=== PATIENT | male | born 1955 | race African-American/Black ===

== ENCOUNTER 2017-01-04 12:42 | Inpatient (IN) | payer OTHER ==
--- NOTE | 2017-01-04 13:50 | PDOC ---
History of Present Illness - General Chief Complaint: Chest Pain Stated Complaint: CHEST PAIN Time Seen by Provider: 01/04/17 13:28 History Source: Patient Exam Limitations: No Limitations - History of Present Illness Initial Comments: 01/04/17 13:46 CHIEF COMPLAINT: Chest pain HISTORY OF PRESENT ILLNESS: This is a 59-year-old male former smoker with a history of ESRD s/p right renal transplant ([facility]) with CKD, COPD, and biventricular CHF who presents complaining of sharp/pinching left-sided chest pain for two days. He reports working out on Wednesday, Wednesday, and Wednesday and states that he may have strained a muscle. Chest pain is worse with deep breathing and with movement and radiates to the left shoulder. It is not relieved with Tylenol and prevents him from sleeping. He denies cough, fevers/ chills, or any other symptoms. V/s on arrival are unremarkable. PCP/Event Marketing Coordinator is Dr. Castrejon Transplant surgeon is Dr. Hector Bernstein. 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 REVIEW OF SYSTEMS: GENERAL/CONSTITUTIONAL: No fever or chills. No weakness. No weight change. HEAD, EYES, EARS, NOSE AND THROAT: No change in vision. No ear pain or discharge. No sore throat. CARDIOVASCULAR: See HPI. RESPIRATORY: No cough, wheezing, or shortness of breath. GASTROINTESTINAL: No nausea, vomiting, diarrhea or constipation. GENITOURINARY: No dysuria, frequency, or change in urination. MUSCULOSKELETAL: No joint or muscle swelling or pain. No neck or back pain. SKIN: No rash or easy bruising. NEUROLOGIC: No headache, vertigo, loss of consciousness, or loss of sensation. PSYCHIATRIC: No depression or anxiety. ENDOCRINE: No increased thirst. No abnormal weight change. HEMATOLOGIC/LYMPHATIC: No anemia, easy bleeding, or history of blood clots. ALLERGIC/IMMUNOLOGIC: No hives or skin allergy. No latex allergy. PHYSICAL EXAM: GENERAL: The patient is awake, alert, and fully oriented, appears uncomfortable. HEAD: Normal with no signs of trauma. ENT: Pupils equal, round and reactive to light, extraocular movements intact, sclera anicteric, conjunctiva clear. Neck supple. LUNGS: Breath sounds diminished left base. No respiratory distress or use of accessory muscles. CV: RRR, S1/S2, soft systolic murmur. Cap refill < 2 sec. Pain reproducible with palpation of left intercostal muscles below nipple line and with twisting movements. ABDOMEN: Soft, non-distended, non-tender. EXTREMITIES: Normal range of motion, no edema. LUE AVF. NEUROLOGICAL: Normal speech, normal gait. CN II-XII grossly intact. PSYCH: Normal mood, normal affect. SKIN: Warm, dry, normal turgor, no rashes or lesions noted. Past History - Past Medical History Allergies/Adverse Reactions: Allergies Allergy/AdvReac Type Severity Reaction Status Date / Time No Known Allergies Allergy Verified 01/04/17 12:48 Home Medications: Ambulatory Orders Mycophenolate Mofetil [Cellcept] 250 mg PO DAILY 03/24/14 Tacrolimus [Prograf] 7 mg PO BID 03/24/14 Allopurinol [Zyloprim -] 100 mg PO PRN 11/18/15 Sodium Bicarbonate 1,300 mg PO BID 11/18/15 Carvedilol [Coreg -] 12.5 mg PO BID #60 tablet 11/21/15 Ergocalciferol (Vitamin D2) [Vitamin D2] 2,000 unit PO DAILY 01/04/17 Furosemide 20 mg PO BID 01/04/17 Anemia: No Asthma: No Cancer: No Cardiac Disorders: Yes CVA: No COPD: Yes CHF: Yes Dementia: No Diabetes: No Dialysis: Yes (HX FISTULA) GI Disorders: No Disorders: No HTN: Yes Hypercholesterolemia: No Liver Disease: No Seizures: No Thyroid Disease: No - Surgical History Abdominal Surgery: No Appendectomy: No Cardiac Surgery: No Cholecystectomy: No Lung Surgery: No Neurologic Surgery: No Orthopedic Surgery: No - Psycho/Social/Smoking Cessation Hx Suicidal Ideation: No Smoking History: Current every day smoker Have you smoked in the past 12 months: Yes Number of Cigarettes Smoked Daily: 10 If you are a former smoker, when did you quit?: 2.5 months ago Information on smoking cessation initiated: No 'Breaking Loose' booklet given: 11/18/15 Hx Alcohol Use: No Drug/Substance Use Hx: Yes Substance Use Type: Marijuana Hx Substance Use Treatment: No *Physical Exam - Vital Signs Last Vital Signs Temp Pulse Resp BP Pulse Ox 98.2 F 74 18 135/78 98 01/04/17 12:43 01/04/17 12:43 01/04/17 12:43 01/04/17 12:43 01/04/17 12:43 Heart Score/ECG Review - ECG Intrepretation Comment:: 01/04/17 19:09 SR at 75bpm. New TWI in lateral leads when compared to prior EKG of 11/19/15. ED Treatment Course - LABORATORY CBC & Chemistry Diagram: 01/05/17 06:05 01/05/17 06:05 - RADIOLOGY Radiology Studies Ordered: Category Date Time Status CHEST X-RAY PORTABLE* [RAD] Stat Radiology 01/04/17 13:29 Ordered Medical Decision Making - Medical Decision Making 01/04/17 15:56 A/P: 61 year old male with atypical chest pain; differential includes MS etiology, ACS, PNA, less likely PTX or PE. 1. EKG 2. Labs including CBC, comp, PT/INR, cardiac profile 3. CXR 4. Morphine 4mg IVP for pain 01/04/17 16:03 CXR: Left basilar opacity with effacement of the diaphragm and blunting of the costophrenic angle. Findings concerning for pleural effusion and compressive atelectasis. Will obtain CT to better characterize. 01/04/17 16:47 Trop elevated at 0.12. 01/04/17 17:39 CT Chest: Left basilar opacification containing air bronchograms suggestive of an infiltrate. COmpressive atelectasis. Small right lower lobe opacity suggestive of additional infiltrate. 0.8 x 0.4cm irregular opacity within the right pulmonary apex with adjacent linerar opacity probably on the basis of scarring, less likely representing pulmary nodule. 3 month followup suggested. Prominent central pulmonary vasculature suggestive of pulmonary hypertension. 3.4cm fluid structure/cyst within the partially imaged upper pole of the left kidney. 01/04/17 18:[address] Smith. Discussed with Dr. Sachin Castrejon- [facility] Hospitalist (not service). Accepted by Dr. Rollins. *DC/Admit/Observation/Transfer Diagnosis at time of Disposition: Renal transplant recipient, Multifocal pneumonia, Pleural effusion Chest pain Qualifiers: Chest pain type: other chest pain Qualified Code(s): R07.89 - Other chest pain - Discharge Dispostion Admit: Yes
[2017-01-04] MEDS ORDERED: morphine CARPU-JECT 4 MG/1 ML DISP.SYRIN IVPUSH ONE ×2 (14:00→17:45)
[2017-01-04 14:10] LABS: BASOPHIL 0.8 % (0-2.0); EOSINOPHIL 5.6 % (0-4.5); MCH 28.2 pg (25.7-33.7); MCHC 31.8 g/dl (32.0-35.9); MEAN CELL VOLUME 88.8 fl (80-96); MEAN PLT VOLUME 9.8 fl (7.5-11.1); NEUTROPHILS 75.9 % (42.8-82.8); PLATELET COUNT 179 K/MM3 (134-434); RDW 15.9 % (11.9-15.9); WHITE BLOOD COUNT 11.9 K/mm3 (4.0-10.0)
[2017-01-04] MEDS ORDERED: morphine CARPU-JECT 10 MG/1 ML DISP.SYRIN ONE ×2 (14:11→17:54)
[2017-01-04 14:23] LABS: INR 1.14 (0.82-1.09); PROTHROMBIN TIME (PATIENT) 12.6 SEC (9.98-11.88)
[2017-01-04 16:35] LABS: ALBUMIN 3.5 g/dl (3.4-5.0); ANION GAP 12 (8-16); BILIRUBIN,TOTAL 0.9 mg/dL (0.2-1.0); CO2 22 mmol/L (21-32); CREATININE 5.3 mg/dL (0.7-1.3); GLUCOSE,RANDOM 98 mg/dL (74-106); SGOT/AST 7 U/L (15-37); SGPT/ALT 20 U/L (12-78)
[2017-01-04 16:38] LABS: ALK PHOS 125 U/L (45-117); CPK 110 IU/L (39-308); TROPONIN I 0.12 ng/ml (0.00-0.05)
[2017-01-04] MEDS ORDERED: CEFTRIAXONE 1 GM in DEXTROSE 5%-WATER - 50 ML IVPB ONE (17:31)
[2017-01-04] MEDS ORDERED: AZITHROMYCIN IVPB 500 MG in DEXTROSE 5%-WATER - 250 ML IVPB ONE (17:31)
[2017-01-04] MEDS ORDERED: cefTRIAXone SODIUM 1 GM VIAL ONE (17:55)
[2017-01-04] MEDS ORDERED: AZITHROMYCIN IVPB 250 ML IVPB ONE (17:55)
--- NOTE | 2017-01-04 19:53 | PN ---
Teaching Attending Note Name of Resident: Mariela Hammer ATTENDING PHYSICIAN STATEMENT I saw and evaluated the patient. I reviewed the resident's note and discussed the case with the resident. I agree with the resident's findings and plan as documented. SUBJECTIVE: 61 M with pmhx of HTN, COPD, R. Renal Transplant, CKD V, States that he has had left pinching pain on inspiration. States he took tylenol to try and alleviate pain. Notes his pain is slightly improved. Notes chest pain only on inspiration , non-radiating and worsened with inspiration. OBJECTIVE: Physical: VS: Vital Signs Period Temp Pulse Resp BP Sys/Ly Pulse Ox Last 24 Hr 98.2 F-98.3 F 71-74 18-22 135-139/77-78 94-98 GEN: NAD, Sitting in bed, able to speak full sentences HEENT: NCAT, PERRL, Throat without erythema or exudates CARD: RRR S1, S2 RESP: Coarse breath sounds bilateral bases ABD: BSx4, NTD to palpation EXT: -C/C/E CBCD WBC 11.9 K/mm3 (4.0-10.0) H 01/04/17 14:00 RBC 4.28 M/mm3 (4.00-5.60) 01/04/17 14:00 Hgb 12.1 GM/dL (11.7-16.9) 01/04/17 14:00 Hct 38.0 % (35.4-49) 01/04/17 14:00 MCV 88.8 fl (80-96) 01/04/17 14:00 MCHC 31.8 g/dl (32.0-35.9) L 01/04/17 14:00 RDW 15.9 % (11.9-15.9) 01/04/17 14:00 Plt Count 179 K/MM3 (134-434) 01/04/17 14:00 MPV 9.8 fl (7.5-11.1) 01/04/17 14:00 CMP Sodium 140 mmol/L (136-145) 01/04/17 15:00 Potassium 4.7 mmol/L (3.5-5.1) 01/04/17 15:00 Chloride 106 mmol/L (98-107) 01/04/17 15:00 Carbon Dioxide 22 mmol/L (21-32) 01/04/17 15:00 Anion Gap 12 (8-16) 01/04/17 15:00 BUN 68 mg/dL (7-18) H D 01/04/17 15:00 Creatinine 5.3 mg/dL (0.7-1.3) H 01/04/17 15:00 Creat Clearance w eGFR 11.16 (>60) 01/04/17 15:00 Random Glucose 98 mg/dL (74-106) 01/04/17 15:00 Calcium 8.0 mg/dL (8.5-10.1) L 01/04/17 15:00 Total Bilirubin 0.9 mg/dL (0.2-1.0) 01/04/17 15:00 AST 7 U/L (15-37) L D 01/04/17 15:00 ALT 20 U/L (12-78) D 01/04/17 15:00 Alkaline Phosphatase 125 U/L (45-117) H 01/04/17 15:00 Total Protein 7.0 g/dl (6.4-8.2) 01/04/17 15:00 Albumin 3.5 g/dl (3.4-5.0) 01/04/17 15:00 CARDIAC ENZYMES Creatine Kinase 110 IU/L (39-308) 01/04/17 15:00 Troponin I 0.12 ng/ml (0.00-0.05) H D 01/04/17 15:00 CT CHEST WO CON: Small to moderate L. plueral effusion, L. infilterate, small R. Infilterate, 0.04 cm irregular opacity most likely scar less likely nodule (fu CT 3 months), 3.4 cm Cyst L. Upper pole #Echo 11/23 EF 36%, Mod-Severe MR, Mod- Severe TR,IN RVSP. Mod. Pulm HTN, Mild- Mod , Mod-Severe AR, Mod VA. Ambulatory Orders Mycophenolate Mofetil [Cellcept] 500 mg PO DAILY 03/24/14 Tacrolimus [Prograf] 7 mg PO BID 03/24/14 Allopurinol [Zyloprim -] 100 mg PO PRN 11/18/15 Sodium Bicarbonate 1,300 mg PO BID 11/18/15 Carvedilol [Coreg -] 12.5 mg PO BID #60 tablet 11/21/15 Ergocalciferol (Vitamin D2) [Vitamin D2] 2,000 unit PO DAILY 01/04/17 Furosemide 20 mg PO BID 01/04/17 ASSESSMENT AND PLAN: 61 yo M with pmhx of ESRD s/p R. Renal Transplant, COPD, CKD V, CHF who presents with chest pain and found to have bilateral pneumonia 1.) Community Aquired Pneumonia- Bilateral - C/W Ceftriaxone/Azithromycin - Close monitoring of QtC - Urine Ags - Cx, if worsening broaden coverage as pt. is on immunosuppressive transplant meds 2.) Acute Hypoxic Respiratory Failure - Most Likely due to PNA - 2LNC - IF worsening ABG 3.) R. Renal Transplant - C/W Program/Cellcept- chk. levels - Cr 5.4 base 6.0 - FU with renal re cyst on L. Kidney- consider US 4.) CKD V - Cr @ baseline - Renally dose all meds 5.) COPD - Not in exacerbation - Nebs Prn 6.) Chronic Systolic Heart Failure - Not in exacerbation - C/W BB, not on Jj/ARB due to renal fxn 7.) Chest Pain- Atypical - Increased Troponin - Most likley due to RF/Deman - Trend Trop and EKG - Monitor on Tele 8.) Dvt Ppx - Heparin [address] in Med- Tele
--- NOTE | 2017-01-04 20:20 | HP ---
CHIEF COMPLAINT: "Left sided chest pain" PCP: Dr. Castrejon HISTORY OF PRESENT ILLNESS: Patient is a 59-year-old male with significant past medical history of Hypertension, COPD, right renal transplant (14 yrs ago), ESRD not on dialysis currently, CHF presented to the ED with the chief complaint of left sided chest pain x 2days. As per the patient, it started suddenly, located on the left side around the nipple area, aggravated on movement and deep inspiration and relieved in certain positions (sitting and turning towards the right side). It was not associated with nausea and vomiting. Denies abdominal pain ER course was notable for: (1) (2) (3) Recent Travel: PAST MEDICAL HISTORY: PAST SURGICAL HISTORY: Social History: Smoking: Alcohol: Drugs: Family History: Allergies No Known Allergies Allergy (Verified 01/04/17 12:48) HOME MEDICATIONS: Home Medications Medication Instructions Recorded Mycophenolate Mofetil [Cellcept] 500 mg PO DAILY 03/24/14 Tacrolimus [Prograf] 7 mg PO BID 03/24/14 Allopurinol [Zyloprim -] 100 mg PO PRN 11/18/15 Sodium Bicarbonate 1,300 mg PO BID 11/18/15 Carvedilol [Coreg -] 12.5 mg PO BID #60 tablet 11/21/15 Ergocalciferol (Vitamin D2) 2,000 unit PO DAILY 01/04/17 [Vitamin D2] Furosemide 20 mg PO BID 01/04/17 REVIEW OF SYSTEMS CONSTITUTIONAL: Absent: fever, chills, diaphoresis, generalized weakness, malaise, loss of appetite, weight change HEENT: Absent: rhinorrhea, nasal congestion, throat pain, throat swelling, difficulty swallowing, mouth swelling, ear pain, eye pain, visual changes CARDIOVASCULAR: Absent: chest pain, syncope, palpitations, irregular heart rate, lightheadedness , peripheral edema RESPIRATORY: Absent: cough, shortness of breath, dyspnea with exertion, orthopnea, wheezing, stridor, hemoptysis GASTROINTESTINAL: Absent: abdominal pain, abdominal distension, nausea, vomiting, diarrhea, constipation, melena, hematochezia GENITOURINARY: Absent: dysuria, frequency, urgency, hesitancy, hematuria, flank pain, genital pain MUSCULOSKELETAL: Absent: myalgia, arthralgia, joint swelling, back pain, neck pain SKIN: Absent: rash, itching, pallor HEMATOLOGIC/IMMUNOLOGIC: Absent: easy bleeding, easy bruising, lymphadenopathy, frequent infections ENDOCRINE: Absent: unexplained weight gain, unexplained weight loss, heat intolerance, cold intolerance NEUROLOGIC: Absent: headache, focal weakness or paresthesias, dizziness, unsteady gait, seizure, mental status changes, bladder or bowel incontinence PSYCHIATRIC: Absent: anxiety, depression, suicidal or homicidal ideation, hallucinations. PHYSICAL EXAMINATION Vital Signs - 24 hr 01/04/17 18:51 Temperature 98.3 F Pulse Rate [ 71 Left Radial] Respiratory 22 Rate Blood Pressure 139/77 [Left Arm] O2 Sat by Pulse 94 L Oximetry (%) GENERAL: Awake, alert, and fully oriented, in no acute distress. HEAD: Normal with no signs of trauma. EYES: Pupils equal, round and reactive to light, extraocular movements intact, sclera anicteric, conjunctiva clear. No lid lag. EARS, NOSE, THROAT: Ears normal, nares patent, oropharynx clear without exudates. Moist mucous membranes. NECK: Normal range of motion, supple without lymphadenopathy, JVD, or masses. LUNGS: Breath sounds equal, clear to auscultation bilaterally. No wheezes, and no crackles. No accessory muscle use. HEART: Regular rate and rhythm, normal S1 and S2 without murmur, rub or gallop. ABDOMEN: Soft, nontender, not distended, normoactive bowel sounds, no guarding, no rebound, no masses. No hepatomegaly or splenomegaly. MUSCULOSKELETAL: Normal range of motion at all joints. No bony deformities or tenderness. No CVA tenderness. UPPER EXTREMITIES: 2+ pulses, warm, well-perfused. No cyanosis. No clubbing. No peripheral edema. LOWER EXTREMITIES: 2+ pulses, warm, well-perfused. No calf tenderness. No peripheral edema. NEUROLOGICAL: Cranial nerves II-XII intact. Normal speech. Normal gait. PSYCHIATRIC: Cooperative. Good eye contact. Appropriate mood and affect. SKIN: Warm, dry, normal turgor, no rashes or lesions noted, normal capillary refill. ASSESSMENT/PLAN:
[2017-01-04] MEDS ORDERED: ACETAMINOPHEN 325 MG TABLET (FP) PO PRN (20:48)
--- NOTE | 2017-01-04 21:12 | HP ---
CHIEF COMPLAINT: Chest Pain PCP: Dr. Castrejon Transplant Surgeon: Dr. Hector Bernstein HISTORY OF PRESENT ILLNESS: Pt is a 61yo M with hx of ESRD s/p transplant +14years ago, HTN, HLD, COPD, CHF who presented with 2 days of sharp L sided pleuritic chest pain. Pain is located underneath L nipple, radiates to L shoulder. Exacerbated with specific movements and deep breathing, worse at night. The patient does not feel pressure , no palpitations. No burning epigastric pain, no GERD, not worse with meals. Pt states he has no cough, but feels he has sputum in his chest, cannot expectorate due to pain. No fevers, no chills, no sick contacts, no recent hospitalizations. Never had CP before. Some relief with morphine given in ER. ER course was notable for: (1) EKG - LVH (unchanged), TWI in V6 and aVL, Prolonged QT (unchanged) 475ms (2) CXR, CT (3) Troponin 0.12 (4) Morphine Recent Travel: Denies PAST MEDICAL HISTORY: ESRD s/p transplant, COPD, CHF, HTN, HLD PAST SURGICAL HISTORY: Renal transplant +14years ago Social History: Smokin cigarettes a day, daily smoker Alcohol: Occasional Drugs: Marijuana Family History: No family hx of heart disease Allergies No Known Allergies Allergy (Verified 01/04/17 12:48) Home Medication List Medication Instructions Recorded Confirmed Type Mycophenolate Mofetil [Cellcept] 250 mg PO DAILY 03/24/14 01/04/17 History Tacrolimus [Prograf] 7 mg PO BID 03/24/14 01/04/17 History Allopurinol [Zyloprim -] 100 mg PO PRN 11/18/15 01/04/17 History Sodium Bicarbonate 1,300 mg PO BID 11/18/15 01/04/17 History Ergocalciferol (Vitamin D2) 2,000 unit PO DAILY 01/04/17 01/04/17 History [Vitamin D2] Furosemide 20 mg PO BID 01/04/17 01/04/17 History Carvedilol 12.5mg PO BID REVIEW OF SYSTEMS CONSTITUTIONAL: Absent: fever, chills, diaphoresis, generalized weakness, malaise, loss of appetite, weight change HEENT: Absent: rhinorrhea, nasal congestion, throat pain, throat swelling, difficulty swallowing, mouth swelling, ear pain, eye pain, visual changes CARDIOVASCULAR: Absent: syncope, palpitations, irregular heart rate, lightheadedness, peripheral edema Present: chest pain RESPIRATORY: Absent: cough, shortness of breath, dyspnea with exertion, orthopnea, wheezing, stridor, hemoptysis Present: chest pain upon inspiration and moemnt GASTROINTESTINAL: Absent: abdominal pain, abdominal distension, nausea, vomiting, diarrhea, constipation, melena, hematochezia GENITOURINARY: Absent: dysuria, frequency, urgency, hesitancy, hematuria, flank pain, genital pain MUSCULOSKELETAL: Absent: myalgia, arthralgia, joint swelling, back pain, neck pain SKIN: Absent: rash, itching, pallor HEMATOLOGIC/IMMUNOLOGIC: Absent: easy bleeding, easy bruising, lymphadenopathy, frequent infections ENDOCRINE: Absent: unexplained weight gain, unexplained weight loss, heat intolerance, cold intolerance NEUROLOGIC: Absent: headache, focal weakness or paresthesias, dizziness, unsteady gait, seizure, mental status changes, bladder or bowel incontinence PSYCHIATRIC: Absent: anxiety, depression, suicidal or homicidal ideation, hallucinations. PHYSICAL EXAMINATION Vital Signs - 24 hr 01/04/17 01/04/17 18:51 20:40 Temperature 98.3 F Pulse Rate [ 71 Left Radial] Respiratory 22 Rate Blood Pressure 139/77 [Left Arm] O2 Sat by Pulse 94 L 97 Oximetry (%) GEN: AAOx3, moderate distress with certain movements causing sharp CP HEENT: PERRLA, EOMi, No cervical LAD LUNG: Difficult to assess due to pain, bilateral crackles, good air intake HEART: S1, S2, 2/6 systolic murmur in LLSB, no TTP to chest, no rashes ABD: Soft, NT, ND, normoactive BS MSK: Normal ROM, 5/5 in all extremities, palpable thrill in L arm NEURO: CN 2-12 intact, sensation is equal and intact in all extremities and face , MSK 5/5 in all extremities, Reflexes 2+ Laboratory Last Values WBC 11.9 K/mm3 (4.0-10.0) H 01/04/17 14:00 RBC 4.28 M/mm3 (4.00-5.60) 01/04/17 14:00 Hgb 12.1 GM/dL (11.7-16.9) 01/04/17 14:00 Hct 38.0 % (35.4-49) 01/04/17 14:00 MCV 88.8 fl (80-96) 01/04/17 14:00 MCH 28.2 pg (25.7-33.7) 01/04/17 14:00 MCHC 31.8 g/dl (32.0-35.9) L 01/04/17 14:00 RDW 15.9 % (11.9-15.9) 01/04/17 14:00 Plt Count 179 K/MM3 (134-434) 01/04/17 14:00 MPV 9.8 fl (7.5-11.1) 01/04/17 14:00 Neutrophils % 75.9 % (42.8-82.8) 01/04/17 14:00 Lymphocytes % 9.6 % (8-40) 01/04/17 14:00 Monocytes % 8.1 % (3.8-10.2) 01/04/17 14:00 Eosinophils % 5.6 % (0-4.5) H 01/04/17 14:00 Basophils % 0.8 % (0-2.0) 01/04/17 14:00 INR 1.14 (0.82-1.09) 01/04/17 14:00 Sodium 140 mmol/L (136-145) 01/04/17 15:00 Potassium 4.7 mmol/L (3.5-5.1) 01/04/17 15:00 Chloride 106 mmol/L (98-107) 01/04/17 15:00 Carbon Dioxide 22 mmol/L (21-32) 01/04/17 15:00 Anion Gap 12 (8-16) 01/04/17 15:00 BUN 68 mg/dL (7-18) H D 01/04/17 15:00 Creatinine 5.3 mg/dL (0.7-1.3) H 01/04/17 15:00 Creat Clearance w eGFR 11.16 (>60) 01/04/17 15:00 Random Glucose 98 mg/dL (74-106) 01/04/17 15:00 Calcium 8.0 mg/dL (8.5-10.1) L 01/04/17 15:00 Total Bilirubin 0.9 mg/dL (0.2-1.0) 01/04/17 15:00 AST 7 U/L (15-37) L D 01/04/17 15:00 ALT 20 U/L (12-78) D 01/04/17 15:00 Alkaline Phosphatase 125 U/L (45-117) H 01/04/17 15:00 Creatine Kinase 110 IU/L (39-308) 01/04/17 15:00 Troponin I 0.12 ng/ml (0.00-0.05) H D 01/04/17 15:00 Total Protein 7.0 g/dl (6.4-8.2) 01/04/17 15:00 Albumin 3.5 g/dl (3.4-5.0) 01/04/17 15:00 Active Medications Generic Name Dose Route Start Last Admin Trade Name Freq PRN Reason Stop Dose Admin Acetaminophen 650 mg 01/04/17 20:48 Tylenol - PO Q4H PRN FEVER OR PAIN Allopurinol 100 mg 01/05/17 10:00 Zyloprim - PO DAILY [facility] Carvedilol 12.5 mg 01/04/17 22:00 Coreg - PO BID [facility] Furosemide 20 mg 01/04/17 22:00 Lasix - PO BID [facility] Ceftriaxone Sodium 50 mls @ 100 mls/hr 01/05/17 10:00 Rocephin 1gm Ivpb (Pre-Docked) IVPB DAILY [facility] Azithromycin 250 mg/ Dextrose 250 mls @ 250 mls/hr 01/05/17 10:00 IVPB DAILY [facility] Mycophenolate Mofetil 250 mg 01/05/17 10:00 Cellcept - PO DAILY [facility] Non-Formulary Medication 2,000 unit 01/05/17 10:00 Ergocalciferol (Vitamin D2) [Vitamin D2] PO DAILY [facility] Non-Formulary Medication 7 mg 01/04/17 22:00 Tacrolimus [Prograf] PO BID [facility] Sodium Bicarbonate 1,300 mg 01/04/17 22:00 Sodium Bicarbonate - PO BID [facility] Imaging: CXR: L basilar opacity, blunt L CVA CT Chest: L pleural effusion + L basilar opacification w/ air bronchogram suggestive of infiltrate w/ atelectasis. Small RLL opacity suggestive of infiltrate. R apical irregular opacity. Small bilateral apical subpleural bullae. Cardiomegaly. Prominent central pulmonary vasculature suggestive of Pulm HTN. 3.4cm fluid structure/cyst within upper pole L kidney. ASSESSMENT/PLAN: Pt is a 59yo M with ESRD s/p transplant, COPD, CHF, HTN, HLD who presented with 2 days of sharp L sided pleuritic chest pain, worse with movement. Elevated WBC on labs. Admitted for Bilateral Community Acquired PNA # Atypical CP - likely secondary to bilateral CAP, possible MSK component - Less likely cardiac - Continue IV Ceftriaxone 1g daily + IV Azithro 500mg daily - Consider broadening abx due to immunocomp state - Watch for QTc prolongation w/ Azithro - Sputum Cx - Urine Ag for Legionella - Pain control w/ Percocet Q4 PRN - Will continue immunosuppressants, defer to Renal if need to discontinue in setting of acute infection - Cardio Consult due to prior cardiac hx - CBC in AM # Elevated Troponin - likely secondary to ESRD, poor clearance - Troponin 0.12 x 2, repeat in AM # Hx of CAD - Recent stress test in 2016 showed EF 34% small anterolateral reversible defect. - Echo in 2016 shows moderate LV dilation, reduced syst EF, severe LV hypokinesis. - Pt is unsure of whether he had cardiac cath procedure. Does not recall stent placements. - Not on ASA - Cardio consult, main clerical assigner is in [facility] # Elevated ALP - No abdominal pain - Previously elevated in 2016, could be due to poor clearance # ESRD s/p Transplant - Cr is 5.3 (baseline 6.4), not on dialysis, makes urine - Renal Consult w/ Dr. Castrejon - Continue immunosuppressants Cellcept 250mg QD + Tacrolimus 7mg BID + Sodium Bicarb 1,300mg BID - Verified immunosuppressant med list with patient - BMP in AM # CHF - not in exacerbation - EF 34% - Continue Lasix 20mg QD - Not on FLYNN/ARB due to ESRD # COPD - not on meds, not in exacerbation - No home meds - Duonebs PRN - O2 2L PRN - Encouraged abstinence from smoking # L kidney structure/cyst - Monitor as outpatient # FEN - Fluids: None needed - Electrolytes: No abnormalities - Nutrition: Renal/Sodium controlled diet # Prophylaxis - DVT: Heparin SQ TID - GI: Not indicated - Deconditioning: PT ordered # Dispo - Admit to Tele - F/u Renal consult for continuation of immunosuppressants - F/u cardio consult - F/u sputum cx, consider broader abx coverage Visit type - Emergency Visit Emergency Visit: Yes ED Registration Date: 01/04/17 Care time: The patient presented to the Emergency Department on the above date and was hospitalized for further evaluation of their emergent condition. - New Patient This patient is new to me today: Yes Date on this admission: 01/05/17 - Critical Care Critical Care patient: No
[2017-01-04] MEDS ORDERED: ALLOPURINOL 100 MG TABLET (FP) PO SCH (21:45)
[2017-01-04] MEDS ORDERED: SODIUM BICARBONATE 650 MG TABLET PO SCH (22:00)
[2017-01-04] MEDS ORDERED: TACROLIMUS 7 MG PO SCH (22:00)
[2017-01-04] MEDS ORDERED: HEPARIN NA (PORCINE) 5,000 UNITS/ML 1ML VIAL SQ SCH (22:00)
[2017-01-04] MEDS ORDERED: CARVEDILOL 12.5 MG TABLET (FP) PO SCH (22:00)
[2017-01-04] MEDS ORDERED: FUROSEMIDE 20 MG TABLET (FP) PO SCH (22:00)
[2017-01-04] MEDS ORDERED: ALBUTEROL SO4 2.5/IPRATROPIUM 0.5 INH SOL 3 ML VIAL.NEB. NEB PRN ×2 (22:05→22:31)
[2017-01-04] MEDS: CARVEDILOL 12.5 MG TABLET (FP) PO SCH (22:59)
[2017-01-04] MEDS: TACROLIMUS ANHYDROUS 1 MG CAPSULE (NF) PO SCH (23:00)
[2017-01-04] MEDS: SODIUM BICARBONATE 650 MG TABLET PO SCH (23:00)
[2017-01-05] MEDS ORDERED: oxyCODONE HCL 5 MG TABLET PO ONE (01:52)
[2017-01-05 01:59] VITALS: BMI 26.1
[2017-01-05] MEDS ORDERED: FUROSEMIDE 20 MG TABLET (FP) PO SCH (06:00)
[2017-01-05] MEDS: oxyCODONE HCL 5 MG TABLET PO PRN ×4 (06:22→23:46)
[2017-01-05] MEDS ORDERED: morphine CARPU-JECT 4 MG/1 ML DISP.SYRIN IVPUSH PRN (08:09)
[2017-01-05 08:25] LABS: MCH 28.6 pg (25.7-33.7); MCHC 32.5 g/dl (32.0-35.9); MEAN CELL VOLUME 87.9 fl (80-96); MEAN PLT VOLUME 10.3 fl (7.5-11.1); PLATELET COUNT 194 K/MM3 (134-434); RDW 15.6 % (11.9-15.9); WHITE BLOOD COUNT 10.6 K/mm3 (4.0-10.0)
[2017-01-05] MEDS ORDERED: HYDROmorphone HCL CARPU-JECT 1 MG/1 ML DISP.SYRIN ONE (08:27)
[2017-01-05] MEDS ORDERED: PT OWN MED DRAWER 7, Y5N ONE ×4 (08:28→22:16)
[2017-01-05] MEDS ORDERED: HYDROmorphone HCL CARPU-JECT 1 MG/1 ML DISP.SYRIN IVPB ONE (08:30)
[2017-01-05] MEDS: SODIUM BICARBONATE 650 MG TABLET PO SCH ×3 (08:31→22:17)
[2017-01-05] MEDS: CHOLECALCIFEROL (VITAMIN D3) 1,000 UNIT TABLET (FP) PO SCH ×2 (08:31→10:06)
[2017-01-05] MEDS: ALLOPURINOL 100 MG TABLET (FP) PO SCH ×2 (08:31→10:06)
[2017-01-05] MEDS: CARVEDILOL 12.5 MG TABLET (FP) PO SCH ×3 (08:32→22:18)
[2017-01-05] MEDS: TACROLIMUS ANHYDROUS 1 MG CAPSULE (NF) PO SCH ×2 (08:33→10:06)
[2017-01-05 08:47] LABS: CALCIUM 8.1 mg/dL (8.5-10.1)
[2017-01-05 08:51] LABS: ANION GAP 11 (8-16); CO2 22 mmol/L (21-32); CREATININE 5.2 mg/dL (0.7-1.3); GLUCOSE,RANDOM 116 mg/dL (74-106)
[2017-01-05] MEDS ORDERED: cefTRIAXone SODIUM 1 GM VIAL ONE (09:32)
[2017-01-05] MEDS ORDERED: DEXTROSE 5%-WATER - 50 ML IVPB ONE ×2 (09:33→17:09)
[2017-01-05] MEDS ORDERED: AZITHROMYCIN IVPB 250 MG in DEXTROSE 5%-WATER - 250 ML IVPB SCH (10:00)
[2017-01-05] MEDS ORDERED: MYCOPHENOLATE MOFETIL 500 MG TABLET PO SCH ×3 (10:00)
[2017-01-05] MEDS ORDERED: PATIENT'S OWN MEDICATION (NON-FORMULARY) (Ergocalciferol (Vitamin D2) [Vitamin D2] 2,000 U PO SCH (10:00)
[2017-01-05] MEDS ORDERED: CEFTRIAXONE 50 ML IVPB SCH (10:00)
[2017-01-05] MEDS ORDERED: CEFTRIAXONE 1 GM in DEXTROSE 5%-WATER - 50 ML IVPB SCH (10:00)
--- NOTE | 2017-01-05 10:36 | CON.NEP ---
Consult Consult Specialty:: Nephrology Reason for Consultation:: ESRD s/p Renal Transplant with CKD - History of Present Illness Chief Complaint: Left sided chest pain and SOB History of Present Illness: This is a 61 year old Gentleman with PMhx of ESRD s/p Renal Transplant with CKD/ Chronic allograft nephropathy, Hypertension, RCC s/p Right Kidney Nephrectomy who presented with 3 day history of pleuretic chest pain and SOB and found to have a PNA. Pt denies any sick contacts. Pt is on immunosuppressive meds ( Tacrolimus and Cellcept). No Fever, chills, Abd pain, N/V/D. Able to eat a small amount. Makes a good amount of urine. - History Source History Provided By: Patient Limitations to Obtaining History: No Limitations - Past Medical History Cardio/Vascular: Yes: HTN Renal/: Yes: Renal Failure, Renal Inusuff - Past Surgical History Past Surgical History: Yes: Kidney Transplant - Alcohol/Substance Use Hx Alcohol Use: No - Smoking History Smoking history: Current every day smoker Have you smoked in the past 12 months: Yes Aproximately how many cigarettes per day: 10 If you are a former smoker, when did you quit?: 2.5 months ago Home Medications - Allergies Allergies/Adverse Reactions: Allergies Allergy/AdvReac Type Severity Reaction Status Date / Time No Known Allergies Allergy Verified 01/04/17 12:48 - Home Medications Home Medications: Ambulatory Orders Mycophenolate Mofetil [Cellcept] 250 mg PO DAILY 03/24/14 Tacrolimus [Prograf] 7 mg PO BID 03/24/14 Allopurinol [Zyloprim -] 100 mg PO PRN 11/18/15 Sodium Bicarbonate 1,300 mg PO BID 11/18/15 Carvedilol [Coreg -] 12.5 mg PO BID #60 tablet 11/21/15 Ergocalciferol (Vitamin D2) [Vitamin D2] 2,000 unit PO DAILY 01/04/17 Furosemide 20 mg PO BID 01/04/17 Family Disease History - Family Disease History Family History: Unremarkable Review of Systems - Review of Systems Constitutional: reports: Lethargy, Loss of Appetite Eyes: reports: No Symptoms HENT: reports: No Symptoms Neck: reports: No Symptoms Cardiovascular: reports: Chest Pain, Shortness of Breath Respiratory: reports: Cough, SOB Gastrointestinal: reports: No Symptoms Genitourinary: reports: No Symptoms Breasts: reports: No Symptoms Reported Musculoskeletal: reports: No Symptoms Neurological: reports: No Symptoms Endocrine: reports: No Symptoms Nephrology Consult - Height Height: 6 ft - Weight Weight: 192 lb 9.6 oz - BMI Body Mass Index (BMI): 26.1 - Lab Results CBC,BMP: CBC, BMP 01/05/17 06:05 01/05/17 06:05 Anion Gap: Anion Gap Anion Gap 11 (8-16) 01/05/17 06:05 - Imaging Chest X-ray: Image Reviewed Cat Scan: Image Reviewed - Physical Examination Vital Signs: Vital Signs Temperature 98.4 F 01/05/17 05:51 Pulse Rate 76 01/05/17 05:51 Respiratory Rate 20 01/05/17 05:51 Blood Pressure 176/94 01/05/17 05:51 O2 Sat by Pulse Oximetry (%) 94 L 01/04/17 22:00 Constitutional: Yes: Mild Distress Eyes: Yes: Conjunctiva Clear HENT: Yes: Atraumatic, Normocephalic Neck: Yes: Supple Cardiovascular: Yes: Regular Rate and Rhythm, S1, S2. No: Murmur, Rub Respiratory: Yes: Regular, Rhonchi Gastrointestinal: Yes: Normal Bowel Sounds, Soft. No: Tenderness Renal/: Yes: Other (no graft tenderness). No: Bladder Distention, CVA Tenderness - Left Edema: No Integumentary: Yes: WNL Problem List - Problems (1) Multifocal pneumonia Code(s): J18.9 - PNEUMONIA, UNSPECIFIED ORGANISM (2) Pleural effusion Code(s): J90 - PLEURAL EFFUSION, NOT ELSEWHERE CLASSIFIED (3) Renal transplant recipient Code(s): Z94.0 - KIDNEY TRANSPLANT STATUS (4) ESRD (end stage renal disease) Code(s): N18.6 - END STAGE RENAL DISEASE (5) HTN (hypertension) Code(s): I10 - ESSENTIAL (PRIMARY) HYPERTENSION Qualifiers: Hypertension type: essential hypertension Qualified Code(s): I10 - Essential (primary) hypertension Assessment/Plan 61 year old Gentleman with PMhx of ESRD s/p Renal Transplant with CKD/Chronic allograft nephropathy, Hypertension, RCC s/p Right Kidney Nephrectomy who presented with 3 day history of pleuretic chest pain and SOB and found to have a PNA. 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 BUN/Cr stable (last outpatient labs from November showed BUN/Cr of 76/6.3) no acute indication for [facility] N[facility]SE at this time hold Cellcept for now given infection continue tacrolimus at home dose Check tacrolimus level this evening at 9 PM before evening dose of tacrolimus start adalberto IVF hydration Trend BUN/Cr #Pna in immunocompromised pt ID consult for further Abx management Pt with eosinphilia (peripheral) -? etiology pt is chronic smoker f/u cultures ICU/Pulmonary follow up #Hypertension Continue Coreg if BP consistently > 160/100 would consider addition of CCB no FLYNN/ARB given very low EF thank you Will follow Filipe Stephenson DO
[2017-01-05] MEDS ORDERED: SODIUM CHLORIDE 1,000 ML IV SCH (11:00)
[2017-01-05 11:35] LABS: BASOPHIL (MANUAL) 1 % (0-2.0); PLATELET ESTIMATE ADEQUATE (NORMAL)
[2017-01-05] MEDS: ACETAMINOPHEN 325 MG TABLET (FP) PO PRN ×3 (12:01→23:49)
[2017-01-05] MEDS ORDERED: HYDROmorphone HCL CARPU-JECT 1 MG/1 ML DISP.SYRIN IVPUSH ONE (12:54)
--- NOTE | 2017-01-05 13:15 | CON.CARD ---
Consult Consult Specialty:: Cardiology Referred by:: Hospitalist Reason for Consultation:: Cardiac evaluation - History of Present Illness Chief Complaint: Chest pain and shortness of breath History of Present Illness: Patient is a 61 year old male with underlying history of ESRD status post renal transplant, history of nephrectomy (all followed at [facility]), history of COPD, hypertension and severe left ventricular systolic dysfunction with low LVEF and valvular heart disease including mild to moderate aortic valve stenosis, moderate to severe aortic valve regurgitation, moderate to severe mitral valve and tricuspid valve regurgitation and moderate pulmonary hypertension (echocardiography in 2016). He has been followed by a copy camera operator in [facility] where his breaker unit assembler and transplant team is also. He presents with left sided chest pain and increase in shortness of breath. CXR reveals cardiomegaly and left pleural effusion. CT of the chest also reveals left pleural effusion and infiltrates. Currently he is admitted for further management of pneumonia. He denies paroxysmal nocturnal dyspnea or orthopnea. He denies fever or chills. Denies headache or lightheadedness. Patient complained of productive cough, but improved this am. He was started on antibiotics. Currently he is on telemetry unit. Student Education Specialist: Corinna Urias MD at [facility] Panel Beater: Hector Bernstein MD at [facility] - History Source History Provided By: Patient, Medical Record Limitations to Obtaining History: No Limitations - Past Medical History Cardio/Vascular: Yes: CHF, HTN, Hyperlipdemia Renal/: Yes: Renal Failure, Renal Inusuff, Other (Post renal transplant) - Past Surgical History Past Surgical History: Yes: Kidney Transplant - Alcohol/Substance Use Hx Alcohol Use: No - Smoking History Smoking history: Current every day smoker Have you smoked in the past 12 months: Yes Aproximately how many cigarettes per day: 10 If you are a former smoker, when did you quit?: 2.5 months ago Home Medications - Allergies Allergies/Adverse Reactions: Allergies Allergy/AdvReac Type Severity Reaction Status Date / Time No Known Allergies Allergy Verified 01/04/17 12:48 - Home Medications Home Medications: Ambulatory Orders Mycophenolate Mofetil [Cellcept] 250 mg PO DAILY 03/24/14 Tacrolimus [Prograf] 7 mg PO BID 03/24/14 Allopurinol [Zyloprim -] 100 mg PO PRN 11/18/15 Sodium Bicarbonate 1,300 mg PO BID 11/18/15 Carvedilol [Coreg -] 12.5 mg PO BID #60 tablet 11/21/15 Ergocalciferol (Vitamin D2) [Vitamin D2] 2,000 unit PO DAILY 01/04/17 Furosemide 20 mg PO BID 01/04/17 Review of Systems - Review of Systems Constitutional: denies: Chills, Fever Cardiovascular: reports: Chest Pain, Shortness of Breath. denies: Palpitations Respiratory: reports: Cough, SOB, SOB on Exertion. denies: Hemoptysis, Orthopnea, PND Gastrointestinal: denies: Abdominal Pain, Constipation, Diarrhea, Melena, Nausea , Rectal Bleeding, Vomiting Neurological: denies: Dizziness, Headache, Seizure, Syncope Vital Signs: Vital Signs Temperature 98.5 F 01/05/17 10:00 Pulse Rate 72 01/05/17 10:00 Respiratory Rate 20 01/05/17 10:00 Blood Pressure 152/91 01/05/17 10:00 O2 Sat by Pulse Oximetry (%) 96 01/05/17 10:00 Neck: Yes: Supple Respiratory: Yes: Diminished Gastrointestinal: Yes: Normal Bowel Sounds, Soft. No: Tenderness Cardiovascular: Yes: Regular Rate and Rhythm JVD: No Carotid Bruit: No PMI: Non-Displaced Heart Sounds: Yes: S1, S2 Edema: No - Other Data Labs, Other Data: CBC, BMP 01/05/17 06:05 01/05/17 06:05 INR, PTT INR 1.14 (0.82-1.09) 01/04/17 14:00 Troponin, BNP 01/05/17 01/05/17 01:30 06:05 Troponin I 0.12 H 0.10 H Laboratory Results - last 24 hr 01/04/17 01/04/17 01/04/17 14:00 14:00 14:00 WBC 11.9 H RBC 4.28 Hgb 12.1 Hct 38.0 MCV 88.8 MCH 28.2 MCHC 31.8 L RDW 15.9 Plt Count 179 MPV 9.8 Neutrophils % 75.9 Neutrophils % (Manual) Lymphocytes % 9.6 Lymphocytes % (Manual) Monocytes % 8.1 Monocytes % (Manual) Eosinophils % 5.6 H Eosinophils % (Manual) Basophils % 0.8 Basophils % (Manual) Platelet Estimate INR 1.14 Sodium Cancelled Potassium Cancelled Chloride Cancelled Carbon Dioxide Cancelled Anion Gap Cancelled BUN Cancelled Creatinine Cancelled Creat Clearance w eGFR Cancelled Random Glucose Cancelled Calcium Cancelled Total Bilirubin Cancelled AST Cancelled ALT Cancelled Alkaline Phosphatase Cancelled Creatine Kinase Cancelled Troponin I Cancelled Total Protein Cancelled Albumin Cancelled 01/04/17 01/05/17 01/05/17 15:00 01:30 06:05 WBC 10.6 H RBC 4.31 Hgb 12.3 Hct 37.9 MCV 87.9 MCH 28.6 MCHC 32.5 RDW 15.6 Plt Count 194 MPV 10.3 Neutrophils % Neutrophils % (Manual) 79 Lymphocytes % Lymphocytes % (Manual) 7 L Monocytes % Monocytes % (Manual) 9 Eosinophils % Eosinophils % (Manual) 4 Basophils % Basophils % (Manual) 1 Platelet Estimate Adequate INR Sodium 140 Potassium 4.7 Chloride 106 Carbon Dioxide 22 Anion Gap 12 BUN 68 H D Creatinine 5.3 H Creat Clearance w eGFR 11.16 Random Glucose 98 Calcium 8.0 L Total Bilirubin 0.9 AST 7 L D ALT 20 D Alkaline Phosphatase 125 H Creatine Kinase 110 Troponin I 0.12 H D 0.12 H Total Protein 7.0 Albumin 3.5 01/05/17 01/05/17 06:05 06:05 WBC RBC Hgb Hct MCV MCH MCHC RDW Plt Count MPV Neutrophils % Neutrophils % (Manual) Lymphocytes % Lymphocytes % (Manual) Monocytes % Monocytes % (Manual) Eosinophils % Eosinophils % (Manual) Basophils % Basophils % (Manual) Platelet Estimate INR Sodium 138 Potassium 4.9 Chloride 105 Carbon Dioxide 22 Anion Gap 11 BUN 65 H Creatinine 5.2 H Creat Clearance w eGFR Random Glucose 116 H Calcium 8.1 L Total Bilirubin AST ALT Alkaline Phosphatase Creatine Kinase Troponin I 0.10 H Total Protein Albumin Probable lead reversal likely sinus rhythm. Repeat ECG pending Echo: Pending Imaging - Results Chest X-ray: Report Reviewed (Cardiomegaly, left pleural effusion) Cat Scan: Report Reviewed (CT chest - left side infiltrate, pleural effusion) EKG: Report Reviewed Problem List - Problems (1) Chest pain Code(s): R07.9 - CHEST PAIN, UNSPECIFIED Qualifiers: Chest pain type: other chest pain Qualified Code(s): R07.89 - Other chest pain; R07.8 - Other chest pain (2) Pleural effusion Code(s): J90 - PLEURAL EFFUSION, NOT ELSEWHERE CLASSIFIED (3) Renal transplant recipient Code(s): Z94.0 - KIDNEY TRANSPLANT STATUS (4) Dyspnea Code(s): R06.00 - DYSPNEA, UNSPECIFIED Qualifiers: Dyspnea type: dyspnea on exertion Qualified Code(s): R06.09 - Other forms of dyspnea (5) ESRD (end stage renal disease) Code(s): N18.6 - END STAGE RENAL DISEASE (6) HTN (hypertension) Code(s): I10 - ESSENTIAL (PRIMARY) HYPERTENSION Qualifiers: Hypertension type: essential hypertension Qualified Code(s): I10 - Essential (primary) hypertension (7) Acute on chronic systolic heart failure Code(s): I50.23 - ACUTE ON CHRONIC SYSTOLIC (CONGESTIVE) HEART FAILURE (8) Aortic regurgitation Code(s): I35.1 - NONRHEUMATIC AORTIC (VALVE) INSUFFICIENCY Qualifiers: Cardiac valve disease etiology: nonrheumatic Qualified Code(s): I35.1 - Nonrheumatic aortic (valve) insufficiency (9) Aortic stenosis Code(s): I35.0 - NONRHEUMATIC AORTIC (VALVE) STENOSIS Qualifiers: Cardiac valve disease etiology: nonrheumatic Qualified Code(s): I35.0 - Nonrheumatic aortic (valve) stenosis (10) Dilated cardiomyopathy Code(s): I42.0 - DILATED CARDIOMYOPATHY (11) Mitral regurgitation Code(s): I34.0 - NONRHEUMATIC MITRAL (VALVE) INSUFFICIENCY Qualifiers: Cardiac valve disease etiology: nonrheumatic Qualified Code(s): I34.0 - Nonrheumatic mitral (valve) insufficiency (12) Pulmonary HTN Code(s): I27.2 - OTHER SECONDARY PULMONARY HYPERTENSION (13) Tricuspid valve regurgitation Code(s): I07.1 - RHEUMATIC TRICUSPID INSUFFICIENCY Qualifiers: Cardiac valve disease etiology: nonrheumatic Qualified Code(s): I36.1 - Nonrheumatic tricuspid (valve) insufficiency Assessment/Plan 1. Clinical presentation compatible with pneumonia with pleuritis 2. History of ESRD status post renal transplant 3. Hypertension 4. Severe left ventricular systolic function - dilated cardiomyopathy with valvular heart disease - aortic valve stenosis and regurgitation, mitral and tricuspid valve regurgitation 4. Mild elevation of troponin suggests demand ischemia 5. History of cigarette smoking and COPD PLAN: 1. Continue antibiotic coverage 2. Continue Carvedilol as tolerated 3. Consider transthoracic echocardiography to assess LV/RV and valvular function. Obtain prior records from [facility] regarding evaluation of above cardiomyopathy 4. Check lipid panel 5. Trend troponin 6. Smoking cessation Guarded Further plans are to follow Camilo Smith MD
--- NOTE | 2017-01-05 13:24 | CONSULT ---
Consult Consult Specialty:: Infectious Disease Reason for Consultation:: Pneumonia in Transplant pt - History of Present Illness Chief Complaint: Hurts when I breathe History of Present Illness: 61 year old male with a past medical history of ESRD with a transplant 14 years ago, on immunomodulatory medications, hypertension, hyperlipidemia, COPD, and CHF, cardiomyopathy, presented to the hospital yesterday (currently hospital day #3) for L sided chest pain x3 days duration that was exacerbated by deep, heavy breaths. Denies ever having this pain before. He states that it hurts him to breathe and talk. States that the pain is a 10/10 in severity that radiates down into his abdomen but it had gotten a little better after the ED course of dilaudid. Denies any sick contacts. Denies living with any pets at home. Denies recent travel. Lives with his aunt, his significant other, and his children. 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 Denies cough, nausea, vomiting, diarrhea, fevers or chills. Primary team had placed him on ceftriaxone and azithromycin. Current smoker of 15 cigarettes a day and marijuana use - Past Medical History Cardio/Vascular: Yes: HTN Renal/: Yes: Renal Failure, Renal Inusuff - Past Surgical History Past Surgical History: Yes: Kidney Transplant - Alcohol/Substance Use Hx Alcohol Use: No - Smoking History Smoking history: Current every day smoker Have you smoked in the past 12 months: Yes Aproximately how many cigarettes per day: 10 If you are a former smoker, when did you quit?: 2.5 months ago Home Medications - Allergies Allergies/Adverse Reactions: Allergies Allergy/AdvReac Type Severity Reaction Status Date / Time No Known Allergies Allergy Verified 01/04/17 12:48 - Home Medications Home Medications: Ambulatory Orders Mycophenolate Mofetil [Cellcept] 250 mg PO DAILY 03/24/14 Tacrolimus [Prograf] 7 mg PO BID 03/24/14 Allopurinol [Zyloprim -] 100 mg PO PRN 11/18/15 Sodium Bicarbonate 1,300 mg PO BID 11/18/15 Carvedilol [Coreg -] 12.5 mg PO BID #60 tablet 11/21/15 Ergocalciferol (Vitamin D2) [Vitamin D2] 2,000 unit PO DAILY 01/04/17 Furosemide 20 mg PO BID 01/04/17 Review of Systems - Review of Systems Constitutional: denies: Chills, Fever Eyes: reports: No Symptoms HENT: reports: No Symptoms, Other (feeling of mucus logded in throat) Cardiovascular: reports: Chest Pain (pleuritic chest pain), Shortness of Breath Respiratory: reports: SOB, Other (pleuritic chest pain on inspiration and when pt speaks). denies: Cough Gastrointestinal: reports: No Symptoms. denies: Abdominal Pain, Diarrhea, Melena, Nausea Genitourinary: reports: No Symptoms Musculoskeletal: reports: No Symptoms Integumentary: reports: No Symptoms Neurological: reports: No Symptoms Endocrine: reports: No Symptoms Hematology/Lymphatic: reports: No Symptoms Psychiatric: reports: No Symptoms Physical Exam Vital Signs: Vital Signs Temperature 98.5 F 01/05/17 10:00 Pulse Rate 72 01/05/17 10:00 Respiratory Rate 20 01/05/17 10:00 Blood Pressure 152/91 01/05/17 10:00 O2 Sat by Pulse Oximetry (%) 96 01/05/17 10:00 Constitutional: Yes: Well Nourished, Anxious, Moderate Distress Eyes: Yes: Conjunctiva Clear, EOM Intact HENT: Yes: Atraumatic, Normocephalic. No: Nasal Congestion, Pharyngeal Erythema Neck: Yes: Supple, Trachea Midline Cardiovascular: Yes: Regular Rate and Rhythm, Murmur, S1, S2. No: Gallop, Rub Respiratory: Yes: On Nasal O2 (3L), SOB, Other (Bibasilar crackles) Gastrointestinal: Yes: Normal Bowel Sounds, Soft Musculoskeletal: Yes: WNL Extremities: Yes: WNL Edema: No Peripheral Pulses WNL: Yes Integumentary: Yes: WNL Neurological: Yes: Alert, Oriented, Cran Nerves II-XII Intact ...Motor Strength: WNL Psychiatric: Yes: Alert, Oriented, Agitated Labs: CBC, BMP 01/05/17 06:05 01/05/17 06:05 Imaging - Results Chest X-ray: Report Reviewed Cat Scan: Report Reviewed Assessment/Plan 61 year old male pmh ESRD s/p kidney transplant 14 years ago, cardiomyopathy, CHF, COPD, R nephrectomy this past March with L sided pleuritic chest pain and radiographic findings suggestive of L sided pneumonia and pleural effusion. -repeat cxr to monitor effusion -sputum culture -suggest consulting pulmonary for possible pleural tap -Prolonged QT interval likely due to chronic tacrolimus use -d/c ceftriaxone/azithromycin due to prolongation of QT interval and need for broader coverage -give 1gm vancomycin once -2.25gm zosyn Q8h x7 days
--- NOTE | 2017-01-05 13:52 | PN ---
Teaching Attending Note Name of Resident: Roberta Koo ATTENDING PHYSICIAN STATEMENT I saw and evaluated the patient. I reviewed the resident's note and discussed the case with the resident. I agree with the resident's findings and plan as documented. SUBJECTIVE: reports L sided chest pain , especially with respiration . no fever or chills OBJECTIVE: mild acute distress due to pain. shallow breathing. HEENT: dry MM, JVD . CV: RRR Lungs : R base crackles Ext: no edema . no erythema, no axillary sweating . ASSESSMENT AND PLAN: 61 y/o Lady with h/o end stage renal failure s/p renal transplant with chronic rejection , h/o HTN and severe cardiomyopathy who presented with SOB and L sided CP . he was found to have b/l CAP 1- B/L CAP. - send blood cx - follow sputum cx . - currently on CTX and Azithro, but due to his immunosupression might need broader coverage - ID consult - check lactic acid 2- ESRD s/p renal transplant with chronic rejection and nephrosclerosis 2/2 HTN and heart failure. - cr at his base line - clinically slightly volume depleted ( no axillary sweating and dry MM, despite JVD from TR) . hold lasix and give gentle hydration x 24 hr - d/w Dr. Stephenson, hold cellcept and cont tacrulimus - Tacrulimus level tonight 3- L sided CP , pleuritic in nature due to PNA . slight trop elevation likely due to renal failure. less likely ischemia - echo pending - cont BB - will confirm is pt is on ASA at home. - tele with sinus tachycardia 4- h/o Severe cardiomyopathy. echo in 2016 with severely reduced EF - hold lasix . clinically volume depleted - echo pending - cont BB 5- DVT px
[2017-01-05] MEDS ORDERED: VANCOMYCIN 1 GRAM (PRE-DOCKED) 1,000 MG/250 ML BAG IVPB ONE (14:15)
--- NOTE | 2017-01-05 14:27 | PN ---
Teaching Attending Note Name of Resident: Bret Hernandez ATTENDING PHYSICIAN STATEMENT I saw and evaluated the patient. I reviewed the resident's note and discussed the case with the resident. I agree with the resident's findings and plan as documented. SUBJECTIVE: severe pleuritic left sided chest pain requiring dilaudid started having productive cough today s/p renal transplant 13 years ago, right kidney removed 03/2016 biventricular CHF/valvular heart disease chronic CKD followed by Dr Castrejon as outpt pain started on Wednesday and has worsened no fevers or chills no travel no sick contacts OBJECTIVE: Vital Signs Period Temp Pulse Resp BP Sys/Ly Pulse Ox Last 24 Hr 98.2 F-98.5 F 71-76 20-22 139-176/77-94 94-97 cor-rrr +murmur lungs bilateral rhonchi- poor exam, only anterior, patient reports too much pain if he sits up abd soft,nt ext no edema LEFT avf CBC, BMP 01/05/17 06:05 01/05/17 06:05 Microbiology 01/05/17 06:00 Urine For Antigen Detection Legionella Antigen - Final 01/05/17 06:00 Urine For Antigen Detection Streptococcus pneumoniae Antigen (M - Final ASSESSMENT AND PLAN: pneumonia with pleuritic pain and effusion renal transplant CKD cardiomyopathy/chf prolonged QT positive troponins legionella antigen/pneumococcal antigen negative broaden antibiotics to vanco (by level ) and zosyn sputum culture repeat cxray may need thoracentesis consider pulmonary evaluation d/w Hospitalist Dr Rollins
[2017-01-05] MEDS ORDERED: PIPERACILLIN/TAZOB 2.25 GM 50 ML IVPB SCH (15:00)
--- NOTE | 2017-01-05 15:49 | MSN ---
Progress Note (SOAP) - Subjective Chief Complaint: atypical chest pain History of Present Illness: Patient was seen at bedside. Patient was in distress when he was seen this morning. Complained of pain in his chest, and did not want to answer questions or go through a physical exam. Stated that his pain is sharp, hurts more with movement and inspiration, and radiates to the upper left shoulder. He never had this pain in his life. Stated that he began coughing up yellow, non-bloody phlem today. Denies having headaches, fevers, chills, sweats, abdominal pain, problems passing a bowel movement, or trouble urinating. - Current Medications Current Medications: Active Medications Acetaminophen (Tylenol -) 325 mg PO Q4H PRN PRN Reason: PAIN Stop: 01/08/17 02:01 Last Admin: 01/05/17 12:01 Dose: 325 mg Albuterol/Ipratropium (Duoneb -) 1 amp NEB Q6H PRN PRN Reason: SHORTNESS OF BREATH Allopurinol (Zyloprim -) 100 mg PO DAILY [facility] Last Admin: 01/05/17 10:06 Dose: Not Given Carvedilol (Coreg -) 12.5 mg PO BID [facility] Last Admin: 01/05/17 10:05 Dose: Not Given Cholecalciferol (Vitamin D3 -) 2,000 unit PO DAILY [facility] Last Admin: 01/05/17 10:06 Dose: Not Given Heparin Sodium (Porcine) (Heparin -) 5,000 unit SQ TID [facility] Sodium Chloride (Normal Saline -) 1,000 mls @ 50 mls/hr IV ASDIR [facility] Stop: 01/06/17 10:54 Last Admin: 01/05/17 11:22 Dose: 50 mls/hr Piperacillin Sod/Tazobactam Sod (Zosyn 2.25gm Ivpb (Pre-Docked)) 50 mls @ 100 mls/hr IVPB Q8H-IV [facility] PRN Reason: Protocol Oxycodone HCl (Roxicodone -) 5 mg PO Q4H PRN PRN Reason: PAIN Last Admin: 01/05/17 12:00 Dose: 5 mg Sodium Bicarbonate (Sodium Bicarbonate -) 1,300 mg PO BID [facility] Last Admin: 01/05/17 10:06 Dose: Not Given Tacrolimus (Prograf (Non-Formulary)) 7 mg PO BID [facility] Last Admin: 01/05/17 10:06 Dose: Not Given - Objective Vital Signs: Vital Signs Temperature 98.6 F 01/05/17 14:24 Pulse Rate 74 01/05/17 14:24 Respiratory Rate 20 01/05/17 14:24 Blood Pressure 142/96 01/05/17 14:24 O2 Sat by Pulse Oximetry (%) 96 01/05/17 10:00 Constitutional: Yes: Moderate Distress (patient was moving and wincing in pain, was not very compliant during exam) HENT: Yes: WNL, Atraumatic, Normocephalic Cardiovascular: Yes: Regular Rate and Rhythm, Murmur (holosystolic murmur was appreciated at the apex), S1, S2 Respiratory: Yes: Cough, Other (bilateral crackles anteriorly, was not compliant to listen to posterior lung sounds) Gastrointestinal: Yes: WNL, Normal Bowel Sounds, Soft Extremities: Yes: WNL, Other (AV fistula placed in left arm) Peripheral Pulses WNL: Yes Edema: No Labs Lab Results: CBC, BMP 01/05/17 06:05 01/05/17 06:05 Imaging - Results Chest X-ray: Report Reviewed (left pleural effusion, compression atelectasis, no evidence of pneumothorax, cardiomegaly) Cat Scan: Report Reviewed (left pleural effusion, left opacification, small right lower lobe infiltrate, 0.8 X 0.4cm pulmonary nodule in right pulmonary apex, 3.4cm cyst in upper pole of left kidney) Assessment/Plan Patient is a 61 year old male with past medical history of end stage renal disease s/p transplant, COPD, CHF, HTN, HLD who presented to the ED with sharp, left sided pleuritic chest pain and was admitted for bilateral community acquired pneumonia. #Atypical left sided chest pain -most likely secondary to community acquired pneumonia -received IV ceftriaxone 1g and IV azithromycin 500mg in the ED -oxycodone 5 mg PO Q6H PRN for pain -infectious disease was consulted, want to broaden the spectrum and use vanco and zosyn -legionella antigen and pneumococcal antigen were both negative -sputum cultures were ordered -consider thoracocentesis if fluid/breathing gets worse -consider pulm evaluation -trend lactic acid, white count #Hx of CAD -continue carvedilol 12.5mg PO BID -elevated troponins that trended down, most likely from ESRD #Hx of CHF -2016 stress test showed EF of 34% -2016 Echo showed LV dilation, reduced systolic EF, severe LV hypokinesis -need to get records from [facility] to evaluate his cardiomyopathy -Cardiology seen, suggested getting a transthoracic echo to access his LV/RV function and monitor lipid panel #COPD -not in exacerbation -duoneb 1 amp Q6H PRN for SOB -incentive spirometer ordered #End Stage Renal Disease s/p transplant -Cr is 5.3, baseline is 6.4 -had a transplant 14 years ago, not on dialysis -nephrology seen, suggested to hold cellcept, continue tacrolimus 6mg PO BID -check tacrolimus level at 9pm -trend BUN/Cr #Left superior pole kidney cyst -incidental finding -monitor as outpatient #FEN -fluids: gentle hydration for 20 hrs (NS 50 mls/hr) -electrolytes: WNL -nutrition: sodium controlled diet #prophylaxis -DVT: Heparin SQ TID -GI: not needed -deconditioning: PT was ordered #dispo -following up on cultures, needs IV antibiotics -pulm evaluation?
--- NOTE | 2017-01-05 16:43 | EKG ---
Test Reason : Blood Pressure : / mmHG Vent. Rate : 079 BPM Atrial Rate : 079 BPM P-R Int : 196 ms QRS Dur : 106 ms QT Int : 408 ms P-R-T Axes : 067 -31 055 degrees QTc Int : 467 ms NORMAL SINUS RHYTHM POSSIBLE LEFT ATRIAL ENLARGEMENT LEFT AXIS DEVIATION LEFT VENTRICULAR HYPERTROPHY NONSPECIFIC T WAVE ABNORMALITY PROLONGED QT ABNORMAL ECG WHEN COMPARED WITH ECG OF 05-JAN-2017 09:02, NO SIGNIFICANT CHANGE WAS FOUND Confirmed by RASHAUN HOWARD MD ([id number]) on 01/05/2017 4:43:30 PM Referred By: HECTOR SANCHEZ Confirmed By:RASHAUN HOWARD MD
[2017-01-05] MEDS ORDERED: PIPERACILLIN/TAZOB 2.25 GM 2.25 GM in DEXTROSE 5%-WATER - 50 ML IVPB SCH (17:08)
[2017-01-05] MEDS ORDERED: PIPERACILLIN/TAZOBACTAM 2.25 GM VIAL IVPB ONE (17:09)
--- NOTE | 2017-01-05 17:51 | PN ---
Physical Exam: SUBJECTIVE: Patient seen and examined. Still has severe pleuritic chest pain. OBJECTIVE: Vital Signs Period Temp Pulse Resp BP Sys/Ly Pulse Ox Last 24 Hr 98.2 F-98.6 F 72-76 20-20 142-176/90-96 94-96 Constitutional: Yes: Moderate Distress, uncooperative HENT: Yes: WNL, Atraumatic, Normocephalic Cardiovascular: Yes: Regular Rate and Rhythm, Murmur (holosystolic murmur was appreciated at the apex), S1, S2 Respiratory: Yes: Cough, B/L lower lung crackles Gastrointestinal: Yes: WNL, Normal Bowel Sounds, Soft Extremities: Yes: WNL, AV fistula placed in left arm Peripheral Pulses WNL: Yes Edema: No Laboratory Results - last 24 hr 01/05/17 01/05/17 01/05/17 01:30 06:05 06:05 WBC 10.6 H RBC 4.31 Hgb 12.3 Hct 37.9 MCV 87.9 MCH 28.6 MCHC 32.5 RDW 15.6 Plt Count 194 MPV 10.3 Neutrophils % (Manual) 79 Lymphocytes % (Manual) 7 L Monocytes % (Manual) 9 Eosinophils % (Manual) 4 Basophils % (Manual) 1 Platelet Estimate Adequate Sodium 138 Potassium 4.9 Chloride 105 Carbon Dioxide 22 Anion Gap 11 BUN 65 H Creatinine 5.2 H Random Glucose 116 H Lactic Acid Calcium 8.1 L Troponin I 0.12 H 01/05/17 01/05/17 06:05 12:45 WBC RBC Hgb Hct MCV MCH MCHC RDW Plt Count MPV Neutrophils % (Manual) Lymphocytes % (Manual) Monocytes % (Manual) Eosinophils % (Manual) Basophils % (Manual) Platelet Estimate Sodium Potassium Chloride Carbon Dioxide Anion Gap BUN Creatinine Random Glucose Lactic Acid 1.3 Calcium Troponin I 0.10 H Active Medications Generic Name Dose Route Start Last Admin Trade Name Freq PRN Reason Stop Dose Admin Acetaminophen 325 mg 01/05/17 02:02 01/05/17 12:01 Tylenol - PO 01/08/17 02:01 325 mg Q4H PRN Administration PAIN Albuterol/Ipratropium 1 amp 01/04/17 22:31 Duoneb - NEB Q6H PRN SHORTNESS OF BREATH Allopurinol 100 mg 01/05/17 10:00 01/05/17 10:06 Zyloprim - PO Not Given DAILY [facility] Carvedilol 12.5 mg 01/04/17 22:00 01/05/17 10:05 Coreg - PO Not Given BID [facility] Cholecalciferol 2,000 unit 01/05/17 10:00 01/05/17 10:06 Vitamin D3 - PO Not Given DAILY [facility] Heparin Sodium (Porcine) 5,000 unit 01/05/17 22:00 Heparin - SQ TID [facility] Sodium Chloride 1,000 mls @ 50 mls/hr 01/05/17 11:00 01/05/17 11:22 Normal Saline - IV 01/06/17 10:54 50 mls/hr ASDIR [facility] Administration Piperacillin Sod/Tazobactam 50 mls @ 100 mls/hr 01/05/17 18:00 Sod 2.25 gm/ Dextrose IVPB Q8H-IV [facility] Protocol Oxycodone HCl 5 mg 01/05/17 02:02 01/05/17 12:00 Roxicodone - PO 5 mg Q4H PRN Administration PAIN Sodium Bicarbonate 1,300 mg 01/04/17 22:00 01/05/17 10:06 Sodium Bicarbonate - PO Not Given BID [facility] Tacrolimus 7 mg 01/04/17 22:00 01/05/17 10:06 Prograf (Non-Formulary) PO Not Given BID [facility] Imaging - Results Chest X-ray: Report Reviewed (left pleural effusion, compression atelectasis, no evidence of pneumothorax, cardiomegaly) Cat Scan: Report Reviewed (left pleural effusion, left opacification, small right lower lobe infiltrate, 0.8 X 0.4cm pulmonary nodule in right pulmonary apex, 3.4cm cyst in upper pole of left kidney) ASSESSMENT/PLAN: 1) Community Acquired Pneumonia -pending Bcx, sputum Cx -switched to Vancomycin, Zosyn (immunocompromised state) -ID consult 2) 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 Stephenson -Check tacrolimus levels tonight -Hold lasix and give gentle hydration for 24 hours. -creatinine at baseline 3) Left sided Chest pain likely from CAP -echo pending -Continue Beta blockers 4) Slightly Elevated troponins -likely due to renal failure 4) DVT prophylaxis Visit type - Emergency Visit Emergency Visit: Yes ED Registration Date: 01/04/17 Care time: The patient presented to the Emergency Department on the above date and was hospitalized for further evaluation of their emergent condition. - New Patient This patient is new to me today: Yes Date on this admission: 01/05/17 - Critical Care Critical Care patient: No
--- NOTE | 2017-01-05 18:24 | EKG ---
Test Reason : Blood Pressure : / mmHG Vent. Rate : 076 BPM Atrial Rate : 076 BPM P-R Int : 202 ms QRS Dur : 104 ms QT Int : 420 ms P-R-T Axes : 061 -36 068 degrees QTc Int : 472 ms NORMAL SINUS RHYTHM POSSIBLE LEFT ATRIAL ENLARGEMENT LEFT AXIS DEVIATION LEFT VENTRICULAR HYPERTROPHY NONSPECIFIC T WAVE ABNORMALITY IMBALANCE OR DRUG EXCESS NEEDS EXCLUSION ABNORMAL ECG WHEN COMPARED WITH ECG OF 04-JAN-2017 12:57, NONSPECIFIC T WAVE ABNORMALITY HAS REPLACED INVERTED T WAVES IN LATERAL LEADS REPEAT EKG IF CLINICALLY INDICATED Confirmed by RASHAUN HOWARD MD ([id number]) on 01/05/2017 6:24:32 PM Referred By: IBETH OHARA Confirmed By:RASHAUN HOWARD MD
[2017-01-05] MEDS: PIPERACILLIN/TAZOB 2.25 GM 2.25 GM in DEXTROSE 5%-WATER - 50 ML IVPB SCH (19:08)
--- NOTE | 2017-01-05 19:17 | EKG ---
Test Reason : Blood Pressure : / mmHG Vent. Rate : 075 BPM Atrial Rate : 075 BPM P-R Int : 194 ms QRS Dur : 104 ms QT Int : 426 ms P-R-T Axes : 145 -28 150 degrees QTc Int : 475 ms PROBABLE ECTOPIC RHYTHM. LOSS OF RECORDING IN LEAD II LEFT ATRIAL ENLARGEMENT VOLTAGE CRITERIA FOR LEFT VENTRICULAR HYPERTROPHY T WAVE ABNORMALITY, CONSIDER LATERAL ISCHEMIA PROLONGED QT ABNORMAL ECG WHEN COMPARED WITH ECG OF 19-NOV-2015 14:54, ECTOPIC ATRIAL RHYTHM HAS REPLACED SINUS RHYTHM VENT. RATE HAS DECREASED BY 76 BPM WOULD RECOOMEND REPEAT ECG Confirmed by RASHAUN HOWARD MD ([id number]) on 01/05/2017 7:17:36 PM Referred By: Confirmed By:RASHAUN HOWARD MD
[2017-01-05] MEDS: HEPARIN NA (PORCINE) 5,000 UNITS/ML 1ML VIAL SQ SCH (22:18)
[2017-01-06] MEDS: TACROLIMUS ANHYDROUS 1 MG CAPSULE (NF) PO SCH ×3 (01:22→22:21)
[2017-01-06] MEDS ORDERED: DEXTROSE 5%-WATER - 50 ML IVPB ONE ×3 (03:37→16:24)
[2017-01-06] MEDS ORDERED: PIPERACILLIN/TAZOBACTAM 2.25 GM VIAL IVPB ONE ×3 (03:37→16:24)
[2017-01-06] MEDS: PIPERACILLIN/TAZOB 2.25 GM 2.25 GM in DEXTROSE 5%-WATER - 50 ML IVPB SCH ×3 (04:01→17:20)
[2017-01-06] MEDS: HEPARIN NA (PORCINE) 5,000 UNITS/ML 1ML VIAL SQ SCH ×3 (06:32→22:24)
[2017-01-06 07:41] LABS: BASOPHIL 0.5 % (0-2.0); EOSINOPHIL 1.4 % (0-4.5); MCH 28.2 pg (25.7-33.7); MCHC 31.8 g/dl (32.0-35.9); MEAN CELL VOLUME 88.5 fl (80-96); NEUTROPHILS 84.4 % (42.8-82.8); PLATELET COUNT 180 K/MM3 (134-434); RDW 15.3 % (11.9-15.9); WHITE BLOOD COUNT 12.7 K/mm3 (4.0-10.0)
[2017-01-06 08:08] LABS: ANION GAP 9 (8-16); CALCIUM 8.5 mg/dL (8.5-10.1); CO2 24 mmol/L (21-32); GLUCOSE,RANDOM 102 mg/dL (74-106); MAGNESIUM 1.8 mg/dL (1.8-2.4)
[2017-01-06 08:09] LABS: CHOLESTEROL 122 mg/dL (50-200); LDL CHOLESTEROL (ONLY SJRH) 63 mg/dL (5-100)
[2017-01-06 08:10] LABS: ALK PHOS 104 U/L (45-117); BILIRUBIN,TOTAL 1.1 mg/dL (0.2-1.0); CREATININE 5.2 mg/dL (0.7-1.3); PHOSPHOROUS 4.8 mg/dL (2.5-4.9); SGPT/ALT 12 U/L (12-78); TOT PROT 6.2 g/dl (6.4-8.2)
[2017-01-06 08:17] LABS: SGOT/AST < 3 U/L (15-37)
--- NOTE | 2017-01-06 08:49 | PN ---
Progress Note, Physician Chief Complaint: ID Severe pleuritic pain needs pain meds ! NO fever - Current Medication List Current Medications: Active Medications Acetaminophen (Tylenol -) 325 mg PO Q4H PRN PRN Reason: PAIN Stop: 01/08/17 02:01 Last Admin: 01/05/17 23:49 Dose: 325 mg Albuterol/Ipratropium (Duoneb -) 1 amp NEB Q6H PRN PRN Reason: SHORTNESS OF BREATH Allopurinol (Zyloprim -) 100 mg PO DAILY [facility] Last Admin: 01/05/17 10:06 Dose: Not Given Carvedilol (Coreg -) 12.5 mg PO BID [facility] Last Admin: 01/05/17 22:18 Dose: 12.5 mg Cholecalciferol (Vitamin D3 -) 2,000 unit PO DAILY [facility] Last Admin: 01/05/17 10:06 Dose: Not Given Heparin Sodium (Porcine) (Heparin -) 5,000 unit SQ TID [facility] Last Admin: 01/06/17 06:32 Dose: Not Given Sodium Chloride (Normal Saline -) 1,000 mls @ 50 mls/hr IV ASDIR [facility] Stop: 01/06/17 10:54 Last Admin: 01/05/17 11:22 Dose: 50 mls/hr Piperacillin Sod/Tazobactam (Sod 2.25 gm/ Dextrose) 50 mls @ 100 mls/hr IVPB Q8H-IV [facility] PRN Reason: Protocol Last Admin: 01/06/17 04:01 Dose: 100 mls/hr Oxycodone HCl (Roxicodone -) 5 mg PO Q4H PRN PRN Reason: PAIN Last Admin: 01/05/17 23:46 Dose: 5 mg Sodium Bicarbonate (Sodium Bicarbonate -) 1,300 mg PO BID [facility] Last Admin: 01/05/17 22:17 Dose: 1,300 mg Tacrolimus (Prograf (Non-Formulary)) 7 mg PO BID [facility] Last Admin: 01/06/17 01:22 Dose: Not Given - Objective Vital Signs: Vital Signs Temperature 98.2 F 01/06/17 06:00 Pulse Rate 74 01/06/17 06:00 Respiratory Rate 20 01/06/17 06:00 Blood Pressure 136/78 01/06/17 06:00 O2 Sat by Pulse Oximetry (%) 97 01/05/17 21:00 Constitutional: Yes: Moderate Distress HENT: Yes: WNL, Atraumatic Neck: Yes: WNL, Supple Cardiovascular: Yes: Regular Rate and Rhythm, S1, S2. No: Murmur Respiratory: Yes: Diminished, Poor Air Entry, Rales Gastrointestinal: Yes: Soft. No: Tenderness, Tenderness, Epigastrium, Tenderness, Rebound Edema: No Labs: CBC, BMP 01/06/17 05:50 01/06/17 05:50 INR, PTT INR 1.14 (0.82-1.09) 01/04/17 14:00 Assessment/Plan Microbiology Laboratory Tests 01/06/17 01/06/17 01/06/17 05:50 05:50 05:50 WBC 12.7 H Hgb 12.0 Hct 37.8 Plt Count 180 Total Bilirubin 1.1 H D Alkaline Phosphatase 104 Random Vancomycin 7.430 Assessment Suspect EMPYEMA WBC up on antibiotics in severe pain with effusion Has reg exposure to chicken coup at his home (gets eggs ) ? atypical Chlamydia histo crytptococcus considered Plan Add atypical coverage with azithromycin Not concerned about the EKG reading of prolonged QT Increase vanco dose 1.25 gram today Needs interventional radiology to consider CT drainage Analgesics Wade BLEDSOE
[2017-01-06] MEDS: oxyCODONE HCL 5 MG TABLET PO PRN (08:50)
[2017-01-06] MEDS: ACETAMINOPHEN 325 MG TABLET (FP) PO PRN (08:51)
[2017-01-06] MEDS ORDERED: MAGNESIUM OXIDE 400 MG TABLET (FP) PO ONE (09:30)
--- NOTE | 2017-01-06 09:42 | PN ---
Physical Exam: SUBJECTIVE: Patient seen and examined. No acute events overnight. He says he still has severe pleuritic chest pain with respiration and movement. OBJECTIVE: Vital Signs Period Temp Pulse Resp BP Sys/Ly Pulse Ox Last 24 Hr 97.6 F-98.6 F 72-79 20-20 130-152/75-96 96-97 Constitutional: Yes: Moderate Distress, agitated HENT: Yes: WNL, Atraumatic, Normocephalic Cardiovascular: Yes: Regular Rate and Rhythm, Murmur (holosystolic murmur was appreciated at the apex), S1, S2 Respiratory: Yes: Cough, B/L lower lung crackles Gastrointestinal: Yes: WNL, Normal Bowel Sounds, Soft Extremities: Yes: WNL, AV fistula placed in left arm Peripheral Pulses WNL: Yes Edema: No Laboratory Results - last 24 hr 01/05/17 01/05/17 01/06/17 06:05 12:45 05:50 WBC 10.6 H RBC 4.31 Hgb 12.3 Hct 37.9 MCV 87.9 MCH 28.6 MCHC 32.5 RDW 15.6 Plt Count 194 MPV 10.3 Neutrophils % Neutrophils % (Manual) 79 Lymphocytes % Lymphocytes % (Manual) 7 L Monocytes % Monocytes % (Manual) 9 Eosinophils % Eosinophils % (Manual) 4 Basophils % Basophils % (Manual) 1 Platelet Estimate Adequate Sodium Potassium Chloride Carbon Dioxide Anion Gap BUN Creatinine Creat Clearance w eGFR Random Glucose Lactic Acid 1.3 Calcium Phosphorus Magnesium Total Bilirubin AST ALT Alkaline Phosphatase Total Protein Albumin Triglycerides Cholesterol Total LDL Cholesterol HDL Cholesterol Random Vancomycin 7.430 01/06/17 01/06/17 01/06/17 05:50 05:50 05:50 WBC 12.7 H RBC 4.27 Hgb 12.0 Hct 37.8 MCV 88.5 MCH 28.2 MCHC 31.8 L RDW 15.3 Plt Count 180 MPV 10.0 Neutrophils % 84.4 H Neutrophils % (Manual) Lymphocytes % 5.2 L D Lymphocytes % (Manual) Monocytes % 8.5 Monocytes % (Manual) Eosinophils % 1.4 Eosinophils % (Manual) Basophils % 0.5 Basophils % (Manual) Platelet Estimate Sodium 135 L Potassium 5.0 Chloride 102 Carbon Dioxide 24 Anion Gap 9 BUN 59 H Creatinine 5.2 H Creat Clearance w eGFR 11.41 Random Glucose 102 Lactic Acid Calcium 8.5 Phosphorus 4.8 Magnesium 1.8 Total Bilirubin 1.1 H D AST < 3 L D ALT 12 D Alkaline Phosphatase 104 Total Protein 6.2 L Albumin 3.0 L Triglycerides 61 Cholesterol 122 Total LDL Cholesterol 63 HDL Cholesterol 56 D Random Vancomycin Active Medications Generic Name Dose Route Start Last Admin Trade Name Freq PRN Reason Stop Dose Admin Acetaminophen 325 mg 01/05/17 02:02 01/06/17 08:51 Tylenol - PO 01/08/17 02:01 325 mg Q4H PRN Administration PAIN Albuterol/Ipratropium 1 amp 01/04/17 22:31 Duoneb - NEB Q6H PRN SHORTNESS OF BREATH Allopurinol 100 mg 01/05/17 10:00 01/05/17 10:06 Zyloprim - PO Not Given DAILY [facility] Carvedilol 12.5 mg 01/04/17 22:00 01/05/17 22:18 Coreg - PO 12.5 mg BID [facility] Administration Cholecalciferol 2,000 unit 01/05/17 10:00 01/05/17 10:06 Vitamin D3 - PO Not Given DAILY [facility] Heparin Sodium (Porcine) 5,000 unit 01/05/17 22:00 01/06/17 06:32 Heparin - SQ Not Given TID [facility] Sodium Chloride 1,000 mls @ 50 mls/hr 01/05/17 11:00 01/05/17 11:22 Normal Saline - IV 01/06/17 10:54 50 mls/hr ASDIR [facility] Administration Piperacillin Sod/Tazobactam 50 mls @ 100 mls/hr 01/05/17 18:00 01/06/17 04:01 Sod 2.25 gm/ Dextrose IVPB 100 mls/hr Q8H-IV [facility] Administration Protocol Vancomycin HCl 1,250 mg/ 250 mls @ 125 mls/hr 01/06/17 12:00 Dextrose IVPB 01/06/17 13:59 ONCE ONE Protocol Azithromycin 250 mls @ 250 mls/hr 01/06/17 10:00 Zithromax 500mg Ivpb (Pre-Docked) IVPB DAILY [facility] Oxycodone HCl 5 mg 01/05/17 02:02 01/06/17 08:50 Roxicodone - PO 5 mg Q4H PRN Administration PAIN Sodium Bicarbonate 1,300 mg 01/04/17 22:00 08/29/17 22:17 Sodium Bicarbonate - PO 1,300 mg BID [facility] Administration Tacrolimus 7 mg 01/04/17 22:00 01/06/17 01:22 Prograf (Non-Formulary) PO Not Given BID [facility]ESS[facility]PLAN: # Community Acquired Pneumonia -Bcx, Ucx, and Antigens negative -lactic acid resolved -continue Vancomycin dosed by level, will give 1.25g today and check a random vanco level in the morning , -Continue Zosyn 2.25g -Started Azithromycin 500mg ICVPB per ID -CRP elevated 14.2 -F/up labs in the AM # Left pleural effusion could be a paranpneumonic effusion vs empyema -s/p thoracentesis -follow/up pleural fluid studies # Atypical Chest pain -Troponin was slightly elevated unlikely ACS -chest pain seems to be pleuritic in nature -cardiology on board -echo reviewed # End stage renal disease s/p transplant 14 years ago with chronic rejection -renal function stable -creatinine 5.2 (Baseline 6.4) -will trend BUN/CR -Hold cellcept and continue tacrolimus 6mg PO BID as per Dr. Stephenson -Tacrolimus levels pending -Hold lasix for now. Patient received gentle hydration yesterday. # Slightly Elevated troponins -troponin level improving -likely due to decreased clearance of troponins from renal failure #Hx of CAD -continue carvedilol 12.5mg PO BID -Patient not on aspirin #Hx of CHF -2015 stress test showed EF of 34% -2015 Echo showed LV dilation, reduced systolic EF, severe LV hypokinesis -need to get records from [facility] to evaluate his cardiomyopathy -Cardiology consulted, monitor lipid panel -lipid panel WNL today -Echo from today: LV, LA and RA severely dilated, LV systolic function reduced, global hypokinesis of the LV, MR, TR, , EF 54% #COPD -not in exacerbation -duoneb 1 amp Q6H PRN for SOB -incentive spirometry ordered #Left superior pole kidney cyst -incidental finding -monitor as outpatient #FEN -fluids: none -electrolytes: WNL -nutrition: sodium controlled diet #prophylaxis -DVT: Heparin SQ QD (patient refuses more than one/day) -GI: not needed -deconditioning: PT was ordered Visit type - Emergency Visit Emergency Visit: Yes ED Registration Date: 01/04/17 Care time: The patient presented to the Emergency Department on the above date and was hospitalized for further evaluation of their emergent condition. - New Patient This patient is new to me today: No - Critical Care Critical Care patient: No
[2017-01-06] MEDS: CARVEDILOL 12.5 MG TABLET (FP) PO SCH ×2 (10:02→22:20)
[2017-01-06] MEDS: SODIUM BICARBONATE 650 MG TABLET PO SCH ×2 (10:03→22:21)
[2017-01-06] MEDS: CHOLECALCIFEROL (VITAMIN D3) 1,000 UNIT TABLET (FP) PO SCH (10:03)
[2017-01-06] MEDS: AZITHROMYCIN IVPB 250 ML IVPB SCH (10:03)
--- NOTE | 2017-01-06 10:03 | PN ---
Progress Note, Physician Chief Complaint: Complains of left side chest pain (pleuritic) History of Present Illness: Patient was seen and examined. Awake and alert. Chart was reviewed Intermittent cough, persistent pleuritic chest pain, dyspnea - Current Medication List Current Medications: Active Medications Acetaminophen (Tylenol -) 325 mg PO Q4H PRN PRN Reason: PAIN Stop: 01/08/17 02:01 Last Admin: 01/06/17 08:51 Dose: 325 mg Albuterol/Ipratropium (Duoneb -) 1 amp NEB Q6H PRN PRN Reason: SHORTNESS OF BREATH Allopurinol (Zyloprim -) 100 mg PO DAILY [facility] Last Admin: 01/05/17 10:06 Dose: Not Given Carvedilol (Coreg -) 12.5 mg PO BID [facility] Last Admin: 01/05/17 22:18 Dose: 12.5 mg Cholecalciferol (Vitamin D3 -) 2,000 unit PO DAILY [facility] Last Admin: 01/05/17 10:06 Dose: Not Given Heparin Sodium (Porcine) (Heparin -) 5,000 unit SQ TID [facility] Last Admin: 01/06/17 06:32 Dose: Not Given Sodium Chloride (Normal Saline -) 1,000 mls @ 50 mls/hr IV ASDIR [facility] Stop: 01/06/17 10:54 Last Admin: 01/05/17 11:22 Dose: 50 mls/hr Piperacillin Sod/Tazobactam (Sod 2.25 gm/ Dextrose) 50 mls @ 100 mls/hr IVPB Q8H-IV RISHABH PRN Reason: Protocol Last Admin: 01/06/17 04:01 Dose: 100 mls/hr Vancomycin HCl 1,250 mg/ (Dextrose) 250 mls @ 125 mls/hr IVPB ONCE ONE PRN Reason: Protocol Stop: 01/06/17 13:59 Azithromycin (Zithromax 500mg Ivpb (Pre-Docked)) 250 mls @ 250 mls/hr IVPB DAILY [facility] Oxycodone HCl (Roxicodone -) 5 mg PO Q4H PRN PRN Reason: PAIN Last Admin: 01/06/17 08:50 Dose: 5 mg Sodium Bicarbonate (Sodium Bicarbonate -) 1,300 mg PO BID [facility] Last Admin: 01/05/17 22:17 Dose: 1,300 mg Tacrolimus (Prograf (Non-Formulary)) 7 mg PO BID RISHABH Last Admin: 01/06/17 01:22 Dose: Not Given - Objective Vital Signs: Vital Signs Temperature 98.2 F 01/06/17 06:00 Pulse Rate 74 01/06/17 06:00 Respiratory Rate 20 01/06/17 06:00 Blood Pressure 136/78 01/06/17 06:00 O2 Sat by Pulse Oximetry (%) 97 01/05/17 21:00 Neck: Yes: Supple Cardiovascular: Yes: Regular Rate and Rhythm, S1, S2 Respiratory: Yes: Diminished Gastrointestinal: Yes: Normal Bowel Sounds, Soft. No: Tenderness Edema: No Additional Findings/Remarks: - Review of Systems Constitutional: denies: Chills, Fever Cardiovascular: reports: Chest Pain, Shortness of Breath. denies: Palpitations Respiratory: reports: Cough, SOB, SOB on Exertion. denies: Hemoptysis, Orthopnea, PND Gastrointestinal: denies: Abdominal Pain, Constipation, Diarrhea, Melena, Nausea , Rectal Bleeding, Vomiting Neurological: denies: Dizziness, Headache, Seizure, Syncope Labs: CBC, BMP 01/06/17 05:50 01/06/17 05:50 INR, PTT INR 1.14 (0.82-1.09) 01/04/17 14:00 Problem List - Problems (1) Chest pain Code(s): R07.9 - CHEST PAIN, UNSPECIFIED Qualifiers: Chest pain type: other chest pain Qualified Code(s): R07.89 - Other chest pain; R07.8 - Other chest pain (2) Pleural effusion Code(s): J90 - PLEURAL EFFUSION, NOT ELSEWHERE CLASSIFIED (3) Renal transplant recipient Code(s): Z94.0 - KIDNEY TRANSPLANT STATUS (4) Dyspnea Code(s): R06.00 - DYSPNEA, UNSPECIFIED Qualifiers: Dyspnea type: dyspnea on exertion Qualified Code(s): R06.09 - Other forms of dyspnea (5) ESRD (end stage renal disease) Code(s): N18.6 - END STAGE RENAL DISEASE (6) HTN (hypertension) Code(s): I10 - ESSENTIAL (PRIMARY) HYPERTENSION Qualifiers: Hypertension type: essential hypertension Qualified Code(s): I10 - Essential (primary) hypertension (7) Acute on chronic systolic heart failure Code(s): I50.23 - ACUTE ON CHRONIC SYSTOLIC (CONGESTIVE) HEART FAILURE (8) Aortic regurgitation Code(s): I35.1 - NONRHEUMATIC AORTIC (VALVE) INSUFFICIENCY Qualifiers: Cardiac valve disease etiology: nonrheumatic Qualified Code(s): I35.1 - Nonrheumatic aortic (valve) insufficiency (9) Aortic stenosis Code(s): I35.0 - NONRHEUMATIC AORTIC (VALVE) STENOSIS Qualifiers: Cardiac valve disease etiology: nonrheumatic Qualified Code(s): I35.0 - Nonrheumatic aortic (valve) stenosis (10) Dilated cardiomyopathy Code(s): I42.0 - DILATED CARDIOMYOPATHY (11) Mitral regurgitation Code(s): I34.0 - NONRHEUMATIC MITRAL (VALVE) INSUFFICIENCY Qualifiers: Cardiac valve disease etiology: nonrheumatic Qualified Code(s): I34.0 - Nonrheumatic mitral (valve) insufficiency (12) Pulmonary HTN Code(s): I27.2 - OTHER SECONDARY PULMONARY HYPERTENSION (13) Tricuspid valve regurgitation Code(s): I07.1 - RHEUMATIC TRICUSPID INSUFFICIENCY Qualifiers: Cardiac valve disease etiology: nonrheumatic Qualified Code(s): I36.1 - Nonrheumatic tricuspid (valve) insufficiency Assessment/Plan 1. Clinical presentation compatible with pneumonia with pleuritic 2. History of ESRD status post renal transplant 3. Hypertension 4. Severe left ventricular systolic function - dilated cardiomyopathy with valvular heart disease - aortic valve stenosis and regurgitation, mitral and tricuspid valve regurgitation 4. Mild elevation of troponin suggests demand ischemia 5. History of cigarette smoking and COPD PLAN: 1. Continue antibiotic coverage as per ID. Suggestion of possible empyema noted. Further plans as per ID 2. Continue Carvedilol as tolerated 3. Transthoracic echocardiography to assess LV/RV and valvular function and compare with previous study. Obtain prior records from [facility] regarding evaluation of above cardiomyopathy 4. Trend troponin 5. Smoking cessation 6. Analgesics as needed 7. Monitor renal function Guarded Further plans are to follow Camilo Smith MD
[2017-01-06] MEDS: ALLOPURINOL 100 MG TABLET (FP) PO SCH (10:04)
--- NOTE | 2017-01-06 11:22 | PN ---
Teaching Attending Note Name of Resident: Roberta Koo ATTENDING PHYSICIAN STATEMENT I saw and evaluated the patient. I reviewed the resident's note and discussed the case with the resident. I agree with the resident's findings and plan as documented. SUBJECTIVE: Continues to complain of having chest pain. No fever or chills, no shortness of breath. OBJECTIVE: Vital Signs Temperature 98.2 F 01/06/17 06:00 Pulse Rate 73 01/06/17 09:40 Respiratory Rate 20 01/06/17 06:00 Blood Pressure 136/78 01/06/17 06:00 O2 Sat by Pulse Oximetry (%) 95 01/06/17 09:40 CBCD WBC 12.7 K/mm3 (4.0-10.0) H 01/06/17 05:50 RBC 4.27 M/mm3 (4.00-5.60) 01/06/17 05:50 Hgb 12.0 GM/dL (11.7-16.9) 01/06/17 05:50 Hct 37.8 % (35.4-49) 01/06/17 05:50 MCV 88.5 fl (80-96) 01/06/17 05:50 MCHC 31.8 g/dl (32.0-35.9) L 01/06/17 05:50 RDW 15.3 % (11.9-15.9) 01/06/17 05:50 Plt Count 180 K/MM3 (134-434) 01/06/17 05:50 MPV 10.0 fl (7.5-11.1) 01/06/17 05:50 CMP Sodium 135 mmol/L (136-145) L 01/06/17 05:50 Potassium 5.0 mmol/L (3.5-5.1) 01/06/17 05:50 Chloride 102 mmol/L (98-107) 01/06/17 05:50 Carbon Dioxide 24 mmol/L (21-32) 01/06/17 05:50 Anion Gap 9 (8-16) 01/06/17 05:50 BUN 59 mg/dL (7-18) H 01/06/17 05:50 Creatinine 5.2 mg/dL (0.7-1.3) H 01/06/17 05:50 Creat Clearance w eGFR 11.41 (>60) 01/06/17 05:50 Random Glucose 102 mg/dL (74-106) 01/06/17 05:50 Calcium 8.5 mg/dL (8.5-10.1) 01/06/17 05:50 Total Bilirubin 1.1 mg/dL (0.2-1.0) H D 01/06/17 05:50 AST < 3 U/L (15-37) L D 01/06/17 05:50 ALT 12 U/L (12-78) D 01/06/17 05:50 Alkaline Phosphatase 104 U/L (45-117) 01/06/17 05:50 Total Protein 6.2 g/dl (6.4-8.2) L 01/06/17 05:50 Albumin 3.0 g/dl (3.4-5.0) L 01/06/17 05:50 CARDIAC ENZYMES Creatine Kinase 110 IU/L (39-308) 01/04/17 15:00 Troponin I 0.10 ng/ml (0.00-0.05) H 01/05/17 06:05 Current Medications Generic Name Dose Route Start Last Admin Trade Name Freq PRN Reason Stop Dose Admin Acetaminophen 325 mg 01/05/17 02:02 01/06/17 08:51 Tylenol - PO 01/08/17 02:01 325 mg Q4H PRN Administration PAIN Albuterol/Ipratropium 1 amp 01/04/17 22:31 Duoneb - NEB Q6H PRN SHORTNESS OF BREATH Allopurinol 100 mg 01/05/17 10:00 01/06/17 10:04 Zyloprim - PO 100 mg DAILY RISHABH Administration Carvedilol 12.5 mg 01/04/17 22:00 01/06/17 10:02 Coreg - PO 12.5 mg BID RISHABH Administration Cholecalciferol 2,000 unit 01/05/17 10:00 01/06/17 10:03 Vitamin D3 - PO 2,000 unit DAILY RISHABH Administration Heparin Sodium (Porcine) 5,000 unit 01/05/17 22:00 01/06/17 06:32 Heparin - SQ Not Given TID RISHABH Piperacillin Sod/Tazobactam 50 mls @ 100 mls/hr 01/05/17 18:00 01/06/17 10:04 Sod 2.25 gm/ Dextrose IVPB 100 mls/hr Q8H-IV RISHABH Administration Protocol Vancomycin HCl 1,250 mg/ 250 mls @ 125 mls/hr 01/06/17 12:00 Dextrose IVPB 01/06/17 13:59 ONCE ONE Protocol Azithromycin 250 mls @ 250 mls/hr 01/06/17 10:00 01/06/17 10:03 Zithromax 500mg Ivpb (Pre-Docked) IVPB 250 mls/hr DAILY RISHABH Administration Oxycodone HCl 5 mg 01/05/17 02:02 01/06/17 08:50 Roxicodone - PO 5 mg Q4H PRN Administration PAIN Sodium Bicarbonate 1,300 mg 01/04/17 22:00 01/06/17 10:03 Sodium Bicarbonate - PO 1,300 mg BID RISHABH Administration Tacrolimus 7 mg 01/04/17 22:00 01/06/17 10:44 Prograf (Non-Formulary) PO 7 mg BID RISHABH Administration Home Medications Medication Instructions Recorded Mycophenolate Mofetil [Cellcept] 250 mg PO DAILY 03/24/14 Tacrolimus [Prograf] 7 mg PO BID 03/24/14 Allopurinol [Zyloprim -] 100 mg PO PRN 11/18/15 Sodium Bicarbonate 1,300 mg PO BID 11/18/15 Carvedilol [Coreg -] 12.5 mg PO BID #60 tablet 11/21/15 Ergocalciferol (Vitamin D2) 2,000 unit PO DAILY 01/04/17 [Vitamin D2] Furosemide 20 mg PO BID 01/04/17 Microbiology 01/05/17 12:45 Blood - Peripheral Venous Blood Culture - Preliminary NO GROWTH OBTAINED AFTER 24 HOURS, INCUBATION TO CONTINUE FOR 4 DAYS. 01/05/17 12:45 Blood - Peripheral Venous Blood Culture - Preliminary NO GROWTH OBTAINED AFTER 24 HOURS, INCUBATION TO CONTINUE FOR 4 DAYS. 01/05/17 06:00 Urine For Antigen Detection Legionella Antigen - Final 01/05/17 06:00 Urine For Antigen Detection Streptococcus pneumoniae Antigen (M - Final CHEST: decreased BS BL Heart: S1s2 positive. no gallop. 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 he was found to have b /l CAP # B/L Community Acquired Pneumonia ; blood cx so far no growth, continue Zosyn/ Vanco/Barber, ID on the case , s/p Rocephin possible empyema, patient is going for US guided thoracocentesis by IR; Dilaudid 0.5mg IV for pain. # ESRD s/p renal transplant with chronic rejection and nephrosclerosis 2/2 HTN and heart failure. cr at his baseline 5.2 Dr. Stephenson,carbon paper machine operator on the case, continue his meds. cellcept and tacrulimus & level is pending. # Acute Left sided CP due to empyema/pna also slight trop elevation likely due to renal failure. less likely ischemia ;follow echo pending ;on BB # h/o Severe cardiomyopathy. Echo in 2015 with severely reduced EF DVT px Going for US guided thoracocentesis by IR
[2017-01-06] MEDS ORDERED: VANCOMYCIN 1,250 MG in DEXTROSE 5%-WATER - 250 ML IVPB ONE (12:00)
[2017-01-06 12:10] LABS: TROPONIN I 0.06 ng/ml (0.00-0.05)
--- NOTE | 2017-01-06 12:40 | CON.PULM ---
Consult Consult Specialty:: PULMONARY Referred by:: CAROLINA Reason for Consultation:: PNEUMONIA - History of Present Illness Chief Complaint: SOB/CP/PLEURAL EFFUSION History of Present Illness: This is a 61 year old Gentleman with PMhx of ESRD s/p Renal Transplant with CKD/ Chronic allograft nephropathy, Hypertension, RCC s/p Right Kidney Nephrectomy who presented with 3 day history of pleuretic chest pain and SOB and found to have a PNA and pleural effusion. Pt denies any sick contacts. Pt is on immunosuppressive meds (Tacrolimus and Cellcept). No Fever, chills, Abd pain, N/ V/D. Able to eat a small amount. Patient is not on HD, and was attributing the pain to lifting weights. He is an active smoker. 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 No: AFIB Pulmonary: No: Asthma, COPD Gastrointestinal: Yes: Cancer Renal/: Yes: Renal Failure, Renal Inusuff, Other (Post renal transplant) - Past Surgical History Past Surgical History: Yes: Kidney Transplant - Alcohol/Substance Use Hx Alcohol Use: No - Smoking History Smoking history: Current every day smoker Have you smoked in the past 12 months: Yes Aproximately how many cigarettes per day: 10 If you are a former smoker, when did you quit?: 2.5 months ago Home Medications - Allergies Allergies/Adverse Reactions: Allergies Allergy/AdvReac Type Severity Reaction Status Date / Time No Known Allergies Allergy Verified 01/04/17 12:48 - Home Medications Home Medications: Ambulatory Orders Mycophenolate Mofetil [Cellcept] 250 mg PO DAILY 03/24/14 Tacrolimus [Prograf] 7 mg PO BID 03/24/14 Allopurinol [Zyloprim -] 100 mg PO PRN 11/18/15 Sodium Bicarbonate 1,300 mg PO BID 11/18/15 Carvedilol [Coreg -] 12.5 mg PO BID #60 tablet 11/21/15 Ergocalciferol (Vitamin D2) [Vitamin D2] 2,000 unit PO DAILY 01/04/17 Furosemide 20 mg PO BID 01/04/17 Family Disease History - Family Disease History Family History: Unremarkable Review of Systems - Review of Systems Constitutional: reports: Fever Eyes: denies: Blurred Vision HENT: denies: Difficult Swallowing Neck: denies: Decreased ROM Cardiovascular: reports: Chest Pain, Shortness of Breath Respiratory: reports: Cough, Exercise Intolerance, SOB on Exertion. denies: Hemoptysis, Orthopnea, Wheezing Gastrointestinal: denies: Abdominal Pain Genitourinary: reports: No Symptoms Breasts: reports: No Symptoms Reported Musculoskeletal: reports: Other (SEVERE PAIN LEFT ANTERIOR CHEST) Physical Exam Vital Sings: Vital Signs Temperature 98 F 01/06/17 10:00 Pulse Rate 70 01/06/17 10:00 Respiratory Rate 18 01/06/17 10:00 Blood Pressure 140/80 01/06/17 10:00 O2 Sat by Pulse Oximetry (%) 95 01/06/17 09:40 Constitutional: Yes: Anxious, Moderate Distress Eyes: Yes: EOM Intact HENT: Yes: Normocephalic Neck: Yes: Trachea Midline Cardiovascular: Yes: Regular Rate and Rhythm, S1, S2 Respiratory: Yes: Diminished (LEFT BASE TO MID LUNG FIELD) Gastrointestinal: Yes: Soft Edema: No Integumentary: Yes: WNL Neurological: Yes: WNL Psychiatric: Yes: WNL Labs: CBC, BMP 01/06/17 05:50 01/06/17 05:50 REST REVIEWED Imaging - Results Chest X-ray: Image Reviewed Cat Scan: Image Reviewed EKG: Report Reviewed Problem List - Problems (1) Chest pain Code(s): R07.9 - CHEST PAIN, UNSPECIFIED Qualifiers: Chest pain type: other chest pain Qualified Code(s): R07.89 - Other chest pain; R07.8 - Other chest pain (2) Multifocal pneumonia Code(s): J18.9 - PNEUMONIA, UNSPECIFIED ORGANISM (3) Pleural effusion Code(s): J90 - PLEURAL EFFUSION, NOT ELSEWHERE CLASSIFIED (4) Renal transplant recipient Code(s): Z94.0 - KIDNEY TRANSPLANT STATUS (5) Aortic regurgitation Code(s): I35.1 - NONRHEUMATIC AORTIC (VALVE) INSUFFICIENCY Qualifiers: Cardiac valve disease etiology: nonrheumatic Qualified Code(s): I35.1 - Nonrheumatic aortic (valve) insufficiency (6) CHF (congestive heart failure) Code(s): I50.9 - HEART FAILURE, UNSPECIFIED Qualifiers: Congestive heart failure type: unspecified congestive heart failure type Congestive heart failure chronicity: acute on chronic Qualified Code(s ): I50.9 - Heart failure, unspecified Assessment/Plan PNEUMONIA WITH PARA-PNEUMONIC EFFUSION IN A PATIENT ON IMMUNOSUPPRESANTS/ NEED TO R/O COMPLICATED EFFUSION AGREE WITH CURRENT ANTIBIOTICS/O2/ANALGESIA/HOME MEDS CELLCEPT HELD PER NEPHROLOGY THORACENTESIS TODAY WILL FOLLW THANK YOU Cinda HUYNH MD
--- NOTE | 2017-01-06 13:06 | PN ---
Progress Note (short form) - Note Progress Note: Renal follow up for Renal Transplant Pt seen and examined at the bedside awake and alert reports mild improvement in SOB and chest discomfort did not get tacrolimus yesterday evening, was supposed to get and pt was very upset no fever, chills, N/v/D good urine output Vital Signs Temperature 98 F 01/06/17 10:00 Pulse Rate 70 01/06/17 10:00 Respiratory Rate 18 01/06/17 10:00 Blood Pressure 140/80 01/06/17 10:00 O2 Sat by Pulse Oximetry (%) 95 01/06/17 09:40 Intake & Output 01/03/17 01/04/17 01/05/17 01/06/17 23:59 23:59 23:59 23:59 Intake Total 440 900 Output Total 300 300 Balance 140 600 Weight 192 lb 9.6 oz 192 lb 9.6 oz 213 lb 6.4 oz Gen: NAD, awake and Alert CVS: RRR, No M/R Lungs: CTA, no rales or wheeze Abd: soft NT/ND Ext: No edema, clubbing or cyanosis CBC, BMP 01/06/17 05:50 01/06/17 05:50 Current Medications Acetaminophen (Tylenol -) 325 mg PO Q4H PRN PRN Reason: PAIN Stop: 01/08/17 02:01 Last Admin: 01/06/17 08:51 Dose: 325 mg Albuterol/Ipratropium (Duoneb -) 1 amp NEB Q6H PRN PRN Reason: SHORTNESS OF BREATH Allopurinol (Zyloprim -) 100 mg PO DAILY [facility] Last Admin: 01/06/17 10:04 Dose: 100 mg Carvedilol (Coreg -) 12.5 mg PO BID [facility] Last Admin: 01/06/17 10:02 Dose: 12.5 mg Cholecalciferol (Vitamin D3 -) 2,000 unit PO DAILY [facility] Last Admin: 01/06/17 10:03 Dose: 2,000 unit Heparin Sodium (Porcine) (Heparin -) 5,000 unit SQ TID [facility] Last Admin: 01/06/17 06:32 Dose: Not Given Piperacillin Sod/Tazobactam (Sod 2.25 gm/ Dextrose) 50 mls @ 100 mls/hr IVPB Q8H-IV RISHABH PRN Reason: Protocol Last Admin: 01/06/17 10:04 Dose: 100 mls/hr Vancomycin HCl 1,250 mg/ (Dextrose) 250 mls @ 125 mls/hr IVPB ONCE ONE PRN Reason: Protocol Stop: 01/06/17 13:59 Last Admin: 01/06/17 12:23 Dose: 125 mls/hr Azithromycin (Zithromax 500mg Ivpb (Pre-Docked)) 250 mls @ 250 mls/hr IVPB DAILY RISHABH Last Admin: 01/06/17 10:03 Dose: 250 mls/hr Oxycodone HCl (Roxicodone -) 5 mg PO Q4H PRN PRN Reason: PAIN Last Admin: 01/06/17 08:50 Dose: 5 mg Sodium Bicarbonate (Sodium Bicarbonate -) 1,300 mg PO BID RISHABH Last Admin: 01/06/17 10:03 Dose: 1,300 mg Tacrolimus (Prograf (Non-Formulary)) 7 mg PO BID RISHABH Last Admin: 01/06/17 10:44 Dose: 7 mg a/P 61 year old Gentleman with PMhx of ESRD s/p Renal Transplant with CKD/Chronic allograft nephropathy, Hypertension, RCC s/p Right Kidney Nephrectomy who presented with 3 day history of pleuretic chest pain and SOB and found to have a PNA. 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 Renal function stable Tacrolimus should be given BID and not held holding Cellcept only at this time Tacrolius level sent, results pending Trend BUN/Cr and electrolytes #Pna in immunocompromised pt for thoracentesis today, Pulmonar consult appreciated Continue Abx as per ID Trend Vanco levels #Hypertension BP is at gaol continue Coreg thank you Will follow Filipe Stephenson DO Problem List - Problems (1) Multifocal pneumonia Code(s): J18.9 - PNEUMONIA, UNSPECIFIED ORGANISM (2) Pleural effusion Code(s): J90 - PLEURAL EFFUSION, NOT ELSEWHERE CLASSIFIED (3) Renal transplant recipient Code(s): Z94.0 - KIDNEY TRANSPLANT STATUS (4) ESRD (end stage renal disease) Code(s): N18.6 - END STAGE RENAL DISEASE (5) HTN (hypertension) Code(s): I10 - ESSENTIAL (PRIMARY) HYPERTENSION Qualifiers: Hypertension type: essential hypertension Qualified Code(s): I10 - Essential (primary) hypertension
[2017-01-06] MEDS ORDERED: HYDROmorphone HCL CARPU-JECT 1 MG/1 ML DISP.SYRIN IVPUSH ONE ×2 (13:11→15:46)
--- NOTE | 2017-01-06 13:29 | CONSULT ---
Consultation: REQUESTING PROVIDER: Kayy CONSULT REQUEST: We have been asked to medically evaluate this patient for PNA & pleural effusion. HISTORY OF PRESENT ILLNESS: Pt is a 61 y/o M with PMH ESRD s/p transplant +14years ago, HTN, HLD, COPD, CHF who came to ED with 2 days of intense positional L chest pain unrelated to activity or exercise. Pt states pain is exacerbated by certain positions and by eating but is always present. Pt denies SOB, numbness, nausea, vomiting, fever, diarrhea, burning on urination. REVIEW OF SYSTEMS: CONSTITUTIONAL: generalized weakness Absent: fever, chills, diaphoresis,, malaise, loss of appetite, weight change HEENT: Absent: rhinorrhea, nasal congestion, throat pain, throat swelling, difficulty swallowing, mouth swelling, ear pain, eye pain, visual changes CARDIOVASCULAR: chest pain Absent: , syncope, palpitations, irregular heart rate, lightheadedness, peripheral edema RESPIRATORY: shortness of breath 2/2 pleuritic CP Absent: cough, , dyspnea with exertion, orthopnea, wheezing, stridor, hemoptysis GASTROINTESTINAL: Absent: abdominal pain, abdominal distension, nausea, vomiting, diarrhea, constipation, melena, hematochezia GENITOURINARY: Absent: dysuria, frequency, urgency, hesitancy, hematuria, flank pain, genital pain MUSCULOSKELETAL: Absent: myalgia, arthralgia, joint swelling, back pain, neck pain SKIN: Absent: rash, itching, pallor HEMATOLOGIC/IMMUNOLOGIC: Absent: easy bleeding, easy bruising, lymphadenopathy, frequent infections ENDOCRINE: Absent: unexplained weight gain, unexplained weight loss, heat intolerance, cold intolerance NEUROLOGIC: Absent: headache, focal weakness or paresthesias, dizziness, unsteady gait, seizure, mental status changes, bladder or bowel incontinence PSYCHIATRIC: Absent: anxiety, depression, suicidal or homicidal ideation, hallucinations. PHYSICAL EXAMINATION Vital Signs - 24 hr 01/05/17 01/05/17 01/05/17 14:24 17:00 21:00 Temperature 98.6 F 98.0 F Pulse Rate 74 79 Respiratory 20 20 Rate Blood Pressure 142/96 148/87 O2 Sat by Pulse 97 Oximetry (%) 01/05/17 01/06/17 01/06/17 22:00 02:00 06:00 Temperature 97.6 F 98.2 F 98.2 F Pulse Rate 78 75 74 Respiratory 20 20 20 Rate Blood Pressure 136/78 130/75 136/78 O2 Sat by Pulse Oximetry (%) 01/06/17 01/06/17 01/06/17 09:00 09:40 10:00 Temperature 98 F Pulse Rate 73 70 Respiratory 18 Rate Blood Pressure 140/80 O2 Sat by Pulse 95 95 Oximetry (%) GENERAL: Awake, alert, and fully oriented, in no acute distress. HEAD: Normal with no signs of trauma. EYES: extraocular movements intact, sclera anicteric, conjunctiva clear. No lid lag. EARS, NOSE, THROAT: nares patent, oropharynx clear without exudates. Moist mucous membranes. NECK: Normal range of motion, supple without lymphadenopathy, JVD, or masses. LUNGS: Decreased breath sounds on left posterior thorax. Dull to percussion in lower 2/3 of lung field. No wheezes, and no crackles. No accessory muscle use. HEART: Regular rate and rhythm, normal S1 and S2 without murmur, rub or gallop. ABDOMEN: Soft, nontender, not distended, normoactive bowel sounds, no guarding, no rebound, no masses. No hepatomegaly or splenomegaly. MUSCULOSKELETAL: Normal range of motion at all joints. No bony deformities or tenderness. No CVA tenderness. UPPER EXTREMITIES: 2+ pulses, warm, well-perfused. No cyanosis. No clubbing. Cap refill <2 seconds. No peripheral edema. LOWER EXTREMITIES: 2+ pulses, warm, well-perfused. No calf tenderness. No peripheral edema. NEUROLOGICAL: Cranial nerves II-XII intact. Normal speech. Normal gait. PSYCHIATRIC: Cooperative. Good eye contact. Appropriate mood and affect. SKIN: Warm, dry, normal turgor, no rashes or lesions noted. Laboratory Results - last 24 hr 01/05/17 01/06/17 01/06/17 12:45 05:50 05:50 WBC 12.7 H RBC 4.27 Hgb 12.0 Hct 37.8 MCV 88.5 MCH 28.2 MCHC 31.8 L RDW 15.3 Plt Count 180 MPV 10.0 Neutrophils % 84.4 H Lymphocytes % 5.2 L D Monocytes % 8.5 Eosinophils % 1.4 Basophils % 0.5 Sodium Potassium Chloride Carbon Dioxide Anion Gap BUN Creatinine Creat Clearance w eGFR Random Glucose Lactic Acid 1.3 Calcium Phosphorus Magnesium Total Bilirubin AST ALT Alkaline Phosphatase Creatine Kinase Troponin I C-Reactive Protein Total Protein Albumin Triglycerides Cholesterol Total LDL Cholesterol HDL Cholesterol Random Vancomycin 7.430 01/06/17 01/06/17 01/06/17 05:50 05:50 10:54 WBC RBC Hgb Hct MCV MCH MCHC RDW Plt Count MPV Neutrophils % Lymphocytes % Monocytes % Eosinophils % Basophils % Sodium 135 L Potassium 5.0 Chloride 102 Carbon Dioxide 24 Anion Gap 9 BUN 59 H Creatinine 5.2 H Creat Clearance w eGFR 11.41 Random Glucose 102 Lactic Acid Calcium 8.5 Phosphorus 4.8 Magnesium 1.8 Total Bilirubin 1.1 H D AST < 3 L D ALT 12 D Alkaline Phosphatase 104 Creatine Kinase Troponin I C-Reactive Protein 14.2 H Total Protein 6.2 L Albumin 3.0 L Triglycerides 61 Cholesterol 122 Total LDL Cholesterol 63 HDL Cholesterol 56 D Random Vancomycin 01/06/17 10:54 WBC RBC Hgb Hct MCV MCH MCHC RDW Plt Count MPV Neutrophils % Lymphocytes % Monocytes % Eosinophils % Basophils % Sodium Potassium Chloride Carbon Dioxide Anion Gap BUN Creatinine Creat Clearance w eGFR Random Glucose Lactic Acid Calcium Phosphorus Magnesium Total Bilirubin AST ALT Alkaline Phosphatase Creatine Kinase 52 Troponin I 0.06 H D C-Reactive Protein Total Protein Albumin Triglycerides Cholesterol Total LDL Cholesterol HDL Cholesterol Random Vancomycin Active Medications Generic Name Dose Route Start Last Admin Trade Name Freq PRN Reason Stop Dose Admin Acetaminophen 325 mg 01/05/17 02:02 01/06/17 08:51 Tylenol - PO 01/08/17 02:01 325 mg Q4H PRN Administration PAIN Albuterol/Ipratropium 1 amp 01/04/17 22:31 Duoneb - NEB Q6H PRN SHORTNESS OF BREATH Allopurinol 100 mg 01/05/17 10:00 01/06/17 10:04 Zyloprim - PO 100 mg DAILY RISHABH Administration Carvedilol 12.5 mg 01/04/17 22:00 01/06/17 10:02 Coreg - PO 12.5 mg BID RISHABH Administration Cholecalciferol 2,000 unit 01/05/17 10:00 01/06/17 10:03 Vitamin D3 - PO 2,000 unit DAILY RISHABH Administration Heparin Sodium (Porcine) 5,000 unit 01/05/17 22:00 01/06/17 06:32 Heparin - SQ Not Given TID RISHABH Piperacillin Sod/Tazobactam 50 mls @ 100 mls/hr 01/05/17 18:00 01/06/17 10:04 Sod 2.25 gm/ Dextrose IVPB 100 mls/hr Q8H-IV RISHABH Administration Protocol Vancomycin HCl 1,250 mg/ 250 mls @ 125 mls/hr 01/06/17 12:00 01/06/17 12:23 Dextrose IVPB 01/06/17 13:59 125 mls/hr ONCE ONE Administration Protocol Azithromycin 250 mls @ 250 mls/hr 01/06/17 10:00 01/06/17 10:03 Zithromax 500mg Ivpb (Pre-Docked) IVPB 250 mls/hr DAILY RISH[facility]H Administration Oxycodone HCl 5 mg 01/05/17 02:02 01/06/17 08:50 Roxicodone - PO 5 mg Q4H PRN Administration PAIN Sodium Bicarbonate 1,300 mg 01/04/17 22:00 01/06/17 10:03 Sodium Bicarbonate - PO 1,300 mg BID RISHABH Administration Tacrolimus 7 mg 01/04/17 22:00 01/06/17 10:44 Prograf (Non-Formulary) PO 7 mg BID RISHABH Administration ASSESSMENT/PLAN: Pt is a 61 y/o M with PMH ESRD s/p transplant +14years ago, HTN, HLD, COPD, CHF who came to ED with 2 days of intense positional L chest pain found to have L PNA and parapneumonic effusion. #PNA -leukocytosis, consolidation with air bronchograms on CXR and chest CT -on abx per primary team and ID -[id number] -analgesia #pleural effusion -demonstrated on chest CT -thoracentesis Dispo: We will continue to follow the patient. Thank you for this consultative opportunity. Trey Gtz MD PGY-1 Visit type - Emergency Visit Emergency Visit: No - New Patient This patient is new to me today: No - Critical Care Critical Care patient: No
--- NOTE | 2017-01-06 14:17 | MSN ---
Progress Note (SOAP) - Subjective Chief Complaint: atypical left sided chest pain History of Present Illness: Patient seen at bedside. Feeling a little better today, continuing to ask for pain medications. Still has pleuritic chest pain that radiates to the left side and shoulder. Some pain with inspiration. Denies fever, chills, headache, abdominal pain, problems urinating or passing bowel movements. - Current Medications Current Medications: Active Medications Acetaminophen (Tylenol -) 325 mg PO Q4H PRN PRN Reason: PAIN Stop: 01/08/17 02:01 Last Admin: 01/06/17 08:51 Dose: 325 mg Albuterol/Ipratropium (Duoneb -) 1 amp NEB Q6H PRN PRN Reason: SHORTNESS OF BREATH Allopurinol (Zyloprim -) 100 mg PO DAILY [facility] Last Admin: 01/06/17 10:04 Dose: 100 mg Carvedilol (Coreg -) 12.5 mg PO BID [facility] Last Admin: 01/06/17 10:02 Dose: 12.5 mg Cholecalciferol (Vitamin D3 -) 2,000 unit PO DAILY [facility] Last Admin: 01/06/17 10:03 Dose: 2,000 unit Heparin Sodium (Porcine) (Heparin -) 5,000 unit SQ TID [facility] Last Admin: 01/06/17 06:32 Dose: Not Given Piperacillin Sod/Tazobactam (Sod 2.25 gm/ Dextrose) 50 mls @ 100 mls/hr IVPB Q8H-IV RISHABH PRN Reason: Protocol Last Admin: 01/06/17 10:04 Dose: 100 mls/hr Azithromycin (Zithromax 500mg Ivpb (Pre-Docked)) 250 mls @ 250 mls/hr IVPB DAILY [facility] Last Admin: 01/06/17 10:03 Dose: 250 mls/hr Oxycodone HCl (Roxicodone -) 5 mg PO Q4H PRN PRN Reason: PAIN Last Admin: 01/06/17 08:50 Dose: 5 mg Sodium Bicarbonate (Sodium Bicarbonate -) 1,300 mg PO BID [facility] Last Admin: 01/06/17 10:03 Dose: 1,300 mg Tacrolimus (Prograf (Non-Formulary)) 7 mg PO BID [facility] Last Admin: 01/06/17 10:44 Dose: 7 mg - Objective Vital Signs: Vital Signs Temperature 98 F 01/06/17 10:00 Pulse Rate 70 01/06/17 10:00 Respiratory Rate 18 01/06/17 10:00 Blood Pressure 140/80 01/06/17 10:00 O2 Sat by Pulse Oximetry (%) 95 01/06/17 09:40 Constitutional: Yes: Mild Distress HENT: Yes: WNL, Atraumatic, Normocephalic Cardiovascular: Yes: Regular Rate and Rhythm, Murmur (systolic murmur at the apex), S1, S2 Respiratory: Yes: Cough, Other (bilateral crackles at the bases) Gastrointestinal: Yes: WNL, Normal Bowel Sounds, Soft Extremities: Yes: WNL, Other (left forearm AV fistula placed) Peripheral Pulses WNL: Yes Edema: Yes Labs Lab Results: CBC, BMP 01/06/17 05:50 01/06/17 05:50 Imaging - Results Other: Report Reviewed (Echo showed EF of 54%, LV severely dilated, LA, RA severely dilated, moderate global hypokinesis of the LV, mitral regurgitation, tricuspid regurgitation, aortic stenosis) Assessment/Plan Patient is a 61 year old male with past medical history of end stage renal disease s/p transplant, COPD, CHF, HTN, HLD who presented to the ED with sharp, left sided pleuritic chest pain and was admitted for bilateral community acquired pneumonia. #Atypical left sided chest pain -most likely secondary to community acquired pneumonia -received IV ceftriaxone 1g and IV azithromycin 500mg in the ED -currently on azithromycin 500mg IVPB QD and zosyn 2.25gm IVPB Q8H -ID seen, suggested to add vanco (random vancomycin levels were 7.43) -legionella antigen and pneumococcal antigen were both negative -cryptococcus antigen pending -sputum cultures were ordered, still uncollected -thoracentesis today to remove fluid -pulm consulted, need to r/o complicated effusion -trend lactic acid (1.3), white count (10.6 ->12.7) -oxycodone 5 mg PO Q6H PRN and dilaudid 0.5mg IV for pain #Hx of CAD -continue carvedilol 12.5mg PO BID -elevated troponins that trended down, most likely from ESRD (0.12 -> 0.06) -pt not on ASA #Hx of CHF -2015 stress test showed EF of 34% -2016 Echo showed LV dilation, reduced systolic EF, severe LV hypokinesis -need to get records from [facility] to evaluate his cardiomyopathy -Cardiology consulted, monitor lipid panel -lipid panel WNL today -Echo from today: LV, LA and RA severely dilated, LV systolic function reduced, global hypokinesis of the LV, MR, TR, , EF 54% #COPD -not in exacerbation -duoneb 1 amp Q6H PRN for SOB -incentive spirometer ordered #End Stage Renal Disease s/p transplant -Cr is 5.2, baseline is 6.4 -had a transplant 14 years ago, not on dialysis -nephrology seen, held cellcept, continue tacrolimus 6mg PO BID -tacrolimus level pending -vitamin D 2000U PO QD, allopurinol 100mg PO QD, sodium bicarbonate 1300mg PO BID -trend BUN/Cr (BUN 65 and Cr 5.2 today) #Left superior pole kidney cyst -incidental finding -monitor as outpatient #FEN -fluids: none at this time -electrolytes: WNL -nutrition: sodium controlled diet #prophylaxis -DVT: Heparin SQ QD (patient refuses more than one/day) -GI: not needed -deconditioning: PT was ordered #dispo -following up on cultures, needs IV antibiotics
[2017-01-06 15:55] LABS: PLEURAL FLUID APPEARANCE CLOUDY; PLEURAL FLUID COLOR YELLOW; PLEURAL FLUID SOURCE PLEURAL
[2017-01-06 17:29] LABS: PLEURAL FLUID BASOPHIL 1 %; PLEURAL FLUID LYMPHOCYTES 3 %; PLEURAL FLUID MACROPHAGES 41 %; PLEURAL FLUID NEUTROPHIL 45 %
[2017-01-06 18:59] LABS: GLUCOSE,PLEURAL FLUID 134.753; TOTAL PROTEIN,PLEURAL FLUID 3.498
[2017-01-06] MEDS ORDERED: PT OWN MED DRAWER 7, Y5N ONE (22:12)
[2017-01-07] MEDS: ACETAMINOPHEN 325 MG TABLET (FP) PO PRN ×2 (00:20→19:50)
[2017-01-07] MEDS: oxyCODONE HCL 5 MG TABLET PO PRN (00:21)
[2017-01-07] MEDS ORDERED: PIPERACILLIN/TAZOBACTAM 2.25 GM VIAL IVPB ONE ×3 (01:22→16:58)
[2017-01-07] MEDS ORDERED: DEXTROSE 5%-WATER - 50 ML IVPB ONE ×3 (01:22→16:59)
[2017-01-07] MEDS: PIPERACILLIN/TAZOB 2.25 GM 2.25 GM in DEXTROSE 5%-WATER - 50 ML IVPB SCH ×3 (02:27→17:37)
[2017-01-07] MEDS: HEPARIN NA (PORCINE) 5,000 UNITS/ML 1ML VIAL SQ SCH ×3 (06:39→22:02)
[2017-01-07 08:11] LABS: MCH 28.2 pg (25.7-33.7); MCHC 32.5 g/dl (32.0-35.9); MEAN CELL VOLUME 86.7 fl (80-96); MEAN PLT VOLUME 9.9 fl (7.5-11.1); PLATELET COUNT 176 K/MM3 (134-434); RDW 15.2 % (11.9-15.9)
--- NOTE | 2017-01-07 08:32 | PN ---
Progress Note, Physician Chief Complaint: Chest pain History of Present Illness: Patient seen and examined at bedside. Yesterday, he had an ultrasound-guided thoracentesis of the L pleural effusion. He states that he is feeling much better compared to yesterday, but still complains of milder pain on the L side of his chest. States that he had some nausea last night without vomiting that he attributes to using his oxycodone. Denies fever, chills, shortness of breath , headache, abdominal pain. Has not had a bowel movement yet today. - Current Medication List Current Medications: Active Medications Acetaminophen (Tylenol -) 325 mg PO Q4H PRN PRN Reason: PAIN Stop: 01/08/17 02:01 Last Admin: 01/07/17 00:20 Dose: 325 mg Albuterol/Ipratropium (Duoneb -) 1 amp NEB Q6H PRN PRN Reason: SHORTNESS OF BREATH Allopurinol (Zyloprim -) 100 mg PO DAILY [facility] Last Admin: 01/06/17 10:04 Dose: 100 mg Carvedilol (Coreg -) 12.5 mg PO BID [facility] Last Admin: 01/06/17 22:20 Dose: 12.5 mg Cholecalciferol (Vitamin D3 -) 2,000 unit PO DAILY [facility] Last Admin: 01/06/17 10:03 Dose: 2,000 unit Heparin Sodium (Porcine) (Heparin -) 5,000 unit SQ TID [facility] Last Admin: 01/07/17 06:39 Dose: 5,000 unit Piperacillin Sod/Tazobactam (Sod 2.25 gm/ Dextrose) 50 mls @ 100 mls/hr IVPB Q8H-IV RISHABH PRN Reason: Protocol Last Admin: 01/07/17 02:27 Dose: 100 mls/hr Azithromycin (Zithromax 500mg Ivpb (Pre-Docked)) 250 mls @ 250 mls/hr IVPB DAILY [facility] Last Admin: 01/06/17 10:03 Dose: 250 mls/hr Oxycodone HCl (Roxicodone -) 5 mg PO Q4H PRN PRN Reason: PAIN Last Admin: 01/07/17 00:21 Dose: 5 mg Sodium Bicarbonate (Sodium Bicarbonate -) 1,300 mg PO BID [facility] Last Admin: 01/06/17 22:21 Dose: 1,300 mg Tacrolimus (Prograf (Non-Formulary)) 7 mg PO BID [facility] Last Admin: 01/06/17 22:21 Dose: 7 mg - Objective Vital Signs: Vital Signs Temperature 98.3 F 01/07/17 06:00 Pulse Rate 76 01/07/17 06:00 Respiratory Rate 20 01/07/17 06:00 Blood Pressure 132/73 01/07/17 06:00 O2 Sat by Pulse Oximetry (%) 90 L 01/06/17 21:00 Constitutional: Yes: Well Nourished, No Distress, Calm Eyes: Yes: WNL, Conjunctiva Clear, EOM Intact HENT: Yes: WNL, Atraumatic, Normocephalic Neck: Yes: Supple, Trachea Midline Cardiovascular: Yes: Regular Rate and Rhythm, S1, S2, Other. No: Gallop, Murmur , Rub Respiratory: Yes: Regular, CTA Bilaterally. No: Rales, Stridor, Wheezes Gastrointestinal: Yes: Normal Bowel Sounds, Soft. No: Tenderness Musculoskeletal: Yes: WNL Extremities: Yes: WNL Edema: No Peripheral Pulses WNL: Yes Integumentary: Yes: Other (dressing over thoracentesis site noted on L side of chest posteriorly) Wound/Incision: Yes: Clean/Dry Neurological: Yes: Alert, Oriented, Cran Nerves II-XII Intact ...Motor Strength: WNL Psychiatric: Yes: Alert, Oriented Labs: CBC, BMP 01/07/17 06:10 INR, PTT INR 1.14 (0.82-1.09) 01/04/17 14:00 Problem List - Problems (1) Chest pain Code(s): R07.9 - CHEST PAIN, UNSPECIFIED Qualifiers: Chest pain type: other chest pain Qualified Code(s): R07.89 - Other chest pain; R07.8 - Other chest pain (2) Pleural effusion Code(s): J90 - PLEURAL EFFUSION, NOT ELSEWHERE CLASSIFIED (3) Empyema Code(s): J86.9 - PYOTHORAX WITHOUT FISTULA Assessment/Plan 61 year old male pmh ESRD s/p kidney transplant 14 years ago, cardiomyopathy, CHF, COPD, R nephrectomy this past March with L sided pleural effusion s/p thoracentesis 01/06. -clinically patient improving with less pain and reduced WBC -pleural fluid analysis suggests exudative effusion/empyema -continue zosyn, azithromycin -will not dose vanc today, get a vancomycin level -repeat cxr to monitor effusion -Prolonged QT interval likely due to chronic tacrolimus use, not concerned about antibiotic coverage -f/u pleural fluid cultures, will reassess antibiotics pending cultures -WBC trending down (12.7 -> 11) -continue to follow WBC -Quantiferon Gold and Chlamydia assays ordered
[2017-01-07 08:54] LABS: ALBUMIN 2.7 g/dl (3.4-5.0); ANION GAP 11 (8-16); CALCIUM 8.4 mg/dL (8.5-10.1); CO2 23 mmol/L (21-32); CREATININE 5.6 mg/dL (0.7-1.3); GLUCOSE,RANDOM 99 mg/dL (74-106); PHOSPHOROUS 4.8 mg/dL (2.5-4.9); SGPT/ALT 11 U/L (12-78)
[2017-01-07 08:56] LABS: ALK PHOS 80 U/L (45-117); TOT PROT 5.9 g/dl (6.4-8.2)
[2017-01-07 09:06] LABS: SGOT/AST < 3 U/L (15-37)
[2017-01-07] MEDS: CARVEDILOL 12.5 MG TABLET (FP) PO SCH ×2 (09:43→22:02)
[2017-01-07] MEDS: CHOLECALCIFEROL (VITAMIN D3) 1,000 UNIT TABLET (FP) PO SCH (09:44)
[2017-01-07] MEDS: TACROLIMUS ANHYDROUS 1 MG CAPSULE (NF) PO SCH ×2 (09:44→22:04)
[2017-01-07] MEDS: SODIUM BICARBONATE 650 MG TABLET PO SCH ×2 (09:44→22:04)
[2017-01-07] MEDS: ALLOPURINOL 100 MG TABLET (FP) PO SCH (09:45)
[2017-01-07] MEDS: AZITHROMYCIN IVPB 250 ML IVPB SCH (09:45)
[2017-01-07 09:49] LABS: CHOLESTEROL 116 mg/dL (50-200); LDL CHOLESTEROL (ONLY SJRH) 57 mg/dL (5-100)
--- NOTE | 2017-01-07 10:15 | PN ---
Progress Note, Physician Chief Complaint: ID Improvement since thoracentesis Less pain NO chest tube placed - Current Medication List Current Medications: Active Medications Acetaminophen (Tylenol -) 325 mg PO Q4H PRN PRN Reason: PAIN Stop: 01/08/17 02:01 Last Admin: 01/07/17 00:20 Dose: 325 mg Albuterol/Ipratropium (Duoneb -) 1 amp NEB Q6H PRN PRN Reason: SHORTNESS OF BREATH Allopurinol (Zyloprim -) 100 mg PO DAILY [facility] Last Admin: 01/07/17 09:45 Dose: 100 mg Carvedilol (Coreg -) 12.5 mg PO BID [facility] Last Admin: 01/07/17 09:43 Dose: 12.5 mg Cholecalciferol (Vitamin D3 -) 2,000 unit PO DAILY [facility] Last Admin: 01/07/17 09:44 Dose: 2,000 unit Heparin Sodium (Porcine) (Heparin -) 5,000 unit SQ TID [facility] Last Admin: 01/07/17 06:39 Dose: 5,000 unit Piperacillin Sod/Tazobactam (Sod 2.25 gm/ Dextrose) 50 mls @ 100 mls/hr IVPB Q8H-IV RISHABH PRN Reason: Protocol Last Admin: 01/07/17 09:45 Dose: 100 mls/hr Azithromycin (Zithromax 500mg Ivpb (Pre-Docked)) 250 mls @ 250 mls/hr IVPB DAILY [facility] Last Admin: 01/07/17 09:45 Dose: 250 mls/hr Oxycodone HCl (Roxicodone -) 5 mg PO Q4H PRN PRN Reason: PAIN Last Admin: 01/07/17 00:21 Dose: 5 mg Sodium Bicarbonate (Sodium Bicarbonate -) 1,300 mg PO BID [facility] Last Admin: 01/07/17 09:44 Dose: 1,300 mg Tacrolimus (Prograf (Non-Formulary)) 7 mg PO BID [facility] Last Admin: 01/07/17 09:44 Dose: 7 mg - Objective Vital Signs: Vital Signs Temperature 98.3 F 01/07/17 06:00 Pulse Rate 76 01/07/17 06:00 Respiratory Rate 20 01/07/17 06:00 Blood Pressure 132/73 01/07/17 06:00 O2 Sat by Pulse Oximetry (%) 90 L 01/06/17 21:00 Constitutional: Yes: Well Nourished, No Distress Neck: Yes: WNL, Supple Respiratory: Yes: WNL, Regular, Diminished. No: Rales Gastrointestinal: Yes: Soft. No: Tenderness Edema: No Labs: CBC, BMP 01/07/17 06:10 01/07/17 06:10 INR, PTT INR 1.14 (0.82-1.09) 01/04/17 14:00 Assessment/Plan Microbiology 01/05/17 06:00 Urine For Antigen Detection Legionella Antigen - Final 01/05/17 06:00 Urine For Antigen Detection Streptococcus pneumoniae Antigen (M - Final 01/06/17 15:00 Pleural Fluid AFB Smear Concentration - Preliminary 01/06/17 15:00 Pleural Fluid Mycobacterial Culture - Preliminary 01/06/17 08:59 Serum Cryptococcal Antigen - Preliminary 01/05/17 12:45 Blood - Peripheral Venous Blood Culture - Preliminary NO GROWTH OBTAINED AFTER 24 HOURS, INCUBATION TO CONTINUE FOR 4 DAYS. 01/05/17 12:45 Blood - Peripheral Venous Blood Culture - Preliminary NO GROWTH OBTAINED AFTER 24 HOURS, INCUBATION TO CONTINUE FOR 4 DAYS. Laboratory Tests 01/06/17 01/06/17 01/07/17 05:50 15:00 06:10 WBC 11.0 H Hgb 11.6 L Hct 35.6 Plt Count 176 Neutrophils % 84.4 H Lymphocytes % 5.2 L D Monocytes % 8.5 Eosinophils % 1.4 Basophils % 0.5 BUN Creatinine Creat Clearance w eGFR Total Bilirubin AST ALT Alkaline Phosphatase Pleural WBC 8414 Pleural RBC 51812 Pleural Neutrophils 45 Pleural Lymphocytes 3 Pleural Monocytes 5 Pleural Eosinophils 2 Pleural Basophils 1 Pleural Macrophages 41 Pleural Total Protein 3.498 Pleural Albumin 2 Pleural LDH 310.95 Pleural Glucose 134.753 01/07/17 06:10 WBC Hgb Hct Plt Count Neutrophils % Lymphocytes % Monocytes % Eosinophils % Basophils % BUN 63 H Creatinine 5.6 H Creat Clearance w eGFR 10.47 Total Bilirubin 1.0 AST < 3 L ALT 11 L Alkaline Phosphatase 80 D Pleural WBC Pleural RBC Pleural Neutrophils Pleural Lymphocytes Pleural Monocytes Pleural Eosinophils Pleural Basophils Pleural Macrophages Pleural Total Protein Pleural Albumin Pleural LDH Pleural Glucose Assessment Pneumonia with parapneumonic effusion seems acute in clinical onset Plan Vancom level today but will not redose at this time Doubt staph aureus as no pus in fluid Continue Zosyn and Azithromycin Await gram stain and cultures Quantiferon gold Chlamydia serology [facility]
--- NOTE | 2017-01-07 10:32 | PN ---
Progress Note, Physician Chief Complaint: Chest pain improving S/P thoracentesis with evacuation of effusion/empyema History of Present Illness: Patient was seen and examined. Awake and alert. Chart was reviewed Intermittent cough, pleuritic chest pain improving, dyspnea improving - Current Medication List Current Medications: Active Medications Acetaminophen (Tylenol -) 325 mg PO Q4H PRN PRN Reason: PAIN Stop: 01/08/17 02:01 Last Admin: 01/07/17 00:20 Dose: 325 mg Albuterol/Ipratropium (Duoneb -) 1 amp NEB Q6H PRN PRN Reason: SHORTNESS OF BREATH Allopurinol (Zyloprim -) 100 mg PO DAILY [facility] Last Admin: 01/07/17 09:45 Dose: 100 mg Carvedilol (Coreg -) 12.5 mg PO BID [facility] Last Admin: 01/07/17 09:43 Dose: 12.5 mg Cholecalciferol (Vitamin D3 -) 2,000 unit PO DAILY [facility] Last Admin: 01/07/17 09:44 Dose: 2,000 unit Heparin Sodium (Porcine) (Heparin -) 5,000 unit SQ TID [facility] Last Admin: 01/07/17 06:39 Dose: 5,000 unit Piperacillin Sod/Tazobactam (Sod 2.25 gm/ Dextrose) 50 mls @ 100 mls/hr IVPB Q8H-IV RISHABH PRN Reason: Protocol Last Admin: 01/07/17 09:45 Dose: 100 mls/hr Azithromycin (Zithromax 500mg Ivpb (Pre-Docked)) 250 mls @ 250 mls/hr IVPB DAILY [facility] Last Admin: 01/07/17 09:45 Dose: 250 mls/hr Oxycodone HCl (Roxicodone -) 5 mg PO Q4H PRN PRN Reason: PAIN Last Admin: 01/07/17 00:21 Dose: 5 mg Sodium Bicarbonate (Sodium Bicarbonate -) 1,300 mg PO BID [facility] Last Admin: 01/07/17 09:44 Dose: 1,300 mg Tacrolimus (Prograf (Non-Formulary)) 7 mg PO BID [facility] Last Admin: 01/07/17 09:44 Dose: 7 mg - Objective Vital Signs: Vital Signs Temperature 100 F H 01/07/17 10:00 Pulse Rate 74 01/07/17 10:00 Respiratory Rate 18 01/07/17 10:00 Blood Pressure 130/70 01/07/17 10:00 O2 Sat by Pulse Oximetry (%) 90 L 01/06/17 21:00 Neck: Yes: Supple Cardiovascular: Yes: Regular Rate and Rhythm, Murmur (2/6 SM LSB and apex), S1, S2 Respiratory: Yes: Diminished Gastrointestinal: Yes: Normal Bowel Sounds, Soft. No: Tenderness Edema: No Additional Findings/Remarks: - Review of Systems Constitutional: denies: Chills, Fever Cardiovascular: reports: Chest Pain, Shortness of Breath. denies: Palpitations Respiratory: reports: Cough, SOB, SOB on Exertion. denies: Hemoptysis, Orthopnea, PND Gastrointestinal: denies: Abdominal Pain, Constipation, Diarrhea, Melena, Nausea , Rectal Bleeding, Vomiting Neurological: denies: Dizziness, Headache, Seizure, Syncope Labs: CBC, BMP 01/07/17 06:10 01/07/17 06:10 Problem List - Problems (1) Chest pain Code(s): R07.9 - CHEST PAIN, UNSPECIFIED Qualifiers: Chest pain type: other chest pain Qualified Code(s): R07.89 - Other chest pain; R07.8 - Other chest pain (2) Pleural effusion Code(s): J90 - PLEURAL EFFUSION, NOT ELSEWHERE CLASSIFIED (3) Renal transplant recipient Code(s): Z94.0 - KIDNEY TRANSPLANT STATUS (4) Dyspnea Code(s): R06.00 - DYSPNEA, UNSPECIFIED Qualifiers: Dyspnea type: dyspnea on exertion Qualified Code(s): R06.09 - Other forms of dyspnea (5) ESRD (end stage renal disease) Code(s): N18.6 - END STAGE RENAL DISEASE (6) HTN (hypertension) Code(s): I10 - ESSENTIAL (PRIMARY) HYPERTENSION Qualifiers: Hypertension type: essential hypertension Qualified Code(s): I10 - Essential (primary) hypertension (7) Acute on chronic systolic heart failure Code(s): I50.23 - ACUTE ON CHRONIC SYSTOLIC (CONGESTIVE) HEART FAILURE (8) Aortic regurgitation Code(s): I35.1 - NONRHEUMATIC AORTIC (VALVE) INSUFFICIENCY Qualifiers: Cardiac valve disease etiology: nonrheumatic Qualified Code(s): I35.1 - Nonrheumatic aortic (valve) insufficiency (9) Aortic stenosis Code(s): I35.0 - NONRHEUMATIC AORTIC (VALVE) STENOSIS Qualifiers: Cardiac valve disease etiology: nonrheumatic Qualified Code(s): I35.0 - Nonrheumatic aortic (valve) stenosis (10) Dilated cardiomyopathy Code(s): I42.0 - DILATED CARDIOMYOPATHY (11) Mitral regurgitation Code(s): I34.0 - NONRHEUMATIC MITRAL (VALVE) INSUFFICIENCY Qualifiers: Cardiac valve disease etiology: nonrheumatic Qualified Code(s): I34.0 - Nonrheumatic mitral (valve) insufficiency (12) Pulmonary HTN Code(s): I27.2 - OTHER SECONDARY PULMONARY HYPERTENSION (13) Tricuspid valve regurgitation Code(s): I07.1 - RHEUMATIC TRICUSPID INSUFFICIENCY Qualifiers: Cardiac valve disease etiology: nonrheumatic Qualified Code(s): I36.1 - Nonrheumatic tricuspid (valve) insufficiency Assessment/Plan 1. Clinical presentation compatible with pneumonia with pleuritic chest pain, improving s/p thoracentesis for effusion/empyema 2. History of ESRD status post renal transplant 3. Hypertension 4. Severe left ventricular systolic function - dilated cardiomyopathy with valvular heart disease - aortic valve stenosis and regurgitation, mitral and tricuspid valve regurgitation 4. Mild elevation of troponin suggests demand ischemia 5. History of cigarette smoking and COPD PLAN: 1. Continue antibiotic coverage as per ID. Further plans as per ID. Follow cultures 2. Continue Carvedilol as tolerated 3. Transthoracic echocardiography to assess LV/RV and valvular function and compare with previous study. Obtain prior records from [facility] regarding evaluation of above cardiomyopathy 4. Trend troponin - coming down 5. Smoking cessation 6. Analgesics as needed 7. Monitor renal function Guarded Further plans are to follow Camilo Smith MD
--- NOTE | 2017-01-07 11:53 | PN ---
Progress Note (short form) - Note Progress Note: Renal follow up for Renal Transplant Pt seen and examined at the bedside s/p thoracentesis yesterday kpt feels much better, has soreness at needle insertion site SOB is improved, pleuretic chest pain is improved good urine output denies any CP, Fever, chills, N/V/D Vital Signs Temperature 100 F H 01/07/17 10:00 Pulse Rate 75 01/07/17 10:47 Respiratory Rate 18 01/07/17 10:00 Blood Pressure 130/70 01/07/17 10:00 O2 Sat by Pulse Oximetry (%) 94 L 01/07/17 10:47 Intake & Output 01/04/17 01/05/17 01/06/17 01/07/17 23:59 23:59 23:59 23:59 Intake Total 440 1330 Output Total 300 600 Balance 140 730 Weight 192 lb 9.6 oz 192 lb 9.6 oz 213 lb 6.4 oz Gen: NAD, awake and Alert CVS: RRR, No M/R Lungs: CTA, no rales or wheeze Abd: soft NT/ND Ext: No edema, clubbing or cyanosis CBC, BMP 01/07/17 06:10 01/07/17 06:10 Current Medications Acetaminophen (Tylenol -) 325 mg PO Q4H PRN PRN Reason: PAIN Stop: 01/08/17 02:01 Last Admin: 01/07/17 00:20 Dose: 325 mg Albuterol/Ipratropium (Duoneb -) 1 amp NEB Q6H PRN PRN Reason: SHORTNESS OF BREATH Allopurinol (Zyloprim -) 100 mg PO DAILY [facility] Last Admin: 01/07/17 09:45 Dose: 100 mg Carvedilol (Coreg -) 12.5 mg PO BID [facility] Last Admin: 01/07/17 09:43 Dose: 12.5 mg Cholecalciferol (Vitamin D3 -) 2,000 unit PO DAILY [facility] Last Admin: 01/07/17 09:44 Dose: 2,000 unit Heparin Sodium (Porcine) (Heparin -) 5,000 unit SQ TID [facility] Last Admin: 01/07/17 06:39 Dose: 5,000 unit Piperacillin Sod/Tazobactam (Sod 2.25 gm/ Dextrose) 50 mls @ 100 mls/hr IVPB Q8H-IV RISHABH PRN Reason: Protocol Last Admin: 01/07/17 09:45 Dose: 100 mls/hr Azithromycin (Zithromax 500mg Ivpb (Pre-Docked)) 250 mls @ 250 mls/hr IVPB DAILY [facility] Last Admin: 01/07/17 09:45 Dose: 250 mls/hr Oxycodone HCl (Roxicodone -) 5 mg PO Q4H PRN PRN Reason: PAIN Last Admin: 01/07/17 00:21 Dose: 5 mg Sodium Bicarbonate (Sodium Bicarbonate -) 1,300 mg PO BID [facility] Last Admin: 01/07/17 09:44 Dose: 1,300 mg Tacrolimus (Prograf (Non-Formulary)) 7 mg PO BID [facility] Last Admin: 01/07/17 09:44 Dose: 7 mg a/P 61 year old Gentleman with PMhx of ESRD s/p Renal Transplant with CKD/Chronic allograft nephropathy, Hypertension, RCC s/p Right Kidney Nephrectomy who presented with 3 day history of pleuretic chest pain and SOB and found to have a PNA. 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 Renal function remains stable continue tacrolimus BID holding cellcept pending sustained improvement in clinical status and culture results Trend BUN/Cr and electrolytes no FLYNN/ARB given low eGFR continue sodium bicarb BID #Pna in immunocompromised pt s/p Thoracentesis Continue Zosyn and Azithromycin as per DAINA Stephenson DO Problem List - Problems (1) Multifocal pneumonia Code(s): J18.9 - PNEUMONIA, UNSPECIFIED ORGANISM (2) Pleural effusion Code(s): J90 - PLEURAL EFFUSION, NOT ELSEWHERE CLASSIFIED (3) Renal transplant recipient Code(s): Z94.0 - KIDNEY TRANSPLANT STATUS (4) ESRD (end stage renal disease) Code(s): N18.6 - END STAGE RENAL DISEASE (5) HTN (hypertension) Code(s): I10 - ESSENTIAL (PRIMARY) HYPERTENSION Qualifiers: Hypertension type: essential hypertension Qualified Code(s): I10 - Essential (primary) hypertension
--- NOTE | 2017-01-07 12:29 | PN ---
Progress Note, Physician History of Present Illness: PULMONARY ALERT,FEELS WEAK,MILD DYSPNEA. O2 SAT 87% ON RA. PLEURAL FLUID C/W EXUDATE - Current Medication List Current Medications: Active Medications Acetaminophen (Tylenol -) 325 mg PO Q4H PRN PRN Reason: PAIN Stop: 01/08/17 02:01 Last Admin: 01/07/17 00:20 Dose: 325 mg Albuterol/Ipratropium (Duoneb -) 1 amp NEB Q6H PRN PRN Reason: SHORTNESS OF BREATH Allopurinol (Zyloprim -) 100 mg PO DAILY [facility] Last Admin: 01/07/17 09:45 Dose: 100 mg Carvedilol (Coreg -) 12.5 mg PO BID [facility] Last Admin: 01/07/17 09:43 Dose: 12.5 mg Cholecalciferol (Vitamin D3 -) 2,000 unit PO DAILY [facility] Last Admin: 01/07/17 09:44 Dose: 2,000 unit Heparin Sodium (Porcine) (Heparin -) 5,000 unit SQ TID [facility] Last Admin: 01/07/17 06:39 Dose: 5,000 unit Piperacillin Sod/Tazobactam (Sod 2.25 gm/ Dextrose) 50 mls @ 100 mls/hr IVPB Q8H-IV RISHABH PRN Reason: Protocol Last Admin: 01/07/17 09:45 Dose: 100 mls/hr Azithromycin (Zithromax 500mg Ivpb (Pre-Docked)) 250 mls @ 250 mls/hr IVPB DAILY [facility] Last Admin: 01/07/17 09:45 Dose: 250 mls/hr Oxycodone HCl (Roxicodone -) 5 mg PO Q4H PRN PRN Reason: PAIN Last Admin: 01/07/17 00:21 Dose: 5 mg Sodium Bicarbonate (Sodium Bicarbonate -) 1,300 mg PO BID [facility] Last Admin: 01/07/17 09:44 Dose: 1,300 mg Tacrolimus (Prograf (Non-Formulary)) 7 mg PO BID [facility] Last Admin: 01/07/17 09:44 Dose: 7 mg - Objective Vital Signs: Vital Signs Temperature 100 F H 01/07/17 10:00 Pulse Rate 75 01/07/17 10:47 Respiratory Rate 18 01/07/17 10:00 Blood Pressure 130/70 01/07/17 10:00 O2 Sat by Pulse Oximetry (%) 94 L 01/07/17 10:47 Constitutional: Yes: Well Nourished, Calm Eyes: Yes: WNL HENT: Yes: WNL, Atraumatic Neck: Yes: WNL Cardiovascular: Yes: Regular Rate and Rhythm, S1, S2 Respiratory: Yes: Rales (BIBASILAR RALES) Gastrointestinal: Yes: Normal Bowel Sounds, Soft Extremities: Yes: WNL Edema: No Labs: CBC, BMP 01/07/17 06:10 01/07/17 06:10 INR, PTT INR 1.14 (0.82-1.09) 01/04/17 14:00 Problem List - Problems (1) COPD (chronic obstructive pulmonary disease) Code(s): J44.9 - CHRONIC OBSTRUCTIVE PULMONARY DISEASE, UNSPECIFIED Qualifiers : COPD type: unspecified COPD Qualified Code(s): J44.9 - Chronic obstructive pulmonary disease, unspecified (2) Cardiorenal syndrome, stage 5 chronic kidney disease or end stage renal disease, with heart failure Code(s): I13.2 - HYP HRT & CHR KDNY DIS W HRT FAIL AND W STG 5 CHR KDNY/ESRD (3) Dyspnea Code(s): R06.00 - DYSPNEA, UNSPECIFIED Qualifiers: Dyspnea type: dyspnea on exertion Qualified Code(s): R06.09 - Other forms of dyspnea (4) ESRD (end stage renal disease) Code(s): N18.6 - END STAGE RENAL DISEASE (5) HTN (hypertension) Code(s): I10 - ESSENTIAL (PRIMARY) HYPERTENSION Qualifiers: Hypertension type: essential hypertension Qualified Code(s): I10 - Essential (primary) hypertension (6) Pulmonary HTN Code(s): I27.2 - OTHER SECONDARY PULMONARY HYPERTENSION (7) Aortic stenosis Code(s): I35.0 - NONRHEUMATIC AORTIC (VALVE) STENOSIS Qualifiers: Cardiac valve disease etiology: nonrheumatic Qualified Code(s): I35.0 - Nonrheumatic aortic (valve) stenosis (8) CHF (congestive heart failure) Code(s): I50.9 - HEART FAILURE, UNSPECIFIED Qualifiers: Congestive heart failure type: unspecified congestive heart failure type Congestive heart failure chronicity: acute on chronic Qualified Code(s ): I50.9 - Heart failure, unspecified (9) Mitral regurgitation Code(s): I34.0 - NONRHEUMATIC MITRAL (VALVE) INSUFFICIENCY Qualifiers: Cardiac valve disease etiology: nonrheumatic Qualified Code(s): I34.0 - Nonrheumatic mitral (valve) insufficiency Assessment/Plan IMP PNEUMONIA LEFT PLEURAL EFFUSION EXUDATE LIKELY UNCOMPLICATED PLEURAL EFFUSION HYPOXEMIA COPD ESRD H/O RENAL TRANSPLANT H/O R NEPHRECTOMY SECONDARY TO RCC PLAN O2 ANTIBIOTICS PER ID INHALED BRONCHODILATORS CHECK PLEURAL FLUID CULTURES/CYTOLOGY CONTINUE TACRO/CELLCEPT DR CASTELLANO
--- NOTE | 2017-01-07 17:06 | PN ---
Physical Exam: SUBJECTIVE: Patient seen and examined. No acute events overnight. Patient says chest pain a lot better. He has weakness and soreness following thoracentesis. OBJECTIVE: Vital Signs Period Temp Pulse Resp BP Sys/Ly Pulse Ox Last 24 Hr 97.8 F-979 F 70-77 18-20 116-133/63-73 90-96 Constitutional: Yes: Moderate Distress, agitated HENT: Yes: WNL, Atraumatic, Normocephalic Cardiovascular: Yes: Regular Rate and Rhythm, Murmur (holosystolic murmur was appreciated at the apex), S1, S2 Respiratory: Yes: Cough, B/L lower lung crackles Gastrointestinal: Yes: WNL, Normal Bowel Sounds, Soft Extremities: Yes: WNL, AV fistula placed in left arm Peripheral Pulses WNL: Yes Edema: No Laboratory Results - last 24 hr 01/06/17 01/07/17 01/07/17 15:00 06:10 06:10 WBC 11.0 H RBC 4.10 Hgb 11.6 L Hct 35.6 MCV 86.7 MCH 28.2 MCHC 32.5 RDW 15.2 Plt Count 176 MPV 9.9 Sodium Potassium Chloride Carbon Dioxide Anion Gap BUN Creatinine Creat Clearance w eGFR Random Glucose Calcium Phosphorus Magnesium Total Bilirubin AST ALT Alkaline Phosphatase LD Total Total Protein Albumin Triglycerides Cholesterol Total LDL Cholesterol HDL Cholesterol Pleural Fluid Source Pleural Pleural Color Yellow Pleural Appearance Cloudy Pleural WBC 8414 Pleural RBC 34437 Pleural Neutrophils 45 Pleural Lymphocytes 3 Pleural Monocytes 5 Pleural Eosinophils 2 Pleural Basophils 1 Pleural Macrophages 41 Pleural Mesothelial 6 Pleural Total Protein 3.498 Pleural Albumin 2 Pleural LDH 310.95 Pleural Glucose 134.753 Pleural Amylase 24.238 Pleural Triglycerides 11 Random Vancomycin 18.496 01/07/17 01/07/17 01/07/17 06:10 06:10 10:25 WBC RBC Hgb Hct MCV MCH MCHC RDW Plt Count MPV Sodium 136 Potassium 4.4 Chloride 102 Carbon Dioxide 23 Anion Gap 11 BUN 63 H Creatinine 5.6 H Creat Clearance w eGFR 10.47 Random Glucose 99 Calcium 8.4 L Phosphorus 4.8 Magnesium 2.0 Total Bilirubin 1.0 AST < 3 L ALT 11 L Alkaline Phosphatase 80 D LD Total 183 Total Protein 5.9 L Albumin 2.7 L Triglycerides 71 Cancelled Cholesterol 116 Cancelled Total LDL Cholesterol 57 Cancelled HDL Cholesterol 48 Cancelled Pleural Fluid Source Pleural Color Pleural Appearance Pleural WBC Pleural RBC Pleural Neutrophils Pleural Lymphocytes Pleural Monocytes Pleural Eosinophils Pleural Basophils Pleural Macrophages Pleural Mesothelial Pleural Total Protein Pleural Albumin Pleural LDH Pleural Glucose Pleural Amylase Pleural Triglycerides Random Vancomycin Active Medications Generic Name Dose Route Start Last Admin Trade Name Freq PRN Reason Stop Dose Admin Acetaminophen 325 mg 01/05/17 02:02 01/07/17 00:20 Tylenol - PO 01/08/17 02:01 325 mg Q4H PRN Administration PAIN Albuterol/Ipratropium 1 amp 01/04/17 22:31 Duoneb - NEB Q6H PRN SHORTNESS OF BREATH Allopurinol 100 mg 01/05/17 10:00 01/07/17 09:45 Zyloprim - PO 100 mg DAILY [facility]ISH[facility]H Administration Carvedilol 12.5 mg 01/04/17 22:00 01/07/17 09:43 Coreg - PO 12.5 mg BID RISHABH Administration Cholecalciferol 2,000 unit 01/05/17 10:00 01/07/17 09:44 Vitamin D3 - PO 2,000 unit DAILY [facility] Administration Heparin Sodium (Porcine) 5,000 unit 01/05/17 22:00 01/07/17 14:24 Heparin - SQ Not Given TID [facility] Piperacillin Sod/Tazobactam 50 mls @ 100 mls/hr 01/05/17 18:00 01/07/17 09:45 Sod 2.25 gm/ Dextrose IVPB 100 mls/hr Q8H-IV RISHABH Administration Protocol Azithromycin 250 mls @ 250 mls/hr 01/06/17 10:00 01/07/17 09:45 Zithromax 500mg Ivpb (Pre-Docked) IVPB 250 mls/hr DAILY [facility] Administration Oxycodone HCl 5 mg 01/05/17 02:02 01/07/17 00:21 Roxicodone - PO 5 mg Q4H PRN Administration PAIN Sodium Bicarbonate 1,300 mg 01/04/17 22:00 01/07/17 09:44 Sodium Bicarbonate - PO 1,300 mg BID RISHABH Administration Tacrolimus 7 mg 01/04/17 22:00 01/07/17 09:44 Prograf (Non-Formulary) PO 7 mg BID R[facility]ABH Administration ASSESSMENT/PLAN: # Community Acquired Pneumonia -Pleural fluid cultures pending -Bcx, Ucx, and Antigens negative -lactic acid resolved -Held Vancomycin pending random vanco level in the morning per ID -F/Up Quantiferon Gold and Chlamydia assays as per ID -Continue Zosyn 2.25g , Azithromycin 500mg ICVPB per ID -CRP elevated 14.2 -F/up labs in the AM # Left pleural effusion could be a paranpneumonic effusion vs empyema -s/p thoracentesis -follow/up pleural fluid studies # Atypical Chest pain -Improving -Troponin was slightly elevated unlikely ACS -chest pain seems to be pleuritic in nature -cardiology on board -echo reviewed # End stage renal disease s/p transplant 14 years ago with chronic rejection -renal function stable -creatinine 5.6 (Baseline 6.4) -will trend BUN/CR -Hold cellcept and continue tacrolimus 6mg PO BID as per Dr. Stephenson -Hold lasix for now. Patient received gentle hydration yesterday. # Slightly Elevated troponins -troponin level improving -likely due to decreased clearance of troponins from renal failure #Hx of CAD -continue carvedilol 12.5mg PO BID -Patient not on aspirin #Hx of CHF - Will try to obtain prior records from [facility] regarding evaluation of cardiomyopathy -2016 stress test showed EF of 34% -2016 Echo showed LV dilation, reduced systolic EF, severe LV hypokinesis -need to get records from [facility] to evaluate his cardiomyopathy -Cardiology consulted, monitor lipid panel -lipid panel WNL today -Echo from today: LV, LA and RA severely dilated, LV systolic function reduced, global hypokinesis of the LV, MR, TR, , EF 54% #COPD -not in exacerbation -duoneb 1 amp Q6H PRN for SOB -incentive spirometry ordered #Left superior pole kidney cyst -incidental finding -monitor as outpatient #FEN -fluids: none -electrolytes: WNL -nutrition: sodium controlled diet #prophylaxis -DVT: Heparin SQ QD (patient refuses more than one/day) -GI: not needed -deconditioning: PT was ordered Visit type - Emergency Visit Emergency Visit: Yes ED Registration Date: 01/04/17 Care time: The patient presented to the Emergency Department on the above date and was hospitalized for further evaluation of their emergent condition. - New Patient This patient is new to me today: No - Critical Care Critical Care patient: No
--- NOTE | 2017-01-07 18:26 | PN ---
Teaching Attending Note Name of Resident: Roberta Koo ATTENDING PHYSICIAN STATEMENT I saw and evaluated the patient. I reviewed the resident's note and discussed the case with the resident. I agree with the resident's findings and plan as documented. SUBJECTIVE: continues to feel WEAK with MILD DYSPNEA. O2 SAT 87% ON RA. OBJECTIVE: Vital Signs Temperature 97.8 F 01/07/17 14:22 Pulse Rate 70 01/07/17 14:22 Respiratory Rate 18 01/07/17 14:22 Blood Pressure 116/63 01/07/17 14:22 O2 Sat by Pulse Oximetry (%) 94 L 01/07/17 10:47 CBCD WBC 11.0 K/mm3 (4.0-10.0) H 01/07/17 06:10 RBC 4.10 M/mm3 (4.00-5.60) 01/07/17 06:10 Hgb 11.6 GM/dL (11.7-16.9) L 01/07/17 06:10 Hct 35.6 % (35.4-49) 01/07/17 06:10 MCV 86.7 fl (80-96) 01/07/17 06:10 MCHC 32.5 g/dl (32.0-35.9) 01/07/17 06:10 RDW 15.2 % (11.9-15.9) 01/07/17 06:10 Plt Count 176 K/MM3 (134-434) 01/07/17 06:10 MPV 9.9 fl (7.5-11.1) 01/07/17 06:10 CMP Sodium 136 mmol/L (136-145) 01/07/17 06:10 Potassium 4.4 mmol/L (3.5-5.1) 01/07/17 06:10 Chloride 102 mmol/L (98-107) 01/07/17 06:10 Carbon Dioxide 23 mmol/L (21-32) 01/07/17 06:10 Anion Gap 11 (8-16) 01/07/17 06:10 BUN 63 mg/dL (7-18) H 01/07/17 06:10 Creatinine 5.6 mg/dL (0.7-1.3) H 01/07/17 06:10 Creat Clearance w eGFR 10.47 (>60) 01/07/17 06:10 Random Glucose 99 mg/dL (74-106) 01/07/17 06:10 Calcium 8.4 mg/dL (8.5-10.1) L 01/07/17 06:10 Total Bilirubin 1.0 mg/dL (0.2-1.0) 01/07/17 06:10 AST < 3 U/L (15-37) L 01/07/17 06:10 ALT 11 U/L (12-78) L 01/07/17 06:10 Alkaline Phosphatase 80 U/L (45-117) D 01/07/17 06:10 Total Protein 5.9 g/dl (6.4-8.2) L 01/07/17 06:10 Albumin 2.7 g/dl (3.4-5.0) L 01/07/17 06:10 CARDIAC ENZYMES Creatine Kinase 52 IU/L (39-308) 01/06/17 10:54 Troponin I 0.06 ng/ml (0.00-0.05) H D 01/06/17 10:54 Current Medications Generic Name Dose Route Start Last Admin Trade Name Freq PRN Reason Stop Dose Admin Acetaminophen 325 mg 01/05/17 02:02 01/07/17 00:20 Tylenol - PO 01/08/17 02:01 325 mg Q4H PRN Administration PAIN Albuterol/Ipratropium 1 amp 01/04/17 22:31 Duoneb - NEB Q6H PRN SHORTNESS OF BREATH Allopurinol 100 mg 01/05/17 10:00 01/07/17 09:45 Zyloprim - PO 100 mg DAILY RISHABH Administration Carvedilol 12.5 mg 01/04/17 22:00 01/07/17 09:43 Coreg - PO 12.5 mg BID RISHABH Administration Cholecalciferol 2,000 unit 01/05/17 10:00 01/07/17 09:44 Vitamin D3 - PO 2,000 unit DAILY RISHABH Administration Heparin Sodium (Porcine) 5,000 unit 01/05/17 22:00 01/07/17 14:24 Heparin - SQ Not Given TID RISHABH Piperacillin Sod/Tazobactam 50 mls @ 100 mls/hr 01/05/17 18:00 01/07/17 17:37 Sod 2.25 gm/ Dextrose IVPB 100 mls/hr Q8H-IV RISHABH Administration Protocol Azithromycin 250 mls @ 250 mls/hr 01/06/17 10:00 01/07/17 09:45 Zithromax 500mg Ivpb (Pre-Docked) IVPB 250 mls/hr DAILY [facility] Administration Oxycodone HCl 5 mg 01/05/17 02:02 01/07/17 00:21 Roxicodone - PO 5 mg Q4H PRN Administration PAIN Sodium Bicarbonate 1,300 mg 01/04/17 22:00 01/07/17 09:44 Sodium Bicarbonate - PO 1,300 mg BID RISHABH Administration Tacrolimus 7 mg 01/04/17 22:00 01/07/17 09:44 Prograf (Non-Formulary) PO 7 mg BID RISHABH Administration Home Medications Medication Instructions Recorded Mycophenolate Mofetil [Cellcept] 250 mg PO DAILY 03/24/14 Tacrolimus [Prograf] 7 mg PO BID 03/24/14 Allopurinol [Zyloprim -] 100 mg PO PRN 11/18/15 Sodium Bicarbonate 1,300 mg PO BID 11/18/15 Carvedilol [Coreg -] 12.5 mg PO BID #60 tablet 11/21/15 Ergocalciferol (Vitamin D2) 2,000 unit PO DAILY 01/04/17 [Vitamin D2] Furosemide 20 mg PO BID 01/04/17 Laboratory Results - last 24 hr 01/06/17 01/07/17 01/07/17 15:00 06:10 06:10 WBC 11.0 H RBC 4.10 Hgb 11.6 L Hct 35.6 MCV 86.7 MCH 28.2 MCHC 32.5 RDW 15.2 Plt Count 176 MPV 9.9 Sodium Potassium Chloride Carbon Dioxide Anion Gap BUN Creatinine Creat Clearance w eGFR Random Glucose Calcium Phosphorus Magnesium Total Bilirubin AST ALT Alkaline Phosphatase LD Total Total Protein Albumin Triglycerides Cholesterol Total LDL Cholesterol HDL Cholesterol Pleural Fluid Source Pleural Pleural Color Yellow Pleural Appearance Cloudy Pleural WBC 8414 Pleural RBC 82405 Pleural Neutrophils 45 Pleural Lymphocytes 3 Pleural Monocytes 5 Pleural Eosinophils 2 Pleural Basophils 1 Pleural Macrophages 41 Pleural Mesothelial 6 Pleural Total Protein 3.498 Pleural Albumin 2 Pleural LDH 310.95 Pleural Glucose 134.753 Pleural Amylase 24.238 Pleural Triglycerides 11 Random Vancomycin 18.496 01/07/17 01/07/17 01/07/17 06:10 06:10 10:25 WBC RBC Hgb Hct MCV MCH MCHC RDW Plt Count MPV Sodium 136 Potassium 4.4 Chloride 102 Carbon Dioxide 23 Anion Gap 11 BUN 63 H Creatinine 5.6 H Creat Clearance w eGFR 10.47 Random Glucose 99 Calcium 8.4 L Phosphorus 4.8 Magnesium 2.0 Total Bilirubin 1.0 AST < 3 L ALT 11 L Alkaline Phosphatase 80 D LD Total 183 Total Protein 5.9 L Albumin 2.7 L Triglycerides 71 Cancelled Cholesterol 116 Cancelled Total LDL Cholesterol 57 Cancelled HDL Cholesterol 48 Cancelled Pleural Fluid Source Pleural Color Pleural Appearance Pleural WBC Pleural RBC Pleural Neutrophils Pleural Lymphocytes Pleural Monocytes Pleural Eosinophils Pleural Basophils Pleural Macrophages Pleural Mesothelial Pleural Total Protein Pleural Albumin Pleural LDH Pleural Glucose Pleural Amylase Pleural Triglycerides Random Vancomycin 01/05/17 12:45 Blood - Peripheral Venous Blood Culture - Preliminary NO GROWTH OBTAINED AFTER 24 HOURS, INCUBATION TO CONTINUE FOR 4 DAYS. 01/05/17 12:45 Blood - Peripheral Venous Blood Culture - Preliminary NO GROWTH OBTAINED AFTER 24 HOURS, INCUBATION TO CONTINUE FOR 4 DAYS. 01/05/17 06:00 Urine For Antigen Detection Legionella Antigen - Final 01/05/17 06:00 Urine For Antigen Detection Streptococcus pneumoniae Antigen (M - Final CHEST: decreased BS BL Heart: S1s2 positive. no gallop. 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 he was found to have b /l CAP # B/L Community Acquired Pneumonia wit parapneumonic effusion exudative ; blood culture negative so far, no growth, continue Zosyn/Azithro, discontinue vanco since level is 18, ID on the case , s/p Rocephin s/p US guided thoracocentesis by IR. Pulmonary is on the case. # ESRD s/p renal transplant with chronic rejection and nephrosclerosis cr at his baseline 5.2-6.1,discussed with Dr. Stephenson,health care administrator who is on the case, continue his meds. cellcept and tacrulimus . # HTN and heart failure with h/o of severe cardiomyopathy. Echo in 2016 with severely reduced EF DVT px SCds PT ordered
[2017-01-07] MEDS ORDERED: PT OWN MED DRAWER 7, Y5N ONE (21:50)
[2017-01-08] MEDS ORDERED: PIPERACILLIN/TAZOBACTAM 2.25 GM VIAL IVPB ONE (02:06)
[2017-01-08] MEDS ORDERED: DEXTROSE 5%-WATER - 50 ML IVPB ONE (02:07)
[2017-01-08] MEDS: PIPERACILLIN/TAZOB 2.25 GM 2.25 GM in DEXTROSE 5%-WATER - 50 ML IVPB SCH (02:40)
[2017-01-08] MEDS: HEPARIN NA (PORCINE) 5,000 UNITS/ML 1ML VIAL SQ SCH ×2 (06:29→14:22)
[2017-01-08 08:15] LABS: EOSINOPHIL 6.4 % (0-4.5); MCH 28.6 pg (25.7-33.7); MEAN CELL VOLUME 86.7 fl (80-96); MEAN PLT VOLUME 10.1 fl (7.5-11.1); NEUTROPHILS 74.7 % (42.8-82.8); PLATELET COUNT 205 K/MM3 (134-434); RDW 15.2 % (11.9-15.9); WHITE BLOOD COUNT 9.4 K/mm3 (4.0-10.0)
[2017-01-08 08:36] LABS: ANION GAP 10 (8-16); CALCIUM 8.1 mg/dL (8.5-10.1); CO2 24 mmol/L (21-32); GLUCOSE,RANDOM 92 mg/dL (74-106); MAGNESIUM 2.2 mg/dL (1.8-2.4); PHOSPHOROUS 5.1 mg/dL (2.5-4.9)
[2017-01-08 08:39] LABS: CREATININE 6.1 mg/dL (0.7-1.3)
--- NOTE | 2017-01-08 08:55 | PN ---
Physical Exam: SUBJECTIVE: Patient seen and examined. Offers no new complaints. He said he feels much better today and says he is ready to go home today. Denies chest pain , fevers, chills, nausea, vomiting and diarrhea. OBJECTIVE: Vital Signs Period Temp Pulse Resp BP Sys/Ly Pulse Ox Last 24 Hr 97.8 F-100 F 65-75 18-20 116-133/63-78 94-96 Constitutional: Yes: Moderate Distress, agitated HENT: Yes: WNL, Atraumatic, Normocephalic Cardiovascular: Yes: Regular Rate and Rhythm, Murmur (holosystolic murmur was appreciated at the apex), S1, S2 Respiratory: Yes: Cough, B/L lower lung crackles Gastrointestinal: Yes: WNL, Normal Bowel Sounds, Soft Extremities: Yes: WNL, AV fistula placed in left arm Peripheral Pulses WNL: Yes Edema: No Laboratory Results - last 24 hr 01/05/17 01/07/17 01/07/17 20:46 06:10 06:10 WBC RBC Hgb Hct MCV MCH MCHC RDW Plt Count MPV Neutrophils % Lymphocytes % Monocytes % Eosinophils % Basophils % Sodium 136 Potassium 4.4 Chloride 102 Carbon Dioxide 23 Anion Gap 11 BUN 63 H Creatinine 5.6 H Creat Clearance w eGFR 10.47 Random Glucose 99 Calcium 8.4 L Phosphorus 4.8 Magnesium 2.0 Total Bilirubin 1.0 AST < 3 L ALT 11 L Alkaline Phosphatase 80 D LD Total Total Protein 5.9 L Albumin 2.7 L Triglycerides 71 Cancelled Cholesterol 116 Cancelled Total LDL Cholesterol 57 Cancelled HDL Cholesterol 48 Cancelled Tacrolimus 6.2 01/07/17 01/08/17 01/08/17 10:25 06:00 06:00 WBC 9.4 RBC 4.04 Hgb 11.6 L Hct 35.0 L MCV 86.7 MCH 28.6 MCHC 33.0 RDW 15.2 Plt Count 205 MPV 10.1 Neutrophils % 74.7 Lymphocytes % 9.0 D Monocytes % 8.9 Eosinophils % 6.4 H D Basophils % 1.0 Sodium 138 Potassium 4.4 Chloride 104 Carbon Dioxide 24 Anion Gap 10 BUN 66 H Creatinine 6.1 H Creat Clearance w eGFR Random Glucose 92 Calcium 8.1 L Phosphorus 5.1 H Magnesium 2.2 Total Bilirubin AST ALT Alkaline Phosphatase LD Total 183 Total Protein Albumin Triglycerides Cholesterol Total LDL Cholesterol HDL Cholesterol Tacrolimus Active Medications Generic Name Dose Route Start Last Admin Trade Name Freq PRN Reason Stop Dose Admin Albuterol/Ipratropium 1 amp 01/04/17 22:31 Duoneb - NEB Q6H PRN SHORTNESS OF BREATH Allopurinol 100 mg 01/05/17 10:00 01/07/17 09:45 Zyloprim - PO 100 mg DAILY RISHABH Administration Carvedilol 12.5 mg 01/04/17 22:00 01/07/17 22:02 Coreg - PO 12.5 mg BID RISHABH Administration Cholecalciferol 2,000 unit 01/05/17 10:00 01/07/17 09:44 Vitamin D3 - PO 2,000 unit DAILY RISHABH Administration Heparin Sodium (Porcine) 5,000 unit 01/05/17 22:00 01/08/17 06:29 Heparin - SQ Not Given TID RISHABH Piperacillin Sod/Tazobactam 50 mls @ 100 mls/hr 01/05/17 18:00 01/08/17 02:40 Sod 2.25 gm/ Dextrose IVPB 100 mls/hr Q8H-IV RISHABH Administration Protocol Azithromycin 250 mls @ 250 mls/hr 01/06/17 10:00 01/07/17 09:45 Zithromax 500mg Ivpb (Pre-Docked) IVPB 250 mls/hr DAILY RISHABH Administration Sodium Bicarbonate 1,300 mg 01/04/17 22:00 01/07/17 22:04 Sodium Bicarbonate - PO 1,300 mg BID RISHABH Administration Tacrolimus 7 mg 01/04/17 22:00 01/07/17 22:04 Prograf (Non-Formulary) PO 7 mg BID RISHABH Administration ASSESSMENT/PLAN: # Community Acquired Pneumonia -Pleural fluid cultures pending -Bcx, Ucx, and Antigens negative -lactic acid resolved -Held Vancomycin pending random vanco level in the morning per ID (last vanc 18.4) -F/Up Quantiferon Gold and Chlamydia assays as per ID -Continue Zosyn 2.25g , Azithromycin 500mg ICVPB per ID -CRP elevated 14.2 -F/up labs in the AM # Left pleural effusion could be a paranpneumonic effusion vs empyema -s/p thoracentesis -follow/up pleural fluid studies # Atypical Chest pain -Improved -Troponin was slightly elevated unlikely ACS -chest pain seems to be pleuritic in nature -cardiology on board -echo reviewed # End stage renal disease s/p transplant 14 years ago with chronic rejection -renal function stable -creatinine 5.6 (Baseline 6.4) -will trend BUN/CR -Hold cellcept and continue tacrolimus 6mg PO BID as per Dr. Stephenson -Hold lasix for now. Patient received gentle hydration yesterday. # Slightly Elevated troponins -resolved -likely due to decreased clearance of troponins from renal failure #Hx of CAD -continue carvedilol 12.5mg PO BID -Patient not on aspirin #Hx of CHF - Will try to obtain prior records from [facility] regarding evaluation of cardiomyopathy -2015 stress test showed EF of 34% -2015 Echo showed LV dilation, reduced systolic EF, severe LV hypokinesis -need to get records from [facility] to evaluate his cardiomyopathy -Cardiology consulted, monitor lipid panel -lipid panel WNL today -Echo from today: LV, LA and RA severely dilated, LV systolic function reduced, global hypokinesis of the LV, MR, TR, , EF 54% #COPD -not in exacerbation -duoneb 1 amp Q6H PRN for SOB -incentive spirometry ordered #Left superior pole kidney cyst -incidental finding -monitor as outpatient #FEN -fluids: none -electrolytes: WNL -nutrition: sodium controlled diet #prophylaxis -DVT: Heparin SQ QD (patient refuses more than one/day) -GI: not needed -deconditioning: PT was ordered but patient refused it yesterday.
--- NOTE | 2017-01-08 10:25 | PN ---
Progress Note, Physician Chief Complaint: Chest pain improving S/P thoracentesis with evacuation of effusion/empyema Feeling better sitting in chair History of Present Illness: Patient was seen and examined. Awake and alert. Chart was reviewed Intermittent cough improved, pleuritic chest pain better, dyspnea improving Clinically appears better - Current Medication List Current Medications: Active Medications Albuterol/Ipratropium (Duoneb -) 1 amp NEB Q6H PRN PRN Reason: SHORTNESS OF BREATH Allopurinol (Zyloprim -) 100 mg PO DAILY [facility] Last Admin: 01/07/17 09:45 Dose: 100 mg Carvedilol (Coreg -) 12.5 mg PO BID [facility] Last Admin: 01/07/17 22:02 Dose: 12.5 mg Cholecalciferol (Vitamin D3 -) 2,000 unit PO DAILY [facility] Last Admin: 01/07/17 09:44 Dose: 2,000 unit Heparin Sodium (Porcine) (Heparin -) 5,000 unit SQ TID [facility] Last Admin: 01/08/17 06:29 Dose: Not Given Piperacillin Sod/Tazobactam (Sod 2.25 gm/ Dextrose) 50 mls @ 100 mls/hr IVPB Q8H-IV [facility] PRN Reason: Protocol Last Admin: 01/08/17 02:40 Dose: 100 mls/hr Azithromycin (Zithromax 500mg Ivpb (Pre-Docked)) 250 mls @ 250 mls/hr IVPB DAILY [facility] Last Admin: 01/07/17 09:45 Dose: 250 mls/hr Sodium Bicarbonate (Sodium Bicarbonate -) 1,300 mg PO BID [facility] Last Admin: 01/07/17 22:04 Dose: 1,300 mg Tacrolimus (Prograf (Non-Formulary)) 7 mg PO BID [facility] Last Admin: 01/07/17 22:04 Dose: 7 mg - Objective Vital Signs: Vital Signs Temperature 98.6 F 01/08/17 06:00 Pulse Rate 66 01/08/17 06:00 Respiratory Rate 20 01/08/17 06:00 Blood Pressure 133/78 01/08/17 06:00 O2 Sat by Pulse Oximetry (%) 96 01/07/17 21:00 Neck: Yes: Supple Cardiovascular: Yes: Regular Rate and Rhythm, Murmur (2/6 SM LSB and apex), S1, S2 Respiratory: Yes: Diminished Gastrointestinal: Yes: Normal Bowel Sounds, Soft. No: Tenderness Edema: No Additional Findings/Remarks: - Review of Systems Constitutional: denies: Chills, Fever Cardiovascular: reports: Chest Pain, Shortness of Breath. denies: Palpitations Respiratory: reports: Cough, SOB, SOB on Exertion. denies: Hemoptysis, Orthopnea, PND Gastrointestinal: denies: Abdominal Pain, Constipation, Diarrhea, Melena, Nausea , Rectal Bleeding, Vomiting Neurological: denies: Dizziness, Headache, Seizure, Syncope Labs: CBC, BMP 01/08/17 06:00 01/08/17 06:00 Problem List - Problems (1) Chest pain Code(s): R07.9 - CHEST PAIN, UNSPECIFIED Qualifiers: Chest pain type: other chest pain Qualified Code(s): R07.89 - Other chest pain; R07.8 - Other chest pain (2) Pleural effusion Code(s): J90 - PLEURAL EFFUSION, NOT ELSEWHERE CLASSIFIED (3) Renal transplant recipient Code(s): Z94.0 - KIDNEY TRANSPLANT STATUS (4) Dyspnea Code(s): R06.00 - DYSPNEA, UNSPECIFIED Qualifiers: Dyspnea type: dyspnea on exertion Qualified Code(s): R06.09 - Other forms of dyspnea (5) ESRD (end stage renal disease) Code(s): N18.6 - END STAGE RENAL DISEASE (6) HTN (hypertension) Code(s): I10 - ESSENTIAL (PRIMARY) HYPERTENSION Qualifiers: Hypertension type: essential hypertension Qualified Code(s): I10 - Essential (primary) hypertension (7) Acute on chronic systolic heart failure Code(s): I50.23 - ACUTE ON CHRONIC SYSTOLIC (CONGESTIVE) HEART FAILURE (8) Aortic regurgitation Code(s): I35.1 - NONRHEUMATIC AORTIC (VALVE) INSUFFICIENCY Qualifiers: Cardiac valve disease etiology: nonrheumatic Qualified Code(s): I35.1 - Nonrheumatic aortic (valve) insufficiency (9) Aortic stenosis Code(s): I35.0 - NONRHEUMATIC AORTIC (VALVE) STENOSIS Qualifiers: Cardiac valve disease etiology: nonrheumatic Qualified Code(s): I35.0 - Nonrheumatic aortic (valve) stenosis (10) Dilated cardiomyopathy Code(s): I42.0 - DILATED CARDIOMYOPATHY (11) Mitral regurgitation Code(s): I34.0 - NONRHEUMATIC MITRAL (VALVE) INSUFFICIENCY Qualifiers: Cardiac valve disease etiology: nonrheumatic Qualified Code(s): I34.0 - Nonrheumatic mitral (valve) insufficiency (12) Pulmonary HTN Code(s): I27.2 - OTHER SECONDARY PULMONARY HYPERTENSION (13) Tricuspid valve regurgitation Code(s): I07.1 - RHEUMATIC TRICUSPID INSUFFICIENCY Qualifiers: Cardiac valve disease etiology: nonrheumatic Qualified Code(s): I36.1 - Nonrheumatic tricuspid (valve) insufficiency Assessment/Plan 1. Clinical presentation compatible with pneumonia with pleuritic chest pain, improving s/p thoracentesis for effusion/empyema 2. History of ESRD status post renal transplant 3. Hypertension 4. Severe left ventricular systolic function - dilated cardiomyopathy with valvular heart disease - aortic valve stenosis and regurgitation, mitral and tricuspid valve regurgitation 4. Mild elevation of troponin suggests demand ischemia 5. History of cigarette smoking and COPD PLAN: 1. Continue antibiotic coverage as per ID. Further plans as per ID. Follow cultures of the effusion 2. Continue Carvedilol as tolerated 3. 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 Smoking cessation 5. Analgesics as needed 6. Monitor renal function. Continue Prograf Further plans are to follow Camilo Smith MD
[2017-01-08] MEDS ORDERED: PT OWN MED DRAWER 7, Y5N ONE ×2 (10:31→12:33)
[2017-01-08] MEDS: ALLOPURINOL 100 MG TABLET (FP) PO SCH (10:37)
[2017-01-08] MEDS: CHOLECALCIFEROL (VITAMIN D3) 1,000 UNIT TABLET (FP) PO SCH (10:37)
[2017-01-08] MEDS: CARVEDILOL 12.5 MG TABLET (FP) PO SCH (10:37)
[2017-01-08] MEDS: SODIUM BICARBONATE 650 MG TABLET PO SCH (10:37)
[2017-01-08] MEDS: TACROLIMUS ANHYDROUS 1 MG CAPSULE (NF) PO SCH (10:38)
--- NOTE | 2017-01-08 11:15 | PN ---
Progress Note, Physician Chief Complaint: Chest pain History of Present Illness: Patient seen and examined at bedside. S/p thoracentesis of the L pleural effusion. He states that he is feeling much better compared to yesterday - still complains of very mild pain on the L side of his chest. Denies fever, chills, nausea, vomiting, shortness of breath, headache, abdominal pain. Has eaten and had bowel movements today. - Current Medication List Current Medications: Active Medications Albuterol/Ipratropium (Duoneb -) 1 amp NEB Q6H PRN PRN Reason: SHORTNESS OF BREATH Allopurinol (Zyloprim -) 100 mg PO DAILY [facility] Last Admin: 01/08/17 10:37 Dose: 100 mg Carvedilol (Coreg -) 12.5 mg PO BID [facility] Last Admin: 01/08/17 10:37 Dose: 12.5 mg Cholecalciferol (Vitamin D3 -) 2,000 unit PO DAILY [facility] Last Admin: 01/08/17 10:37 Dose: 2,000 unit Heparin Sodium (Porcine) (Heparin -) 5,000 unit SQ TID [facility] Last Admin: 01/08/17 06:29 Dose: Not Given Piperacillin Sod/Tazobactam (Sod 2.25 gm/ Dextrose) 50 mls @ 100 mls/hr IVPB Q8H-IV [facility] PRN Reason: Protocol Last Admin: 01/08/17 02:40 Dose: 100 mls/hr Azithromycin (Zithromax 500mg Ivpb (Pre-Docked)) 250 mls @ 250 mls/hr IVPB DAILY [facility] Last Admin: 01/07/17 09:45 Dose: 250 mls/hr Sodium Bicarbonate (Sodium Bicarbonate -) 1,300 mg PO BID [facility] Last Admin: 01/08/17 10:37 Dose: 1,300 mg Tacrolimus (Prograf (Non-Formulary)) 7 mg PO BID [facility] Last Admin: 01/08/17 10:38 Dose: 7 mg - Objective Vital Signs: Vital Signs Temperature 98.6 F 01/08/17 06:00 Pulse Rate 66 01/08/17 06:00 Respiratory Rate 20 01/08/17 06:00 Blood Pressure 133/78 01/08/17 06:00 O2 Sat by Pulse Oximetry (%) 96 01/07/17 21:00 Constitutional: Yes: Well Nourished, No Distress, Calm Eyes: Yes: Conjunctiva Clear, EOM Intact HENT: Yes: Atraumatic, Normocephalic Neck: Yes: Supple, Trachea Midline Cardiovascular: Yes: Regular Rate and Rhythm, S1, S2. No: Gallop, Murmur, Rub Respiratory: Yes: Regular, CTA Bilaterally. No: Rales, Rhonchi, Wheezes Gastrointestinal: Yes: Normal Bowel Sounds, Soft. No: Tenderness Musculoskeletal: Yes: WNL Extremities: Yes: WNL Edema: No Peripheral Pulses WNL: Yes Integumentary: Yes: WNL Neurological: Yes: Alert, Oriented ...Motor Strength: WNL Psychiatric: Yes: WNL Labs: CBC, BMP 01/08/17 06:00 01/08/17 06:00 INR, PTT INR 1.14 (0.82-1.09) 01/04/17 14:00 Problem List - Problems (1) Chest pain Code(s): R07.9 - CHEST PAIN, UNSPECIFIED Qualifiers: Chest pain type: other chest pain Qualified Code(s): R07.89 - Other chest pain; R07.8 - Other chest pain (2) Pleural effusion Code(s): J90 - PLEURAL EFFUSION, NOT ELSEWHERE CLASSIFIED (3) Empyema Code(s): J86.9 - PYOTHORAX WITHOUT FISTULA Assessment/Plan 61 year old male pmh ESRD s/p kidney transplant 14 years ago, cardiomyopathy, CHF, COPD, R nephrectomy this past March with L sided pleural effusion s/p thoracentesis 01/06. -clinically patient has improved -WBC normalized -pleural fluid analysis suggests exudative effusion/empyema -continue zosyn, azithromycin -Prolonged QT interval likely due to chronic tacrolimus use, not concerned about antibiotic coverage -f/u pleural fluid cultures, will reassess antibiotics pending cultures -Quantiferon Gold and Chlamydia assays ordered, f/u results
--- NOTE | 2017-01-08 12:09 | PN ---
Physical Exam: SUBJECTIVE: Patient seen and examined at bedside. No acute events overnight. Pt feels well and would like to go home. Pt has been afebrile. Denies headache, CP , SOB, abd pain, fever. OBJECTIVE: Vital Signs Period Temp Pulse Resp BP Sys/Ly Pulse Ox Last 24 Hr 97.8 F-98.6 F 64-70 18-20 116-133/63-78 96-97 GENERAL: The patient is awake, alert, and fully oriented, in no acute distress. HEAD: Normal with no signs of trauma. EYES: sclera anicteric, conjunctiva clear. No ptosis. ENT: nares patent, oropharynx clear without exudates, moist mucous membranes. NECK: Trachea midline, full range of motion, supple. LUNGS: Breath sounds equal, clear to auscultation bilaterally, no wheezes, no crackles, no accessory muscle use. HEART: Regular rate and rhythm, S1, S2 3/6 systolic blowing murmur at heart base , rub or gallop. ABDOMEN: Soft, nontender, nondistended, normoactive bowel sounds, no guarding, no rebound, no hepatosplenomegaly, no masses. EXTREMITIES: 2+ pulses, warm, well-perfused, no edema. NEUROLOGICAL: Cranial nerves II through XII grossly intact. Normal speech, gait not observed. PSYCH: Normal mood, normal affect. SKIN: Warm, dry, normal turgor, no rashes or lesions noted Laboratory Results - last 24 hr 01/05/17 01/08/17 01/08/17 20:46 06:00 06:00 WBC 9.4 RBC 4.04 Hgb 11.6 L Hct 35.0 L MCV 86.7 MCH 28.6 MCHC 33.0 RDW 15.2 Plt Count 205 MPV 10.1 Neutrophils % 74.7 Lymphocytes % 9.0 D Monocytes % 8.9 Eosinophils % 6.4 H D Basophils % 1.0 Sodium Potassium Chloride Carbon Dioxide Anion Gap BUN Creatinine Random Glucose Calcium Phosphorus Magnesium Random Vancomycin 14.307 Tacrolimus 6.2 01/08/17 06:00 WBC RBC Hgb Hct MCV MCH MCHC RDW Plt Count MPV Neutrophils % Lymphocytes % Monocytes % Eosinophils % Basophils % Sodium 138 Potassium 4.4 Chloride 104 Carbon Dioxide 24 Anion Gap 10 BUN 66 H Creatinine 6.1 H Random Glucose 92 Calcium 8.1 L Phosphorus 5.1 H Magnesium 2.2 Random Vancomycin Tacrolimus Active Medications Generic Name Dose Route Start Last Admin Trade Name Freq PRN Reason Stop Dose Admin Albuterol/Ipratropium 1 amp 01/04/17 22:31 Duoneb - NEB Q6H PRN SHORTNESS OF BREATH Allopurinol 100 mg 01/05/17 10:00 01/08/17 10:37 Zyloprim - PO 100 mg DAILY RISHABH Administration Carvedilol 12.5 mg 01/04/17 22:00 01/08/17 10:37 Coreg - PO 12.5 mg BID RISHABH Administration Cholecalciferol 2,000 unit 01/05/17 10:00 01/08/17 10:37 Vitamin D3 - PO 2,000 unit DAILY RISHABH Administration Heparin Sodium (Porcine) 5,000 unit 01/05/17 22:00 01/08/17 06:29 Heparin - SQ Not Given TID RISHABH Piperacillin Sod/Tazobactam 50 mls @ 100 mls/hr 01/05/17 18:00 01/08/17 02:40 Sod 2.25 gm/ Dextrose IVPB 100 mls/hr Q8H-IV RISHABH Administration Protocol Azithromycin 250 mls @ 250 mls/hr 01/06/17 10:00 01/07/17 09:45 Zithromax 500mg Ivpb (Pre-Docked) IVPB 250 mls/hr DAILY RISHABH Administration Sodium Bicarbonate 1,300 mg 01/04/17 22:00 01/08/17 10:37 Sodium Bicarbonate - PO 1,300 mg BID RISHABH Administration Tacrolimus 7 mg 01/04/17 22:00 01/08/17 10:38 Prograf (Non-Formulary) PO 7 mg BID RISHABH Administration ASSESSMENT/PLAN: Pt is a 61 y/o M with PMH ESRD s/p transplant +14years ago, HTN, HLD, COPD, CHF who came to ED with 2 days of intense positional L chest pain found to have L PNA and parapneumonic effusion. #PNA -leukocytosis resolved -consolidation with air bronchograms on CXR and chest CT -on abx per primary team and ID -02 -analgesia -nebs #pleural effusion -demonstrated on chest CT -thoracentesis results suggestive of exudate -pt on ABx, followed by ID -f/u culture result #smoking cessation Dispo: We will continue to follow the patient. Thank you for this consultative opportunity. Trey Gtz MD PGY-1 Visit type - Emergency Visit Emergency Visit: No - New Patient This patient is new to me today: No - Critical Care Critical Care patient: No - Discharge Referral Referred to [facility] Med P.C.: No
--- NOTE | 2017-01-08 12:46 | PN ---
Teaching Attending Note Name of Resident: Trey Gtz ATTENDING PHYSICIAN STATEMENT I saw and evaluated the patient. I reviewed the resident's note and discussed the case with the resident. I agree with the resident's findings and plan as documented. pulmonary alert,feeling better,-sob,-cp Problem List - Problems (1) COPD (chronic obstructive pulmonary disease) Code(s): J44.9 - CHRONIC OBSTRUCTIVE PULMONARY DISEASE, UNSPECIFIED Qualifiers : COPD type: unspecified COPD Qualified Code(s): J44.9 - Chronic obstructive pulmonary disease, unspecified (2) Cardiorenal syndrome, stage 5 chronic kidney disease or end stage renal disease, with heart failure Code(s): I13.2 - HYP HRT & CHR KDNY DIS W HRT FAIL AND W STG 5 CHR KDNY/ESRD (3) Dyspnea Code(s): R06.00 - DYSPNEA, UNSPECIFIED Qualifiers: Dyspnea type: dyspnea on exertion Qualified Code(s): R06.09 - Other forms of dyspnea (4) ESRD (end stage renal disease) Code(s): N18.6 - END STAGE RENAL DISEASE (5) HTN (hypertension) Code(s): I10 - ESSENTIAL (PRIMARY) HYPERTENSION Qualifiers: Hypertension type: essential hypertension Qualified Code(s): I10 - Essential (primary) hypertension (6) Pulmonary HTN Code(s): I27.2 - OTHER SECONDARY PULMONARY HYPERTENSION (7) Aortic stenosis Code(s): I35.0 - NONRHEUMATIC AORTIC (VALVE) STENOSIS Qualifiers: Cardiac valve disease etiology: nonrheumatic Qualified Code(s): I35.0 - Nonrheumatic aortic (valve) stenosis (8) CHF (congestive heart failure) Code(s): I50.9 - HEART FAILURE, UNSPECIFIED Qualifiers: Congestive heart failure type: unspecified congestive heart failure type Congestive heart failure chronicity: acute on chronic Qualified Code(s ): I50.9 - Heart failure, unspecified (9) Mitral regurgitation Code(s): I34.0 - NONRHEUMATIC MITRAL (VALVE) INSUFFICIENCY Qualifiers: Cardiac valve disease etiology: nonrheumatic Qualified Code(s): I34.0 - Nonrheumatic mitral (valve) insufficiency Assessment/Plan IMP PNEUMONIA clinically improving LEFT PLEURAL EFFUSION EXUDATE LIKELY UNCOMPLICATED PLEURAL EFFUSION HYPOXEMIA COPD ESRD H/O RENAL TRANSPLANT H/O R NEPHRECTOMY SECONDARY TO RCC PLAN O2 ANTIBIOTICS PER ID INHALED BRONCHODILATORS CHECK PLEURAL FLUID CULTURES/CYTOLOGY CONTINUE TACRO/CELLCEPT DR CASTELLANO Problem List - Problems (1) COPD (chronic obstructive pulmonary disease) Code(s): J44.9 - CHRONIC OBSTRUCTIVE PULMONARY DISEASE, UNSPECIFIED Qualifiers : COPD type: unspecified COPD Qualified Code(s): J44.9 - Chronic obstructive pulmonary disease, unspecified (2) Cardiorenal syndrome, stage 5 chronic kidney disease or end stage renal disease, with heart failure Code(s): I13.2 - HYP HRT & CHR KDNY DIS W HRT FAIL AND W STG 5 CHR KDNY/ESRD (3) Dyspnea Code(s): R06.00 - DYSPNEA, UNSPECIFIED Qualifiers: Dyspnea type: dyspnea on exertion Qualified Code(s): R06.09 - Other forms of dyspnea (4) ESRD (end stage renal disease) Code(s): N18.6 - END STAGE RENAL DISEASE (5) HTN (hypertension) Code(s): I10 - ESSENTIAL (PRIMARY) HYPERTENSION Qualifiers: Hypertension type: essential hypertension Qualified Code(s): I10 - Essential (primary) hypertension (6) Pulmonary HTN Code(s): I27.2 - OTHER SECONDARY PULMONARY HYPERTENSION (7) Aortic stenosis Code(s): I35.0 - NONRHEUMATIC AORTIC (VALVE) STENOSIS Qualifiers: Cardiac valve disease etiology: nonrheumatic Qualified Code(s): I35.0 - Nonrheumatic aortic (valve) stenosis (8) CHF (congestive heart failure) Code(s): I50.9 - HEART FAILURE, UNSPECIFIED Qualifiers: Congestive heart failure type: unspecified congestive heart failure type Congestive heart failure chronicity: acute on chronic Qualified Code(s ): I50.9 - Heart failure, unspecified (9) Mitral regurgitation Code(s): I34.0 - NONRHEUMATIC MITRAL (VALVE) INSUFFICIENCY Qualifiers: Cardiac valve disease etiology: nonrheumatic Qualified Code(s): I34.0 - Nonrheumatic mitral (valve) insufficiency
[2017-01-08] MEDS: AZITHROMYCIN IVPB 250 ML IVPB SCH (12:51)
--- NOTE | 2017-01-08 13:08 | PN ---
Teaching Attending Note Name of Resident: Bret Hernandez ATTENDING PHYSICIAN STATEMENT I saw and evaluated the patient. I reviewed the resident's note and discussed the case with the resident. I agree with the resident's findings and plan as documented. SUBJECTIVE:Clinical improvement noted Inital therapy Vancomycin Zosyn and Azithromycin OBJECTIVE: Selected Entries 01/08/17 01:00 Temperature 98.5 F Pulse Rate 65 Respiratory 18 Rate Blood Pressure 122/69 ASSESSMENT AND PLAN: Laboratory Tests 01/08/17 01/08/17 01/08/17 06:00 06:00 12:30 WBC 9.4 Hgb 11.6 L Hct 35.0 L Plt Count 205 BUN 66 H Creatinine 6.1 H C. pneumoniae IgG Ab Pending C. pneumoniae IgA Ab Pending C. pneumoniae IgM Ab Pending C. psittaci IgG Titer Pending C. psittaci IgM Titer Pending Assessment Pneumonia with parapneumonic effusion culture neg CKD Improved Plan Discharge on Augmentin 500mg bid for 7 days Wade BLEDSOE
--- NOTE | 2017-01-08 13:32 | PN ---
Progress Note (short form) - Note Progress Note: Renal follow up for Renal Transplant Pt seen and examined at the bedside no acute compliaints, reports feeling much better no SOB, chest pain, Fever, Abd pain, N/V/D Vital Signs Temperature 98.8 F 01/08/17 10:00 Pulse Rate 65 01/08/17 10:00 Respiratory Rate 20 01/08/17 10:00 Blood Pressure 136/78 01/08/17 10:00 O2 Sat by Pulse Oximetry (%) 97 01/08/17 09:50 Intake & Output 01/05/17 01/06/17 01/07/17 01/08/17 23:59 23:59 23:59 23:59 Intake Total 440 1330 900 420 Output Total 300 600 Balance 140 730 900 420 Weight 192 lb 9.6 oz 213 lb 6.4 oz 189 lb 9.6 oz 189 lb 6.4 oz Gen: NAD, awake and Alert CVS: RRR, No M/R Lungs: CTA, no rales or wheeze Abd: soft NT/ND Ext: No edema, clubbing or cyanosis CBC, BMP 01/08/17 06:00 01/08/17 06:00 Laboratory Tests 01/05/17 01/06/17 01/08/17 20:46 05:50 06:00 Calcium 8.5 Phosphorus 4.8 5.1 H Magnesium 1.8 2.2 Tacrolimus Pending Current Medications Albuterol/Ipratropium (Duoneb -) 1 amp NEB Q6H PRN PRN Reason: SHORTNESS OF BREATH Allopurinol (Zyloprim -) 100 mg PO DAILY ON LICENSE OF [facility] Last Admin: 01/08/17 10:37 Dose: 100 mg Carvedilol (Coreg -) 12.5 mg PO BID ON LICENSE OF [facility] Last Admin: 01/08/17 10:37 Dose: 12.5 mg Cholecalciferol (Vitamin D3 -) 2,000 unit PO DAILY ON LICENSE OF [facility] Last Admin: 01/08/17 10:37 Dose: 2,000 unit Heparin Sodium (Porcine) (Heparin -) 5,000 unit SQ TID ON LICENSE OF [facility] Last Admin: 01/08/17 06:29 Dose: Not Given Piperacillin Sod/Tazobactam (Sod 2.25 gm/ Dextrose) 50 mls @ 100 mls/hr IVPB Q8H-IV RISHABH PRN Reason: Protocol Last Admin: 01/08/17 02:40 Dose: 100 mls/hr Azithromycin (Zithromax 500mg Ivpb (Pre-Docked)) 250 mls @ 250 mls/hr IVPB DAILY ON LICENSE OF [facility] Last Admin: 01/08/17 12:51 Dose: 250 mls/hr Sodium Bicarbonate (Sodium Bicarbonate -) 1,300 mg PO BID RISHABH Last Admin: 01/08/17 10:37 Dose: 1,300 mg Tacrolimus (Prograf (Non-Formulary)) 7 mg PO BID RISHABH Last Admin: 01/08/17 10:38 Dose: 7 mg a/P 61 year old Gentleman with PMhx of ESRD s/p Renal Transplant with CKD/Chronic allograft nephropathy, Hypertension, RCC s/p Right Kidney Nephrectomy who presented with 3 day history of pleuretic chest pain and SOB and found to have a PNA. 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 Renal function stable continue tacrolimus BID and Cellcept can be resumed on discharge no indication for SEISMIC INTERPRETER now but will likely require SEISMIC INTERPRETER in the near future #Pna in immunocompromised pt s/p Thoracentesis Gram stain negative s/p 24 hours no fever and lukocytosis improved AFB and Crypto pending ok to be discharged on PO Augment as per ID to follow up in the office in 1 week upon discharge Filipe Stephenson DO Problem List - Problems (1) Multifocal pneumonia Code(s): J18.9 - PNEUMONIA, UNSPECIFIED ORGANISM (2) Pleural effusion Code(s): J90 - PLEURAL EFFUSION, NOT ELSEWHERE CLASSIFIED (3) Renal transplant recipient Code(s): Z94.0 - KIDNEY TRANSPLANT STATUS (4) ESRD (end stage renal disease) Code(s): N18.6 - END STAGE RENAL DISEASE (5) HTN (hypertension) Code(s): I10 - ESSENTIAL (PRIMARY) HYPERTENSION Qualifiers: Hypertension type: essential hypertension Qualified Code(s): I10 - Essential (primary) hypertension
--- NOTE | 2017-01-08 14:08 | PATH ---
Cytology Non-Gynecological Report Patient Name: [facility] Med. Rec. #: [id number] /Age/Gender: 1955 (Age: 61) / M Account: [id number] Location: 4 TELEMETRY U Taken: 01/06/2017 Received: 01/07/2017 Reported: 01/08/2017 Physicians: Alexus Sanchez M.D. Specimen(s) Received A: LEFT PLEURAL FLUID IN 50% ALCOHOL B: LEFT PLEURAL FLUID FRESH Clinical History Left pleural effusion Final Diagnosis A,B. PLEURAL FLUID, LEFT, THORACENTESIS: SATISFACTORY FOR EVALUATION. NO MALIGNANT CELLS IDENTIFIED. REACTIVE MESOTHELIAL CELLS, HISTIOCYTES AND MARKED ACUTE INFLAMMATION. Electronically Signed Sharath Muñiz M.D. Gross Description A. Received is a 50 cc of yellow fluid in 50% alcohol. One cytofunnel slide and one cell block are made. B. Received is 500 cc of yellow fluid fresh. One cytofunnel slide and one cell block are made.
[2017-01-08] MEDS ORDERED: AMOX TR/POT CLAV 500MG/125MG TABLETS (FP) PO ONE (14:26)
[2017-01-08 15:01] VITALS: BP 117/72; PULSE 64; TEMP 98.3
--- NOTE | 2017-01-08 16:56 | DS ---
Physical Exam: SUBJECTIVE: Patient seen and examined. Says he feels much better and is ready to go home. He offers no complaints. Denies chest pain, nausea, vomiting, diarrhea, and urinary symptoms. OBJECTIVE: Vital Signs Period Temp Pulse Resp BP Sys/Ly Pulse Ox Last 24 Hr 98.0 F-98.8 F 64-70 16-20 117-136/67-78 96-97 PHYSICAL EXAM Constitutional: Yes: Moderate Distress, agitated HENT: Yes: WNL, Atraumatic, Normocephalic Cardiovascular: Yes: Regular Rate and Rhythm, Murmur (holosystolic murmur was appreciated at the apex), S1, S2 Respiratory: Yes: Cough, B/L lower lung crackles Gastrointestinal: Yes: WNL, Normal Bowel Sounds, Soft Extremities: Yes: WNL, AV fistula placed in left arm Peripheral Pulses WNL: Yes Edema: No LABS Laboratory Results - last 24 hr 01/05/17 01/08/17 01/08/17 20:46 06:00 06:00 WBC 9.4 RBC 4.04 Hgb 11.6 L Hct 35.0 L MCV 86.7 MCH 28.6 MCHC 33.0 RDW 15.2 Plt Count 205 MPV 10.1 Neutrophils % 74.7 Lymphocytes % 9.0 D Monocytes % 8.9 Eosinophils % 6.4 H D Basophils % 1.0 Sodium Potassium Chloride Carbon Dioxide Anion Gap BUN Creatinine Random Glucose Calcium Phosphorus Magnesium Random Vancomycin 14.307 Tacrolimus 6.2 01/08/17 06:00 WBC RBC Hgb Hct MCV MCH MCHC RDW Plt Count MPV Neutrophils % Lymphocytes % Monocytes % Eosinophils % Basophils % Sodium 138 Potassium 4.4 Chloride 104 Carbon Dioxide 24 Anion Gap 10 BUN 66 H Creatinine 6.1 H Random Glucose 92 Calcium 8.1 L Phosphorus 5.1 H Magnesium 2.2 Random Vancomycin Tacrolimus HOSPITAL COURSE: Date of Admission:01/04/17 Patient is a 61 yo M with a significant past medical history of ESRD (chronic rejection s/p transplant 14 years ago), CHF, HTN, HLD presented to the ED with complaints of left sided pleuritic chest pain and was admitted for b/l CAP. He was found to have Left pleural effusions followed by thoracentesis done by IR ( 650ml exudative fluid drained). He was seen by ID and his pneumonia was treated with Azithromycin, Zosyn and vanco. His pain was treated with PRN Percocet 5/ 325 and Dilauded 1mg IVPB. He was also seen by Pulmonary and was given bronchodilators and breathing exercises. He was followed up by Cardiology for his HTN, left ventricular Systolic dysfunction, DCM, and valvular heart disease. Patient was also followed up by Nephrology for his history of ESRD and closely monitored his renal functions, especially with a baseline BUN and creatinine of 6.4. Fluid cytology gram stain was negative for organisms. Patients symptoms improved post thoracentesis. He was discharged on Augmentin 500mg BID for 7 days per ID. He was also referred for close outpatient follow up with his hide trimmer (Dr. Menendez) and machine sander (Dr. Gastelum) 1 week after discharge. Minutes to complete discharge: 45 Discharge Summary Reason For Visit: CHEST PAIN MULTIFOCAL PNEUMONIA Current Active Problems Community acquired pneumonia (Acute) Pleural effusion on left (Acute) CHF (congestive heart failure) (Chronic) COPD (chronic obstructive pulmonary disease) (Chronic) Dilated cardiomyopathy (Chronic) ESRD (end stage renal disease) (Chronic) HTN (hypertension) (Chronic) Pulmonary HTN (Chronic) Pulmonary edema (Chronic) Renal transplant recipient (Chronic) Condition: Improved - Instructions Diet, Activity, Other Instructions: You are being discharged after being treated for pneumonia and a left sided pleural effusion (fluid in the lungs). We will discharge you on Augmentin which is an antibiotic for your pneumonia. Please take it twice a day for 7 days. You also need to follow up with your hide trimmer in 1 week and with your machine sander (Dr. Gastelum) in 2 weeks. You may continue taking all your medications. Please follow up with your primary care doctor within 1 week. Thank you! Referrals: Arnoldo Gastelum MD [Staff Physician] - 2 Weeks Kamille Castrejon MD [Staff Physician] - 1 Week Disposition: HOME - Home Medications Comprehensive Discharge Medication List: Ambulatory Orders Mycophenolate Mofetil [Cellcept] 250 mg PO DAILY 03/24/14 Tacrolimus [Prograf] 7 mg PO BID 03/24/14 Allopurinol [Zyloprim -] 100 mg PO PRN 11/18/15 Sodium Bicarbonate 1,300 mg PO BID 11/18/15 Carvedilol [Coreg -] 12.5 mg PO BID #60 tablet 11/21/15 Ergocalciferol (Vitamin D2) [Vitamin D2] 2,000 unit PO DAILY 01/04/17 Furosemide 20 mg PO BID 01/04/17 Allopurinol [Zyloprim -] 100 mg PO DAILY tablet 01/08/17 Amox-Tr/K Cl [Augmentin - 500Mg Tablet] 1 tab PO BID #14 tab 01/08/17 Cholecalciferol (Vitamin D3) [Vitamin D3 -] 2,000 unit PO DAILY tab 01/08/17 This patient is new to me today: No Emergency Visit: Yes ED Registration Date: 01/04/17 Care time: The patient presented to the Emergency Department on the above date and was hospitalized for further evaluation of their emergent condition. Critical Care patient: No - Discharge Referral Referred to [facility] Med P.C.: No
--- NOTE | 2017-01-08 17:40 | PN ---
Teaching Attending Note Name of Resident: Roberta Koo ATTENDING PHYSICIAN STATEMENT I saw and evaluated the patient. I reviewed the resident's note and discussed the case with the resident. I agree with the resident's findings and plan as documented. SUBJECTIVE: Patient is comfortable, no fever , no chills, no shortness of breath. OBJECTIVE: Vital Signs Temperature 98.3 F 01/08/17 14:05 Pulse Rate 64 01/08/17 14:05 Respiratory Rate 16 01/08/17 14:05 Blood Pressure 117/72 01/08/17 14:05 O2 Sat by Pulse Oximetry (%) 97 01/08/17 09:50 CBCD WBC 9.4 K/mm3 (4.0-10.0) 01/08/17 06:00 RBC 4.04 M/mm3 (4.00-5.60) 01/08/17 06:00 Hgb 11.6 GM/dL (11.7-16.9) L 01/08/17 06:00 Hct 35.0 % (35.4-49) L 01/08/17 06:00 MCV 86.7 fl (80-96) 01/08/17 06:00 MCHC 33.0 g/dl (32.0-35.9) 01/08/17 06:00 RDW 15.2 % (11.9-15.9) 01/08/17 06:00 Plt Count 205 K/MM3 (134-434) 01/08/17 06:00 MPV 10.1 fl (7.5-11.1) 01/08/17 06:00 CMP Sodium 138 mmol/L (136-145) 01/08/17 06:00 Potassium 4.4 mmol/L (3.5-5.1) 01/08/17 06:00 Chloride 104 mmol/L (98-107) 01/08/17 06:00 Carbon Dioxide 24 mmol/L (21-32) 01/08/17 06:00 Anion Gap 10 (8-16) 01/08/17 06:00 BUN 66 mg/dL (7-18) H 01/08/17 06:00 Creatinine 6.1 mg/dL (0.7-1.3) H 01/08/17 06:00 Creat Clearance w eGFR 10.47 (>60) 01/07/17 06:10 Random Glucose 92 mg/dL (74-106) 01/08/17 06:00 Calcium 8.1 mg/dL (8.5-10.1) L 01/08/17 06:00 Total Bilirubin 1.0 mg/dL (0.2-1.0) 01/07/17 06:10 AST < 3 U/L (15-37) L 01/07/17 06:10 ALT 11 U/L (12-78) L 01/07/17 06:10 Alkaline Phosphatase 80 U/L (45-117) D 01/07/17 06:10 Total Protein 5.9 g/dl (6.4-8.2) L 01/07/17 06:10 Albumin 2.7 g/dl (3.4-5.0) L 01/07/17 06:10 CARDIAC ENZYMES Creatine Kinase 52 IU/L (39-308) 01/06/17 10:54 Troponin I 0.06 ng/ml (0.00-0.05) H D 01/06/17 10:54 Home Medications Medication Instructions Recorded Mycophenolate Mofetil [Cellcept] 250 mg PO DAILY 03/24/14 Tacrolimus [Prograf] 7 mg PO BID 03/24/14 Allopurinol [Zyloprim -] 100 mg PO PRN 11/18/15 Sodium Bicarbonate 1,300 mg PO BID 11/18/15 Carvedilol [Coreg -] 12.5 mg PO BID #60 tablet 11/21/15 Ergocalciferol (Vitamin D2) 2,000 unit PO DAILY 01/04/17 [Vitamin D2] Furosemide 20 mg PO BID 01/04/17 Allopurinol [Zyloprim -] 100 mg PO DAILY tablet 01/08/17 Amox-Tr/K Cl [Augmentin - 500Mg 1 tab PO BID #14 tab 01/08/17 Tablet] Cholecalciferol (Vitamin D3) 2,000 unit PO DAILY tab 01/08/17 [Vitamin D3 -] 01/05/17 12:45 Blood - Peripheral Venous Blood Culture - Preliminary NO GROWTH OBTAINED AFTER 24 HOURS, INCUBATION TO CONTINUE FOR 4 DAYS. 01/05/17 12:45 Blood - Peripheral Venous Blood Culture - Preliminary NO GROWTH OBTAINED AFTER 24 HOURS, INCUBATION TO CONTINUE FOR 4 DAYS. 01/05/17 06:00 Urine For Antigen Detection Legionella Antigen - Final 01/05/17 06:00 Urine For Antigen Detection Streptococcus pneumoniae Antigen (M - Final PE: per resident's note ASSESSMENT AND PLAN: Patient is a 61 y/o male with h/o end stage renal failure s/p renal transplant with chronic rejection on immunosupressive therapy , h/o HTN with severe cardiomyopathy who presented with SOB and Left sided CP . he was found to have b /l CAP # B/L Community Acquired Pneumonia wit parapneumonic effusion exudative s/p US thoracocentesis by IR ; no growth so far, as per ID discharge the patient on Augmentin 500mg x 7 more days ,s/p Zosyn/Azithro/vanco/ Rocephin. # ESRD s/p renal transplant with chronic rejection continue immunosuppressive drugs , follow with within a week , as per , patient's baseline is 5.2-6.0 and his electrolytes are within normal limits continue his meds. cellcept and tacrulimus & level is within normal range. # HTN and heart failure with h/o of severe cardiomyopathy. Echo in 2016 with severely reduced EF
[2017-01-09] MEDS ORDERED: AZITHROMYCIN IVPB 500 MG in SODIUM CHLORIDE 250 ML IVPB SCH (10:00)
[2017-01-14 13:49] LABS: CHLAM PENU IGM. <1:10
== END 2017-01-08 15:32 | disposition home or self-care (01) | DRG 139 ==
LOC: JER 12:42 → JERBED 18:14 → OBSVTOIN 20:48 → J4W 22:42 → JICU 01-05 09:54 → J4W 01-05 15:35
PROVIDERS: ADMIT Internal Medicine; ATTEND Internal Medicine
PROC: 0W9B3ZZ Drainage of Left Pleural Cavity, Percutaneous Approach (ICD-10-PCS; principal; 2017-01-06)
DX: J18.9 Pneumonia, unspecified organism (principal); J96.01 Acute respiratory failure with hypoxia; I50.23 Acute on chronic systolic (congestive) heart failure; J90 Pleural effusion, not elsewhere classified; N18.6 End stage renal disease; I42.0 Dilated cardiomyopathy; I12.0 Hypertensive chronic kidney disease with stage 5 chronic kidney disease or end stage renal disease; I27.2 Other secondary pulmonary hypertension; Z94.0 Kidney transplant status; N28.1 Cyst of kidney, acquired; I36.1 Nonrheumatic tricuspid (valve) insufficiency; J44.9 Chronic obstructive pulmonary disease, unspecified; F17.210 Nicotine dependence, cigarettes, uncomplicated; R07.89 Other chest pain; F12.10 Cannabis abuse, uncomplicated; I35.1 Nonrheumatic aortic (valve) insufficiency; I25.10 Atherosclerotic heart disease of native coronary artery without angina pectoris; I35.0 Nonrheumatic aortic (valve) stenosis; I34.0 Nonrheumatic mitral (valve) insufficiency
CPT/HCPCS: 36415; 71010-TC; 71250-TC; 76942; 80048; 80053; 80061; 80197; 82042; 82150; 82945; 83605; 83615; 83721; 83735; 84100; 84157; 84478; 84484; 85025; 85027; 85610; 86140; 86480; 86631; 86632; 87040; 87070; 87075; 87102; 87116; 87205; 87206; 87210; 87899; 88108; 88305-TC; 89051; 93005; 93010; 93306-TC; 97116-GP; 97161-GP; 99285-25; G0378; G0480; J1644

== ENCOUNTER 2017-01-18 19:56 | Inpatient (IN) | payer OTHER ==
[2017-01-18 20:19] VITALS: BMI 26.8
--- NOTE | 2017-01-18 22:12 | PDOC ---
History of Present Illness - General Chief Complaint: Pain Stated Complaint: CHEST PAIN Time Seen by Provider: 01/18/17 22:05 History Source: Patient - History of Present Illness Initial Comments: 01/18/17 22:05 61-year-old male with past medical history of end-stage renal disease status post renal transplant, hypertension, complains of 1 day history of pleuritic chest pain and shortness of breath. Patient reports pain to both right and left- sided chest going up to the left shoulder. Patient during the most recent admission required thoracentesis for pleural effusion. Patient is on immunosuppressive meds (tacrolimus and CellCept (. Patient denies fever, chills , abdominal pain, nausea/vomiting/diarrhea. Patient is a smoker. Past History - Past Medical History Allergies/Adverse Reactions: Allergies Allergy/AdvReac Type Severity Reaction Status Date / Time No Known Allergies Allergy Verified 01/18/17 20:15 Home Medications: Ambulatory Orders Mycophenolate Mofetil [Cellcept] 250 mg PO DAILY 03/24/14 Tacrolimus [Prograf] 7 mg PO BID 03/24/14 Allopurinol [Zyloprim -] 100 mg PO PRN 11/18/15 Sodium Bicarbonate 1,300 mg PO BID 11/18/15 Carvedilol [Coreg -] 12.5 mg PO BID #60 tablet 11/21/15 Ergocalciferol (Vitamin D2) [Vitamin D2] 2,000 unit PO DAILY 01/04/17 Furosemide 20 mg PO BID 01/04/17 Allopurinol [Zyloprim -] 100 mg PO DAILY tablet 01/08/17 Amox-Tr/K Cl [Augmentin - 500Mg Tablet] 1 tab PO BID #14 tab 01/08/17 Cholecalciferol (Vitamin D3) [Vitamin D3 -] 2,000 unit PO DAILY tab 01/08/17 Anemia: No Asthma: No Cancer: No Cardiac Disorders: Yes CVA: No COPD: Yes CHF: Yes Dementia: No Diabetes: No Dialysis: Yes (HX FISTULA) GI Disorders: No Disorders: No HTN: Yes Hypercholesterolemia: No Liver Disease: No Seizures: No Thyroid Disease: No - Surgical History Abdominal Surgery: No Appendectomy: No Cardiac Surgery: No Cholecystectomy: No Lung Surgery: No Neurologic Surgery: No Orthopedic Surgery: No - Psycho/Social/Smoking Cessation Hx Suicidal Ideation: No Smoking History: Current every day smoker Have you smoked in the past 12 months: Yes Number of Cigarettes Smoked Daily: 15 If you are a former smoker, when did you quit?: 2.5 months ago Information on smoking cessation initiated: No 'Breaking Loose' booklet given: 11/18/15 Hx Alcohol Use: No Drug/Substance Use Hx: No Substance Use Type: None Hx Substance Use Treatment: No Review of Systems - Review of Systems Able to Perform ROS?: Yes Is the patient limited Romanian proficient: No Constitutional: No: Symptoms Reported, See HPI, Chills, Diaphoresis, Fever, Loss of Appetite, Malaise, Night Sweats, Weakness, Weight Stable, Unintentional Wgt. Loss, Unexplained wgt Loss, Other HEENTM: No: Symptoms Reported, See HPI, Eye Pain, Blurred Vision, Tearing, Recent change in vision, Double Vision, Cataracts, Ear Pain, Ocular Prothesis, Ear Discharge, Nose Pain, Nose Congestion, Tinnitus, Nose Bleeding, Hearing Loss , Throat Pain, Throat Swelling, Mouth Pain, Dental Problems, Difficulty Swallowing, Mouth Swelling, Other Respiratory: Yes: SOB at Rest Cardiac (ROS): Yes: Chest Pain. No: Symptoms Reported, See HPI, Edema, Irregular Heart Rate, Lightheadedness, Palpitations, Syncope, Chest Tightness, Other ABD/GI: No: Symptoms Reported, See HPI, Abdominal Distended, Abd. Pain w/ defecation, Blood Streaked Bowels, Constipated, Diarrhea, Difficulty Swallowing , Nausea, Poor Appetite, Poor Fluid Intake, Rectal Bleeding, Vomiting, Indigestion, Abdominal cramping, Tarry Stools, Other : No: Symptoms Reported, See HPI, Burning, Dysuria, Discharge, Frequency, Flank Pain, Hematuria, Incontinence, Pain, Urgency, Testicular Mass, Testicular Swelling, Lesions, Testicular Pain, Other Musculoskeletal: No: Symptoms Reported, See HPI, Back Pain, Gout, Joint Pain, Joint Swelling, Muscle Pain, Muscle Weakness, Neck Pain, Joint Stiffness, Other Integumentary: No: Symptoms Reported, See HPI, Bruising, Change in Color, Change in Hair/Nails, Dryness, Erythema, Flushing, Lesions, Lumps, Pallor, Pruritus, Rash, Sweating, Other *Physical Exam - Vital Signs Last Vital Signs Temp Pulse Resp BP Pulse Ox 77 24 126/84 88 L 01/18/17 20:15 01/18/17 20:15 01/18/17 20:15 01/18/17 20:15 - Physical Exam General Appearance: Yes: Appropriately Dressed Respiratory/Chest: positive: Rales Cardiovascular: positive: Regular Rate, Other (muffled heart sounds) Heart Score/ECG Review - History History: Moderately suspicious - Electrocardiogram EKG: Normal - Age Age: 45-65 - Risk Factors Risk Factors Heart Score: Yes Hx Hypertension, Yes Smoking History Based on the list above the patient has:: 1-2 risk factors - Troponin Troponin: </= normal limit - Score Heart Score - Total: 3 - ECG Intrepretation Rhythm: Regular Rhythm Comment:: 01/19/17 01:10 normal sinus rhythm prolonged QT, LVH: 73 ED Treatment Course - LABORATORY CBC & Chemistry Diagram: 01/19/17 07:00 01/19/17 07:00 - RADIOLOGY Chest X-Ray Result: Effusion (cardiomegaly, effusion, cannot rule out infiltrate ), CHF Medical Decision Making - Medical Decision Making A: pneumonia, leukocytosis, SOB P: cbc cmp pain control chest xray EKG patient to be admitted for further management of care. patient signed out to Dr. garcia/ Annette Oneill. *DC/Admit/Observation/Transfer Diagnosis at time of Disposition: Shortness of breath at rest CHF (congestive heart failure) Qualifiers: Congestive heart failure type: systolic Congestive heart failure chronicity: acute on chronic Qualified Code(s): I50.23 - Acute on chronic systolic ( congestive) heart failure Community acquired pneumonia Qualifiers: Laterality: unspecified laterality Qualified Code(s): J18.9 - Pneumonia, unspecified organism Leukocytosis Qualifiers: Leukocytosis type: unspecified Qualified Code(s): D72.829 - Elevated white blood cell count, unspecified - Discharge Dispostion Admit: Yes - Referrals
[2017-01-18] MEDS ORDERED: morphine CARPU-JECT 2 MG/1 ML DISP.SYRIN IVPUSH ONE (22:27)
[2017-01-18] MEDS ORDERED: morphine CARPU-JECT 4 MG/1 ML DISP.SYRIN IVPUSH ONE (22:29)
[2017-01-18] MEDS ORDERED: morphine CARPU-JECT 4 MG/1 ML DISP.SYRIN ONE (22:31)
[2017-01-18 22:35] LABS: BASOPHIL 0.3 % (0-2.0); EOSINOPHIL 0.8 % (0-4.5); MCH 28.6 pg (25.7-33.7); MCHC 33.2 g/dl (32.0-35.9); MEAN CELL VOLUME 86.4 fl (80-96); MEAN PLT VOLUME 9.5 fl (7.5-11.1); NEUTROPHILS 86.9 % (42.8-82.8); PLATELET COUNT 283 K/MM3 (134-434); RDW 16.1 % (11.9-15.9); WHITE BLOOD COUNT 16.1 K/mm3 (4.0-10.0)
[2017-01-18 22:48] LABS: INR 1.07 (0.82-1.09); PROTHROMBIN TIME (PATIENT) 11.8 SEC (9.98-11.88)
[2017-01-18] MEDS ORDERED: FUROSEMIDE 40 MG/4 ML INJECTABLE VIAL IVPUSH ONE (23:45)
[2017-01-19] MEDS ORDERED: morphine CARPU-JECT 4 MG/1 ML DISP.SYRIN IVPUSH ONE (00:02)
[2017-01-19] MEDS ORDERED: morphine CARPU-JECT 4 MG/1 ML DISP.SYRIN ONE (00:06)
[2017-01-19] MEDS ORDERED: FUROSEMIDE 40 MG/4 ML INJECTABLE VIAL ONE (00:07)
[2017-01-19] MEDS ORDERED: ACETAMINOPHEN 325 MG TABLET (FP) PO ONE ×2 (00:19)
[2017-01-19] MEDS ORDERED: ACETAMINOPHEN 325 MG TABLET (FP) ONE (00:28)
[2017-01-19 00:46] LABS: ALBUMIN 3.5 g/dl (3.4-5.0); ANION GAP 12 (8-16); BILIRUBIN,TOTAL 0.7 mg/dL (0.2-1.0); CALCIUM 7.9 mg/dL (8.5-10.1); CO2 20 mmol/L (21-32); CREATININE 4.6 mg/dL (0.7-1.3); GLUCOSE,RANDOM 125 mg/dL (74-106); SGOT/AST 25 U/L (15-37); SGPT/ALT 91 U/L (12-78); TOT PROT 6.9 g/dl (6.4-8.2)
[2017-01-19 00:48] LABS: ALK PHOS 152 U/L (45-117); CPK 64 IU/L (39-308); TROPONIN I 0.05 ng/ml (0.00-0.05)
[2017-01-19] MEDS ORDERED: CEFTRIAXONE 1 GM in DEXTROSE 5%-WATER - 100 ML IVPB ONE (00:56)
[2017-01-19] MEDS ORDERED: AZITHROMYCIN IVPB 500 MG in DEXTROSE 5%-WATER - 250 ML IVPB ONE (00:56)
[2017-01-19] MEDS ORDERED: AZITHROMYCIN IVPB 250 ML IVPB ONE (01:08)
[2017-01-19] MEDS ORDERED: CEFTRIAXONE 50 ML ONE (01:08)
[2017-01-19] MEDS ORDERED: PIPERACILLIN/TAZOB 3.375 GM/50 ML PRE-DOCKED IVPB ONE (01:30)
[2017-01-19] MEDS ORDERED: VANCOMYCIN 1,500 MG in DEXTROSE 5%-WATER - 500 ML IVPB ONE ×2 (01:30→04:45)
[2017-01-19] MEDS ORDERED: FUROSEMIDE 40 MG/4 ML INJECTABLE VIAL IVPUSH ONE (02:08)
[2017-01-19] MEDS ORDERED: morphine CARPU-JECT 4 MG/1 ML DISP.SYRIN IVPUSH PRN (02:12)
--- NOTE | 2017-01-19 02:13 | HP ---
CHIEF COMPLAINT: Chest pain and SOB PCP: Kamille Guzman HISTORY OF PRESENT ILLNESS: This is a 61 year old male with a past medical history significant for ESRD s/p renal transplant, HTN, CHF, recent hospitalization 01/04-01/08 for PNA and L pleural effusion s/p thoracentesis on 01/06/17 who presented to the ED with chest pain and SOB. He reports that his left shoulder has been hurting since his discharge but the pain spread across his chest and he was SOB so he came to the ED. Pt noted with fever in ED. Pt denies fever at home. ER course was notable for: (1) fever 101.2, WBC 16.1 (2) chest xray with L pleural effusion, ? infiltrate on right (3) Recent Travel: [place] in [place] PAST MEDICAL HISTORY: ESRD HTN COPD CHF HLD gout PAST SURGICAL HISTORY: R nephrectomy 03/2016 due to RCC renal transplant 14 years ago L forearm AV graft Social History: Smokin cig/day Alcohol: pt denies Drugs: occ marijuana, few times/year Allergies No Known Allergies Allergy (Verified 01/18/17 20:15) HOME MEDICATIONS: 3 Medication Instructions Recorded Mycophenolate Mofetil [Cellcept] 250 mg PO DAILY 03/24/14 Tacrolimus [Prograf] 7 mg PO BID 03/24/14 Allopurinol [Zyloprim -] 100 mg PO PRN 11/18/15 Sodium Bicarbonate 1,300 mg PO BID 11/18/15 Carvedilol [Coreg -] 12.5 mg PO BID #60 tablet 11/21/15 Ergocalciferol (Vitamin D2) 2,000 unit PO DAILY 01/04/17 [Vitamin D2] Furosemide 20 mg PO BID 01/04/17 Allopurinol [Zyloprim -] 100 mg PO DAILY tablet 01/08/17 Amox-Tr/K Cl [Augmentin - 500Mg 1 tab PO BID #14 tab 01/08/17 Tablet] Cholecalciferol (Vitamin D3) 2,000 unit PO DAILY tab 01/08/17 [Vitamin D3 -] REVIEW OF SYSTEMS CONSTITUTIONAL: Present: fever Absent: chills, diaphoresis, generalized weakness, malaise, loss of appetite, weight change HEENT: Absent: rhinorrhea, nasal congestion, throat pain, throat swelling, difficulty swallowing, mouth swelling, ear pain, eye pain, visual changes CARDIOVASCULAR: Present: chest pain Absent: syncope, palpitations, irregular heart rate, lightheadedness, peripheral edema RESPIRATORY: Present: shortness of breath, dyspnea with exertion Absent: cough, orthopnea, wheezing, stridor, hemoptysis GASTROINTESTINAL: Absent: abdominal pain, abdominal distension, nausea, vomiting, diarrhea, constipation, melena, hematochezia GENITOURINARY: Absent: dysuria, frequency, urgency, hesitancy, hematuria, flank pain, genital pain MUSCULOSKELETAL: Present: left shoulder pain Absent: myalgia, arthralgia, joint swelling, back pain, neck pain SKIN: Absent: rash, itching, pallor HEMATOLOGIC/IMMUNOLOGIC: Absent: easy bleeding, easy bruising, lymphadenopathy, frequent infections ENDOCRINE: Absent: unexplained weight gain, unexplained weight loss, heat intolerance, cold intolerance NEUROLOGIC: Absent: headache, focal weakness or paresthesias, dizziness, unsteady gait, seizure, mental status changes, bladder or bowel incontinence PSYCHIATRIC: Absent: anxiety, depression, suicidal or homicidal ideation, hallucinations. PHYSICAL EXAMINATION Vital Signs - 24 hr 3 01/18/17 01/18/17 01/19/17 20:15 23:56 00:19 Temperature 98.8 F 101.2 F H Pulse Rate 77 Pulse Rate [ 82 Radial] Respiratory 24 20 Rate Blood Pressure 126/84 Blood Pressure 157/91 [Right Arm] O2 Sat by Pulse 88 L 96 Oximetry (%) GENERAL: Awake, alert, and fully oriented, in no acute distress. HEAD: Normal with no signs of trauma. EYES: Pupils equal, round and reactive to light, extraocular movements intact, sclera anicteric, conjunctiva clear. No lid lag. EARS, NOSE, THROAT: Ears normal, nares patent, oropharynx clear without exudates. Moist mucous membranes. NECK: Normal range of motion, supple without lymphadenopathy, JVD, or masses. LUNGS: Crackles bilat lower lungs. No wheezes. No accessory muscle use. HEART: Regular rate and rhythm, normal S1 and S2 without murmur, rub or gallop. ABDOMEN: Soft, nontender, not distended, normoactive bowel sounds, no guarding, no rebound, no masses. No hepatomegaly or splenomegaly. mult surgical scars noted MUSCULOSKELETAL: Normal range of motion at all joints. No bony deformities or tenderness. No CVA tenderness. UPPER EXTREMITIES: 2+ pulses, warm, well-perfused. No cyanosis. No clubbing. No peripheral edema. L forearm AV graft with bruit and thrill LOWER EXTREMITIES: 2+ pulses, warm, well-perfused. No calf tenderness. No peripheral edema. NEUROLOGICAL: Cranial nerves II-XII intact. Normal speech. Normal gait. PSYCHIATRIC: Cooperative. Good eye contact. Appropriate mood and affect. SKIN: Warm, dry, normal turgor, no rashes or lesions noted, normal capillary refill. Laboratory Results - last 24 hr 3 01/18/17 01/18/17 01/18/17 22:21 22:21 22:21 WBC 16.1 H D RBC 4.25 Hgb 12.2 Hct 36.8 MCV 86.4 MCH 28.6 MCHC 33.2 RDW 16.1 H Plt Count 283 D MPV 9.5 Neutrophils % 86.9 H Lymphocytes % 5.4 L D Monocytes % 6.6 Eosinophils % 0.8 D Basophils % 0.3 INR 1.07 D-Dimer 673 H Sodium Cancelled Potassium Cancelled Chloride Cancelled Carbon Dioxide Cancelled Anion Gap Cancelled BUN Cancelled Creatinine Cancelled Creat Clearance w eGFR Cancelled Random Glucose Cancelled Lactic Acid Calcium Cancelled Magnesium Cancelled Total Bilirubin Cancelled AST Cancelled ALT Cancelled Alkaline Phosphatase Cancelled Creatine Kinase Cancelled Troponin I Cancelled B-Natriuretic Peptide Cancelled Total Protein Cancelled Albumin Cancelled 3 01/18/17 01/19/17 01/19/17 23:58 00:12 00:12 WBC RBC Hgb Hct MCV MCH MCHC RDW Plt Count MPV Neutrophils % Lymphocytes % Monocytes % Eosinophils % Basophils % INR D-Dimer Sodium 139 Potassium 5.1 Chloride 107 Carbon Dioxide 20 L Anion Gap 12 BUN 75 H Creatinine 4.6 H D Creat Clearance w eGFR 13.14 Random Glucose 125 H D Lactic Acid 1.4 Calcium 7.9 L Magnesium 2.1 Total Bilirubin 0.7 D AST 25 D ALT 91 H D Alkaline Phosphatase 152 H D Creatine Kinase 64 Troponin I 0.05 B-Natriuretic Peptide Total Protein 6.9 Albumin 3.5 D Radiology Results: CXR: LLL pleural effusion, ? RLL infiltrate, final read pending ECG NSR, vent rate [address]/T wave abnormality ASSESSMENT/PLAN: 61yM with PMH HTN, CHF, ESRD s/p renal transplant, HLD, COPD presented to the ED with chest pain and SOB. Cardiology: Chest pain - likely related to lung issues rather than cardiac event - admit to tele - trend troponin, first 0.05 - cardiology consult CHF - + pleural effusion - lasix 40mg IV x 1 - cont home carvedilol HTN - cont home carvedilol Pulm: Pneumonia with sepsis - treating for HCAP given recent hospitalization and thoracentesis - zosyn 3.375mg Q6H, CrCl 22 via cockcroft-gault - vanco 1500mg x 1 - ID consult - cultures reviewed from thoracentesis, all neg thus far, fungal and TB still pending - legionella, streptococcus and cryptococcal antigens all neg on last admission Pleural effusion - pulmonary consult - lasix 40mg iv given - may need repeat thoracentesis elevated D-dimer - corrected normal for age around 89, just above corrected normal, unlikely PE given not tachycardic Renal: ESRD - Cr 4.6, improved from 6.1 on discharge - cont to avoid nephrotoxc agents when possible - renal consult-? DC cellcept during acute infection - no indication for acute HD at this time DVT PPX - heparin 5000u q8h FEN - defer IVF - BMP in am - renal, low sodium diet Dispo: Pt currently requires inpatient management of his emergent condition. Visit type - Emergency Visit Emergency Visit: Yes ED Registration Date: 01/18/17 Care time: The patient presented to the Emergency Department on the above date and was hospitalized for further evaluation of their emergent condition. - New Patient This patient is new to me today: Yes Date on this admission: 01/19/17 - Critical Care Critical Care patient: No
[2017-01-19] MEDS ORDERED: PIPERACILLIN/TAZOB 3.375 GM 3.375 GM in DEXTROSE 5%-WATER - 50 ML IVPB ONE (04:45)
[2017-01-19] MEDS ORDERED: VANCOMYCIN 1,500 MG in SODIUM CHLORIDE 500 ML IVPB ONE (04:45)
[2017-01-19] MEDS ORDERED: PIPERACILLIN/TAZOBACTAM 3.375 GM VIAL IVPB ONE (04:51)
[2017-01-19] MEDS ORDERED: DEXTROSE 5%-WATER - 50 ML IVPB ONE (04:51)
[2017-01-19 08:42] LABS: BASOPHIL 0.4 % (0-2.0); EOSINOPHIL 1.5 % (0-4.5); MCH 28.1 pg (25.7-33.7); MCHC 32.4 g/dl (32.0-35.9); MEAN CELL VOLUME 86.7 fl (80-96); MEAN PLT VOLUME 9.2 fl (7.5-11.1); NEUTROPHILS 84.2 % (42.8-82.8); PLATELET COUNT 260 K/MM3 (134-434); RDW 15.5 % (11.9-15.9); WHITE BLOOD COUNT 11.9 K/mm3 (4.0-10.0)
[2017-01-19 09:10] LABS: ALBUMIN 3.1 g/dl (3.4-5.0); ANION GAP 14 (8-16); BILIRUBIN,TOTAL 0.9 mg/dL (0.2-1.0); CALCIUM 7.7 mg/dL (8.5-10.1); CO2 19 mmol/L (21-32); CREATININE 4.5 mg/dL (0.7-1.3); GLUCOSE,RANDOM 118 mg/dL (74-106); MAGNESIUM 1.9 mg/dL (1.8-2.4); PHOSPHOROUS 4.9 mg/dL (2.5-4.9); SGOT/AST 15 U/L (15-37); SGPT/ALT 71 U/L (12-78); TOT PROT 6.2 g/dl (6.4-8.2)
[2017-01-19 09:13] LABS: ALK PHOS 134 U/L (45-117); CPK 49 IU/L (39-308); TROPONIN I 0.05 ng/ml (0.00-0.05)
[2017-01-19] MEDS: CHOLECALCIFEROL (VITAMIN D3) 1,000 UNIT TABLET (FP) PO SCH (09:20)
[2017-01-19] MEDS: SODIUM BICARBONATE 650 MG TABLET PO SCH ×2 (09:20→22:46)
[2017-01-19] MEDS: CARVEDILOL 12.5 MG TABLET (FP) PO SCH ×2 (09:21→22:45)
[2017-01-19] MEDS: ALLOPURINOL 100 MG TABLET (FP) PO SCH (09:21)
[2017-01-19] MEDS ORDERED: MYCOPHENOLATE MOFETIL 250 MG CAPSULE PO SCH (10:00)
[2017-01-19] MEDS ORDERED: TACROLIMUS 7 MG PO SCH (10:00)
[2017-01-19] MEDS ORDERED: FUROSEMIDE 20 MG TABLET (FP) PO SCH (10:00)
--- NOTE | 2017-01-19 10:53 | CONSULT ---
Consultation: REQUESTING PROVIDER: CONSULT REQUEST: We have been asked to medically evaluate this patient for extensive cardiac history with CP, dyspnea, and r/o DE. HISTORY OF PRESENT ILLNESS: 61M with PMH ESRD s/p renal transplant, HTN, CHF, recent hospitalization 01/04-01/08 for PNA and L pleural effusion s/p thoracentesis on 01/06/17 who presents to ED with L shoulder that spreads across his chest. Pt states his pain was throbbing, severe, began only in the shoulder, and started the Wednesday before last. It has recurred intermittently approximately every other day at random times of the day. The pain has not been associated with activity or position and is not reproduced by pressing on the shoulder. Pt states that last night, the pain spread from his shoulder across his chest and he developed shortness of breath, which prompted his visit to the ED. Pt states his shoulder pain feels very much like the gouty attacks he's had previously in his knees and denies chest tightness. REVIEW OF SYSTEMS: CONSTITUTIONAL: fever, chills, diaphoresis Absent: , generalized weakness, malaise, loss of appetite, weight change HEENT: throat pain, throat swelling, difficulty swallowing Absent: rhinorrhea, nasal congestion, , mouth swelling, ear pain, eye pain, visual changes CARDIOVASCULAR: chest pain Absent: , syncope, palpitations, irregular heart rate, lightheadedness, peripheral edema RESPIRATORY: shortness of breath Absent: cough, , dyspnea with exertion, orthopnea, wheezing, stridor, hemoptysis GASTROINTESTINAL: Absent: abdominal pain, abdominal distension, nausea, vomiting, diarrhea, constipation, melena, hematochezia GENITOURINARY: Absent: dysuria, frequency, urgency, hesitancy, hematuria, flank pain, genital pain MUSCULOSKELETAL: Absent: myalgia, arthralgia, joint swelling, back pain, neck pain SKIN: Absent: rash, itching, pallor HEMATOLOGIC/IMMUNOLOGIC: Absent: easy bleeding, easy bruising, lymphadenopathy, frequent infections ENDOCRINE: Absent: unexplained weight gain, unexplained weight loss, heat intolerance, cold intolerance NEUROLOGIC: Absent: headache, focal weakness or paresthesias, dizziness, unsteady gait, seizure, mental status changes, bladder or bowel incontinence PSYCHIATRIC: Absent: anxiety, depression, suicidal or homicidal ideation, hallucinations. PHYSICAL EXAMINATION Vital Signs - 24 hr 01/19/17 01/19/17 02:54 03:01 Temperature 98 F Pulse Rate 86 Respiratory 22 22 Rate Blood Pressure 110/70 O2 Sat by Pulse 96 Oximetry (%) GENERAL: uncomfortable, Awake, alert, and fully oriented, in mild distress. HEAD: Normal with no signs of trauma. EYES: Pupils equal, round and reactive to light, extraocular movements intact, sclera anicteric, conjunctiva clear. No lid lag. EARS, NOSE, THROAT: nares patent, oropharynx clear without exudates. Moist mucous membranes. NECK: Normal range of motion, supple without lymphadenopathy, JVD, or masses, no carotid bruits LUNGS: decreased breath sounds. Diffuse end expiratory wheezing. no crackles. No accessory muscle use. HEART: Regular rate and rhythm, soft S1 normal S2, 3-4/6 systolic murmur best heard at left upper sternal border, no rub or gallop. ABDOMEN: Soft, nontender, not distended, normoactive bowel sounds, no guarding, no rebound, no masses. No hepatomegaly or splenomegaly. MUSCULOSKELETAL: Normal range of motion at all joints. No bony deformities or tenderness. No CVA tenderness. UPPER EXTREMITIES: 2+ pulses, warm, well-perfused. No cyanosis. No clubbing. Cap refill <2 seconds. No peripheral edema. Left arm fistula with bruit and thrill LOWER EXTREMITIES: 2+ pulses, warm, well-perfused. No calf tenderness. No peripheral edema. NEUROLOGICAL: Cranial nerves II-XII intact. Normal speech. Normal gait. PSYCHIATRIC: Cooperative. Good eye contact. Appropriate mood and affect. SKIN: Warm, dry, normal turgor, no rashes or lesions noted. Laboratory Results - last 24 hr 01/19/17 01/19/17 07:00 07:00 WBC 11.9 H RBC 4.05 Hgb 11.4 L Hct 35.1 L MCV 86.7 MCH 28.1 MCHC 32.4 RDW 15.5 Plt Count 260 MPV 9.2 Neutrophils % 84.2 H Lymphocytes % 8.4 D Monocytes % 5.5 Eosinophils % 1.5 D Basophils % 0.4 Sodium 138 Potassium 4.5 Chloride 105 Carbon Dioxide 19 L Anion Gap 14 BUN 71 H Creatinine 4.5 H Creat Clearance w eGFR 13.48 Random Glucose 118 H Calcium 7.7 L Phosphorus 4.9 Magnesium 1.9 Total Bilirubin 0.9 D AST 15 D ALT 71 D Alkaline Phosphatase 134 H Creatine Kinase 49 Troponin I 0.05 Total Protein 6.2 L Albumin 3.1 L Active Medications Generic Name Dose Route Start Last Admin Trade Name Shivani PRN Reason Stop Dose Admin Allopurinol 100 mg 01/19/17 10:00 01/19/17 09:21 Zyloprim - PO 100 mg DAILY RISHABH Administration Carvedilol 12.5 mg 01/19/17 10:00 01/19/17 09:21 Coreg - PO 12.5 mg BID RISHABH Administration Cholecalciferol 2,000 unit 01/19/17 10:00 01/19/17 09:20 Vitamin D3 - PO 2,000 unit DAILY RISHABH Administration Heparin Sodium (Porcine) 5,000 unit 01/19/17 06:00 Heparin - SQ TID RISHABH Morphine Sulfate 4 mg 01/19/17 02:12 Morphine Injection - IVPUSH Q4H PRN PAIN Non-Formulary Medication 7 mg 01/19/17 10:00 Tacrolimus [Prograf] PO BID [facility] Sodium Bicarbonate 1,300 mg 01/19/17 10:00 01/19/17 09:20 Sodium Bicarbonate - PO 1,300 mg BID RISHABH Administration ASSESSMENT/PLAN: Pt is a pleasant 61 y/o gentleman with PMH ESRD s/p renal transplant, HTN, CHF, recent hospitalization 01/04-01/08 for PNA and L pleural effusion s/p thoracentesis on 01/06/17 who presents to ED with L shoulder that spreads across his chest. Pt is admitted for ACS/PE workup and possible PNA. #Shoulder/Chest pain -nonreproducible, patient states is associated with dyspnea, but shoulder feels like gout -consider DE vs PE vs pleural effusion #r/o DE -chest pain with SOB in patient with significant cardiac history including abnormal stress test in 2016 with EF 35% -Tn 0.05 (pt has ESRD) -EKG stable from prior -CK 49 -CXR reveals cardiomegally (stable from prior) and L pleural effusion with PNA vs atalectasis #r/o PE (unlikely) -sudden onset CP with SOB -D-dimer mildly elevated -O2 sat 98% -not tachypnic -not tachycardic -no leg swelling or sign of DVT -Wells score 0 #pleural effusion -extensive pulm history -identified on CXR -? recollection since prior tap -Pulm on board Trey Hilmy, MD PGY-1 Cardiology service Dispo: We will continue to follow the patient. Thank you for this consultative opportunity. Visit type - Emergency Visit Emergency Visit: No - New Patient This patient is new to me today: No - Critical Care Critical Care patient: No
[2017-01-19] MEDS ORDERED: LIDOCAINE 5% TOPICAL PATCH TP ONE (11:30)
--- NOTE | 2017-01-19 11:30 | EKG ---
Test Reason : Blood Pressure : / mmHG Vent. Rate : 073 BPM Atrial Rate : 073 BPM P-R Int : 192 ms QRS Dur : 104 ms QT Int : 420 ms P-R-T Axes : 069 -45 092 degrees QTc Int : 462 ms NORMAL SINUS RHYTHM POSSIBLE LEFT ATRIAL ENLARGEMENT LEFT ANTERIOR FASCICULAR BLOCK LEFT VENTRICULAR HYPERTROPHY T WAVE ABNORMALITY, CONSIDER LATERAL ISCHEMIA PROLONGED QT ABNORMAL ECG WHEN COMPARED WITH ECG OF 05-JAN-2017 13:52, INVERTED T WAVES HAVE REPLACED NONSPECIFIC T WAVE ABNORMALITY IN LATERAL LEADS BASE LINE ARTIFACTS IN V4-V5 REPEAT EKG IF CLINICALLY INDICATED Confirmed by RASHAUN HOWARD MD ([id number]) on 01/19/2017 11:30:30 AM Referred By: Confirmed By:RASHAUN HOWARD MD
--- NOTE | 2017-01-19 12:14 | PN ---
Progress Note (short form) - Note Progress Note: ID consult dictated 61 year old man renal transplant on immunosuppressives recently hospitalized to 01/08 for pneumonia with left pleural effusion s/p thoracentesis 01/06 he had severe left shoulder pain that resolved with treatment of his pneumonia and thoracentesis-he received vanco/zosyn/zith while in the hospital since discharge he has had worsening left shoulder pain- feels like gout yesterday developed SOB and came to ED, denies fever at home was discharged on 7 days of augmentin which he is still taking cryptococcal antigen negative legionella/pneumococcal antigens negative history of cardiomyopathy recurrent fever/pneumonia/effusion in immunocompromised host-nonproductive cough cxray with cardiomegaly and left effusion fever to 101.6 with wbc of 16k in ED now improved given vancomycin/rocephin/zithromax/zosyn in ED continues with severe shoulder pain will repeat chest ct to evaluate pneumonia/effusion he has FROM of his shoulder so I suspect referred pain vanco level in am cefepime/zithromax to continue esr/crp/histo antigen d/w cardiology and pulmonary Problem List - Problems (1) Fever Code(s): R50.9 - FEVER, UNSPECIFIED (2) Shoulder pain, left Code(s): M25.512 - PAIN IN LEFT SHOULDER (3) Pneumonia Code(s): J18.9 - PNEUMONIA, UNSPECIFIED ORGANISM (4) Pleural effusion on left Code(s): J90 - PLEURAL EFFUSION, NOT ELSEWHERE CLASSIFIED (5) CHF (congestive heart failure) Code(s): I50.9 - HEART FAILURE, UNSPECIFIED Qualifiers: Congestive heart failure type: unspecified congestive heart failure type Congestive heart failure chronicity: acute Qualified Code(s): I50.9 - Heart failure, unspecified (6) Renal transplant recipient Code(s): Z94.0 - KIDNEY TRANSPLANT STATUS
--- NOTE | 2017-01-19 12:28 | PN ---
Progress Note (short form) - Note Progress Note: PULMONARY CONSULTATION DICTATED 01/24/17 IMP FEVER,CP,SHOULDER PAIN R/O PNEUMONIA ESRD S/P RENAL TRANSPLANT CARDIOMYOPATHY CHF PULMONARY HTN HTN H/O PLEURAL EFFUSION ( EXUDATE ,- CYTOLOGY,LIKELY UNCOMPLICATED PARA- PNEUMONIC EFFUSION) PLAN O2 ANTIBIOTICS INHALED BRONCHODILATORS CULTURES LASIX CHEST CT DR CASTELLANO Problem List - Problems (1) Leukocytosis Code(s): D72.829 - ELEVATED WHITE BLOOD CELL COUNT, UNSPECIFIED Qualifiers: Leukocytosis type: unspecified Qualified Code(s): D72.829 - Elevated white blood cell count, unspecified (2) Pleural effusion on left Code(s): J90 - PLEURAL EFFUSION, NOT ELSEWHERE CLASSIFIED (3) Shortness of breath at rest Code(s): R06.02 - SHORTNESS OF BREATH (4) CHF (congestive heart failure) Code(s): I50.9 - HEART FAILURE, UNSPECIFIED Qualifiers: Congestive heart failure type: unspecified congestive heart failure type Congestive heart failure chronicity: acute Qualified Code(s): I50.9 - Heart failure, unspecified (5) COPD (chronic obstructive pulmonary disease) Code(s): J44.9 - CHRONIC OBSTRUCTIVE PULMONARY DISEASE, UNSPECIFIED Qualifiers : COPD type: unspecified COPD Qualified Code(s): J44.9 - Chronic obstructive pulmonary disease, unspecified (6) Dilated cardiomyopathy Code(s): I42.0 - DILATED CARDIOMYOPATHY (7) ESRD (end stage renal disease) Code(s): N18.6 - END STAGE RENAL DISEASE (8) HTN (hypertension) Code(s): I10 - ESSENTIAL (PRIMARY) HYPERTENSION Qualifiers: Hypertension type: essential hypertension Qualified Code(s): I10 - Essential (primary) hypertension (9) Pulmonary HTN Code(s): I27.2 - OTHER SECONDARY PULMONARY HYPERTENSION (10) Renal transplant recipient Code(s): Z94.0 - KIDNEY TRANSPLANT STATUS (11) Chest pain Code(s): R07.9 - CHEST PAIN, UNSPECIFIED Qualifiers: Chest pain type: other chest pain Qualified Code(s): R07.89 - Other chest pain; R07.8 - Other chest pain
[2017-01-19] MEDS ORDERED: CEFEPIME HCL 2 GM VIAL (RESTRICTED TO ID) IVPB SCH (12:30)
--- NOTE | 2017-01-19 12:30 | CONSULT ---
Consultation: Consult: NEPHROLOGY CONSULT REQUEST: We have been asked to medically evaluate this patient for s/p renal transplant. HISTORY OF PRESENT ILLNESS: 61 yr old man with ESRD s/p right renal transplant on immunosuppressive therapy , gout, HTN, COPD(former smoker) presents to ED with left shoulder pain and sob for past few days. He attributed his shoulder pain to gout and started to take 1 /2 10mg prednisone twice a day with tylenol. Pt was recently discharged (01/04-01/08) with po Augmentin BID for 7 days for multifocal pna s/p thoracentesis(neg for crypto/AFB). says he is still taking the augmentin. surghx/Pmhx: ESRD s/p Renal Transplant(>14yrs ago) on prograf and cellcept(no prednisone daily) with CKD/Chronic allograft nephropathy, Hypertension, RCC s/p Right Kidney Nephrectomy, COPD, gout, HTN, cardiomypathy soc: former smoker REVIEW OF SYSTEMS: CONSTITUTIONAL: Absent: fever, chills, diaphoresis, generalized weakness, malaise, loss of appetite, weight change HEENT: Absent: rhinorrhea, nasal congestion, throat pain, throat swelling, difficulty swallowing, mouth swelling, ear pain, eye pain, visual changes CARDIOVASCULAR: Absent: syncope, palpitations, irregular heart rate, lightheadedness, peripheral edema RESPIRATORY: Present: shortness of breath, Absent: cough, dyspnea with exertion, orthopnea, wheezing, stridor, hemoptysis GASTROINTESTINAL: Absent: abdominal pain, abdominal distension, nausea, vomiting, diarrhea, constipation, melena, hematochezia GENITOURINARY: Absent: dysuria, frequency, urgency, hesitancy, hematuria, flank pain, genital pain MUSCULOSKELETAL: Present: joint pain(left shoulder) Absent: myalgia, arthralgia, back pain, neck pain SKIN: Absent: rash, itching, pallor NEUROLOGIC: Absent: headache, focal weakness or paresthesias, dizziness, unsteady gait, seizure, mental status changes, bladder or bowel incontinence PHYSICAL EXAMINATION Vital Signs - 24 hr 01/19/17 01/19/17 01/19/17 02:54 03:01 08:00 Temperature 98 F 98.1 F Pulse Rate 86 85 Respiratory 22 22 22 Rate Blood Pressure 110/70 136/69 O2 Sat by Pulse 96 98 Oximetry (%) GENERAL: Awake, alert, and fully oriented, in no acute distress. EYES: Pupils equal, round and reactive to light, extraocular movements intact, sclera anicteric, conjunctiva clear. EARS, NOSE, THROAT: oropharynx clear without exudates. Moist mucous membranes. NECK: Normal range of motion, supple without lymphadenopathy, JVD, or masses. LUNGS: b/l basilar crackles, +wheezes in right lower base. HEART: Regular rate and rhythm, normal S1 and S2 without murmur, rub or gallop. ABDOMEN: Soft, nontender, not distended, normoactive bowel sounds, no guarding, no rebound, no masses. MUSCULOSKELETAL: Normal range of motion at all joints. no joint swelling/ erythema/tenderness or limitation in movement in left shoulder. No bony deformities or tenderness. No CVA tenderness. UPPER EXTREMITIES: 2+ pulses, warm, well-perfused. No cyanosis. No clubbing. left forearm with palpable thrill at AV fistula. LOWER EXTREMITIES: 2+ pulses, warm, well-perfused. No calf tenderness. No peripheral edema. Laboratory Results - last 24 hr 01/19/17 01/19/17 01/19/17 07:00 07:00 11:20 WBC 11.9 H RBC 4.05 Hgb 11.4 L Hct 35.1 L MCV 86.7 MCH 28.1 MCHC 32.4 RDW 15.5 Plt Count 260 MPV 9.2 Neutrophils % 84.2 H Lymphocytes % 8.4 D Monocytes % 5.5 Eosinophils % 1.5 D Basophils % 0.4 Sodium 138 Potassium 4.5 Chloride 105 Carbon Dioxide 19 L Anion Gap 14 BUN 71 H Creatinine 4.5 H Creat Clearance w eGFR 13.48 Random Glucose 118 H Lactic Acid 1.0 Calcium 7.7 L Phosphorus 4.9 Magnesium 1.9 Total Bilirubin 0.9 D AST 15 D ALT 71 D Alkaline Phosphatase 134 H Creatine Kinase 49 Troponin I 0.05 Total Protein 6.2 L Albumin 3.1 L Active Medications Generic Name Dose Route Start Last Admin Trade Name Freq PRN Reason Stop Dose Admin Allopurinol 100 mg 01/19/17 10:00 01/19/17 09:21 Zyloprim - PO 100 mg DAILY RISHABH Administration Carvedilol 12.5 mg 01/19/17 10:00 01/19/17 09:21 Coreg - PO 12.5 mg BID RISHABH Administration Cefepime HCl 1 gm 01/19/17 12:30 Maxipime (Restricted To Id) - IVPB Q24H [facility] Protocol Cholecalciferol 2,000 unit 01/19/17 10:00 01/19/17 09:20 Vitamin D3 - PO 2,000 unit DAILY RISHABH Administration Heparin Sodium (Porcine) 5,000 unit 01/19/17 06:00 Heparin - SQ TID [facility] Azithromycin 500 mg/ Dextrose 250 mls @ 250 mls/hr 01/20/17 10:00 IVPB DAILY [facility] Miscellaneous 1 each 01/19/17 22:00 Lidoderm Patch Removal MC 01/19/17 22:01 DAILY@2200 [facility] Morphine Sulfate 4 mg 01/19/17 02:12 01/19/17 12:16 Morphine Injection - IVPUSH 4 mg Q4H PRN Administration PAIN Non-Formulary Medication 7 mg 01/19/17 10:00 Tacrolimus [Prograf] PO BID [facility] Sodium Bicarbonate 1,300 mg 01/19/17 10:00 01/19/17 09:20 Sodium Bicarbonate - PO 1,300 mg BID RISHABH Administration ASSESSMENT/PLAN: 61 yr old man s/p renal transplant presents with sob and left shoulder pain with recent hospitalization for PNA admitted for persistent pleural effusion, leucocytosis, fever and sob. #ESRD s/p transplant with allograft rejection, not on HD - continue Prograf 7mg po bid, pending level in the AM, pt to bring it from home , pharmacy will give doses today - defer cellcept for now given possible infection(fever/leucocytosis) - continue oral lasix at home dose, can hold the lasix if imaging does not show significant effusion - recommend renal dosing for medications and avoiding nephrotoxic meds #Metabolic acidosis (bicarb of 19) likely due to renal insufficiency continue sodium bicarb BID 1300mg po goal bicarb > 22 Visit type - Emergency Visit Emergency Visit: No - New Patient This patient is new to me today: Yes Date on this admission: 01/19/17 - Critical Care Critical Care patient: No
[2017-01-19 13:24] LABS: TROPONIN I 0.06 ng/ml (0.00-0.05)
--- NOTE | 2017-01-19 13:41 | PN ---
Teaching Attending Note Name of Resident: Roberta Koo ATTENDING PHYSICIAN STATEMENT I saw and evaluated the patient. I reviewed the resident's note and discussed the case with the resident. I agree with the resident's findings and plan as documented. SUBJECTIVE: Has pain in L sided chest and in L shoulder, but able to use his arm and shoulder. feels SOB and denies any dysuria , diarrhea or abd pain . denies any cough or sputum production . OBJECTIVE: Tachypnic HEENT: MMM, JVD . CV: RRR, 3/6 Sm at [place], and LLSB. 3/6 DM at R adn L upper sternal border. JVD . Lungs: R base crackles , decreased breath sounds on both bases especially Left Ext: no edema . no erythema, no axillary sweating . L shoulder with no erythema or edema, NL range of motion . no TTP over L shoulder ASSESSMENT AND PLAN: 61 y/o Lady with h/o end stage renal failure s/p renal transplant with chronic rejection , h/o HTN and severe cardiomyopathy , recent admisison for PNA and pleural effusion , who presented with SOB and L sided CP . He was found to have HCAP 1-HCAP : no indication of infection in or GI system . has L pleural effusion which has decreased compared to last admission s/p thoracentesis - Cont Abx - follow cultures - check LEgionella and Pneumococcal AG, mycoplasma Abs . - CT chest ordered to evaluate effusion and lung paranchyme - ? need parancetesis to r/o empyema . cx was neg last admission - repeat lactic acid 2- Cp : not cardiac in etiology, EKG with no change from prior . Pain is pleuritic in nature. - avoid narcotics. give tylenol, lidocaine patch and tramadol 3-L shoulder pain : no restriction of movements, no erythema or edema . Unlikely septic joint or shoulder etiology. 4- ESRD s/p renal transplant with chronic rejection and nephrosclerosis 2/2 HTN and heart failure. - cr at his base line - clinically slightly volume depleted or euovolemic. will check orthostatic VS . - hold lasix until evaluated by renal - hold cellcept - cont tacrulimus, d/w pharmacy , pt will need to bring his own medication 4- H/o Severe Cardiomyopathy, and systolic heart failure. echo last admission with severely reduced EF and multiple valvular problems - hold lasix for now , as he might be volume depleted, awaiting cardiac eval - no need to repeat echo this admission - cont BB 5- DVT px ASSESSMENT AND PLAN:
--- NOTE | 2017-01-19 13:42 | CONS ---
PULMONARY CONSULTATION DATE OF CONSULTATION: 01/19/2017 REFERRING PHYSICIAN: Shayy Rollins MD HISTORY OF PRESENT ILLNESS: The patient is a 61-year-old black male known to me in recent hospitalization with past medical history of end-stage renal disease status post renal transplant, maintained on CellCept and tacrolimus; history of hypertension; long history of tobacco use; CHF; hypertension; recently hospitalized January 04 to January 08, secondary to pneumonia and left pleural effusion. The patient had a thoracentesis which was consistent with exudate, less likely uncomplicated parapneumonic effusion; was discharged home; was readmitted on January 19, with complaint of left shoulder pain that spreads across his chest. States the pain is throbbing in nature and severe. Denied any recent trauma. He states that his pain started on Wednesday. The patient states that his pain has been intermittent, occurring every other day at random times, not associated with positional change. As stated before, there is no history of recent trauma to the area. Patient also complained of increasing shortness of breath and dyspnea with exertion. PAST MEDICAL HISTORY: Again includes CHF; hypertension, end-stage renal disease status post renal transplant; pneumonia; left pleural effusion consistent with uncomplicated parapneumonic effusion. SOCIAL HISTORY: Smoking. 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 CURRENT MEDICATIONS: Include Lidoderm, tacrolimus, sodium bicarbonate, heparin, Zyloprim, Coreg, warfarin, and vitamin D3. PHYSICAL EXAMINATION: General: The patient is a well-developed, well-nourished male, awake, alert, in no acute respiratory distress. Vital Signs: He is currently afebrile. T-max is 101.2. Blood pressure is 136/69, respiratory rate is 22, O2 saturation is 98% on 2 L. HEENT: Normocephalic, atraumatic. Neck: Supple. Heart: Regular. S1, S2. Chest: Crackles bilaterally. Scattered wheezes. Abdomen: Soft. Bowel sounds are positive. Extremities: No signs of edema. LABORATORY DATA: WBC is 11.9, hemoglobin 11.4, hematocrit 35.1 with a platelet count of 260,000. BUN is 71, creatinine 4.5. INR is 1.07. Chest x-ray reveals cardiomegaly with congestion bilaterally and possible left pleural effusion. IMPRESSION: 1. Fever, shoulder pain; etiology to be determined; rule out possible pneumonia. 2. Congestive heart failure. 3. Chronic kidney disease status post renal transplant. 4. Recent left pleural effusion, exudate, likely uncomplicated parapneumonic effusion. Cytology was negative. 5. Hypertension. PLAN: Lasix. Add broad-spectrum antibiotics as per Infectious Disease. Obtain cultures. Obtain followup chest CT. Patient noted to have significant pleural effusion. We will repeat thoracentesis. Inhaled bronchodilators. Monitor renal function. Alexus [id number]
[2017-01-19] MEDS ORDERED: traMADol HCL 50 MG TABLET PO PRN (13:53)
[2017-01-19] MEDS ORDERED: TACROLIMUS ANHYDROUS 1 MG CAPSULE (NF) PO SCH (14:00)
[2017-01-19] MEDS: LIDOCAINE 5% TOPICAL PATCH TP SCH (14:08)
[2017-01-19] MEDS: HEPARIN NA (PORCINE) 5,000 UNITS/ML 1ML VIAL SQ SCH ×3 (14:09→23:02)
[2017-01-19] MEDS: CEFEPIME 1 GM in DEXTROSE 5%-WATER 100 ML IVPB SCH (14:09)
[2017-01-19] MEDS ORDERED: TACROLIMUS ANHYDROUS PO SCH (14:15)
[2017-01-19] MEDS: TACROLIMUS 5 MG PO SCH ×2 (14:47→22:47)
[2017-01-19] MEDS: TACROLIMUS ANHYDROUS 1 MG PO SCH ×2 (14:47→22:49)
--- NOTE | 2017-01-19 15:24 | PN ---
Physical Exam: SUBJECTIVE: Patient seen and examined. Patient complained of SOB and left sided chest and shoulder pain. He denies cough, abdominal pain, dizziness and diarrhea. OBJECTIVE: Vital Signs Period Temp Pulse Resp BP Sys/Ly Pulse Ox Last 24 Hr 98 F-98.1 F 85-86 20-22 110-136/69-70 96-98 Constitutional: Yes: Moderate Distress HENT: Yes: WNL, Atraumatic, Normocephalic Cardiovascular: Yes: + JVD, Regular Rate and Rhythm, Murmur (holosystolic murmur was appreciated at the apex), S1, S2 Respiratory: Yes: Cough, B/L lower lung crackles, decreased breath sounds at the bases b/l Gastrointestinal: Yes: WNL, Normal Bowel Sounds, Soft Extremities: Yes: WNL, AV fistula placed in left arm Peripheral Pulses WNL: Yes Edema: No Laboratory Results - last 24 hr 01/19/17 01/19/17 01/19/17 07:00 07:00 11:20 WBC 11.9 H RBC 4.05 Hgb 11.4 L Hct 35.1 L MCV 86.7 MCH 28.1 MCHC 32.4 RDW 15.5 Plt Count 260 MPV 9.2 Neutrophils % 84.2 H Lymphocytes % 8.4 D Monocytes % 5.5 Eosinophils % 1.5 D Basophils % 0.4 Sodium 138 Potassium 4.5 Chloride 105 Carbon Dioxide 19 L Anion Gap 14 BUN 71 H Creatinine 4.5 H Creat Clearance w eGFR 13.48 Random Glucose 118 H Lactic Acid 1.0 Calcium 7.7 L Phosphorus 4.9 Magnesium 1.9 Total Bilirubin 0.9 D AST 15 D ALT 71 D Alkaline Phosphatase 134 H Creatine Kinase 49 Troponin I 0.05 Total Protein 6.2 L Albumin 3.1 L 01/19/17 11:50 WBC RBC Hgb Hct MCV MCH MCHC RDW Plt Count MPV Neutrophils % Lymphocytes % Monocytes % Eosinophils % Basophils % Sodium Potassium Chloride Carbon Dioxide Anion Gap BUN Creatinine Creat Clearance w eGFR Random Glucose Lactic Acid Calcium Phosphorus Magnesium Total Bilirubin AST ALT Alkaline Phosphatase Creatine Kinase 54 Troponin I 0.06 H Total Protein Albumin Active Medications Generic Name Dose Route Start Last Admin Trade Name Freq PRN Reason Stop Dose Admin Acetaminophen 650 mg 01/19/17 13:55 Tylenol - PO Q6H PRN FEVER OR PAIN Allopurinol 100 mg 01/19/17 10:00 01/19/17 09:21 Zyloprim - PO 100 mg DAILY RISHABH Administration Carvedilol 12.5 mg 01/19/17 10:00 01/19/17 09:21 Coreg - PO 12.5 mg BID RISHABH Administration Cholecalciferol 2,000 unit 01/19/17 10:00 01/19/17 09:20 Vitamin D3 - PO 2,000 unit DAILY RISHABH Administration Heparin Sodium (Porcine) 5,000 unit 01/19/17 06:00 01/19/17 14:09 Heparin - SQ 5,000 unit TID RISHABH Administration Azithromycin 500 mg/ Dextrose 250 mls @ 250 mls/hr 01/20/17 10:00 IVPB DAILY RISHABH Cefepime HCl 1 gm/ Dextrose 100 mls @ 200 mls/hr 01/19/17 14:00 01/19/17 14:09 IVPB 200 mls/hr DAILY RISHABH Administration Lidocaine 1 patch 01/19/17 14:00 01/19/17 14:08 Lidoderm Patch - TP Not Given DAILY RISHABH Miscellaneous 1 each 01/19/17 22:00 Lidoderm Patch Removal MC 01/19/17 22:01 DAILY@2200 RISHABH Miscellaneous 1 each 01/19/17 22:00 Lidoderm Patch Removal MC DAILY@2200 RISHABH Sodium Bicarbonate 1,300 mg 01/19/17 10:00 01/19/17 09:20 Sodium Bicarbonate - PO 1,300 mg BID RISHABH Administration Tacrolimus 2 mg 01/19/17 14:45 01/19/17 14:47 Prograf (Non-Formulary) PO 2 mg BID RISHABH Administration Tacrolimus 5 mg 01/19/17 14:45 01/19/17 14:47 Prograf (Non Formulary) PO 5 mg BID RISHABH Administration Tramadol HCl 50 mg 01/19/17 13:53 Ultram - PO Q8H PRN PAIN ASSESSMENT/PLAN: Patient is a 61 yo M with a significant past medical history of ESRD (chronic rejection s/p transplant 14 years ago), CHF, HTN, HLD, recent admisison for pneumonia and pleural effusion s/p thoracentesis, presented to the ED with complaints of left sided pleuritic chest pain and shoulder pain and was admitted for HCAP. #Healthcare Associated Pneumonia with Left pleural effusion -previous admission for pneumonia s/p thoracentesis -X ray revealed LLL pneumonia and left pleural effusions -follow up cultures and urine antigens -follow up CT scan -Possible thoracentesis to r/o empyema -Pulmonary on board -Continue IV antibiotics: Cefepime 1gm, Azithromycin 500mg #Chest Pain -likely from pleural effusion and pneumonia- pleuritic chest pain -Prior EKG similar #Pain Control -lidocaine patch -tramadol 50mg q8 -Acetometaphine 650 q6 -Avoid narcotics. #End Stage Renal disease w/ Chronic rejection -Held cellcept -continue tacrolimus -held lasix -Nephro on board -Creatinine at baseline (5.2-6.1) -Will check orthostatics to assess volume status #Severe Cardiomyopathy and systolic heart failure -held lasix -cardio consulted -continue BB -Previous echo showed severely reduced EF and valvular problems. #FEN -Not on IV fluids -Renal Diet #PPX: Heparin 5000 SQ Visit type - Emergency Visit Emergency Visit: Yes ED Registration Date: 01/19/17 Care time: The patient presented to the Emergency Department on the above date and was hospitalized for further evaluation of their emergent condition. - New Patient This patient is new to me today: No - Critical Care Critical Care patient: No
--- NOTE | 2017-01-19 15:24 | CONS ---
INFECTIOUS DISEASE CONSULTATION DATE OF CONSULTATION: 01/19/2017 HISTORY OF PRESENT ILLNESS: This is a 61-year-old man status post renal transplant on immunosuppressive therapy, recently hospitalized January 04 to January 08 for pneumonia with left pleural effusion. That time, he presented with severe left shoulder pain. He underwent a thoracentesis on the . His shoulder pain resolved with treatment of his pneumonia and thoracentesis. He received vancomycin, Zosyn, and Zithromax while in the hospital and was discharged on Augmentin. Since discharge, he has had worsening left shoulder pain which he reports feeling like gout. Yesterday, developed shortness of breath and came to the emergency room last night. He denied fever at home. In the emergency room, he was noted to have a fever of 101.6, white count of 16,000. He had a chest x-ray that again showed cardiomegaly with left-sided effusion and possible infiltrate. He was given vancomycin, Rocephin, Zithromax, and Zosyn. Asked to see him now for recurrent fever and possible pneumonia. Patient has a history of cardiomyopathy as well. During his prior admission, he had a cryptococcal antigen sent that was negative and Legionella and pneumococcal urinary antigens which were negative. His thoracentesis fluid is no growth to date in terms of AFB, fungal, and routine cultures. ALLERGIES: He has no known drug allergies. MEDICATIONS AN OUTPATIENT: Include mycophenolate, tacrolimus, allopurinol, Coreg, sodium bicarbonate, vitamin D, furosemide, and he was taking Augmentin which interestingly he was discharged on 7 days. He reports he is still taking, as well as vitamin D3. PAST MEDICAL HISTORY: Notable for coronary disease. He has a history of biventricular failure, COPD, CHF. Formerly, he was on dialysis. He has an AV fistula, hypertension, and gout. SURGICAL HISTORY: Notable for an AV fistula. He has a history as well of renal transplant 14 years ago. SOCIAL HISTORY: He is a cigarette smoker. No history of substance use. Incidentally noted prior to the last admission, he has a friend with a chicken coop, and he had been helping him clean it. FAMILY HISTORY: Negative for heart disease. REVIEW OF SYSTEMS: He reports he had been feeling well at home. He has a nonproductive cough. He feels short of breath. He complains of severe shoulder pain. He has no nausea, vomiting, diarrhea, or dysuria. His appetite is good, and he denies any fevers or chills at home. PHYSICAL EXAMINATION: General: He is awake and alert. Vital Signs: His T-max was 101.2; current temperature 98.1. Pulse of 85, blood pressure 136/69, respiratory rate is 22. HEENT: He is normocephalic. His eyes are anicteric. Neck: Supple. Lungs: Diminished breath sounds with crackles at the bases. Heart: Regular rate and rhythm. He has a 2/6 holosystolic murmur. Abdomen: Soft, nontender. Extremities: Without edema. He has an AV fistula in his left arm. DIAGNOSTIC DATA: White count on admission was 16.1 last night. This morning, it is 11.9. Hemoglobin 11.4, platelets are 260. Lactic acid is 1. BUN is 71 and creatinine 4.5. Alkaline phosphatase is 135. His cultures from his last admission were all negative. Chest x-ray is as previously discussed. In summary, this is a 61-year-old man with recurrent shoulder pain and fever in immunocompromised host, now improved since admission 1. Fever in immunocompromised host 2. pneumonia recurrent pleural effusion- ?HCAP 3. s/p renal transplant on immunosuppressives with CKD 4. cardiomyopathy I would suggest we repeat his chest CT to evaluate the pneumonia and effusion. He has full range of motion of his shoulder, so I suspect this is referred pain. There is no erythema of the shoulder as well. I would get a vancomycin level in the morning. Cefepime and Zithromax to continue , adjusted for his CKD. Would check a sedimentation rate, a CRP, a Histoplasma antigen. Repeat a cryptococcal antigen as well. His mycoplasma serology done on last admission was notable for immunity to Mycoplasma pneumoniae and psittacosis was negative. We will repeat chlamydia titers as well. Further recommendations to follow based on his clinical course. possiblility of noninfectious etiology- ?meds, ?malignancy, ?collagenvascular disease must be considered as well D/w Pulmonary Alexus SALMERON/[id number] [facility] SURGERYRenny
--- NOTE | 2017-01-19 16:14 | PN ---
Teaching Attending Note Name of Resident: Trey Gtz ATTENDING PHYSICIAN STATEMENT I saw and evaluated the patient. I reviewed the resident's note and discussed the case with the resident. I agree with the resident's findings and plan as documented. Please see Cardiology consultation Camilo Smith MD
--- NOTE | 2017-01-19 16:18 | CON.CARD ---
Consult Consult Specialty:: Cardiology Referred by:: Dr. Rollins (Hospitalist) Reason for Consultation:: Cardiac evaluation - History of Present Illness Chief Complaint: Left shoulder pain, shortness of breath and chest pain History of Present Illness: Patient is a 61 year old male who was seen in the hospital recently with underlying history of ESRD status post renal transplant followed at [facility] (Hector Bernstein MD), history of nephrectomy also followed at [facility], COPD, hypertension, severe left ventricular systolic dysfunction/dilated cardiomyopathy with LVEF around 35%, valvular heart disease including moderate to severe aortic valve stenosis, severe aortic valve regurgitation, moderate pulmonic valve regurgitation, moderate to severe mitral valve regurgitation, moderate to severe tricuspid valve regurgitation and moderate to severe LV systolic dysfunction, mild RV systolic dysfunction and pulmonary hypertension. He was recently hospitalized for treatment of left side pneumonia with pleural effusion which revealed empyema status post thoracentesis and drainage of the fluid and he received full course of antibiotics. He is followed by Dr. Corinna Urias at [facility] for her cardiac issues. She was seen in December in her office and notes that he had previously refused AICD placement. He complains of left shoulder pain mostly. He also complains of vague chest pressure across the chest wall and is not reproducible. He also complains of shortness of breath and had an episode of fever of 101. He denies palpitations. He denies paroxysmal nocturnal dyspnea or orthopnea. He denies headache or lightheadedness. Cardiology consultation was called for further evaluation. - History Source History Provided By: Patient, Medical Record Limitations to Obtaining History: No Limitations - Past Medical History Cardio/Vascular: Yes: Aortic Insufficiency, Aortic Stenosis, CHF, HTN, Hyperlipdemia, Mitral Insufficiency, Murmur, Pulmonary Hypertension Renal/: Yes: Renal Failure, Renal Inusuff, Other (Post renal transplant) - Past Surgical History Past Surgical History: Yes: Kidney Transplant - Alcohol/Substance Use Hx Alcohol Use: No - Smoking History Smoking history: Former smoker Have you smoked in the past 12 months: Yes Aproximately how many cigarettes per day: 15 If you are a former smoker, when did you quit?: 2.5 months ago Home Medications - Allergies Allergies/Adverse Reactions: Allergies Allergy/AdvReac Type Severity Reaction Status Date / Time No Known Allergies Allergy Verified 01/18/17 20:15 - Home Medications Home Medications: Ambulatory Orders Mycophenolate Mofetil [Cellcept] 250 mg PO DAILY 03/24/14 Tacrolimus [Prograf] 7 mg PO BID 03/24/14 Allopurinol [Zyloprim -] 100 mg PO PRN 11/18/15 Sodium Bicarbonate 1,300 mg PO BID 11/18/15 Carvedilol [Coreg -] 12.5 mg PO BID #60 tablet 11/21/15 Ergocalciferol (Vitamin D2) [Vitamin D2] 2,000 unit PO DAILY 01/04/17 Furosemide 20 mg PO BID 01/04/17 Allopurinol [Zyloprim -] 100 mg PO DAILY tablet 01/08/17 Amox-Tr/K Cl [Augmentin - 500Mg Tablet] 1 tab PO BID #14 tab 01/08/17 Cholecalciferol (Vitamin D3) [Vitamin D3 -] 2,000 unit PO DAILY tab 01/08/17 Review of Systems - Review of Systems Constitutional: denies: Chills, Fever Cardiovascular: reports: Chest Pain, Shortness of Breath. denies: Palpitations Respiratory: reports: SOB, SOB on Exertion. denies: Cough, Hemoptysis, Orthopnea, PND Gastrointestinal: denies: Abdominal Pain, Constipation, Diarrhea, Melena, Nausea , Rectal Bleeding, Vomiting Musculoskeletal: reports: Joint Pain Neurological: denies: Dizziness, Headache, Seizure, Syncope, Weakness Vital Signs: Vital Signs Temperature 98.1 F 01/19/17 08:00 Pulse Rate 76 01/19/17 15:00 Respiratory Rate 22 01/19/17 08:00 Blood Pressure 136/69 01/19/17 15:00 O2 Sat by Pulse Oximetry (%) 98 01/19/17 08:00 Neck: Yes: Supple Respiratory: Yes: Diminished Gastrointestinal: Yes: Normal Bowel Sounds, Soft. No: Tenderness Cardiovascular: Yes: Regular Rate and Rhythm JVD: No Carotid Bruit: No PMI: Non-Displaced Heart Sounds: Yes: S1, S2. No: Gallop Murmur: Yes: Systolic Murmur (2/6 PUNEET right intercostal space with mid systolic peaking and 2/6 SM LSB and apex), Grade 2 Edema: No - Other Data Labs, Other Data: CBC, BMP 01/19/17 07:00 01/19/17 07:00 INR, PTT INR 1.07 (0.82-1.09) 01/18/17 22:21 Troponin, BNP 01/19/17 01/19/17 07:00 11:50 Troponin I 0.05 0.06 H Laboratory Results - last 24 hr 01/18/17 01/18/17 01/18/17 22:21 22:21 22:21 WBC 16.1 H D RBC 4.25 Hgb 12.2 Hct 36.8 MCV 86.4 MCH 28.6 MCHC 33.2 RDW 16.1 H Plt Count 283 D MPV 9.5 Neutrophils % 86.9 H Lymphocytes % 5.4 L D Monocytes % 6.6 Eosinophils % 0.8 D Basophils % 0.3 INR 1.07 D-Dimer 673 H Sodium Cancelled Potassium Cancelled Chloride Cancelled Carbon Dioxide Cancelled Anion Gap Cancelled BUN Cancelled Creatinine Cancelled Creat Clearance w eGFR Cancelled Random Glucose Cancelled Lactic Acid Calcium Cancelled Phosphorus Magnesium Cancelled Total Bilirubin Cancelled AST Cancelled ALT Cancelled Alkaline Phosphatase Cancelled Creatine Kinase Cancelled Troponin I Cancelled B-Natriuretic Peptide Cancelled Total Protein Cancelled Albumin Cancelled 01/18/17 01/19/17 01/19/17 23:58 00:12 00:12 WBC RBC Hgb Hct MCV MCH MCHC RDW Plt Count MPV Neutrophils % Lymphocytes % Monocytes % Eosinophils % Basophils % INR D-Dimer Sodium 139 Potassium 5.1 Chloride 107 Carbon Dioxide 20 L Anion Gap 12 BUN 75 H Creatinine 4.6 H D Creat Clearance w eGFR 13.14 Random Glucose 125 H D Lactic Acid 1.4 Calcium 7.9 L Phosphorus Magnesium 2.1 Total Bilirubin 0.7 D AST 25 D ALT 91 H D Alkaline Phosphatase 152 H D Creatine Kinase 64 Troponin I 0.05 B-Natriuretic Peptide Total Protein 6.9 Albumin 3.5 D 01/19/17 01/19/17 01/19/17 07:00 07:00 11:20 WBC 11.9 H RBC 4.05 Hgb 11.4 L Hct 35.1 L MCV 86.7 MCH 28.1 MCHC 32.4 RDW 15.5 Plt Count 260 MPV 9.2 Neutrophils % 84.2 H Lymphocytes % 8.4 D Monocytes % 5.5 Eosinophils % 1.5 D Basophils % 0.4 INR D-Dimer Sodium 138 Potassium 4.5 Chloride 105 Carbon Dioxide 19 L Anion Gap 14 BUN 71 H Creatinine 4.5 H Creat Clearance w eGFR 13.48 Random Glucose 118 H Lactic Acid 1.0 Calcium 7.7 L Phosphorus 4.9 Magnesium 1.9 Total Bilirubin 0.9 D AST 15 D ALT 71 D Alkaline Phosphatase 134 H Creatine Kinase 49 Troponin I 0.05 B-Natriuretic Peptide Total Protein 6.2 L Albumin 3.1 L Sinus rhythm with T wave abnormality in lateral leads, LVH Echo: Report Reviewed Imaging - Results Chest X-ray: Report Reviewed (Cardiomegaly, left pleural effusion) Cat Scan: Pending (Chest CT) EKG: Report Reviewed Problem List - Problems (1) Fever Code(s): R50.9 - FEVER, UNSPECIFIED Qualifiers: Fever type: unspecified Qualified Code(s): R50.9 - Fever, unspecified (2) Leukocytosis Code(s): D72.829 - ELEVATED WHITE BLOOD CELL COUNT, UNSPECIFIED Qualifiers: Leukocytosis type: unspecified Qualified Code(s): D72.829 - Elevated white blood cell count, unspecified (3) Pleural effusion on left Code(s): J90 - PLEURAL EFFUSION, NOT ELSEWHERE CLASSIFIED (4) Pneumonia Code(s): J18.9 - PNEUMONIA, UNSPECIFIED ORGANISM Qualifiers: Pneumonia type: due to unspecified organism Laterality: left Lung location: lower lobe of lung Qualified Code(s): J18.1 - Lobar pneumonia, unspecified organism (5) Shortness of breath at rest Code(s): R06.02 - SHORTNESS OF BREATH (6) Shoulder pain, left Code(s): M25.512 - PAIN IN LEFT SHOULDER Qualifiers: Chronicity: acute Qualified Code(s): M25.512 - Pain in left shoulder (7) CHF (congestive heart failure) Code(s): I50.9 - HEART FAILURE, UNSPECIFIED Qualifiers: Congestive heart failure type: systolic Congestive heart failure chronicity: acute on chronic Qualified Code(s): I50.23 - Acute on chronic systolic (congestive) heart failure (8) COPD (chronic obstructive pulmonary disease) Code(s): J44.9 - CHRONIC OBSTRUCTIVE PULMONARY DISEASE, UNSPECIFIED Qualifiers : COPD type: unspecified COPD Qualified Code(s): J44.9 - Chronic obstructive pulmonary disease, unspecified (9) Dilated cardiomyopathy Code(s): I42.0 - DILATED CARDIOMYOPATHY (10) ESRD (end stage renal disease) Code(s): N18.6 - END STAGE RENAL DISEASE (11) HTN (hypertension) Code(s): I10 - ESSENTIAL (PRIMARY) HYPERTENSION Qualifiers: Hypertension type: essential hypertension Qualified Code(s): I10 - Essential (primary) hypertension (12) Pulmonary HTN Code(s): I27.2 - OTHER SECONDARY PULMONARY HYPERTENSION (13) Renal transplant recipient Code(s): Z94.0 - KIDNEY TRANSPLANT STATUS (14) Chest pain Code(s): R07.9 - CHEST PAIN, UNSPECIFIED Qualifiers: Chest pain type: other chest pain Qualified Code(s): R07.89 - Other chest pain; R07.8 - Other chest pain (15) Empyema Code(s): J86.9 - PYOTHORAX WITHOUT FISTULA (16) Pleural effusion Code(s): J90 - PLEURAL EFFUSION, NOT ELSEWHERE CLASSIFIED (17) Acute on chronic systolic heart failure Code(s): I50.23 - ACUTE ON CHRONIC SYSTOLIC (CONGESTIVE) HEART FAILURE (18) Aortic regurgitation Code(s): I35.1 - NONRHEUMATIC AORTIC (VALVE) INSUFFICIENCY Qualifiers: Cardiac valve disease etiology: nonrheumatic Qualified Code(s): I35.1 - Nonrheumatic aortic (valve) insufficiency (19) Aortic stenosis Code(s): I35.0 - NONRHEUMATIC AORTIC (VALVE) STENOSIS Qualifiers: Cardiac valve disease etiology: nonrheumatic Qualified Code(s): I35.0 - Nonrheumatic aortic (valve) stenosis (20) Mitral regurgitation Code(s): I34.0 - NONRHEUMATIC MITRAL (VALVE) INSUFFICIENCY Qualifiers: Cardiac valve disease etiology: nonrheumatic Qualified Code(s): I34.0 - Nonrheumatic mitral (valve) insufficiency (21) Tricuspid valve regurgitation Code(s): I07.1 - RHEUMATIC TRICUSPID INSUFFICIENCY Qualifiers: Cardiac valve disease etiology: nonrheumatic Qualified Code(s): I36.1 - Nonrheumatic tricuspid (valve) insufficiency (22) Pulmonic valve regurgitation Qualifiers: Cardiac valve disease etiology: nonrheumatic Qualified Code(s): I37.1 - Nonrheumatic pulmonary valve insufficiency Assessment/Plan 1. Left shoulder pain, etiology to be determined 2. History of left pneumonia status post thoracentesis for drain of empyema 3. ESRD and history of renal transplant 4. History of hypertension 5. Severe left ventricular systolic dysfunction - dilated cardiomyopathy 6. Valvular heart disease - moderate to severe aortic valve stenosis and severe aortic valve regurgitation 7. Moderate to severe mitral and tricuspid valve regurgitation 8. Moderate pulmonic valve regurgitation 9. Pulmonary hypertension with underlying COPD and cigarette smoking 10. Demand ischemia PLAN: 1. Chest CT to evaluate pleural effusion as well as left shoulder pain 2. Schneider culture and follow ID input. Empiric antibiotic coverage 3. Continue Carvedilol as tolerated 4. ACEI or ARB not being used due to underlying history of renal transplant and elevated creatinine due to CKD 5. Ideally patient would need further cardiac work up including cardiac catheterization to rule out CAD and to evaluate for ICD implant for primary prophylaxis, in addition to evaluating valvular heart disease to seek indication for valve surgery (especially aortic valve replacement +/- mitral valve and tricuspid valve repair or replacement) however; renal function poses an issue, in addition to current presentation with fever and possible infection and also patient had refused to proceed with cardiac surgery or ICD placement in recent past. Currently he has been managed with medical therapy as per medical records from [facility]. 6. Renal function is to be followed closely. 7. Pulmonary input noted Further plans are to follow Camilo Smith MD
--- NOTE | 2017-01-19 16:21 | CONSULT ---
Consult - text type - Consultation Consultation Note: Nephrology Attending Note Pt seen and examined with medical office clerk. 61 year old Gentleman with PMhx of 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 PMhx: as above Allergies: NKDA Family hx: NC Social hx: + smoker ROS: No [place], confusion, lethargy, Abd pain, CP, N/V/D. + fever. Home Medications Medication Instructions Recorded Mycophenolate Mofetil [Cellcept] 250 mg PO DAILY 03/24/14 Tacrolimus [Prograf] 7 mg PO BID 03/24/14 Allopurinol [Zyloprim -] 100 mg PO PRN 11/18/15 Sodium Bicarbonate 1,300 mg PO BID 11/18/15 Carvedilol [Coreg -] 12.5 mg PO BID #60 tablet 11/21/15 Ergocalciferol (Vitamin D2) 2,000 unit PO DAILY 01/04/17 [Vitamin D2] Furosemide 20 mg PO BID 01/04/17 Allopurinol [Zyloprim -] 100 mg PO DAILY tablet 01/08/17 Amox-Tr/K Cl [Augmentin - 500Mg 1 tab PO BID #14 tab 01/08/17 Tablet] Cholecalciferol (Vitamin D3) 2,000 unit PO DAILY tab 01/08/17 [Vitamin D3 -] Vital Signs Temperature 98.1 F 01/19/17 08:00 Pulse Rate 76 01/19/17 15:00 Respiratory Rate 22 01/19/17 08:00 Blood Pressure 136/69 01/19/17 15:00 O2 Sat by Pulse Oximetry (%) 98 01/19/17 08:00 Intake & Output 01/16/17 01/17/17 01/18/17 01/19/17 23:59 23:59 23:59 23:59 Intake Total 450 Output Total 250 Balance 200 Weight 198 lb Gen: NAD, awake and alert CVS: RRR, No M/R Lungs: Dec Bs lung bases, faint wheezing, no rales Abd: soft NT/ND Ext: No edema, clubbing or cyanosis CBC, BMP 01/19/17 07:00 01/19/17 07:00 Current Medications Acetaminophen (Tylenol -) 650 mg PO Q6H PRN PRN Reason: FEVER OR PAIN Allopurinol (Zyloprim -) 100 mg PO DAILY [facility] Last Admin: 01/19/17 09:21 Dose: 100 mg Carvedilol (Coreg -) 12.5 mg PO BID [facility] Last Admin: 01/19/17 09:21 Dose: 12.5 mg Cholecalciferol (Vitamin D3 -) 2,000 unit PO DAILY [facility] Last Admin: 01/19/17 09:20 Dose: 2,000 unit Heparin Sodium (Porcine) (Heparin -) 5,000 unit SQ TID [facility] Last Admin: 01/19/17 14:09 Dose: 5,000 unit Azithromycin 500 mg/ Dextrose 250 mls @ 250 mls/hr IVPB DAILY [facility] Cefepime HCl 1 gm/ Dextrose 100 mls @ 200 mls/hr IVPB DAILY [facility] Last Admin: 01/19/17 14:09 Dose: 200 mls/hr Lidocaine (Lidoderm Patch -) 1 patch TP DAILY [facility] Last Admin: 01/19/17 14:08 Dose: Not Given Miscellaneous (Lidoderm Patch Removal) 1 each MC DAILY@2200 [facility] Stop: 01/19/17 22:01 Miscellaneous (Lidoderm Patch Removal) 1 each MC DAILY@2200 [facility] Sodium Bicarbonate (Sodium Bicarbonate -) 1,300 mg PO BID [facility] Last Admin: 01/19/17 09:20 Dose: 1,300 mg Tacrolimus (Prograf (Non-Formulary)) 2 mg PO BID [facility] Last Admin: 01/19/17 14:47 Dose: 2 mg Tacrolimus (Prograf (Non Formulary)) 5 mg PO BID [facility] Last Admin: 01/19/17 14:47 Dose: 5 mg Tramadol HCl (Ultram -) 50 mg PO Q8H PRN PRN Reason: PAIN A/p 61 year old Gentleman with PMhx of 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 #Shoulder Pain/Effusion/r/o PNA vs. TB/Cryptococcus ID and Pulmonary following Continue Empiric Abx CT chest ordered ? 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
[2017-01-19] MEDS: ACETAMINOPHEN 325 MG TABLET (FP) PO PRN (21:29)
[2017-01-19] MEDS ORDERED: LIDOCAINE PATCH REMOVAL MC SCH (22:00)
[2017-01-19] MEDS ORDERED: PT OWN MED DRAWER 7, Y5N ONE (22:34)
[2017-01-20] MEDS: LIDOCAINE PATCH REMOVAL MC SCH ×2 (02:42→23:45)
[2017-01-20] MEDS: ACETAMINOPHEN 325 MG TABLET (FP) PO PRN ×2 (03:30→21:21)
[2017-01-20] MEDS: HEPARIN NA (PORCINE) 5,000 UNITS/ML 1ML VIAL SQ SCH ×3 (06:17→23:45)
[2017-01-20 07:34] LABS: BASOPHIL 0.7 % (0-2.0); EOSINOPHIL 2.8 % (0-4.5); MCH 28.2 pg (25.7-33.7); MCHC 32.7 g/dl (32.0-35.9); MEAN CELL VOLUME 86.4 fl (80-96); MEAN PLT VOLUME 9.3 fl (7.5-11.1); NEUTROPHILS 82.1 % (42.8-82.8); PLATELET COUNT 244 K/MM3 (134-434); RDW 15.6 % (11.9-15.9); WHITE BLOOD COUNT 11.8 K/mm3 (4.0-10.0)
[2017-01-20 07:53] LABS: ALBUMIN 2.9 g/dl (3.4-5.0); ALK PHOS 120 U/L (45-117); ANION GAP 11 (8-16); BILIRUBIN,TOTAL 0.8 mg/dL (0.2-1.0); C-REACTIVE PROTEIN 11.1 MG/DL (0.00-0.3); CALCIUM 8.1 mg/dL (8.5-10.1); CO2 23 mmol/L (21-32); CREATININE 4.6 mg/dL (0.7-1.3); GLUCOSE,RANDOM 98 mg/dL (74-106); SGOT/AST 6 U/L (15-37); SGPT/ALT 49 U/L (12-78); TOT PROT 6.2 g/dl (6.4-8.2)
--- NOTE | 2017-01-20 08:22 | PN ---
Physical Exam: SUBJECTIVE: Patient seen and examined. Says his chest pain is a lot better and the pain is mostly on his left shoulder. He denies cough, abdominal pain, headache and dizziness. OBJECTIVE: Vital Signs Period Temp Pulse Resp BP Sys/Ly Pulse Ox Last 24 Hr 97.5 F-98.4 F 73-81 20-20 136-140/67-90 98 Constitutional: Yes: Moderate Distress HENT: Yes: WNL, Atraumatic, Normocephalic Cardiovascular: Yes: + JVD, Regular Rate and Rhythm, Murmur (holosystolic murmur was appreciated at the apex), S1, S2 Respiratory: Yes: Cough, B/L lower lung crackles, decreased breath sounds at the bases b/l Gastrointestinal: Yes: WNL, Normal Bowel Sounds, Soft Extremities: Yes: WNL, AV fistula placed in left arm Peripheral Pulses WNL: Yes Edema: No Laboratory Results - last 24 hr 01/19/17 01/19/17 01/19/17 07:00 07:00 11:20 WBC 11.9 H RBC 4.05 Hgb 11.4 L Hct 35.1 L MCV 86.7 MCH 28.1 MCHC 32.4 RDW 15.5 Plt Count 260 MPV 9.2 Neutrophils % 84.2 H Lymphocytes % 8.4 D Monocytes % 5.5 Eosinophils % 1.5 D Basophils % 0.4 Sodium 138 Potassium 4.5 Chloride 105 Carbon Dioxide 19 L Anion Gap 14 BUN 71 H Creatinine 4.5 H Creat Clearance w eGFR 13.48 Random Glucose 118 H Lactic Acid 1.0 Calcium 7.7 L Phosphorus 4.9 Magnesium 1.9 Total Bilirubin 0.9 D AST 15 D ALT 71 D Alkaline Phosphatase 134 H Creatine Kinase 49 Troponin I 0.05 Total Protein 6.2 L Albumin 3.1 L 01/19/17 01/20/17 11:50 05:35 WBC 11.8 H RBC 4.05 Hgb 11.4 L Hct 35.0 L MCV 86.4 MCH 28.2 MCHC 32.7 RDW 15.6 Plt Count 244 MPV 9.3 Neutrophils % 82.1 Lymphocytes % 7.1 L Monocytes % 7.3 Eosinophils % 2.8 D Basophils % 0.7 Sodium Potassium Chloride Carbon Dioxide Anion Gap BUN Creatinine Creat Clearance w eGFR Random Glucose Lactic Acid Calcium Phosphorus Magnesium Total Bilirubin AST ALT Alkaline Phosphatase Creatine Kinase 54 Troponin I 0.06 H Total Protein Albumin Active Medications Generic Name Dose Route Start Last Admin Trade Name Antonioq PRN Reason Stop Dose Admin Acetaminophen 650 mg 01/19/17 13:55 01/20/17 03:30 Tylenol - PO 650 mg Q6H PRN Administration FEVER OR PAIN Allopurinol 100 mg 01/19/17 10:00 01/19/17 09:21 Zyloprim - PO 100 mg DAILY RISHABH Administration Carvedilol 12.5 mg 01/19/17 10:00 01/19/17 22:45 Coreg - PO 12.5 mg BID RISHABH Administration Cholecalciferol 2,000 unit 01/19/17 10:00 01/19/17 09:20 Vitamin D3 - PO 2,000 unit DAILY RISHABH Administration Furosemide 40 mg 01/20/17 10:00 Lasix - PO DAILY RISHABH Heparin Sodium (Porcine) 5,000 unit 01/19/17 06:00 01/20/17 06:17 Heparin - SQ Not Given TID RISHABH Azithromycin 500 mg/ Dextrose 250 mls @ 250 mls/hr 01/20/17 10:00 IVPB DAILY [facility]AB[facility] Cefepime HCl 1 gm/ Dextrose 100 mls @ 200 mls/hr 01/19/17 14:00 01/19/17 14:09 IVPB 200 mls/hr DAILY [facility]ISHABH Administration Lidocaine 1 patch 01/19/17 14:00 01/19/17 14:08 Lidoderm Patch - TP Not Given DAILY RISHABH Miscellaneous 1 each 01/19/17 22:00 01/20/17 02:42 Lidoderm Patch Removal MC Not Given DAILY@2200 [facility]ISHABH Sodium Bicarbonate 1,300 mg 01/19/17 10:00 01/19/17 22:46 Sodium Bicarbonate - PO 1,300 mg BID RISHABH Administration Tacrolimus 2 mg 01/19/17 14:45 01/19/17 22:49 Prograf (Non-Formulary) PO 2 mg BID RISHABH Administration Tacrolimus 5 mg 01/19/17 14:45 01/19/17 22:47 Prograf (Non Formulary) PO 5 mg BID RISHABH Administration ASSESSMENT/PLAN: Patient is a 61 yo M with a significant past medical history of ESRD (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 #Healthcare Associated Pneumonia with Left pleural effusion -previous recent admission for pneumonia s/p thoracentesis -X ray revealed LLL pneumonia and left pleural effusions -follow up cultures and urine antigens -Ct chest showed a moderate size pleual effusion with lymphadenopathy -Patient likely to require thoracentesis. Waiting IR recommendation. -Continue IV antibiotics: Cefepime 1gm, Azithromycin 500mg -F/U ID and Pulmonary #Chest Pain -likely from pleural effusion and pneumonia- pleuritic chest pain -Prior EKG similar #Pain Control -lidocaine patch -tramadol 50mg q8 -Acetometaphine 650 q6 -Avoid narcotics. #Metabolic acidosis -continue sodium bicarb BID -goal bicarb > 22 as per Nephro #End Stage Renal disease w/ Chronic rejection -Held cellcept -continue tacrolimus -continue lasix -Nephro on board -Creatinine at baseline (5.2-6.1) #Severe Cardiomyopathy and systolic heart failure -cardio consulted -continue BB -Previous echo showed severely reduced EF and valvular problems. #FEN -Not on IV fluids -Renal Diet Visit type - Emergency Visit Emergency Visit: Yes ED Registration Date: 01/19/17 Care time: The patient presented to the Emergency Department on the above date and was hospitalized for further evaluation of their emergent condition. - New Patient This patient is new to me today: No - Critical Care Critical Care patient: No
--- NOTE | 2017-01-20 08:55 | PN ---
Progress Note, Physician Chief Complaint: Still complains of left shoulder pain and intermittent cough and shortness of breath History of Present Illness: Angy was seen and examined. Awake and alert. Chart was reviewed As outlined above. Records reviewed from [facility] and cardiac issues were discussed with patient. 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 at [facility] did not discuss with him these issues regarding valvular heart disease with possible need for further evaluation and possible surgical options and indication for ICD - Current Medication List Current Medications: Active Medications Acetaminophen (Tylenol -) 650 mg PO Q6H PRN PRN Reason: FEVER OR PAIN Last Admin: 01/20/17 03:30 Dose: 650 mg Allopurinol (Zyloprim -) 100 mg PO DAILY [facility] Last Admin: 01/19/17 09:21 Dose: 100 mg Carvedilol (Coreg -) 12.5 mg PO BID [facility] Last Admin: 01/19/17 22:45 Dose: 12.5 mg Cholecalciferol (Vitamin D3 -) 2,000 unit PO DAILY [facility] Last Admin: 01/19/17 09:20 Dose: 2,000 unit Furosemide (Lasix -) 40 mg PO DAILY [facility] Heparin Sodium (Porcine) (Heparin -) 5,000 unit SQ TID [facility] Last Admin: 01/20/17 06:17 Dose: Not Given Azithromycin 500 mg/ Dextrose 250 mls @ 250 mls/hr IVPB DAILY [facility] Cefepime HCl 1 gm/ Dextrose 100 mls @ 200 mls/hr IVPB DAILY [facility] Last Admin: 01/19/17 14:09 Dose: 200 mls/hr Lidocaine (Lidoderm Patch -) 1 patch TP DAILY [facility] Last Admin: 01/19/17 14:08 Dose: Not Given Miscellaneous (Lidoderm Patch Removal) 1 each MC DAILY@2200 [facility] Last Admin: 01/20/17 02:42 Dose: Not Given Sodium Bicarbonate (Sodium Bicarbonate -) 1,300 mg PO BID [facility] Last Admin: 01/19/17 22:46 Dose: 1,300 mg Tacrolimus (Prograf (Non-Formulary)) 2 mg PO BID [facility] Last Admin: 01/19/17 22:49 Dose: 2 mg Tacrolimus (Prograf (Non Formulary)) 5 mg PO BID [facility] Last Admin: 01/19/17 22:47 Dose: 5 mg - Objective Vital Signs: Vital Signs Temperature 97.5 F L 01/20/17 02:00 Pulse Rate 73 01/20/17 02:00 Respiratory Rate 20 01/20/17 02:00 Blood Pressure 139/88 01/20/17 02:00 O2 Sat by Pulse Oximetry (%) 98 01/19/17 21:00 Neck: Yes: Supple Cardiovascular: Yes: Regular Rate and Rhythm, Murmur (2/6 PUNEET right intercostal space and 2/6 SM LSB and apex), S1, S2 Respiratory: Yes: Diminished Gastrointestinal: Yes: Normal Bowel Sounds, Soft. No: Tenderness Edema: No Additional Findings/Remarks: - Review of Systems Constitutional: denies: Chills, Fever Cardiovascular: reports: Chest Pain, Shortness of Breath. denies: Palpitations Respiratory: reports: SOB, SOB on Exertion. denies: Cough, Hemoptysis, Orthopnea, PND Gastrointestinal: denies: Abdominal Pain, Constipation, Diarrhea, Melena, Nausea , Rectal Bleeding, Vomiting Musculoskeletal: reports: Joint Pain Neurological: denies: Dizziness, Headache, Seizure, Syncope, Weakness Labs: CBC, BMP 01/20/17 05:35 01/20/17 05:35 INR, PTT INR 1.07 (0.82-1.09) 01/18/17 22:21 Problem List - Problems (1) Fever Code(s): R50.9 - FEVER, UNSPECIFIED Qualifiers: Fever type: unspecified Qualified Code(s): R50.9 - Fever, unspecified (2) Leukocytosis Code(s): D72.829 - ELEVATED WHITE BLOOD CELL COUNT, UNSPECIFIED Qualifiers: Leukocytosis type: unspecified Qualified Code(s): D72.829 - Elevated white blood cell count, unspecified (3) Pleural effusion on left Code(s): J90 - PLEURAL EFFUSION, NOT ELSEWHERE CLASSIFIED (4) Pneumonia Code(s): J18.9 - PNEUMONIA, UNSPECIFIED ORGANISM Qualifiers: Pneumonia type: due to unspecified organism Laterality: left Lung location: lower lobe of lung Qualified Code(s): J18.1 - Lobar pneumonia, unspecified organism (5) Shortness of breath at rest Code(s): R06.02 - SHORTNESS OF BREATH (6) Shoulder pain, left Code(s): M25.512 - PAIN IN LEFT SHOULDER Qualifiers: Chronicity: acute Qualified Code(s): M25.512 - Pain in left shoulder (7) CHF (congestive heart failure) Code(s): I50.9 - HEART FAILURE, UNSPECIFIED Qualifiers: Congestive heart failure type: systolic Congestive heart failure chronicity: acute on chronic Qualified Code(s): I50.23 - Acute on chronic systolic (congestive) heart failure (8) COPD (chronic obstructive pulmonary disease) Code(s): J44.9 - CHRONIC OBSTRUCTIVE PULMONARY DISEASE, UNSPECIFIED Qualifiers : COPD type: unspecified COPD Qualified Code(s): J44.9 - Chronic obstructive pulmonary disease, unspecified (9) Dilated cardiomyopathy Code(s): I42.0 - DILATED CARDIOMYOPATHY (10) ESRD (end stage renal disease) Code(s): N18.6 - END STAGE RENAL DISEASE (11) HTN (hypertension) Code(s): I10 - ESSENTIAL (PRIMARY) HYPERTENSION Qualifiers: Hypertension type: essential hypertension Qualified Code(s): I10 - Essential (primary) hypertension (12) Pulmonary HTN Code(s): I27.2 - OTHER SECONDARY PULMONARY HYPERTENSION (13) Renal transplant recipient Code(s): Z94.0 - KIDNEY TRANSPLANT STATUS (14) Chest pain Code(s): R07.9 - CHEST PAIN, UNSPECIFIED Qualifiers: Chest pain type: other chest pain Qualified Code(s): R07.89 - Other chest pain; R07.8 - Other chest pain (15) Empyema Code(s): J86.9 - PYOTHORAX WITHOUT FISTULA (16) Pleural effusion Code(s): J90 - PLEURAL EFFUSION, NOT ELSEWHERE CLASSIFIED (17) Acute on chronic systolic heart failure Code(s): I50.23 - ACUTE ON CHRONIC SYSTOLIC (CONGESTIVE) HEART FAILURE (18) Aortic regurgitation Code(s): I35.1 - NONRHEUMATIC AORTIC (VALVE) INSUFFICIENCY Qualifiers: Cardiac valve disease etiology: nonrheumatic Qualified Code(s): I35.1 - Nonrheumatic aortic (valve) insufficiency (19) Aortic stenosis Code(s): I35.0 - NONRHEUMATIC AORTIC (VALVE) STENOSIS Qualifiers: Cardiac valve disease etiology: nonrheumatic Qualified Code(s): I35.0 - Nonrheumatic aortic (valve) stenosis (20) Mitral regurgitation Code(s): I34.0 - NONRHEUMATIC MITRAL (VALVE) INSUFFICIENCY Qualifiers: Cardiac valve disease etiology: nonrheumatic Qualified Code(s): I34.0 - Nonrheumatic mitral (valve) insufficiency (21) Tricuspid valve regurgitation Code(s): I07.1 - RHEUMATIC TRICUSPID INSUFFICIENCY Qualifiers: Cardiac valve disease etiology: nonrheumatic Qualified Code(s): I36.1 - Nonrheumatic tricuspid (valve) insufficiency (22) Pulmonic valve regurgitation Qualifiers: Cardiac valve disease etiology: nonrheumatic Qualified Code(s): I37.1 - Nonrheumatic pulmonary valve insufficiency Assessment/Plan 1. Left shoulder pain, etiology to be determined 2. History of left pneumonia status post thoracentesis for drain of empyema 3. ESRD and history of renal transplant 4. History of hypertension 5. Severe left ventricular systolic dysfunction - dilated cardiomyopathy 6. Valvular heart disease - moderate to severe aortic valve stenosis and severe aortic valve regurgitation 7. Moderate to severe mitral and tricuspid valve regurgitation 8. Moderate pulmonic valve regurgitation 9. Pulmonary hypertension with underlying COPD and cigarette smoking 10. Demand ischemia PLAN: 1. Official result of chest CT to evaluate pleural effusion as well as left shoulder pain to follow 2. Schneider culture and follow ID input. Empiric antibiotic coverage 3. Continue Carvedilol as tolerated 4. ACEI or ARB not being used due to underlying history of renal transplant and elevated creatinine due to CKD 5. Ideally patient would need further cardiac work up including cardiac catheterization to rule out CAD and to evaluate for ICD implant for primary prophylaxis, in addition to evaluating valvular heart disease to seek indication for valve surgery (especially aortic valve replacement +/- mitral valve and tricuspid valve repair or replacement) however; renal function poses an issue, in addition to current presentation with fever and possible infection needs to be addressed as well. Risk of further renal failure will pose a problem to further cardiac evaluation. 6. Renal function is to be followed closely. 7. Pulmonary input noted Further plans are to follow Camilo Smith MD
[2017-01-20] MEDS ORDERED: CEFEPIME HCL 1 GM VIAL (RESTRICTED TO ID) ONE (09:37)
[2017-01-20] MEDS ORDERED: PT OWN MED DRAWER 7, Y5N ONE (09:37)
[2017-01-20] MEDS ORDERED: DEXTROSE 5%-WATER 100 ML IVPB ONE (09:37)
[2017-01-20] MEDS: CHOLECALCIFEROL (VITAMIN D3) 1,000 UNIT TABLET (FP) PO SCH (09:50)
[2017-01-20] MEDS: CARVEDILOL 12.5 MG TABLET (FP) PO SCH ×2 (09:50→21:22)
[2017-01-20] MEDS: ALLOPURINOL 100 MG TABLET (FP) PO SCH (09:50)
[2017-01-20] MEDS: SODIUM BICARBONATE 650 MG TABLET PO SCH ×2 (09:50→21:20)
[2017-01-20] MEDS: LIDOCAINE 5% TOPICAL PATCH TP SCH ×2 (09:51→10:10)
[2017-01-20] MEDS: FUROSEMIDE 40 MG TABLET (FP) PO SCH (09:51)
[2017-01-20] MEDS: CEFEPIME 1 GM in DEXTROSE 5%-WATER 100 ML IVPB SCH (09:52)
[2017-01-20] MEDS: TACROLIMUS 5 MG PO SCH ×2 (09:56→21:22)
[2017-01-20] MEDS: TACROLIMUS ANHYDROUS 1 MG PO SCH ×2 (09:57→21:22)
[2017-01-20] MEDS ORDERED: FUROSEMIDE 40 MG TABLET (FP) PO SCH (10:00)
[2017-01-20] MEDS ORDERED: AZITHROMYCIN IVPB 500 MG in DEXTROSE 5%-WATER - 250 ML IVPB SCH (10:00)
[2017-01-20] MEDS ORDERED: TACROLIMUS 7 MG PO SCH (10:00)
--- NOTE | 2017-01-20 10:28 | PN ---
Progress Note (short form) - Note Progress Note: remains uncomfortable no fevers but taking tylenol for pain(not working) continued shoulder and chest pain Vital Signs Period Temp Pulse Resp BP Sys/Ly Pulse Ox Last 24 Hr 97.5 F-98.4 F 73-81 20-20 136-140/67-90 98 cor-rrr lungs decreased bs at bases shoulders no erythema or effusion FROM abd soft,nt ext no edema CBC, BMP 01/20/17 05:35 01/20/17 05:[address] with recurrent effusion with infiltrate Microbiology 01/19/17 00:12 Blood - Peripheral Venous Blood Culture - Preliminary NO GROWTH OBTAINED AFTER 24 HOURS, INCUBATION TO CONTINUE FOR 4 DAYS. a/p recurrent fever/pneumonia/effusion in immunocompromised host-nonproductive cough cxray with cardiomegaly and left effusion fever to 101.6 with wbc of 16k in ED now improved continues with severe shoulder pain he has FROM of his shoulder so I suspect referred pain cefepime, d/c zithromax, switch to doxycycline esr/crp/histo antigen/chlamydia serology pending will order TRACE d/w pulmonary ?repeat thoracentesis ?infectious, ?inflammatory, ?medication induced Problem List - Problems (1) Fever Code(s): R50.9 - FEVER, UNSPECIFIED Qualifiers: Fever type: unspecified Qualified Code(s): R50.9 - Fever, unspecified (2) Shoulder pain, left Code(s): M25.512 - PAIN IN LEFT SHOULDER Qualifiers: Chronicity: acute Qualified Code(s): M25.512 - Pain in left shoulder (3) Pneumonia Code(s): J18.9 - PNEUMONIA, UNSPECIFIED ORGANISM Qualifiers: Pneumonia type: due to unspecified organism Laterality: left Lung location: lower lobe of lung Qualified Code(s): J18.1 - Lobar pneumonia, unspecified organism (4) Pleural effusion on left Code(s): J90 - PLEURAL EFFUSION, NOT ELSEWHERE CLASSIFIED (5) CHF (congestive heart failure) Code(s): I50.9 - HEART FAILURE, UNSPECIFIED Qualifiers: Congestive heart failure type: systolic Congestive heart failure chronicity: acute on chronic Qualified Code(s): I50.23 - Acute on chronic systolic (congestive) heart failure (6) Renal transplant recipient Code(s): Z94.0 - KIDNEY TRANSPLANT STATUS
--- NOTE | 2017-01-20 10:51 | PN ---
Progress Note, Physician History of Present Illness: pulmonary alert,feeling better,less chest and shoulder discomfort, - Current Medication List Current Medications: Active Medications Acetaminophen (Tylenol -) 650 mg PO Q6H PRN PRN Reason: FEVER OR PAIN Last Admin: 01/20/17 03:30 Dose: 650 mg Allopurinol (Zyloprim -) 100 mg PO DAILY [facility] Last Admin: 01/20/17 09:50 Dose: 100 mg Carvedilol (Coreg -) 12.5 mg PO BID [facility] Last Admin: 01/20/17 09:50 Dose: 12.5 mg Cholecalciferol (Vitamin D3 -) 2,000 unit PO DAILY [facility] Last Admin: 01/20/17 09:50 Dose: 2,000 unit Furosemide (Lasix -) 40 mg PO DAILY [facility] Last Admin: 01/20/17 09:51 Dose: 40 mg Heparin Sodium (Porcine) (Heparin -) 5,000 unit SQ TID [facility] Last Admin: 01/20/17 06:17 Dose: Not Given Azithromycin 500 mg/ Dextrose 250 mls @ 250 mls/hr IVPB DAILY [facility] Last Admin: 01/20/17 09:52 Dose: 250 mls/hr Cefepime HCl 1 gm/ Dextrose 100 mls @ 200 mls/hr IVPB DAILY [facility] Last Admin: 01/20/17 09:52 Dose: 200 mls/hr Lidocaine (Lidoderm Patch -) 1 patch TP DAILY [facility] Last Admin: 01/20/17 10:10 Dose: Not Given Miscellaneous (Lidoderm Patch Removal) 1 each MC DAILY@2200 [facility] Last Admin: 01/20/17 02:42 Dose: Not Given Sodium Bicarbonate (Sodium Bicarbonate -) 1,300 mg PO BID [facility] Last Admin: 01/20/17 09:50 Dose: 1,300 mg Tacrolimus (Prograf (Non-Formulary)) 2 mg PO BID [facility] Last Admin: 01/20/17 09:57 Dose: 2 mg Tacrolimus (Prograf (Non Formulary)) 5 mg PO BID [facility] Last Admin: 01/20/17 09:56 Dose: 5 mg - Objective Vital Signs: Vital Signs Temperature 97.5 F L 01/20/17 02:00 Pulse Rate 73 01/20/17 02:00 Respiratory Rate 20 01/20/17 02:00 Blood Pressure 139/88 01/20/17 02:00 O2 Sat by Pulse Oximetry (%) 98 01/19/17 21:00 Constitutional: Yes: Well Nourished, Calm Eyes: Yes: WNL HENT: Yes: WNL Neck: Yes: WNL Cardiovascular: Yes: Regular Rate and Rhythm, S1, S2 Respiratory: Yes: Rales (bibasilar crackles) Gastrointestinal: Yes: Normal Bowel Sounds, Soft Extremities: Yes: WNL Edema: No Labs: CBC, BMP 01/20/17 05:35 01/20/17 05:35 INR, PTT INR 1.07 (0.82-1.09) 01/18/17 22:21 - ....Imaging Cat Scan: Report Reviewed, Image Reviewed (no significant change left pleural effusing,+atelectasis) Problem List - Problems (1) Leukocytosis Code(s): D72.829 - ELEVATED WHITE BLOOD CELL COUNT, UNSPECIFIED Qualifiers: Leukocytosis type: unspecified Qualified Code(s): D72.829 - Elevated white blood cell count, unspecified (2) Pleural effusion on left Code(s): J90 - PLEURAL EFFUSION, NOT ELSEWHERE CLASSIFIED (3) Shortness of breath at rest Code(s): R06.02 - SHORTNESS OF BREATH (4) CHF (congestive heart failure) Code(s): I50.9 - HEART FAILURE, UNSPECIFIED Qualifiers: Congestive heart failure type: systolic Congestive heart failure chronicity: acute on chronic Qualified Code(s): I50.23 - Acute on chronic systolic (congestive) heart failure (5) COPD (chronic obstructive pulmonary disease) Code(s): J44.9 - CHRONIC OBSTRUCTIVE PULMONARY DISEASE, UNSPECIFIED Qualifiers : COPD type: unspecified COPD Qualified Code(s): J44.9 - Chronic obstructive pulmonary disease, unspecified (6) Dilated cardiomyopathy Code(s): I42.0 - DILATED CARDIOMYOPATHY (7) ESRD (end stage renal disease) Code(s): N18.6 - END STAGE RENAL DISEASE (8) HTN (hypertension) Code(s): I10 - ESSENTIAL (PRIMARY) HYPERTENSION Qualifiers: Hypertension type: essential hypertension Qualified Code(s): I10 - Essential (primary) hypertension (9) Pulmonary HTN Code(s): I27.2 - OTHER SECONDARY PULMONARY HYPERTENSION (10) Renal transplant recipient Code(s): Z94.0 - KIDNEY TRANSPLANT STATUS (11) Chest pain Code(s): R07.9 - CHEST PAIN, UNSPECIFIED Qualifiers: Chest pain type: other chest pain Qualified Code(s): R07.89 - Other chest pain; R07.8 - Other chest pain Assessment/Plan IMP FEVER,CP,SHOULDER PAIN IMPROVING ESRD S/P RENAL TRANSPLANT CARDIOMYOPATHY CHF PULMONARY HTN HTN H/O PLEURAL EFFUSION ( EXUDATE ,- CYTOLOGY,LIKELY UNCOMPLICATED PARA- PNEUMONIC EFFUSION) PLAN O2 ANTIBIOTICS PER ID INHALED BRONCHODILATORS LASIX CONSIDER THORACENTESIS DR CASTELLANO Problem List - Problems (1) Leukocytosis Code(s): D72.829 - ELEVATED WHITE BLOOD CELL COUNT, UNSPECIFIED Qualifiers: Leukocytosis type: unspecified Qualified Code(s): D72.829 - Elevated white blood cell count, unspecified (2) Pleural effusion on left Code(s): J90 - PLEURAL EFFUSION, NOT ELSEWHERE CLASSIFIED (3) Shortness of breath at rest Code(s): R06.02 - SHORTNESS OF BREATH (4) CHF (congestive heart failure) Code(s): I50.9 - HEART FAILURE, UNSPECIFIED Qualifiers: Congestive heart failure type: unspecified congestive heart failure type Congestive heart failure chronicity: acute Qualified Code(s): I50.9 - Heart failure, unspecified (5) COPD (chronic obstructive pulmonary disease) Code(s): J44.9 - CHRONIC OBSTRUCTIVE PULMONARY DISEASE, UNSPECIFIED Qualifiers : COPD type: unspecified COPD Qualified Code(s): J44.9 - Chronic obstructive pulmonary disease, unspecified (6) Dilated cardiomyopathy Code(s): I42.0 - DILATED CARDIOMYOPATHY (7) ESRD (end stage renal disease) Code(s): N18.6 - END STAGE RENAL DISEASE (8) HTN (hypertension) Code(s): I10 - ESSENTIAL (PRIMARY) HYPERTENSION Qualifiers: Hypertension type: essential hypertension Qualified Code(s): I10 - Essential (primary) hypertension (9) Pulmonary HTN Code(s): I27.2 - OTHER SECONDARY PULMONARY HYPERTENSION (10) Renal transplant recipient Code(s): Z94.0 - KIDNEY TRANSPLANT STATUS (11) Chest pain Code(s): R07.9 - CHEST PAIN, UNSPECIFIED Qualifiers: Chest pain type: other chest pain Qualified Code(s): R07.89 - Other chest pain; R07.8 - Other chest pain
--- NOTE | 2017-01-20 12:18 | PN ---
Teaching Attending Note Name of Resident: Roberta Koo ATTENDING PHYSICIAN STATEMENT I saw and evaluated the patient. I reviewed the resident's note and discussed the case with the resident. I agree with the resident's findings and plan as documented. SUBJECTIVE: Patient is feeling better today. Denies having any chest pain or shortness of breath, patient is on NC. OBJECTIVE: Vital Signs Temperature 98 F 01/20/17 10:00 Pulse Rate 85 01/20/17 12:01 Respiratory Rate 18 01/20/17 10:00 Blood Pressure 142/78 01/20/17 10:00 O2 Sat by Pulse Oximetry (%) 100 01/20/17 12:01 CBCD WBC 11.8 K/mm3 (4.0-10.0) H 01/20/17 05:35 RBC 4.05 M/mm3 (4.00-5.60) 01/20/17 05:35 Hgb 11.4 GM/dL (11.7-16.9) L 01/20/17 05:35 Hct 35.0 % (35.4-49) L 01/20/17 05:35 MCV 86.4 fl (80-96) 01/20/17 05:35 MCHC 32.7 g/dl (32.0-35.9) 01/20/17 05:35 RDW 15.6 % (11.9-15.9) 01/20/17 05:35 Plt Count 244 K/MM3 (134-434) 01/20/17 05:35 MPV 9.3 fl (7.5-11.1) 01/20/17 05:35 CMP Sodium 138 mmol/L (136-145) 01/20/17 05:35 Potassium 4.5 mmol/L (3.5-5.1) 01/20/17 05:35 Chloride 104 mmol/L (98-107) 01/20/17 05:35 Carbon Dioxide 23 mmol/L (21-32) D 01/20/17 05:35 Anion Gap 11 (8-16) 01/20/17 05:35 BUN 68 mg/dL (7-18) H 01/20/17 05:35 Creatinine 4.6 mg/dL (0.7-1.3) H 01/20/17 05:35 Creat Clearance w eGFR 13.14 (>60) 01/20/17 05:35 Random Glucose 98 mg/dL (74-106) 01/20/17 05:35 Calcium 8.1 mg/dL (8.5-10.1) L 01/20/17 05:35 Total Bilirubin 0.8 mg/dL (0.2-1.0) 01/20/17 05:35 AST 6 U/L (15-37) L D 01/20/17 05:35 ALT 49 U/L (12-78) D 01/20/17 05:35 Alkaline Phosphatase 120 U/L (45-117) H 01/20/17 05:35 Total Protein 6.2 g/dl (6.4-8.2) L 01/20/17 05:35 Albumin 2.9 g/dl (3.4-5.0) L 01/20/17 05:35 CARDIAC ENZYMES Creatine Kinase 54 IU/L (39-308) 01/19/17 11:50 Troponin I 0.06 ng/ml (0.00-0.05) H 01/19/17 11:50 Current Medications Generic Name Dose Route Start Last Admin Trade Name Freq PRN Reason Stop Dose Admin Acetaminophen 650 mg 01/19/17 13:55 01/20/17 03:30 Tylenol - PO 650 mg Q6H PRN Administration FEVER OR PAIN Allopurinol 100 mg 01/19/17 10:00 01/20/17 09:50 Zyloprim - PO 100 mg DAILY [facility] Administration Carvedilol 12.5 mg 01/19/17 10:00 01/20/17 09:50 Coreg - PO 12.5 mg BID [facility] Administration Cholecalciferol 2,000 unit 01/19/17 10:00 01/20/17 09:50 Vitamin D3 - PO 2,000 unit DAILY [facility] Administration Furosemide 40 mg 01/20/17 10:00 01/20/17 09:51 Lasix - PO 40 mg DAILY [facility] Administration Heparin Sodium (Porcine) 5,000 unit 01/19/17 06:00 01/20/17 06:17 Heparin - SQ Not Given TID [facility] Azithromycin 500 mg/ Dextrose 250 mls @ 250 mls/hr 01/20/17 10:00 01/20/17 09: 52 IVPB 250 mls/hr DAILY [facility] Administration Cefepime HCl 1 gm/ Dextrose 100 mls @ 200 mls/hr 01/19/17 14:00 01/20/17 09:52 IVPB 200 mls/hr DAILY [facility] Administration Lidocaine 1 patch 01/19/17 14:00 01/20/17 10:10 Lidoderm Patch - TP Not Given DAILY [facility] Miscellaneous 1 each 01/19/17 22:00 01/20/17 02:42 Lidoderm Patch Removal MC Not Given DAILY@2200 [facility] Sodium Bicarbonate 1,300 mg 01/19/17 10:00 01/20/17 09:50 Sodium Bicarbonate - PO 1,300 mg BID [facility] Administration Tacrolimus 2 mg 01/19/17 14:45 01/20/17 09:57 Prograf (Non-Formulary) PO 2 mg BID [facility] Administration Tacrolimus 5 mg 01/19/17 14:45 01/20/17 09:56 Prograf (Non Formulary) PO 5 mg BID [facility] Administration Tramadol HCl 50 mg 01/20/17 12:28 Ultram - PO Q6H PRN PAIN Home Medications Medication Instructions Recorded Mycophenolate Mofetil [Cellcept] 250 mg PO DAILY 03/24/14 Tacrolimus [Prograf] 7 mg PO BID 03/24/14 Allopurinol [Zyloprim -] 100 mg PO PRN 11/18/15 Sodium Bicarbonate 1,300 mg PO BID 11/18/15 Carvedilol [Coreg -] 12.5 mg PO BID #60 tablet 11/21/15 Ergocalciferol (Vitamin D2) 2,000 unit PO DAILY 01/04/17 [Vitamin D2] Furosemide 20 mg PO BID 01/04/17 Allopurinol [Zyloprim -] 100 mg PO DAILY tablet 01/08/17 Amox-Tr/K Cl [Augmentin - 500Mg 1 tab PO BID #14 tab 01/08/17 Tablet] Cholecalciferol (Vitamin D3) 2,000 unit PO DAILY tab 01/08/17 [Vitamin D3 -] CHEST: No air entry at the left> right. No rales or wheeze or rhonchi. ASSESSMENT AND PLAN: 61 y/o Lady with h/o end stage renal failure s/p renal transplant with chronic rejection , h/o HTN and severe cardiomyopathy , recent admisison for PNA and pleural effusion , who presented with SOB and L sided CP . He was found to have HCAP # Recurrent Pleural effusion on the left >right, CT of the chest ordered, possible need of thoracocentesis by IR ,s/p thoracentesis last admission # HCAP : on Cefepime and zithromax # Acute chest pain due to pleural effusion; pleuretic in nature, EKG with no change from prior . - avoid narcotics. give tylenol, lidocaine patch , if needed to give tramadol , adjust according the kidneys 25-50mg po bid prn #L shoulder pain : no restriction of movements, no erythema or edema . Unlikely septic joint or shoulder etiology. # ESRD s/p renal transplant with chronic rejection and nephrosclerosis with hx of HTN and heart failure. cr at his base line hold lasix until evaluated by renal , hold cellcept , cont tacrulimus, as per nephro, pt will need to bring his own medication # H/o Severe Cardiomyopathy, and systolic heart failure. echo last admission with severely reduced EF and multiple valvular problems cont BB , hold Lasix for now and further management per cardio. DVT px :heparin
[2017-01-20] MEDS ORDERED: traMADol HCL 50 MG TABLET PO PRN (12:28)
--- NOTE | 2017-01-20 12:33 | PN ---
Progress Note (short form) - Note Progress Note: Renal follow up for Renal Transplant and CKD5 Pt seen and examined at the bedside reports that pain is mildly improved since yesterday however could not sleep last night b/c of shoulder pain pt appears to have sob still denies any N/V/D good urine output s/p CT lung yesterday Vital Signs Temperature 98 F 01/20/17 10:00 Pulse Rate 85 01/20/17 12:01 Respiratory Rate 18 01/20/17 10:00 Blood Pressure 142/78 01/20/17 10:00 O2 Sat by Pulse Oximetry (%) 100 01/20/17 12:01 Intake & Output 01/17/17 01/18/17 01/19/17 01/20/17 23:59 23:59 23:59 23:59 Intake Total 900 100 Output Total 250 Balance 650 100 Weight 198 lb 189 lb 6.4 oz Gen: NAD, awake and alert CVS: RRR, No M/R Lungs: Dec Bs lung bases, faint wheezing, no rales Abd: soft NT/ND Ext: No edema, clubbing or cyanosis CBC, BMP 01/20/17 05:35 01/20/17 05:35 Current Medications Acetaminophen (Tylenol -) 650 mg PO Q6H PRN PRN Reason: FEVER OR PAIN Last Admin: 01/20/17 03:30 Dose: 650 mg Allopurinol (Zyloprim -) 100 mg PO DAILY [facility] Last Admin: 01/20/17 09:50 Dose: 100 mg Carvedilol (Coreg -) 12.5 mg PO BID [facility] Last Admin: 01/20/17 09:50 Dose: 12.5 mg Cholecalciferol (Vitamin D3 -) 2,000 unit PO DAILY [facility] Last Admin: 01/20/17 09:50 Dose: 2,000 unit Furosemide (Lasix -) 40 mg PO DAILY [facility] Last Admin: 01/20/17 09:51 Dose: 40 mg Heparin Sodium (Porcine) (Heparin -) 5,000 unit SQ TID [facility] Last Admin: 01/20/17 06:17 Dose: Not Given Azithromycin 500 mg/ Dextrose 250 mls @ 250 mls/hr IVPB DAILY [facility] Last Admin: 01/20/17 09:52 Dose: 250 mls/hr Cefepime HCl 1 gm/ Dextrose 100 mls @ 200 mls/hr IVPB DAILY [facility] Last Admin: 01/20/17 09:52 Dose: 200 mls/hr Lidocaine (Lidoderm Patch -) 1 patch TP DAILY [facility] Last Admin: 01/20/17 10:10 Dose: Not Given Miscellaneous (Lidoderm Patch Removal) 1 each MC DAILY@2200 [facility] Last Admin: 01/20/17 02:42 Dose: Not Given Sodium Bicarbonate (Sodium Bicarbonate -) 1,300 mg PO BID [facility] Last Admin: 01/20/17 09:50 Dose: 1,300 mg Tacrolimus (Prograf (Non-Formulary)) 2 mg PO BID [facility] Last Admin: 01/20/17 09:57 Dose: 2 mg Tacrolimus (Prograf (Non Formulary)) 5 mg PO BID [facility] Last Admin: 01/20/17 09:56 Dose: 5 mg Tramadol HCl (Ultram -) 50 mg PO Q6H PRN PRN Reason: PAIN A/p 61 year old Gentleman with PMhx of 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 #Shoulder Pain/Effusion/r/o PNA vs. 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
[2017-01-21] MEDS: HEPARIN NA (PORCINE) 5,000 UNITS/ML 1ML VIAL SQ SCH ×4 (05:38→22:02)
[2017-01-21 07:40] LABS: EOSINOPHIL 4.6 % (0-4.5); MCH 28.4 pg (25.7-33.7); MEAN CELL VOLUME 86.2 fl (80-96); MEAN PLT VOLUME 9.3 fl (7.5-11.1); NEUTROPHILS 76.9 % (42.8-82.8); PLATELET COUNT 229 K/MM3 (134-434); RDW 15.7 % (11.9-15.9); WHITE BLOOD COUNT 9.5 K/mm3 (4.0-10.0)
--- NOTE | 2017-01-21 08:11 | PN ---
Progress Note, Physician Chief Complaint: ID Patient complaints of left chest pain less then before Afebrile on admission 101.2 Afebrile Dry couph NOt in any distress Vancom dose Doxycycline Cefepime - Current Medication List Current Medications: Active Medications Acetaminophen (Tylenol -) 650 mg PO Q6H PRN PRN Reason: FEVER OR PAIN Last Admin: 01/20/17 21:21 Dose: 650 mg Allopurinol (Zyloprim -) 100 mg PO DAILY [facility] Last Admin: 01/20/17 09:50 Dose: 100 mg Carvedilol (Coreg -) 12.5 mg PO BID [facility] Last Admin: 01/20/17 21:22 Dose: 12.5 mg Cholecalciferol (Vitamin D3 -) 2,000 unit PO DAILY [facility] Last Admin: 01/20/17 09:50 Dose: 2,000 unit Furosemide (Lasix -) 40 mg PO DAILY [facility] Last Admin: 01/20/17 09:51 Dose: 40 mg Heparin Sodium (Porcine) (Heparin -) 5,000 unit SQ TID [facility] Last Admin: 01/21/17 05:38 Dose: Not Given Cefepime HCl 1 gm/ Dextrose 100 mls @ 200 mls/hr IVPB DAILY [facility] Last Admin: 01/20/17 09:52 Dose: 200 mls/hr Doxycycline Hyclate 100 mg/ (Dextrose) 100 mls @ 100 mls/hr IVPB BID [facility] Lidocaine (Lidoderm Patch -) 1 patch TP DAILY [facility] Last Admin: 01/20/17 10:10 Dose: Not Given Miscellaneous (Lidoderm Patch Removal) 1 each MC DAILY@2200 [facility] Last Admin: 01/20/17 23:45 Dose: Not Given Sodium Bicarbonate (Sodium Bicarbonate -) 1,300 mg PO BID [facility] Last Admin: 01/20/17 21:20 Dose: 1,300 mg Tacrolimus (Prograf (Non-Formulary)) 2 mg PO BID [facility] Last Admin: 01/20/17 21:22 Dose: 2 mg Tacrolimus (Prograf (Non Formulary)) 5 mg PO BID [facility] Last Admin: 01/20/17 21:22 Dose: 5 mg - Objective Vital Signs: Vital Signs Temperature 98.4 F 01/21/17 05:44 Pulse Rate 68 01/21/17 05:44 Respiratory Rate 20 01/21/17 05:44 Blood Pressure 123/70 01/21/17 05:44 O2 Sat by Pulse Oximetry (%) 100 01/20/17 21:00 Constitutional: Yes: Well Nourished, No Distress Neck: Yes: WNL, Supple Cardiovascular: Yes: S1, S2 Respiratory: Yes: WNL, Regular, CTA Bilaterally, Other (Diminished BS at left base with dullness to percussion Right base few crackles) Gastrointestinal: Yes: WNL, Normal Bowel Sounds, Soft. No: Tenderness, Tenderness, Epigastrium Labs: CBC, BMP 01/21/17 05:35 INR, PTT INR 1.07 (0.82-1.09) 01/18/17 22:21 Assessment/Plan Microbiology Laboratory Tests 01/18/17 01/19/17 01/20/17 22:21 07:00 05:35 WBC 16.1 H D 11.9 H Hgb Hct Plt Count ESR BUN 68 H Creatinine 4.6 H Creat Clearance w eGFR 13.14 Total Bilirubin 0.8 AST 6 L D Alkaline Phosphatase 120 H C-Reactive Protein 11.1 H D C. psittaci IgG Titer C. psittaci IgM Titer 01/20/17 01/20/17 01/21/17 05:35 05:35 05:35 WBC 9.5 Hgb 11.0 L Hct 33.4 L Plt Count 229 ESR 70 H BUN Creatinine Creat Clearance w eGFR Total Bilirubin AST Alkaline Phosphatase C-Reactive Protein C. psittaci IgG Titer Pending C. psittaci IgM Titer Pending Assessment "Atypical " pneumonia with parpneumonic effusion possibly partially treated Fever and WBC down now Serology pending This does not appear to be a suppurative pneumoni i.e. strep pneumo staph GNB Plan Continue current therapy Send cold aggluts and Mycoplasma serology As clinically better might defer repeat thoracentesis Histo serology AG
[2017-01-21 08:17] LABS: ALBUMIN 2.6 g/dl (3.4-5.0); ALK PHOS 103 U/L (45-117); ANION GAP 10 (8-16); BILIRUBIN,TOTAL 0.7 mg/dL (0.2-1.0); CALCIUM 7.8 mg/dL (8.5-10.1); CO2 24 mmol/L (21-32); CREATININE 4.7 mg/dL (0.7-1.3); GLUCOSE,RANDOM 94 mg/dL (74-106); MAGNESIUM 1.9 mg/dL (1.8-2.4); PHOSPHOROUS 5.6 mg/dL (2.5-4.9); SGOT/AST 6 U/L (15-37); SGPT/ALT 35 U/L (12-78); TOT PROT 5.8 g/dl (6.4-8.2)
--- NOTE | 2017-01-21 10:14 | PN ---
Physical Exam: SUBJECTIVE: Patient seen and examined at bedside. Pt had brief episode of SVT on monitor early this morning. Pt has been afebrile. Pt states his shoulder/ chest pain is much better, but not resolved completely. He also complains of occasionally productive cough, which exacerbates his chest pain. Pt has not had a BM since his admission, but hasn't been eating much. No other complaints at this time. Denies headache, abd pain, dysphagia, fever, chills. OBJECTIVE: Vital Signs Period Temp Pulse Resp BP Sys/Ly Pulse Ox Last 24 Hr 97.9 F-98.4 F 68-85 18-20 122-137/70-79 100-100 GENERAL: Awake, alert, and fully oriented, no longer in distress. HEAD: Normal with no signs of trauma. EYES: sclera anicteric, conjunctiva clear. No lid lag. EARS, NOSE, THROAT: oropharynx clear without exudates. Moist mucous membranes. NECK: Normal range of motion, supple without lymphadenopathy, JVD, or masses, no carotid bruits LUNGS: decreased breath sounds. No wheezing. no crackles. No accessory muscle use. HEART: Regular rate and rhythm, soft S1 normal S2, 3-4/6 systolic murmur best heard at left upper sternal border, no rub or gallop. ABDOMEN: Soft, nontender, not distended, normoactive bowel sounds, no guarding, no rebound, no masses. No hepatomegaly or splenomegaly. MUSCULOSKELETAL: Normal range of motion at all joints. No bony deformities or tenderness. No CVA tenderness. UPPER EXTREMITIES: 2+ pulses, warm, well-perfused. No cyanosis. No clubbing. Cap refill <2 seconds. No peripheral edema. Left arm fistula with bruit and thrill LOWER EXTREMITIES: 2+ pulses, warm, well-perfused. No calf tenderness. No peripheral edema. NEUROLOGICAL: Cranial nerves II-XII intact. Normal speech. Normal gait. PSYCHIATRIC: Cooperative. Good eye contact. Appropriate mood and affect. SKIN: Warm, dry, normal turgor, no rashes or lesions noted. Laboratory Results - last 24 hr 01/20/17 01/21/17 01/21/17 05:35 05:35 05:35 WBC 9.5 RBC 3.88 L Hgb 11.0 L Hct 33.4 L MCV 86.2 MCH 28.4 MCHC 33.0 RDW 15.7 Plt Count 229 MPV 9.3 Neutrophils % 76.9 Lymphocytes % 9.1 D Monocytes % 8.4 Eosinophils % 4.6 H Basophils % 1.0 ESR 70 H Sodium 138 Potassium 4.2 Chloride 104 Carbon Dioxide 24 Anion Gap 10 BUN 61 H Creatinine 4.7 H Creat Clearance w eGFR 12.82 Random Glucose 94 Calcium 7.8 L Phosphorus 5.6 H Magnesium 1.9 Total Bilirubin 0.7 AST 6 L ALT 35 D Alkaline Phosphatase 103 Total Protein 5.8 L Albumin 2.6 L Active Medications Generic Name Dose Route Start Last Admin Trade Name Freq PRN Reason Stop Dose Admin Acetaminophen 650 mg 01/19/17 13:55 01/20/17 21:21 Tylenol - PO 650 mg Q6H PRN Administration FEVER OR PAIN Allopurinol 100 mg 01/19/17 10:00 01/20/17 09:50 Zyloprim - PO 100 mg DAILY [facility] Administration Carvedilol 12.5 mg 01/19/17 10:00 01/20/17 21:22 Coreg - PO 12.5 mg BID [facility] Administration Cholecalciferol 2,000 unit 01/19/17 10:00 01/20/17 09:50 Vitamin D3 - PO 2,000 unit DAILY [facility] Administration Furosemide 40 mg 01/20/17 10:00 01/20/17 09:51 Lasix - PO 40 mg DAILY [facility] Administration Heparin Sodium (Porcine) 5,000 unit 01/19/17 06:00 01/21/17 05:38 Heparin - SQ Not Given TID [facility] Cefepime HCl 1 gm/ Dextrose 100 mls @ 200 mls/hr 01/19/17 14:00 01/20/17 09:52 IVPB 200 mls/hr DAILY [facility] Administration Doxycycline Hyclate 100 mg/ 100 mls @ 100 mls/hr 01/21/17 10:00 Dextrose IVPB BID [facility] Lidocaine 1 patch 01/19/17 14:00 01/20/17 10:10 Lidoderm Patch - TP Not Given DAILY [facility] Miscellaneous 1 each 01/19/17 22:00 01/20/17 23:45 Lidoderm Patch Removal MC Not Given DAILY@2200 [facility] Sodium Bicarbonate 1,300 mg 01/19/17 10:00 01/20/17 21:20 Sodium Bicarbonate - PO 1,300 mg BID [facility] Administration Tacrolimus 2 mg 01/19/17 14:45 01/20/17 21:22 Prograf (Non-Formulary) PO 2 mg BID [facility] Administration Tacrolimus 5 mg 01/19/17 14:45 01/20/17 21:22 Prograf (Non Formulary) PO 5 mg BID [facility] Administration ASSESSMENT/PLAN: Pt is a pleasant 61 y/o gentleman with PMH ESRD s/p renal transplant, HTN, CHF, recent hospitalization 01/04-01/08 for PNA and L pleural effusion s/p thoracentesis on 01/06/17 who presents to ED with L shoulder that spreads across his chest. Pt is admitted for ACS/PE workup and possible PNA. #pleural effusion -extensive pulm history -identified on CXR & CT -Pulm on board -May not need repeat tap as patient is improving clinically #CHF -No pedal edema -on lasix -No ACEI/ARB at this time due to renal issues -will need further workup once current acute issues are stable #multiple valve pathology -Ao regurg, Ao stenosis, Mitral regurg, Tricuspid regurg, pulmonic regurg -to be addressed once pt is stabilized Trey Gtz MD PGY-1 Cardiology service Dispo: We will continue to follow the patient. Thank you for this consultative opportunity. Visit type - Emergency Visit Emergency Visit: No - New Patient This patient is new to me today: No - Critical Care Critical Care patient: No - Discharge Referral Referred to [facility] Med [facility].: No
--- NOTE | 2017-01-21 10:32 | PN ---
Progress Note, Physician Chief Complaint: Feels better, but still with intermittent shoulder pain and less shortness of breath History of Present Illness: Angy was seen and examined. Awake and alert. Chart was reviewed As outlined above. Again discussed his current cardiac issues with low LVEF, valvular heart disease and indications for ICD and further assessment of aortic valve disease, however; his underlying renal function post renal transplant and risk of HD is a limiting factor Episode of nonsustained SVT early this morning - asymptomatic - Current Medication List Current Medications: Active Medications Acetaminophen (Tylenol -) 650 mg PO Q6H PRN PRN Reason: FEVER OR PAIN Last Admin: 01/20/17 21:21 Dose: 650 mg Allopurinol (Zyloprim -) 100 mg PO DAILY [facility] Last Admin: 01/20/17 09:50 Dose: 100 mg Carvedilol (Coreg -) 12.5 mg PO BID [facility] Last Admin: 01/20/17 21:22 Dose: 12.5 mg Cholecalciferol (Vitamin D3 -) 2,000 unit PO DAILY [facility] Last Admin: 01/20/17 09:50 Dose: 2,000 unit Furosemide (Lasix -) 40 mg PO DAILY [facility] Last Admin: 01/20/17 09:51 Dose: 40 mg Heparin Sodium (Porcine) (Heparin -) 5,000 unit SQ TID [facility] Last Admin: 01/21/17 05:38 Dose: Not Given Cefepime HCl 1 gm/ Dextrose 100 mls @ 200 mls/hr IVPB DAILY [facility] Last Admin: 01/20/17 09:52 Dose: 200 mls/hr Doxycycline Hyclate 100 mg/ (Dextrose) 100 mls @ 100 mls/hr IVPB BID [facility] Lidocaine (Lidoderm Patch -) 1 patch TP DAILY [facility] Last Admin: 01/20/17 10:10 Dose: Not Given Miscellaneous (Lidoderm Patch Removal) 1 each MC DAILY@2200 [facility] Last Admin: 01/20/17 23:45 Dose: Not Given Sodium Bicarbonate (Sodium Bicarbonate -) 1,300 mg PO BID [facility] Last Admin: 01/20/17 21:20 Dose: 1,300 mg Tacrolimus (Prograf (Non-Formulary)) 2 mg PO BID [facility] Last Admin: 01/20/17 21:22 Dose: 2 mg Tacrolimus (Prograf (Non Formulary)) 5 mg PO BID [facility] Last Admin: 01/20/17 21:22 Dose: 5 mg - Objective Vital Signs: Vital Signs Temperature 98.4 F 01/21/17 05:44 Pulse Rate 68 01/21/17 05:44 Respiratory Rate 20 01/21/17 05:44 Blood Pressure 123/70 01/21/17 05:44 O2 Sat by Pulse Oximetry (%) 100 01/20/17 21:00 Neck: Yes: Supple Cardiovascular: Yes: Regular Rate and Rhythm, Murmur (2/6 PUNEET right intercostal space), S1, S2 Respiratory: Yes: Diminished Gastrointestinal: Yes: Normal Bowel Sounds, Soft. No: Tenderness Edema: No Additional Findings/Remarks: - Review of Systems Constitutional: denies: Chills, Fever Cardiovascular: reports: Chest Pain, Shortness of Breath. denies: Palpitations Respiratory: reports: SOB, SOB on Exertion. denies: Cough, Hemoptysis, Orthopnea, PND Gastrointestinal: denies: Abdominal Pain, Constipation, Diarrhea, Melena, Nausea , Rectal Bleeding, Vomiting Musculoskeletal: reports: Joint Pain Neurological: denies: Dizziness, Headache, Seizure, Syncope, Weakness Labs: CBC, BMP 01/21/17 05:35 01/21/17 05:35 Laboratory Results - last 24 hr 01/20/17 01/21/17 01/21/17 05:35 05:35 05:35 WBC 9.5 RBC 3.88 L Hgb 11.0 L Hct 33.4 L MCV 86.2 MCH 28.4 MCHC 33.0 RDW 15.7 Plt Count 229 MPV 9.3 Neutrophils % 76.9 Lymphocytes % 9.1 D Monocytes % 8.4 Eosinophils % 4.6 H Basophils % 1.0 ESR 70 H Sodium 138 Potassium 4.2 Chloride 104 Carbon Dioxide 24 Anion Gap 10 BUN 61 H Creatinine 4.7 H Creat Clearance w eGFR 12.82 Random Glucose 94 Calcium 7.8 L Phosphorus 5.6 H Magnesium 1.9 Total Bilirubin 0.7 AST 6 L ALT 35 D Alkaline Phosphatase 103 Total Protein 5.8 L Albumin 2.6 L - ....Imaging Chest X-ray: Report Reviewed (Opacification of left base) Cat Scan: Report Reviewed (Chest CT noted) Problem List - Problems (1) Fever Code(s): R50.9 - FEVER, UNSPECIFIED Qualifiers: Fever type: unspecified Qualified Code(s): R50.9 - Fever, unspecified (2) Leukocytosis Code(s): D72.829 - ELEVATED WHITE BLOOD CELL COUNT, UNSPECIFIED Qualifiers: Leukocytosis type: unspecified Qualified Code(s): D72.829 - Elevated white blood cell count, unspecified (3) Pleural effusion on left Code(s): J90 - PLEURAL EFFUSION, NOT ELSEWHERE CLASSIFIED (4) Pneumonia Code(s): J18.9 - PNEUMONIA, UNSPECIFIED ORGANISM Qualifiers: Pneumonia type: due to unspecified organism Laterality: left Lung location: lower lobe of lung Qualified Code(s): J18.1 - Lobar pneumonia, unspecified organism (5) Shortness of breath at rest Code(s): R06.02 - SHORTNESS OF BREATH (6) Shoulder pain, left Code(s): M25.512 - PAIN IN LEFT SHOULDER Qualifiers: Chronicity: acute Qualified Code(s): M25.512 - Pain in left shoulder (7) CHF (congestive heart failure) Code(s): I50.9 - HEART FAILURE, UNSPECIFIED Qualifiers: Congestive heart failure type: systolic Congestive heart failure chronicity: acute on chronic Qualified Code(s): I50.23 - Acute on chronic systolic (congestive) heart failure (8) COPD (chronic obstructive pulmonary disease) Code(s): J44.9 - CHRONIC OBSTRUCTIVE PULMONARY DISEASE, UNSPECIFIED Qualifiers : COPD type: unspecified COPD Qualified Code(s): J44.9 - Chronic obstructive pulmonary disease, unspecified (9) Dilated cardiomyopathy Code(s): I42.0 - DILATED CARDIOMYOPATHY (10) ESRD (end stage renal disease) Code(s): N18.6 - END STAGE RENAL DISEASE (11) HTN (hypertension) Code(s): I10 - ESSENTIAL (PRIMARY) HYPERTENSION Qualifiers: Hypertension type: essential hypertension Qualified Code(s): I10 - Essential (primary) hypertension (12) Pulmonary HTN Code(s): I27.2 - OTHER SECONDARY PULMONARY HYPERTENSION (13) Renal transplant recipient Code(s): Z94.0 - KIDNEY TRANSPLANT STATUS (14) Acute on chronic systolic heart failure Code(s): I50.23 - ACUTE ON CHRONIC SYSTOLIC (CONGESTIVE) HEART FAILURE (15) Aortic regurgitation Code(s): I35.1 - NONRHEUMATIC AORTIC (VALVE) INSUFFICIENCY Qualifiers: Cardiac valve disease etiology: nonrheumatic Qualified Code(s): I35.1 - Nonrheumatic aortic (valve) insufficiency (16) Aortic stenosis Code(s): I35.0 - NONRHEUMATIC AORTIC (VALVE) STENOSIS Qualifiers: Cardiac valve disease etiology: nonrheumatic Qualified Code(s): I35.0 - Nonrheumatic aortic (valve) stenosis (17) Mitral regurgitation Code(s): I34.0 - NONRHEUMATIC MITRAL (VALVE) INSUFFICIENCY Qualifiers: Cardiac valve disease etiology: nonrheumatic Qualified Code(s): I34.0 - Nonrheumatic mitral (valve) insufficiency (18) Tricuspid valve regurgitation Code(s): I07.1 - RHEUMATIC TRICUSPID INSUFFICIENCY Qualifiers: Cardiac valve disease etiology: nonrheumatic Qualified Code(s): I36.1 - Nonrheumatic tricuspid (valve) insufficiency (19) Pulmonic valve regurgitation Qualifiers: Cardiac valve disease etiology: nonrheumatic Qualified Code(s): I37.1 - Nonrheumatic pulmonary valve insufficiency Assessment/Plan 1. Left shoulder pain, etiology to be determined - likely musculoskeletal 2. History of left pneumonia status post thoracentesis for drain of parapneumonic fluid 3. ESRD and history of renal transplant 4. History of hypertension 5. Severe left ventricular systolic dysfunction - dilated cardiomyopathy 6. Valvular heart disease - moderate to severe aortic valve stenosis and severe aortic valve regurgitation 7. Moderate to severe mitral and tricuspid valve regurgitation 8. Moderate pulmonic valve regurgitation 9. Pulmonary hypertension with underlying COPD and cigarette smoking 10. Demand ischemia - resolved 11. Episode of narrow complex tachycardia - nonsustained likely represents SVT PLAN: 1. Chest CT report noted 2. Empiric antibiotic coverage as per ID. Currently there appears to be no need for repeat thoracentesis in view of reduced WBC and clinical improvement 3. Continue Carvedilol as tolerated and uptitrate 4. ACEI or ARB not being used due to underlying history of renal transplant and elevated creatinine due to CKD 5. 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 Patient will also follow up with his coin rolling machine operator at [facility] to address the risk if he were to proceed with further cardiac evaluation which would require contrast infusion. 6. Renal function is to be followed closely. Further plans are to follow. Continue to monitor on telemetry Camilo Smith MD
--- NOTE | 2017-01-21 10:44 | PN ---
Physical Exam: SUBJECTIVE: Patient seen and examined. Says his chest pain and shoulder pain is a lot better but gets worse when he coughs. He complains of productive cough thats clear. He denies headache, abdominal pain, diarrhea, and constipation. OBJECTIVE: Vital Signs Period Temp Pulse Resp BP Sys/Ly Pulse Ox Last 24 Hr 97.9 F-98.4 F 68-85 18-20 122-137/70-79 100-100 Constitutional: Yes: Moderate Distress HENT: Yes: WNL, Atraumatic, Normocephalic Cardiovascular: Yes: + JVD, Regular Rate and Rhythm, Murmur (holosystolic murmur was appreciated at the apex), S1, S2 Respiratory: Yes: Cough, B/L lower lung crackles, decreased breath sounds at the bases b/l Gastrointestinal: Yes: WNL, Normal Bowel Sounds, Soft Extremities: Yes: WNL, AV fistula placed in left arm Peripheral Pulses WNL: Yes Edema: No Laboratory Results - last 24 hr 01/20/17 01/21/17 01/21/17 05:35 05:35 05:35 WBC 9.5 RBC 3.88 L Hgb 11.0 L Hct 33.4 L MCV 86.2 MCH 28.4 MCHC 33.0 RDW 15.7 Plt Count 229 MPV 9.3 Neutrophils % 76.9 Lymphocytes % 9.1 D Monocytes % 8.4 Eosinophils % 4.6 H Basophils % 1.0 ESR 70 H Sodium 138 Potassium 4.2 Chloride 104 Carbon Dioxide 24 Anion Gap 10 BUN 61 H Creatinine 4.7 H Creat Clearance w eGFR 12.82 Random Glucose 94 Calcium 7.8 L Phosphorus 5.6 H Magnesium 1.9 Total Bilirubin 0.7 AST 6 L ALT 35 D Alkaline Phosphatase 103 Total Protein 5.8 L Albumin 2.6 L Active Medications Generic Name Dose Route Start Last Admin Trade Name Freq PRN Reason Stop Dose Admin Acetaminophen 650 mg 01/19/17 13:55 01/20/17 21:21 Tylenol - PO 650 mg Q6H PRN Administration FEVER OR PAIN Allopurinol 100 mg 01/19/17 10:00 01/20/17 09:50 Zyloprim - PO 100 mg DAILY RISHABH Administration Carvedilol 12.5 mg 01/19/17 10:00 01/20/17 21:22 Coreg - PO 12.5 mg BID RISHABH Administration Cholecalciferol 2,000 unit 01/19/17 10:00 01/20/17 09:50 Vitamin D3 - PO 2,000 unit DAILY RISHABH Administration Furosemide 40 mg 01/20/17 10:00 01/20/17 09:51 Lasix - PO 40 mg DAILY RISHABH Administration Heparin Sodium (Porcine) 5,000 unit 01/19/17 06:00 01/21/17 05:38 Heparin - SQ Not Given TID RISHABH Cefepime HCl 1 gm/ Dextrose 100 mls @ 200 mls/hr 01/19/17 14:00 01/20/17 09:52 IVPB 200 mls/hr DAILY RISHABH Administration Doxycycline Hyclate 100 mg/ 100 mls @ 100 mls/hr 01/21/17 10:00 Dextrose IVPB BID RISHABH Lidocaine 1 patch 01/19/17 14:00 01/20/17 10:10 Lidoderm Patch - TP Not Given DAILY RISHABH Miscellaneous 1 each 01/19/17 22:00 01/20/17 23:45 Lidoderm Patch Removal MC Not Given DAILY@2200 RISHABH Sodium Bicarbonate 1,300 mg 01/19/17 10:00 01/20/17 21:20 Sodium Bicarbonate - PO 1,300 mg BID RISHABH Administration Tacrolimus 2 mg 01/19/17 14:45 01/20/17 21:22 Prograf (Non-Formulary) PO 2 mg BID RISHABH Administration Tacrolimus 5 mg 01/19/17 14:45 01/20/17 21:22 Prograf (Non Formulary) PO 5 mg BID RISHABH Administration ASSESSMENT/PLAN: Patient is a 61 yo M with a significant past medical history of ESRD (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 #Healthcare Associated Pneumonia with Left pleural effusion -previous recent admission for pneumonia s/p thoracentesis -X ray revealed LLL pneumonia and left pleural effusions -follow up cultures and urine antigens -Ct chest showed a moderate size pleural effusion with lymphadenopathy -Considering thoracentesis. Waiting IR recommendation. -Likely will not have thoracentesis as patient is improving clinically. -Continue IV antibiotics: Cefepime 1gm, Doxycycline 100mg -Ordered cold aggluts, mycoplasma serology and histoplasmosis serology. F/U #Chest Pain -likely from pleural effusion and pneumonia- pleuritic chest pain -Prior EKG similar #Pain Control -lidocaine patch -tramadol 25mg BID -Acetometaphine 650 q6 -Avoid narcotics. #Metabolic acidosis -continue sodium bicarb BID -goal bicarb > 22 as per Nephro #End Stage Renal disease w/ Chronic rejection -Held cellcept -continue tacrolimus -continue lasix -Nephro on board -Creatinine at baseline (5.2-6.1) #Severe Cardiomyopathy and systolic heart failure -cardio consulted -continue BB -Previous echo showed severely reduced EF and valvular problems. #FEN -Not on IV fluids -Renal Diet Visit type - Emergency Visit Emergency Visit: Yes ED Registration Date: 01/19/17 Care time: The patient presented to the Emergency Department on the above date and was hospitalized for further evaluation of their emergent condition. - New Patient This patient is new to me today: No - Critical Care Critical Care patient: No
[2017-01-21] MEDS ORDERED: PT OWN MED DRAWER 7, Y5N ONE ×2 (10:48→11:59)
[2017-01-21] MEDS ORDERED: CEFEPIME HCL 1 GM VIAL (RESTRICTED TO ID) ONE (10:49)
[2017-01-21] MEDS ORDERED: DEXTROSE 5%-WATER 100 ML IVPB ONE (10:49)
[2017-01-21] MEDS: CARVEDILOL 12.5 MG TABLET (FP) PO SCH ×2 (10:53→22:01)
[2017-01-21] MEDS: LIDOCAINE 5% TOPICAL PATCH TP SCH (10:54)
[2017-01-21] MEDS: FUROSEMIDE 40 MG TABLET (FP) PO SCH (10:54)
[2017-01-21] MEDS: CEFEPIME 1 GM in DEXTROSE 5%-WATER 100 ML IVPB SCH (10:54)
[2017-01-21] MEDS: TACROLIMUS ANHYDROUS 1 MG PO SCH ×2 (10:57→22:02)
[2017-01-21] MEDS: TACROLIMUS 5 MG PO SCH ×2 (10:57→22:01)
[2017-01-21] MEDS: DOXYCYCLINE INJECTION 100 MG in DEXTROSE 5%-WATER - 100 ML IVPB SCH ×2 (10:57→22:02)
[2017-01-21] MEDS: SODIUM BICARBONATE 650 MG TABLET PO SCH ×2 (10:57→22:01)
[2017-01-21] MEDS: CHOLECALCIFEROL (VITAMIN D3) 1,000 UNIT TABLET (FP) PO SCH (10:58)
[2017-01-21] MEDS: ALLOPURINOL 100 MG TABLET (FP) PO SCH (10:58)
[2017-01-21] MEDS: ACETAMINOPHEN 325 MG TABLET (FP) PO PRN (10:59)
--- NOTE | 2017-01-21 11:46 | PN ---
Progress Note (short form) - Note Progress Note: Overall feels better, but still with shoulder discomfort. No SOB. No acute events overnight. Intake & Output 01/18/17 01/19/17 01/20/17 01/21/17 23:59 23:59 23:59 23:59 Intake Total 900 1050 100 Output Total 250 900 Balance 650 150 100 Weight 198 lb 189 lb 6.4 oz Last Vital Signs Temp Pulse Resp BP Pulse Ox 98.4 F 66 20 123/70 94 L 01/21/17 05:44 01/21/17 11:26 01/21/17 05:44 01/21/17 05:44 01/21/17 11:26 Active Medications Acetaminophen (Tylenol -) 650 mg PO Q6H PRN PRN Reason: FEVER OR PAIN Last Admin: 01/21/17 10:59 Dose: 650 mg Allopurinol (Zyloprim -) 100 mg PO DAILY [facility] Last Admin: 01/21/17 10:58 Dose: 100 mg Carvedilol (Coreg -) 12.5 mg PO BID [facility] Last Admin: 01/21/17 10:53 Dose: 12.5 mg Cholecalciferol (Vitamin D3 -) 2,000 unit PO DAILY [facility] Last Admin: 01/21/17 10:58 Dose: 2,000 unit Furosemide (Lasix -) 40 mg PO DAILY [facility] Last Admin: 01/21/17 10:54 Dose: 40 mg Heparin Sodium (Porcine) (Heparin -) 5,000 unit SQ TID [facility] Last Admin: 01/21/17 05:38 Dose: Not Given Cefepime HCl 1 gm/ Dextrose 100 mls @ 200 mls/hr IVPB DAILY [facility] Last Admin: 01/21/17 10:54 Dose: 200 mls/hr Doxycycline Hyclate 100 mg/ (Dextrose) 100 mls @ 100 mls/hr IVPB BID [facility] Last Admin: 01/21/17 10:57 Dose: 100 mls/hr Lidocaine (Lidoderm Patch -) 1 patch TP DAILY [facility] Last Admin: 01/21/17 10:54 Dose: 1 patch Miscellaneous (Lidoderm Patch Removal) 1 each MC DAILY@2200 [facility] Last Admin: 01/20/17 23:45 Dose: Not Given Sodium Bicarbonate (Sodium Bicarbonate -) 1,300 mg PO BID [facility] Last Admin: 01/21/17 10:57 Dose: 1,300 mg Tacrolimus (Prograf (Non-Formulary)) 2 mg PO BID [facility] Last Admin: 01/21/17 10:57 Dose: 2 mg Tacrolimus (Prograf (Non Formulary)) 5 mg PO BID [facility] Last Admin: 01/21/17 10:57 Dose: 5 mg Constitutional: Yes: Well Nourished Eyes: Yes: WNL HENT: Yes: WNL Neck: Yes: WNL Cardiovascular: Yes: Regular Rate and Rhythm, S1, S2 Respiratory: Yes: Basilar Rales Gastrointestinal: Yes: Normal Bowel Sounds, Soft Extremities: Yes: WNL Edema: No Labs: Laboratory Results - last 24 hr 01/21/17 01/21/17 05:35 05:35 WBC 9.5 RBC 3.88 L Hgb 11.0 L Hct 33.4 L MCV 86.2 MCH 28.4 MCHC 33.0 RDW 15.7 Plt Count 229 MPV 9.3 Neutrophils % 76.9 Lymphocytes % 9.1 D Monocytes % 8.4 Eosinophils % 4.6 H Basophils % 1.0 Sodium 138 Potassium 4.2 Chloride 104 Carbon Dioxide 24 Anion Gap 10 BUN 61 H Creatinine 4.7 H Creat Clearance w eGFR 12.82 Random Glucose 94 Calcium 7.8 L Phosphorus 5.6 H Magnesium 1.9 Total Bilirubin 0.7 AST 6 L ALT 35 D Alkaline Phosphatase 103 Total Protein 5.8 L Albumin 2.6 L Problem List - Problems (1) Leukocytosis Code(s): D72.829 - ELEVATED WHITE BLOOD CELL COUNT, UNSPECIFIED Qualifiers: Leukocytosis type: unspecified Qualified Code(s): D72.829 - Elevated white blood cell count, unspecified (2) Pleural effusion on left Code(s): J90 - PLEURAL EFFUSION, NOT ELSEWHERE CLASSIFIED (3) Shortness of breath at rest Code(s): R06.02 - SHORTNESS OF BREATH (4) CHF (congestive heart failure) Code(s): I50.9 - HEART FAILURE, UNSPECIFIED Qualifiers: Congestive heart failure type: systolic Congestive heart failure chronicity: acute on chronic Qualified Code(s): I50.23 - Acute on chronic systolic (congestive) heart failure (5) COPD (chronic obstructive pulmonary disease) Code(s): J44.9 - CHRONIC OBSTRUCTIVE PULMONARY DISEASE, UNSPECIFIED Qualifiers : COPD type: unspecified COPD Qualified Code(s): J44.9 - Chronic obstructive pulmonary disease, unspecified (6) Dilated cardiomyopathy Code(s): I42.0 - DILATED CARDIOMYOPATHY (7) ESRD (end stage renal disease) Code(s): N18.6 - END STAGE RENAL DISEASE (8) HTN (hypertension) Code(s): I10 - ESSENTIAL (PRIMARY) HYPERTENSION Qualifiers: Hypertension type: essential hypertension Qualified Code(s): I10 - Essential (primary) hypertension (9) Pulmonary HTN Code(s): I27.2 - OTHER SECONDARY PULMONARY HYPERTENSION (10) Renal transplant recipient Code(s): Z94.0 - KIDNEY TRANSPLANT STATUS (11) Chest pain Code(s): R07.9 - CHEST PAIN, UNSPECIFIED Qualifiers: Chest pain type: other chest pain Qualified Code(s): R07.89 - Other chest pain; R07.8 - Other chest pain Assessment/Plan IMP FEVER,CP,SHOULDER PAIN IMPROVING ESRD S/P RENAL TRANSPLANT CARDIOMYOPATHY CHF PULMONARY HTN HTN H/O PLEURAL EFFUSION ( EXUDATE ,- CYTOLOGY,LIKELY UNCOMPLICATED PARA- PNEUMONIC EFFUSION) PLAN O2 ANTIBIOTICS PER ID INHALED BRONCHODILATORS LASIX HOLD ON THORACENTESIS WILL NEED FOLLOW UP CXR OUTPATIENT -> IF PERSISTENT LEFT EFFUSION -> THEN MAY NEED FLUID SAMPLING DR SILVA
--- NOTE | 2017-01-21 13:21 | EKG ---
Test Reason : Blood Pressure : / mmHG Vent. Rate : 068 BPM Atrial Rate : 068 BPM P-R Int : 200 ms QRS Dur : 102 ms QT Int : 438 ms P-R-T Axes : 017 -25 066 degrees QTc Int : 465 ms NORMAL SINUS RHYTHM POSSIBLE LEFT ATRIAL ENLARGEMENT LEFT VENTRICULAR HYPERTROPHY NONSPECIFIC T WAVE ABNORMALITY PROLONGED QT ABNORMAL ECG WHEN COMPARED WITH ECG OF 18-JAN-2017 20:13, NONSPECIFIC T WAVE ABNORMALITY NOW EVIDENT IN INFERIOR LEADS Confirmed by GLORIA BLEDSOE, ARTURO ([id number]) on 01/21/2017 1:20:34 PM Referred By: Te GABRIEL Confirmed By:ARTURO CASTRO MD
[2017-01-21] MEDS: traMADol HCL 50 MG TABLET PO PRN (14:56)
--- NOTE | 2017-01-21 15:55 | PN ---
Progress Note (short form) - Note Progress Note: Renal follow up for Renal Transplant and CKD5 Pt seen and examined at the bedside awake and alert chest discomfort improved no N/V/D, SOB is improved Vital Signs Temperature 97.5 F L 01/21/17 14:00 Pulse Rate 64 01/21/17 14:00 Respiratory Rate 18 01/21/17 14:00 Blood Pressure 118/74 01/21/17 14:00 O2 Sat by Pulse Oximetry (%) 94 L 01/21/17 11:26 Intake & Output 01/18/17 01/19/17 01/20/17 01/21/17 23:59 23:59 23:59 23:59 Intake Total 900 1050 700 Output Total 250 900 Balance 650 150 700 Weight 198 lb 189 lb 6.4 oz Gen: NAD, awake and alert CVS: RRR, No M/R Lungs: Dec Bs lung bases, faint wheezing, no rales Abd: soft NT/ND Ext: No edema, clubbing or cyanosis CBC, BMP 01/21/17 05:35 01/21/17 05:35 Current Medications Acetaminophen (Tylenol -) 650 mg PO Q6H PRN PRN Reason: FEVER OR PAIN Last Admin: 01/21/17 10:59 Dose: 650 mg Allopurinol (Zyloprim -) 100 mg PO DAILY [facility] Last Admin: 01/21/17 10:58 Dose: 100 mg Carvedilol (Coreg -) 12.5 mg PO BID [facility] Last Admin: 01/21/17 10:53 Dose: 12.5 mg Cholecalciferol (Vitamin D3 -) 2,000 unit PO DAILY [facility] Last Admin: 01/21/17 10:58 Dose: 2,000 unit Furosemide (Lasix -) 40 mg PO DAILY [facility] Last Admin: 01/21/17 10:54 Dose: 40 mg Heparin Sodium (Porcine) (Heparin -) 5,000 unit SQ TID [facility] Last Admin: 01/21/17 13:38 Dose: Not Given Cefepime HCl 1 gm/ Dextrose 100 mls @ 200 mls/hr IVPB DAILY [facility] Last Admin: 01/21/17 10:54 Dose: 200 mls/hr Doxycycline Hyclate 100 mg/ (Dextrose) 100 mls @ 100 mls/hr IVPB BID [facility] Last Admin: 01/21/17 10:57 Dose: 100 mls/hr Lidocaine (Lidoderm Patch -) 1 patch TP DAILY [facility] Last Admin: 01/21/17 10:54 Dose: 1 patch Miscellaneous (Lidoderm Patch Removal) 1 each MC DAILY@2200 [facility] Last Admin: 01/20/17 23:45 Dose: Not Given Sodium Bicarbonate (Sodium Bicarbonate -) 1,300 mg PO BID [facility] Last Admin: 01/21/17 10:57 Dose: 1,300 mg Tacrolimus (Prograf (Non-Formulary)) 2 mg PO BID [facility] Last Admin: 01/21/17 10:57 Dose: 2 mg Tacrolimus (Prograf (Non Formulary)) 5 mg PO BID [facility] Last Admin: 01/21/17 10:57 Dose: 5 mg Tramadol HCl (Ultram -) 25 mg PO Q12H PRN Last Admin: 01/21/17 14:56 Dose: 25 mg A/p 61 year old Gentleman with PMhx of 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 #Shoulder Pain/Effusion/r/o PNA vs. TB/Cryptococcus Ct chest showed a moderate size pleual effusion with lymphadenopathy clinically improved on Abx ID/Pulmonary follow up #ESRD s/p DDRT now with chronic allograft rejection Renal function at baseline based on Cr Continue Tacrolimus 7mg BID tacrolimus level pending #Metabolic acidosis continue sodium bicarb BID goal bicarb > 22 #Anemia Trend H/H no acute indication for transfusion Thank you will follow Filipe Stephenson DO
--- NOTE | 2017-01-21 16:16 | PN ---
Teaching Attending Note Name of Resident: Roberta Koo ATTENDING PHYSICIAN STATEMENT I saw and evaluated the patient. I reviewed the resident's note and discussed the case with the resident. I agree with the resident's findings and plan as documented. SUBJECTIVE: Patient feels better today , less short of breath. OBJECTIVE: Vital Signs Temperature 97.5 F L 01/21/17 14:00 Pulse Rate 64 01/21/17 14:00 Respiratory Rate 18 01/21/17 14:00 Blood Pressure 118/74 01/21/17 14:00 O2 Sat by Pulse Oximetry (%) 94 L 01/21/17 11:26 CBCD WBC 9.5 K/mm3 (4.0-10.0) 01/21/17 05:35 RBC 3.88 M/mm3 (4.00-5.60) L 01/21/17 05:35 Hgb 11.0 GM/dL (11.7-16.9) L 01/21/17 05:35 Hct 33.4 % (35.4-49) L 01/21/17 05:35 MCV 86.2 fl (80-96) 01/21/17 05:35 MCHC 33.0 g/dl (32.0-35.9) 01/21/17 05:35 RDW 15.7 % (11.9-15.9) 01/21/17 05:35 Plt Count 229 K/MM3 (134-434) 01/21/17 05:35 MPV 9.3 fl (7.5-11.1) 01/21/17 05:35 CMP Sodium 138 mmol/L (136-145) 01/21/17 05:35 Potassium 4.2 mmol/L (3.5-5.1) 01/21/17 05:35 Chloride 104 mmol/L (98-107) 01/21/17 05:35 Carbon Dioxide 24 mmol/L (21-32) 01/21/17 05:35 Anion Gap 10 (8-16) 01/21/17 05:35 BUN 61 mg/dL (7-18) H 01/21/17 05:35 Creatinine 4.7 mg/dL (0.7-1.3) H 01/21/17 05:35 Creat Clearance w eGFR 12.82 (>60) 01/21/17 05:35 Random Glucose 94 mg/dL (74-106) 01/21/17 05:35 Calcium 7.8 mg/dL (8.5-10.1) L 01/21/17 05:35 Total Bilirubin 0.7 mg/dL (0.2-1.0) 01/21/17 05:35 AST 6 U/L (15-37) L 01/21/17 05:35 ALT 35 U/L (12-78) D 01/21/17 05:35 Alkaline Phosphatase 103 U/L (45-117) 01/21/17 05:35 Total Protein 5.8 g/dl (6.4-8.2) L 01/21/17 05:35 Albumin 2.6 g/dl (3.4-5.0) L 01/21/17 05:35 CARDIAC ENZYMES Creatine Kinase 54 IU/L (39-308) 01/19/17 11:50 Troponin I 0.06 ng/ml (0.00-0.05) H 01/19/17 11:50 Current Medications Generic Name Dose Route Start Last Admin Trade Name Freq PRN Reason Stop Dose Admin Acetaminophen 650 mg 01/19/17 13:55 01/21/17 10:59 Tylenol - PO 650 mg Q6H PRN Administration FEVER OR PAIN Allopurinol 100 mg 01/19/17 10:00 01/21/17 10:58 Zyloprim - PO 100 mg DAILY RISHABH Administration Carvedilol 12.5 mg 01/19/17 10:00 01/21/17 10:53 Coreg - PO 12.5 mg BID RISHABH Administration Cholecalciferol 2,000 unit 01/19/17 10:00 01/21/17 10:58 Vitamin D3 - PO 2,000 unit DAILY RISHABH Administration Furosemide 40 mg 01/20/17 10:00 01/21/17 10:54 Lasix - PO 40 mg DAILY RISHABH Administration Heparin Sodium (Porcine) 5,000 unit 01/19/17 06:00 01/21/17 13:38 Heparin - SQ Not Given TID [facility] Cefepime HCl 1 gm/ Dextrose 100 mls @ 200 mls/hr 01/19/17 14:00 01/21/17 10:54 IVPB 200 mls/hr DAILY RISHABH Administration Doxycycline Hyclate 100 mg/ 100 mls @ 100 mls/hr 01/21/17 10:00 01/21/17 10:57 Dextrose IVPB 100 mls/hr BID RISHABH Administration Lidocaine 1 patch 01/19/17 14:00 01/21/17 10:54 Lidoderm Patch - TP 1 patch DAILY RISHABH Administration Miscellaneous 1 each 01/19/17 22:00 01/20/17 23:45 Lidoderm Patch Removal MC Not Given DAILY@2200 RISHABH Sodium Bicarbonate 1,300 mg 01/19/17 10:00 01/21/17 10:57 Sodium Bicarbonate - PO 1,300 mg BID RISHABH Administration Tacrolimus 2 mg 01/19/17 14:45 01/21/17 10:57 Prograf (Non-Formulary) PO 2 mg BID RISHABH Administration Tacrolimus 5 mg 01/19/17 14:45 01/21/17 10:57 Prograf (Non Formulary) PO 5 mg BID RISHABH Administration Tramadol HCl 25 mg 01/21/17 14:48 01/21/17 14:56 Ultram - PO 25 mg Q12H PRN Administration Home Medications Medication Instructions Recorded Mycophenolate Mofetil [Cellcept] 250 mg PO DAILY 03/24/14 Tacrolimus [Prograf] 7 mg PO BID 03/24/14 Allopurinol [Zyloprim -] 100 mg PO PRN 11/18/15 Sodium Bicarbonate 1,300 mg PO BID 11/18/15 Carvedilol [Coreg -] 12.5 mg PO BID #60 tablet 11/21/15 Ergocalciferol (Vitamin D2) 2,000 unit PO DAILY 01/04/17 [Vitamin D2] Furosemide 20 mg PO BID 01/04/17 Allopurinol [Zyloprim -] 100 mg PO DAILY tablet 01/08/17 Amox-Tr/K Cl [Augmentin - 500Mg 1 tab PO BID #14 tab 01/08/17 Tablet] Cholecalciferol (Vitamin D3) 2,000 unit PO DAILY tab 01/08/17 [Vitamin D3 -] CHEST: No air entry at the left> right. No rales or wheeze or rhonchi. ASSESSMENT AND PLAN: 61 y/o Lady with h/o end stage renal failure s/p renal transplant with chronic rejection , h/o HTN and severe cardiomyopathy , recent admisison for PNA and pleural effusion , who presented with SOB and L sided CP . He was found to have HCAP # Recurrent Pleural effusion on the left >right, CT of the chest ordered, patient is more prone not to having thoracocentesis.s/p thoracentesis last admission # HCAP : on Cefepime and doxycyline continue as per ID. #s/p Acute chest pain due to pleural effusion; pleuretic in nature, EKG with no change from prior . - avoid narcotics. give tylenol, lidocaine patch , if needed to give tramadol , adjust according the kidneys 25-50mg po bid prn #L shoulder pain : no restriction of movements, no erythema or edema . Unlikely septic joint or shoulder etiology. # ESRD s/p renal transplant with chronic rejection and nephrosclerosis with hx of HTN and heart failure. cr at his base line hold lasix until evaluated by renal , hold cellcept , cont tacrulimus, as per nephro, pt will need to bring his own medication # H/o Severe Cardiomyopathy, and systolic heart failure. echo last admission with severely reduced EF and multiple valvular problems cont Coreg 12.5 mg, On Lasix continue .as per cardio. DVT px :heparin
[2017-01-21] MEDS ORDERED: HYDROmorphone HCL CARPU-JECT 1 MG/1 ML DISP.SYRIN IVPUSH ONE (16:36)
[2017-01-21] MEDS: LIDOCAINE PATCH REMOVAL MC SCH (22:04)
[2017-01-22] MEDS: traMADol HCL 50 MG TABLET PO PRN ×2 (03:35→12:11)
[2017-01-22] MEDS: HEPARIN NA (PORCINE) 5,000 UNITS/ML 1ML VIAL SQ SCH ×4 (05:46→21:45)
[2017-01-22 08:43] LABS: ANION GAP 10 (8-16); CALCIUM 8.6 mg/dL (8.5-10.1); CO2 22 mmol/L (21-32); GLUCOSE,RANDOM 89 mg/dL (74-106)
[2017-01-22 08:45] LABS: PHOSPHOROUS 5.4 mg/dL (2.5-4.9)
[2017-01-22] MEDS ORDERED: DEXTROSE 5%-WATER 100 ML IVPB ONE (09:32)
[2017-01-22] MEDS ORDERED: CEFEPIME HCL 1 GM VIAL (RESTRICTED TO ID) ONE (09:32)
[2017-01-22] MEDS: CEFEPIME 1 GM in DEXTROSE 5%-WATER 100 ML IVPB SCH (09:34)
[2017-01-22] MEDS ORDERED: PT OWN MED DRAWER 7, Y5N ONE ×2 (09:41→21:48)
[2017-01-22] MEDS: SODIUM BICARBONATE 650 MG TABLET PO SCH ×2 (09:46→22:04)
[2017-01-22] MEDS: ALLOPURINOL 100 MG TABLET (FP) PO SCH (09:47)
[2017-01-22] MEDS: CARVEDILOL 12.5 MG TABLET (FP) PO SCH (09:47)
[2017-01-22] MEDS: CHOLECALCIFEROL (VITAMIN D3) 1,000 UNIT TABLET (FP) PO SCH (09:47)
[2017-01-22] MEDS: FUROSEMIDE 40 MG TABLET (FP) PO SCH (09:47)
[2017-01-22] MEDS: TACROLIMUS 5 MG PO SCH ×2 (09:49→22:05)
[2017-01-22] MEDS: TACROLIMUS ANHYDROUS 1 MG PO SCH ×2 (09:49→22:06)
[2017-01-22] MEDS: LIDOCAINE 5% TOPICAL PATCH TP SCH (09:51)
[2017-01-22] MEDS: DOXYCYCLINE INJECTION 100 MG in DEXTROSE 5%-WATER - 100 ML IVPB SCH ×2 (10:08→22:06)
--- NOTE | 2017-01-22 10:37 | PN ---
Physical Exam: SUBJECTIVE: Patient seen and examined. Says he is in a lot of pain when he breathes. He has right sided chest pain. He denies diarrhea, headache, dizziness , and nausea. OBJECTIVE: Vital Signs Period Temp Pulse Resp BP Sys/Ly Pulse Ox Last 24 Hr 97.5 F-99 F 64-82 18-21 118-144/70-89 92-94 Constitutional: Yes: Moderate Distress HENT: Yes: WNL, Atraumatic, Normocephalic Cardiovascular: Yes: + JVD, Regular Rate and Rhythm, Murmur (holosystolic murmur was appreciated at the apex), S1, S2 Respiratory: Yes: Cough, B/L lower lung crackles, diminished breath sounds at the LLL. Decreased breath sounds in RLL. Gastrointestinal: Yes: WNL, Normal Bowel Sounds, Soft Extremities: Yes: WNL, AV fistula placed in left arm Peripheral Pulses WNL: Yes Edema: No Laboratory Results - last 24 hr 01/20/17 01/22/17 09:05 06:00 Sodium 135 L Potassium 4.6 Chloride 103 Carbon Dioxide 22 Anion Gap 10 BUN 66 H Creatinine 5.0 H Random Glucose 89 Calcium 8.6 Phosphorus 5.4 H Magnesium 2.0 Tacrolimus 8.6 Active Medications Generic Name Dose Route Start Last Admin Trade Name Freq PRN Reason Stop Dose Admin Acetaminophen 650 mg 01/19/17 13:55 01/21/17 10:59 Tylenol - PO 650 mg Q6H PRN Administration FEVER OR PAIN Allopurinol 100 mg 01/19/17 10:00 01/22/17 09:47 Zyloprim - PO 100 mg DAILY RISHABH Administration Carvedilol 12.5 mg 01/19/17 10:00 01/22/17 09:47 Coreg - PO 12.5 mg BID RISHABH Administration Cholecalciferol 2,000 unit 01/19/17 10:00 01/22/17 09:47 Vitamin D3 - PO 2,000 unit DAILY RISHABH Administration Furosemide 40 mg 01/20/17 10:00 01/22/17 09:47 Lasix - PO 40 mg DAILY RISHABH Administration Heparin Sodium (Porcine) 5,000 unit 01/19/17 06:00 01/22/17 05:46 Heparin - SQ Not Given TID [facility] Cefepime HCl 1 gm/ Dextrose 100 mls @ 200 mls/hr 01/19/17 14:00 01/22/17 09:34 IVPB 200 mls/hr DAILY RISHABH Administration Doxycycline Hyclate 100 mg/ 100 mls @ 100 mls/hr 01/21/17 10:00 01/22/17 10:08 Dextrose IVPB 100 mls/hr BID RISHABH Administration Lidocaine 1 patch 01/19/17 14:00 01/22/17 09:51 Lidoderm Patch - TP Not Given DAILY RISHABH Miscellaneous 1 each 01/19/17 22:00 01/21/17 22:04 Lidoderm Patch Removal MC Not Given DAILY@2200 RISHABH Sodium Bicarbonate 1,300 mg 01/19/17 10:00 01/22/17 09:46 Sodium Bicarbonate - PO 1,300 mg BID RISHABH Administration Tacrolimus 2 mg 01/19/17 14:45 01/22/17 09:49 Prograf (Non-Formulary) PO 2 mg BID RISHABH Administration Tacrolimus 5 mg 01/19/17 14:45 01/22/17 09:49 Prograf (Non Formulary) PO 5 mg BID RISHABH Administration Tramadol HCl 25 mg 01/21/17 14:48 01/22/17 03:35 Ultram - PO 25 mg Q12H PRN Administration ASSESSMENT/PLAN: Patient is a 61 yo M with a significant past medical history of ESRD (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 #Healthcare Associated Pneumonia with Left pleural effusion -previous recent admission for pneumonia s/p thoracentesis -X ray revealed LLL pneumonia and left pleural effusion with small effusion on right side. -follow up cultures and urine antigens -Ct chest showed a moderate size pleural effusion with lymphadenopathy -Considering thoracentesis. Waiting IR recommendation. -Likely will not have thoracentesis as patient is improving clinically. -Continue IV antibiotics: Cefepime 1gm, Doxycycline 100mg -Ordered cold aggluts, mycoplasma serology and histoplasmosis serology. F/U -F/U TRACE #Chest Pain -likely from pleural effusion and pneumonia- pleuritic chest pain -Prior EKG similar -F/U duplex LE to r/o DVT #Pain Control -Dilaudid .5 Q6 PRN -lidocaine patch -tramadol 50 q12 #Metabolic acidosis -continue sodium bicarb BID -goal bicarb > 22 as per Nephro #End Stage Renal disease w/ Chronic rejection -Held cellcept -continue tacrolimus -continue lasix -Nephro on board -Creatinine at baseline (5.2-6.1) #Severe Cardiomyopathy and systolic heart failure -cardio consulted -continue BB -Previous echo showed severely reduced EF and valvular problems. #FEN -Not on IV fluids -Renal Diet Visit type - Emergency Visit Emergency Visit: Yes ED Registration Date: 01/19/17 Care time: The patient presented to the Emergency Department on the above date and was hospitalized for further evaluation of their emergent condition. - New Patient This patient is new to me today: No - Critical Care Critical Care patient: No
--- NOTE | 2017-01-22 10:44 | PN ---
Progress Note, Physician History of Present Illness: Reports pleurisy, shoulder discomfort resolved, no tacharrhythmia on monitor. - Current Medication List Current Medications: Active Medications Acetaminophen (Tylenol -) 650 mg PO Q6H PRN PRN Reason: FEVER OR PAIN Last Admin: 01/21/17 10:59 Dose: 650 mg Allopurinol (Zyloprim -) 100 mg PO DAILY [facility] Last Admin: 01/22/17 09:47 Dose: 100 mg Carvedilol (Coreg -) 12.5 mg PO BID [facility] Last Admin: 01/22/17 09:47 Dose: 12.5 mg Cholecalciferol (Vitamin D3 -) 2,000 unit PO DAILY [facility] Last Admin: 01/22/17 09:47 Dose: 2,000 unit Furosemide (Lasix -) 40 mg PO DAILY [facility] Last Admin: 01/22/17 09:47 Dose: 40 mg Heparin Sodium (Porcine) (Heparin -) 5,000 unit SQ TID [facility] Last Admin: 01/22/17 05:46 Dose: Not Given Cefepime HCl 1 gm/ Dextrose 100 mls @ 200 mls/hr IVPB DAILY [facility] Last Admin: 01/22/17 09:34 Dose: 200 mls/hr Doxycycline Hyclate 100 mg/ (Dextrose) 100 mls @ 100 mls/hr IVPB BID [facility] Last Admin: 01/22/17 10:08 Dose: 100 mls/hr Lidocaine (Lidoderm Patch -) 1 patch TP DAILY [facility] Last Admin: 01/22/17 09:51 Dose: Not Given Miscellaneous (Lidoderm Patch Removal) 1 each MC DAILY@2200 [facility] Last Admin: 01/21/17 22:04 Dose: Not Given Sodium Bicarbonate (Sodium Bicarbonate -) 1,300 mg PO BID [facility] Last Admin: 01/22/17 09:46 Dose: 1,300 mg Tacrolimus (Prograf (Non-Formulary)) 2 mg PO BID [facility] Last Admin: 01/22/17 09:49 Dose: 2 mg Tacrolimus (Prograf (Non Formulary)) 5 mg PO BID [facility] Last Admin: 01/22/17 09:49 Dose: 5 mg Tramadol HCl (Ultram -) 25 mg PO Q12H PRN Last Admin: 01/22/17 03:35 Dose: 25 mg - Objective Vital Signs: Vital Signs Temperature 98.2 F 01/22/17 08:49 Pulse Rate 82 01/22/17 08:49 Respiratory Rate 20 01/22/17 08:49 Blood Pressure 132/84 01/22/17 08:49 O2 Sat by Pulse Oximetry (%) 92 L 01/21/17 21:00 Constitutional: Yes: No Distress, Calm, Thin Neck: Yes: Supple Cardiovascular: Yes: Regular Rate and Rhythm, Murmur (2/6 SM) Respiratory: Yes: Regular, Diminished, On Nasal O2 Gastrointestinal: Yes: Normal Bowel Sounds, Soft Edema: No Labs: CBC, BMP 01/21/17 05:35 01/22/17 06:00 INR, PTT INR 1.07 (0.82-1.09) 01/18/17 22:21 - ....Imaging EKG: Report Reviewed (Tele: SR) Assessment/Plan 01/06/2017 Echo: Mod NC, severely dilated LV, severe NIKOLAY, moderate decreased LV fxn, mod-severe MR, TR,, severe AR, mild RV dilated and decreased RV fxn 1. History of left pneumonia status post thoracentesis for drain of parapneumonic fluid 2. ESRD and history of renal transplant 3. History of hypertension 4. Moderate left ventricular systolic dysfunction - dilated cardiomyopathy 5. Valvular heart disease - moderate to severe aortic valve stenosis and severe aortic valve regurgitation 6. Moderate to severe mitral and tricuspid valve regurgitation 7. Moderate pulmonic valve regurgitation 8. Pulmonary hypertension with underlying COPD and cigarette smoking 9. Demand ischemia - resolved 10. Episode of narrow complex tachycardia - nonsustained likely represents SVT PLAN: 1. Chest CT report noted 2. Empiric antibiotic coverage as per ID. Currently there appears to be no need for repeat thoracentesis in view of reduced WBC and clinical improvement 3. Increase Carvedilol 25 bid, Lasix 40 qd, BiDil as hemodynamics tolerate 4. ACEI or ARB not being used due to underlying history of renal transplant and elevated creatinine due to CKD 5. Ideally patient would need further cardiac work up including cardiac catheterization to rule out CAD and to evaluate for ICD implant for primary prophylaxis, in addition to evaluating valvular heart disease to seek indication for valve surgery, however; this can be readdressed as outpatient with his chief clinical dietitian at [facility]. Patient will also follow up with his registration officer at [facility] to address the risk if he were to proceed with further cardiac evaluation which would require contrast infusion. 6. Renal function is to be followed closely, immunosupression per nephrology. 7. DVT prophylaxis
--- NOTE | 2017-01-22 11:03 | PN ---
Progress Note (short form) - Note Progress Note: remains uncomfortable no shoulder pain but now some right anterior chest pain non productive cough- rare Vital Signs Period Temp Pulse Resp BP Sys/Ly Pulse Ox Last 24 Hr 97.5 F-99 F 64-82 18-21 118-144/70-89 92-94 cor-rrr lungs decreased bs at bases abd soft,nt ext no edema cxray unchanged CBC, BMP 01/21/17 05:35 01/22/17 06:00 Microbiology 01/19/17 00:12 Blood - Peripheral Venous Blood Culture - Preliminary NO GROWTH OBTAINED AFTER 72 HOURS, INCUBATION TO CONTINUE FOR 2 DAYS. 01/20/17 12:00 Urine For Antigen Detection Legionella Antigen - Final 01/20/17 12:00 Urine For Antigen Detection Streptococcus pneumoniae Antigen (M - Final 01/20/17 05:35 Serum Cryptococcal Antigen - Preliminary 01/20/17 05:35 Serum Legionella Serology - Preliminary a/p recurrent fever/pneumonia/effusion in immunocompromised host-nonproductive cough cxray with cardiomegaly and left effusion fevers resolved continue cefepime/doxycycline histo antigen/chlamydia serology pending will order TRACE will d/w pulmonary ?infectious, ?inflammatory, ?medication induced Problem List - Problems (1) Fever Code(s): R50.9 - FEVER, UNSPECIFIED Qualifiers: Qualified Code(s): R50.9 - Fever, unspecified (2) Shoulder pain, left Code(s): M25.512 - PAIN IN LEFT SHOULDER Qualifiers: Qualified Code(s): M25.512 - Pain in left shoulder (3) Pneumonia Code(s): J18.9 - PNEUMONIA, UNSPECIFIED ORGANISM Qualifiers: Qualified Code(s): J18.1 - Lobar pneumonia, unspecified organism (4) Pleural effusion on left Code(s): J90 - PLEURAL EFFUSION, NOT ELSEWHERE CLASSIFIED (5) CHF (congestive heart failure) Code(s): I50.9 - HEART FAILURE, UNSPECIFIED Qualifiers: Qualified Code(s): I50.23 - Acute on chronic systolic (congestive) heart failure (6) Renal transplant recipient Code(s): Z94.0 - KIDNEY TRANSPLANT STATUS
--- NOTE | 2017-01-22 11:09 | PN ---
Progress Note, Physician History of Present Illness: pulmonary alert,oob-chair c/o r sided pleuritic cp - Current Medication List Current Medications: Active Medications Acetaminophen (Tylenol -) 650 mg PO Q6H PRN PRN Reason: FEVER OR PAIN Last Admin: 01/21/17 10:59 Dose: 650 mg Allopurinol (Zyloprim -) 100 mg PO DAILY [facility] Last Admin: 01/22/17 09:47 Dose: 100 mg Carvedilol (Coreg -) 12.5 mg PO BID [facility] Last Admin: 01/22/17 09:47 Dose: 12.5 mg Cholecalciferol (Vitamin D3 -) 2,000 unit PO DAILY [facility] Last Admin: 01/22/17 09:47 Dose: 2,000 unit Furosemide (Lasix -) 40 mg PO DAILY [facility] Last Admin: 01/22/17 09:47 Dose: 40 mg Heparin Sodium (Porcine) (Heparin -) 5,000 unit SQ TID [facility] Last Admin: 01/22/17 05:46 Dose: Not Given Cefepime HCl 1 gm/ Dextrose 100 mls @ 200 mls/hr IVPB DAILY [facility] Last Admin: 01/22/17 09:34 Dose: 200 mls/hr Doxycycline Hyclate 100 mg/ (Dextrose) 100 mls @ 100 mls/hr IVPB BID [facility] Last Admin: 01/22/17 10:08 Dose: 100 mls/hr Lidocaine (Lidoderm Patch -) 1 patch TP DAILY [facility] Last Admin: 01/22/17 09:51 Dose: Not Given Miscellaneous (Lidoderm Patch Removal) 1 each MC DAILY@2200 [facility] Last Admin: 01/21/17 22:04 Dose: Not Given Sodium Bicarbonate (Sodium Bicarbonate -) 1,300 mg PO BID [facility] Last Admin: 01/22/17 09:46 Dose: 1,300 mg Tacrolimus (Prograf (Non-Formulary)) 2 mg PO BID [facility] Last Admin: 01/22/17 09:49 Dose: 2 mg Tacrolimus (Prograf (Non Formulary)) 5 mg PO BID [facility] Last Admin: 01/22/17 09:49 Dose: 5 mg Tramadol HCl (Ultram -) 25 mg PO Q12H PRN Last Admin: 01/22/17 03:35 Dose: 25 mg - Objective Vital Signs: Vital Signs Temperature 98.2 F 01/22/17 08:49 Pulse Rate 82 01/22/17 08:49 Respiratory Rate 20 01/22/17 08:49 Blood Pressure 132/84 01/22/17 08:49 O2 Sat by Pulse Oximetry (%) 92 L 01/21/17 21:00 Constitutional: Yes: Well Nourished, Mild Distress (secondary to cp) Eyes: Yes: WNL HENT: Yes: WNL Neck: Yes: WNL Cardiovascular: Yes: Regular Rate and Rhythm, S1, S2 Respiratory: Yes: Other (poor inspiratory effort ,few bibasilar rales) Gastrointestinal: Yes: Normal Bowel Sounds, Soft Extremities: Yes: WNL Edema: No Labs: CBC, BMP 01/21/17 05:35 01/22/17 06:00 INR, PTT INR 1.07 (0.82-1.09) 01/18/17 22:21 - ....Imaging Chest X-ray: Report Reviewed, Image Reviewed Problem List - Problems (1) Leukocytosis Code(s): D72.829 - ELEVATED WHITE BLOOD CELL COUNT, UNSPECIFIED Qualifiers: Leukocytosis type: unspecified Qualified Code(s): D72.829 - Elevated white blood cell count, unspecified (2) Pleural effusion on left Code(s): J90 - PLEURAL EFFUSION, NOT ELSEWHERE CLASSIFIED (3) Shortness of breath at rest Code(s): R06.02 - SHORTNESS OF BREATH (4) CHF (congestive heart failure) Code(s): I50.9 - HEART FAILURE, UNSPECIFIED Qualifiers: Congestive heart failure type: systolic Congestive heart failure chronicity: acute on chronic Qualified Code(s): I50.23 - Acute on chronic systolic (congestive) heart failure (5) COPD (chronic obstructive pulmonary disease) Code(s): J44.9 - CHRONIC OBSTRUCTIVE PULMONARY DISEASE, UNSPECIFIED Qualifiers : COPD type: unspecified COPD Qualified Code(s): J44.9 - Chronic obstructive pulmonary disease, unspecified (6) Dilated cardiomyopathy Code(s): I42.0 - DILATED CARDIOMYOPATHY (7) ESRD (end stage renal disease) Code(s): N18.6 - END STAGE RENAL DISEASE (8) HTN (hypertension) Code(s): I10 - ESSENTIAL (PRIMARY) HYPERTENSION Qualifiers: Hypertension type: essential hypertension Qualified Code(s): I10 - Essential (primary) hypertension (9) Pulmonary HTN Code(s): I27.2 - OTHER SECONDARY PULMONARY HYPERTENSION (10) Renal transplant recipient Code(s): Z94.0 - KIDNEY TRANSPLANT STATUS Assessment/Plan IMP FEVER,CP,SHOULDER PAIN IMPROVING ESRD S/P RENAL TRANSPLANT CARDIOMYOPATHY CHF PULMONARY HTN HTN H/O PLEURAL EFFUSION ( EXUDATE ,- CYTOLOGY,LIKELY UNCOMPLICATED PARA- PNEUMONIC EFFUSION) PLAN O2 ANTIBIOTICS PER ID INHALED BRONCHODILATORS LASIX ANALGESICS DUPLEX LOWER EXT DR CASTELLANO Problem List - Problems (1) Leukocytosis Code(s): D72.829 - ELEVATED WHITE BLOOD CELL COUNT, UNSPECIFIED Qualifiers: Leukocytosis type: unspecified Qualified Code(s): D72.829 - Elevated white blood cell count, unspecified (2) Pleural effusion on left Code(s): J90 - PLEURAL EFFUSION, NOT ELSEWHERE CLASSIFIED (3) Shortness of breath at rest Code(s): R06.02 - SHORTNESS OF BREATH (4) CHF (congestive heart failure) Code(s): I50.9 - HEART FAILURE, UNSPECIFIED Qualifiers: Congestive heart failure type: unspecified congestive heart failure type Congestive heart failure chronicity: acute Qualified Code(s): I50.9 - Heart failure, unspecified (5) COPD (chronic obstructive pulmonary disease) Code(s): J44.9 - CHRONIC OBSTRUCTIVE PULMONARY DISEASE, UNSPECIFIED Qualifiers : COPD type: unspecified COPD Qualified Code(s): J44.9 - Chronic obstructive pulmonary disease, unspecified (6) Dilated cardiomyopathy Code(s): I42.0 - DILATED CARDIOMYOPATHY (7) ESRD (end stage renal disease) Code(s): N18.6 - END STAGE RENAL DISEASE (8) HTN (hypertension) Code(s): I10 - ESSENTIAL (PRIMARY) HYPERTENSION Qualifiers: Hypertension type: essential hypertension Qualified Code(s): I10 - Essential (primary) hypertension (9) Pulmonary HTN Code(s): I27.2 - OTHER SECONDARY PULMONARY HYPERTENSION (10) Renal transplant recipient Code(s): Z94.0 - KIDNEY TRANSPLANT STATUS (11) Chest pain Code(s): R07.9 - CHEST PAIN, UNSPECIFIED Qualifiers: Chest pain type: other chest pain Qualified Code(s): R07.89 - Other chest pain; R07.8 - Other chest pain
--- NOTE | 2017-01-22 12:21 | PN ---
Progress Note (short form) - Note Progress Note: Renal follow up for Renal Transplant and CKD5 Pt seen and examined at the bedside complains of severe right sided chest pain that is pleurtic reports not being able to sleep + SOB, No N/V making urine Vital Signs Temperature 98.2 F 01/22/17 08:49 Pulse Rate 73 01/22/17 11:47 Respiratory Rate 20 01/22/17 08:49 Blood Pressure 132/84 01/22/17 08:49 O2 Sat by Pulse Oximetry (%) 99 01/22/17 11:47 Intake & Output 01/19/17 01/20/17 01/21/17 01/22/17 23:59 23:59 23:59 23:59 Intake Total 900 1050 1440 400 Output Total 250 900 Balance 375 519 8466 400 Weight 189 lb 6.4 oz Gen: NAD, awake and alert CVS: RRR, No M/R Lungs: Dec Bs lung bases, faint wheezing, no rales Abd: soft NT/ND Ext: No edema, clubbing or cyanosis CBC, BMP 01/21/17 05:35 01/22/17 06:00 Laboratory Tests 01/20/17 01/22/17 05:35 06:00 Calcium 8.1 L 8.6 Phosphorus 5.4 H Magnesium 2.0 Current Medications Acetaminophen (Tylenol -) 650 mg PO Q6H PRN PRN Reason: FEVER OR PAIN Last Admin: 01/21/17 10:59 Dose: 650 mg Allopurinol (Zyloprim -) 100 mg PO DAILY [facility] Last Admin: 01/22/17 09:47 Dose: 100 mg Carvedilol (Coreg -) 25 mg PO BID [facility] Cholecalciferol (Vitamin D3 -) 2,000 unit PO DAILY [facility] Last Admin: 01/22/17 09:47 Dose: 2,000 unit Furosemide (Lasix -) 40 mg PO DAILY [facility] Last Admin: 01/22/17 09:47 Dose: 40 mg Heparin Sodium (Porcine) (Heparin -) 5,000 unit SQ TID [facility] Last Admin: 01/22/17 05:46 Dose: Not Given Hydromorphone HCl (Dilaudid Injection -) 0.5 mg IVPUSH Q6H PRN PRN Reason: PAIN Cefepime HCl 1 gm/ Dextrose 100 mls @ 200 mls/hr IVPB DAILY [facility] Last Admin: 01/22/17 09:34 Dose: 200 mls/hr Doxycycline Hyclate 100 mg/ (Dextrose) 100 mls @ 100 mls/hr IVPB BID [facility] Last Admin: 01/22/17 10:08 Dose: 100 mls/hr Lidocaine (Lidoderm Patch -) 1 patch TP DAILY [facility] Last Admin: 01/22/17 09:51 Dose: Not Given Miscellaneous (Lidoderm Patch Removal) 1 each MC DAILY@2200 [facility] Last Admin: 01/21/17 22:04 Dose: Not Given Sodium Bicarbonate (Sodium Bicarbonate -) 1,300 mg PO BID [facility] Last Admin: 01/22/17 09:46 Dose: 1,300 mg Tacrolimus (Prograf (Non-Formulary)) 2 mg PO BID [facility] Last Admin: 01/22/17 09:49 Dose: 2 mg Tacrolimus (Prograf (Non Formulary)) 5 mg PO BID [facility] Last Admin: 01/22/17 09:49 Dose: 5 mg Tramadol HCl (Ultram -) 50 mg PO Q12H PRN PRN Reason: PAIN Last Admin: 01/22/17 12:11 Dose: 50 mg A/p 61 year old Gentleman with PMhx of 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 #Shoulder Pain/Effusion/r/o PNA vs. 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
--- NOTE | 2017-01-22 14:54 | PN ---
Teaching Attending Note Name of Resident: Roberta Koo ATTENDING PHYSICIAN STATEMENT I saw and evaluated the patient. I reviewed the resident's note and discussed the case with the resident. I agree with the resident's findings and plan as documented. SUBJECTIVE: Overnight events noted. Otherwise no new complains OBJECTIVE: Vital Signs Temperature 98.2 F 01/22/17 08:49 Pulse Rate 73 01/22/17 11:47 Respiratory Rate 20 01/22/17 08:49 Blood Pressure 132/84 01/22/17 08:49 O2 Sat by Pulse Oximetry (%) 99 01/22/17 11:47 CBCD WBC 9.5 K/mm3 (4.0-10.0) 01/21/17 05:35 RBC 3.88 M/mm3 (4.00-5.60) L 01/21/17 05:35 Hgb 11.0 GM/dL (11.7-16.9) L 01/21/17 05:35 Hct 33.4 % (35.4-49) L 01/21/17 05:35 MCV 86.2 fl (80-96) 01/21/17 05:35 MCHC 33.0 g/dl (32.0-35.9) 01/21/17 05:35 RDW 15.7 % (11.9-15.9) 01/21/17 05:35 Plt Count 229 K/MM3 (134-434) 01/21/17 05:35 MPV 9.3 fl (7.5-11.1) 01/21/17 05:35 CMP Sodium 135 mmol/L (136-145) L 01/22/17 06:00 Potassium 4.6 mmol/L (3.5-5.1) 01/22/17 06:00 Chloride 103 mmol/L (98-107) 01/22/17 06:00 Carbon Dioxide 22 mmol/L (21-32) 01/22/17 06:00 Anion Gap 10 (8-16) 01/22/17 06:00 BUN 66 mg/dL (7-18) H 01/22/17 06:00 Creatinine 5.0 mg/dL (0.7-1.3) H 01/22/17 06:00 Creat Clearance w eGFR 12.82 (>60) 01/21/17 05:35 Random Glucose 89 mg/dL (74-106) 01/22/17 06:00 Calcium 8.6 mg/dL (8.5-10.1) 01/22/17 06:00 Total Bilirubin 0.7 mg/dL (0.2-1.0) 01/21/17 05:35 AST 6 U/L (15-37) L 01/21/17 05:35 ALT 35 U/L (12-78) D 01/21/17 05:35 Alkaline Phosphatase 103 U/L (45-117) 01/21/17 05:35 Total Protein 5.8 g/dl (6.4-8.2) L 01/21/17 05:35 Albumin 2.6 g/dl (3.4-5.0) L 01/21/17 05:35 CARDIAC ENZYMES Creatine Kinase 54 IU/L (39-308) 01/19/17 11:50 Troponin I 0.06 ng/ml (0.00-0.05) H 01/19/17 11:50 Current Medications Generic Name Dose Route Start Last Admin Trade Name Freq PRN Reason Stop Dose Admin Acetaminophen 650 mg 01/19/17 13:55 01/21/17 10:59 Tylenol - PO 650 mg Q6H PRN Administration FEVER OR PAIN Allopurinol 100 mg 01/19/17 10:00 01/22/17 09:47 Zyloprim - PO 100 mg DAILY [facility] Administration Carvedilol 25 mg 01/22/17 22:00 Coreg - PO BID [facility] Cholecalciferol 2,000 unit 01/19/17 10:00 01/22/17 09:47 Vitamin D3 - PO 2,000 unit DAILY [facility] Administration Furosemide 40 mg 01/20/17 10:00 01/22/17 09:47 Lasix - PO 40 mg DAILY [facility] Administration Heparin Sodium (Porcine) 5,000 unit 01/19/17 06:00 01/22/17 13:20 Heparin - SQ Not Given TID [facility] Hydromorphone HCl 0.5 mg 01/22/17 11:46 Dilaudid Injection - IVPUSH Q6H PRN PAIN Cefepime HCl 1 gm/ Dextrose 100 mls @ 200 mls/hr 01/19/17 14:00 01/22/17 09:34 IVPB 200 mls/hr DAILY [facility] Administration Doxycycline Hyclate 100 mg/ 100 mls @ 100 mls/hr 01/21/17 10:00 01/22/17 10:08 Dextrose IVPB 100 mls/hr BID [facility] Administration Lidocaine 1 patch 01/19/17 14:00 01/22/17 09:51 Lidoderm Patch - TP Not Given DAILY [facility] Miscellaneous 1 each 01/19/17 22:00 01/21/17 22:04 Lidoderm Patch Removal MC Not Given DAILY@2200 [facility] Sodium Bicarbonate 1,300 mg 01/19/17 10:00 01/22/17 09:46 Sodium Bicarbonate - PO 1,300 mg BID [facility] Administration Tacrolimus 2 mg 01/19/17 14:45 01/22/17 09:49 Prograf (Non-Formulary) PO 2 mg BID [facility] Administration Tacrolimus 5 mg 01/19/17 14:45 01/22/17 09:49 Prograf (Non Formulary) PO 5 mg BID [facility] Administration Tramadol HCl 50 mg 01/22/17 11:46 01/22/17 12:11 Ultram - PO 50 mg Q12H PRN Administration PAIN Home Medications Medication Instructions Recorded Mycophenolate Mofetil [Cellcept] 250 mg PO DAILY 03/24/14 Tacrolimus [Prograf] 7 mg PO BID 03/24/14 Allopurinol [Zyloprim -] 100 mg PO PRN 11/18/15 Sodium Bicarbonate 1,300 mg PO BID 11/18/15 Carvedilol [Coreg -] 12.5 mg PO BID #60 tablet 11/21/15 Ergocalciferol (Vitamin D2) 2,000 unit PO DAILY 01/04/17 [Vitamin D2] Furosemide 20 mg PO BID 01/04/17 Allopurinol [Zyloprim -] 100 mg PO DAILY tablet 01/08/17 Amox-Tr/K Cl [Augmentin - 500Mg 1 tab PO BID #14 tab 01/08/17 Tablet] Cholecalciferol (Vitamin D3) 2,000 unit PO DAILY tab 01/08/17 [Vitamin D3 -] CHEST: No air entry at the left> right. No rales or wheeze or rhonchi. ASSESSMENT AND PLAN: 61 y/o Lady with h/o end stage renal failure s/p renal transplant with chronic rejection , h/o HTN and severe cardiomyopathy , recent admisison for PNA and pleural effusion , who presented with SOB and L sided CP . He was found to have HCAP # Recurrent Pleural effusion on the left >right, continue cefepime and doxycycline , patient is more prone not to having thoracocentesis.s/p thoracentesis last admission, patient is on Lasix as well. # HCAP : on Cefepime and doxycyline continue as per ID. #s/p Acute chest pain due to pleural effusion; pleuretic in nature, EKG with no change from prior . avoid narcotics but patient keeps asking for dilaudid and pain meds, Tramadol with adjusted doses #L shoulder pain : no restriction of movements, no erythema or edema . Unlikely septic joint or shoulder etiology. # ESRD s/p renal transplant with chronic rejection and nephrosclerosis with hx of HTN and heart failure. cr at his base line hold lasix until evaluated by renal , hold cellcept as per nephro, cont tacrulimus, as per nephro, pt will need to bring his own medication # H/o Severe Cardiomyopathy, and systolic heart failure. echo last admission with severely reduced EF and multiple valvular problems cont Coreg 12.5 mg, Lasix as per cardio. DVT px :heparin
[2017-01-22] MEDS: CARVEDILOL 25 MG TABLET (FP) PO SCH (22:03)
[2017-01-22] MEDS: LIDOCAINE PATCH REMOVAL MC SCH (22:04)
[2017-01-23] MEDS: traMADol HCL 50 MG TABLET PO PRN ×2 (00:05→17:13)
[2017-01-23] MEDS: LIDOCAINE 5% TOPICAL PATCH TP SCH ×2 (05:55→11:53)
[2017-01-23] MEDS: HYDROmorphone HCL CARPU-JECT 1 MG/1 ML DISP.SYRIN IVPUSH PRN ×2 (06:03→12:07)
[2017-01-23] MEDS: HEPARIN NA (PORCINE) 5,000 UNITS/ML 1ML VIAL SQ SCH ×3 (06:08→22:33)
[2017-01-23 07:30] LABS: BASOPHIL 0.7 % (0-2.0); EOSINOPHIL 4.8 % (0-4.5); MCH 28.8 pg (25.7-33.7); MCHC 33.2 g/dl (32.0-35.9); MEAN CELL VOLUME 86.7 fl (80-96); MEAN PLT VOLUME 8.9 fl (7.5-11.1); NEUTROPHILS 73.2 % (42.8-82.8); PLATELET COUNT 263 K/MM3 (134-434); RDW 15.5 % (11.9-15.9)
[2017-01-23 07:59] LABS: ANION GAP 13 (8-16); CALCIUM 8.9 mg/dL (8.5-10.1); CO2 23 mmol/L (21-32); CREATININE 5.2 mg/dL (0.7-1.3); GLUCOSE,RANDOM 101 mg/dL (74-106); PHOSPHOROUS 5.8 mg/dL (2.5-4.9)
[2017-01-23] MEDS ORDERED: DEXTROSE 5%-WATER 100 ML IVPB ONE (08:00)
[2017-01-23] MEDS ORDERED: CEFEPIME HCL 1 GM VIAL (RESTRICTED TO ID) ONE (08:00)
[2017-01-23] MEDS: CEFEPIME 1 GM in DEXTROSE 5%-WATER 100 ML IVPB SCH ×2 (08:27→11:53)
[2017-01-23] MEDS: CHOLECALCIFEROL (VITAMIN D3) 1,000 UNIT TABLET (FP) PO SCH ×2 (08:28→11:54)
[2017-01-23] MEDS: SODIUM BICARBONATE 650 MG TABLET PO SCH ×3 (08:28→22:33)
[2017-01-23] MEDS: CARVEDILOL 25 MG TABLET (FP) PO SCH ×3 (08:28→22:34)
[2017-01-23] MEDS: DOXYCYCLINE INJECTION 100 MG in DEXTROSE 5%-WATER - 100 ML IVPB SCH ×3 (08:28→22:32)
[2017-01-23] MEDS: FUROSEMIDE 40 MG TABLET (FP) PO SCH ×2 (08:28→11:52)
[2017-01-23] MEDS: ALLOPURINOL 100 MG TABLET (FP) PO SCH ×2 (08:28→11:55)
--- NOTE | 2017-01-23 10:16 | PN ---
Progress Note (short form) - Note Progress Note: Renal follow up for Renal Transplant and CKD5 Pt seen and examined at the bedside awake and alert pain is better controlled SOB is improved reports that pain is now more over his lower ribs no fever or chills good urine output Vital Signs Temperature 98.1 F 01/23/17 10:00 Pulse Rate 75 01/23/17 10:00 Respiratory Rate 20 01/23/17 10:00 Blood Pressure 115/76 01/23/17 10:00 O2 Sat by Pulse Oximetry (%) 98 01/23/17 10:00 Intake & Output 01/20/17 01/21/17 01/22/17 01/23/17 23:59 23:59 23:59 23:59 Intake Total 1050 1440 1010 500 Output Total 900 Balance 150 1440 1010 500 Weight 189 lb 6.4 oz 187 lb 6.4 oz Gen: NAD, awake and alert CVS: RRR, No M/R Lungs: Dec Bs lung bases, faint wheezing, no rales Abd: soft NT/ND Ext: No edema, clubbing or cyanosis CBC, BMP 01/23/17 05:48 01/23/17 05:48 Current Medications Acetaminophen (Tylenol -) 650 mg PO Q6H PRN PRN Reason: FEVER OR PAIN Last Admin: 01/21/17 10:59 Dose: 650 mg Allopurinol (Zyloprim -) 100 mg PO DAILY [facility] Last Admin: 01/23/17 08:28 Dose: 100 mg Carvedilol (Coreg -) 25 mg PO BID [facility] Last Admin: 01/23/17 08:28 Dose: 25 mg Cholecalciferol (Vitamin D3 -) 2,000 unit PO DAILY [facility] Last Admin: 01/23/17 08:28 Dose: 2,000 unit Furosemide (Lasix -) 40 mg PO DAILY [facility] Last Admin: 01/23/17 08:28 Dose: 40 mg Heparin Sodium (Porcine) (Heparin -) 5,000 unit SQ TID [facility] Last Admin: 01/23/17 06:08 Dose: Not Given Hydromorphone HCl (Dilaudid Injection -) 0.5 mg IVPUSH Q6H PRN PRN Reason: PAIN Last Admin: 01/23/17 06:03 Dose: 0.5 mg Cefepime HCl 1 gm/ Dextrose 100 mls @ 200 mls/hr IVPB DAILY [facility] Last Admin: 01/23/17 08:27 Dose: 200 mls/hr Doxycycline Hyclate 100 mg/ (Dextrose) 100 mls @ 100 mls/hr IVPB BID [facility] Last Admin: 01/23/17 08:28 Dose: 100 mls/hr Lidocaine (Lidoderm Patch -) 1 patch TP DAILY [facility] Last Admin: 01/23/17 05:55 Dose: 1 patch Miscellaneous (Lidoderm Patch Removal) 1 each MC DAILY@2200 [facility] Last Admin: 01/22/17 22:04 Dose: Not Given Sodium Bicarbonate (Sodium Bicarbonate -) 1,300 mg PO BID [facility] Last Admin: 01/23/17 08:28 Dose: 1,300 mg Tacrolimus (Prograf (Non-Formulary)) 2 mg PO BID [facility] Last Admin: 01/22/17 22:06 Dose: 2 mg Tacrolimus (Prograf (Non Formulary)) 5 mg PO BID [facility] Last Admin: 01/22/17 22:05 Dose: 5 mg Tramadol HCl (Ultram -) 50 mg PO Q12H PRN PRN Reason: PAIN Last Admin: 01/23/17 00:05 Dose: 50 mg A/p 61 year old Gentleman with PMhx of 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 #Shoulder Pain/Effusion/r/o PNA vs. 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
[2017-01-23] MEDS: TACROLIMUS 5 MG PO SCH ×2 (11:53→22:36)
[2017-01-23] MEDS: TACROLIMUS ANHYDROUS 1 MG PO SCH ×2 (11:54→22:36)
--- NOTE | 2017-01-23 12:33 | PN ---
Progress Note (short form) - Note Progress Note: Overall breathing feels better, but still with some shoulder discomfort. No SOB. No acute events overnight. Intake & Output 01/20/17 01/21/17 01/22/17 01/23/17 23:59 23:59 23:59 23:59 Intake Total 1050 1440 1010 500 Output Total 900 Balance 150 1440 1010 500 Weight 189 lb 6.4 oz 187 lb 6.4 oz Last Vital Signs Temp Pulse Resp BP Pulse Ox 98.1 F 75 20 115/76 98 01/23/17 10:00 01/23/17 10:00 01/23/17 10:00 01/23/17 10:00 01/23/17 10:00 Active Medications Acetaminophen (Tylenol -) 650 mg PO Q6H PRN PRN Reason: FEVER OR PAIN Last Admin: 01/21/17 10:59 Dose: 650 mg Allopurinol (Zyloprim -) 100 mg PO DAILY [facility] Last Admin: 01/23/17 11:55 Dose: Not Given Carvedilol (Coreg -) 25 mg PO BID [facility] Last Admin: 01/23/17 11:52 Dose: Not Given Cholecalciferol (Vitamin D3 -) 2,000 unit PO DAILY [facility] Last Admin: 01/23/17 11:54 Dose: Not Given Furosemide (Lasix -) 40 mg PO DAILY [facility] Last Admin: 01/23/17 11:52 Dose: Not Given Heparin Sodium (Porcine) (Heparin -) 5,000 unit SQ TID [facility] Last Admin: 01/23/17 06:08 Dose: Not Given Hydromorphone HCl (Dilaudid Injection -) 0.5 mg IVPUSH Q6H PRN PRN Reason: PAIN Last Admin: 01/23/17 12:07 Dose: 0.5 mg Cefepime HCl 1 gm/ Dextrose 100 mls @ 200 mls/hr IVPB DAILY [facility] Last Admin: 01/23/17 11:53 Dose: Not Given Doxycycline Hyclate 100 mg/ (Dextrose) 100 mls @ 100 mls/hr IVPB BID [facility] Last Admin: 01/23/17 11:54 Dose: Not Given Lidocaine (Lidoderm Patch -) 1 patch TP DAILY [facility] Last Admin: 01/23/17 11:53 Dose: Not Given Miscellaneous (Lidoderm Patch Removal) 1 each MC DAILY@2200 [facility] Last Admin: 01/22/17 22:04 Dose: Not Given Sodium Bicarbonate (Sodium Bicarbonate -) 1,300 mg PO BID [facility] Last Admin: 01/23/17 11:54 Dose: Not Given Tacrolimus (Prograf (Non-Formulary)) 2 mg PO BID [facility] Last Admin: 01/23/17 11:54 Dose: Not Given Tacrolimus (Prograf (Non Formulary)) 5 mg PO BID [facility] Last Admin: 01/23/17 11:53 Dose: Not Given Tramadol HCl (Ultram -) 50 mg PO Q12H PRN PRN Reason: PAIN Last Admin: 01/23/17 00:05 Dose: 50 mg Constitutional: Yes: Well Nourished Eyes: Yes: WNL HENT: Yes: WNL Neck: Yes: WNL Cardiovascular: Yes: Regular Rate and Rhythm, S1, S2 Respiratory: Yes: Scattered Basilar Rhonchi Gastrointestinal: Yes: Normal Bowel Sounds, Soft Extremities: Yes: WNL Edema: No Labs: Laboratory Results - last 24 hr 01/21/17 01/21/17 01/23/17 05:35 11:00 05:48 WBC 10.0 RBC 4.22 Hgb 12.1 Hct 36.6 MCV 86.7 MCH 28.8 MCHC 33.2 RDW 15.5 Plt Count 263 MPV 8.9 Neutrophils % 73.2 Lymphocytes % 11.9 D Monocytes % 9.4 Eosinophils % 4.8 H Basophils % 0.7 Sodium Potassium Chloride Carbon Dioxide Anion Gap BUN Creatinine Random Glucose Calcium Phosphorus Magnesium Cold Agglutinins Negative TRACE Screen Positive H TRACE Homogeneous Pattern 1:80 TRACE Nucleolar Pattern TNP TRACE Speckled Pattern TNP TRACE Centromere Pattern TNP 01/23/17 05:48 WBC RBC Hgb Hct MCV MCH MCHC RDW Plt Count MPV Neutrophils % Lymphocytes % Monocytes % Eosinophils % Basophils % Sodium 137 Potassium 4.8 Chloride 101 Carbon Dioxide 23 Anion Gap 13 BUN 71 H Creatinine 5.2 H Random Glucose 101 Calcium 8.9 Phosphorus 5.8 H Magnesium 2.0 Cold Agglutinins TRACE Screen TRACE Homogeneous Pattern TRACE Nucleolar Pattern TRACE Speckled Pattern TRACE Centromere Pattern Problem List - Problems (1) Leukocytosis Code(s): D72.829 - ELEVATED WHITE BLOOD CELL COUNT, UNSPECIFIED Qualifiers: Leukocytosis type: unspecified Qualified Code(s): D72.829 - Elevated white blood cell count, unspecified (2) Pleural effusion on left Code(s): J90 - PLEURAL EFFUSION, NOT ELSEWHERE CLASSIFIED (3) Shortness of breath at rest Code(s): R06.02 - SHORTNESS OF BREATH (4) CHF (congestive heart failure) Code(s): I50.9 - HEART FAILURE, UNSPECIFIED Qualifiers: Congestive heart failure type: systolic Congestive heart failure chronicity: acute on chronic Qualified Code(s): I50.23 - Acute on chronic systolic (congestive) heart failure (5) COPD (chronic obstructive pulmonary disease) Code(s): J44.9 - CHRONIC OBSTRUCTIVE PULMONARY DISEASE, UNSPECIFIED Qualifiers : COPD type: unspecified COPD Qualified Code(s): J44.9 - Chronic obstructive pulmonary disease, unspecified (6) Dilated cardiomyopathy Code(s): I42.0 - DILATED CARDIOMYOPATHY (7) ESRD (end stage renal disease) Code(s): N18.6 - END STAGE RENAL DISEASE (8) HTN (hypertension) Code(s): I10 - ESSENTIAL (PRIMARY) HYPERTENSION Qualifiers: Hypertension type: essential hypertension Qualified Code(s): I10 - Essential (primary) hypertension (9) Pulmonary HTN Code(s): I27.2 - OTHER SECONDARY PULMONARY HYPERTENSION (10) Renal transplant recipient Code(s): Z94.0 - KIDNEY TRANSPLANT STATUS (11) Chest pain Code(s): R07.9 - CHEST PAIN, UNSPECIFIED Qualifiers: Chest pain type: other chest pain Qualified Code(s): R07.89 - Other chest pain; R07.8 - Other chest pain Assessment/Plan IMP FEVER,CP,SHOULDER PAIN IMPROVING ESRD S/P RENAL TRANSPLANT CARDIOMYOPATHY CHF PULMONARY HTN HTN H/O PLEURAL EFFUSION ( EXUDATE ,- CYTOLOGY,LIKELY UNCOMPLICATED PARA- PNEUMONIC EFFUSION) PLAN O2 ANTIBIOTICS PER ID INHALED BRONCHODILATORS LASIX WILL NEED FOLLOW UP CXR OUTPATIENT DR SILVA
--- NOTE | 2017-01-23 14:57 | PN ---
Progress Note (short form) - Note Progress Note: remains uncomfortable reports chest pain has gone no shoulder pain but RUQ pain no BM no vomiting Vital Signs Period Temp Pulse Resp BP Sys/Ly Pulse Ox Last 24 Hr 97.9 F-98.5 F 62-77 20-20 115-140/53-85 98-98 cor-rrr lungs decreased bs left base right lung clear abd soft, +RUQ tenderness to palpation ext no edema CBC, BMP 01/23/17 05:48 01/23/17 05:48 Microbiology 01/19/17 00:12 Blood - Peripheral Venous Blood Culture - Preliminary NO GROWTH OBTAINED AFTER 72 HOURS, INCUBATION TO CONTINUE FOR 2 DAYS. 01/20/17 12:00 Urine For Antigen Detection Legionella Antigen - Final 01/20/17 12:00 Urine For Antigen Detection Streptococcus pneumoniae Antigen (M - Final 01/20/17 05:35 Serum Cryptococcal Antigen - Preliminary 01/20/17 05:35 Serum Legionella Serology - Preliminary urine histoplasma antigen negative a/p recurrent fever/pneumonia/effusion in immunocompromised host-nonproductive cough cxray with cardiomegaly and left effusion fevers resolved continue cefepime/doxycycline histo antigen negative/chlamydia serology pending ?infectious, ?inflammatory, ?medication induced new RUQ pain- would get stat sonogram RUQ, check lfts s/p renal transplant with ckd d/w Hospitalist Problem List - Problems (1) Fever Code(s): R50.9 - FEVER, UNSPECIFIED Qualifiers: Fever type: unspecified Qualified Code(s): R50.9 - Fever, unspecified (2) Shoulder pain, left Code(s): M25.512 - PAIN IN LEFT SHOULDER Qualifiers: Chronicity: acute Qualified Code(s): M25.512 - Pain in left shoulder (3) Pneumonia Code(s): J18.9 - PNEUMONIA, UNSPECIFIED ORGANISM Qualifiers: Pneumonia type: due to unspecified organism Laterality: left Lung location: lower lobe of lung Qualified Code(s): J18.1 - Lobar pneumonia, unspecified organism (4) Pleural effusion on left Code(s): J90 - PLEURAL EFFUSION, NOT ELSEWHERE CLASSIFIED (5) CHF (congestive heart failure) Code(s): I50.9 - HEART FAILURE, UNSPECIFIED Qualifiers: Congestive heart failure type: systolic Congestive heart failure chronicity: acute on chronic Qualified Code(s): I50.23 - Acute on chronic systolic (congestive) heart failure (6) Renal transplant recipient Code(s): Z94.0 - KIDNEY TRANSPLANT STATUS
--- NOTE | 2017-01-23 14:58 | PN ---
Progress Note (short form) - Note Progress Note: Patient is sitting on the bed having RUQ pain, states that the pain moved from his back to his right sided rib area. No fever or chills, but the patient is on immunosuppresive therapy for his transplanted kidney. Vital Signs Temperature 98.2 F 01/23/17 14:23 Pulse Rate 69 01/23/17 14:23 Respiratory Rate 20 01/23/17 14:23 Blood Pressure 119/73 01/23/17 14:23 O2 Sat by Pulse Oximetry (%) 98 01/23/17 10:00 GENERAL: Awake, alert, and fully oriented, in no acute distress. EYES: Pupils equal, round and reactive to light, extraocular movements intact, sclera anicteric, conjunctiva clear. EARS, NOSE, THROAT: oropharynx clear without exudates. Moist mucous membranes. NECK: Normal range of motion, supple without lymphadenopathy, JVD, or masses. LUNGS: b/l basilar crackles, No wheezing , GAE on the right and the left decreased air entry. HEART: Regular rate and rhythm, normal S1 and S2 without murmur, rub or gallop. ABDOMEN: Soft, RUQ tenderness. not distended, normoactive bowel sounds, no guarding, no rebound, no masses. UPPER EXTREMITIES: 2+ pulses, warm, well-perfused. No cyanosis. No clubbing. left forearm with palpable thrill at AV fistula. LOWER EXTREMITIES: 2+ pulses, warm, well-perfused. No calf tenderness. No peripheral edema. CBCD WBC 10.0 K/mm3 (4.0-10.0) 01/23/17 05:48 RBC 4.22 M/mm3 (4.00-5.60) 01/23/17 05:48 Hgb 12.1 GM/dL (11.7-16.9) 01/23/17 05:48 Hct 36.6 % (35.4-49) 01/23/17 05:48 MCV 86.7 fl (80-96) 01/23/17 05:48 MCHC 33.2 g/dl (32.0-35.9) 01/23/17 05:48 RDW 15.5 % (11.9-15.9) 01/23/17 05:48 Plt Count 263 K/MM3 (134-434) 01/23/17 05:48 MPV 8.9 fl (7.5-11.1) 01/23/17 05:48 CMP Sodium 137 mmol/L (136-145) 01/23/17 05:48 Potassium 4.8 mmol/L (3.5-5.1) 01/23/17 05:48 Chloride 101 mmol/L (98-107) 01/23/17 05:48 Carbon Dioxide 23 mmol/L (21-32) 01/23/17 05:48 Anion Gap 13 (8-16) 01/23/17 05:48 BUN 71 mg/dL (7-18) H 01/23/17 05:48 Creatinine 5.2 mg/dL (0.7-1.3) H 01/23/17 05:48 Creat Clearance w eGFR 12.82 (>60) 01/21/17 05:35 Random Glucose 101 mg/dL (74-106) 01/23/17 05:48 Calcium 8.9 mg/dL (8.5-10.1) 01/23/17 05:48 Total Bilirubin 0.7 mg/dL (0.2-1.0) 01/21/17 05:35 AST 6 U/L (15-37) L 01/21/17 05:35 ALT 35 U/L (12-78) D 01/21/17 05:35 Alkaline Phosphatase 103 U/L (45-117) 01/21/17 05:35 Total Protein 5.8 g/dl (6.4-8.2) L 01/21/17 05:35 Albumin 2.6 g/dl (3.4-5.0) L 01/21/17 05:35 CARDIAC ENZYMES Creatine Kinase 54 IU/L (39-308) 01/19/17 11:50 Troponin I 0.06 ng/ml (0.00-0.05) H 01/19/17 11:50 Current Medications Generic Name Dose Route Start Last Admin Trade Name Freq PRN Reason Stop Dose Admin Acetaminophen 650 mg 01/19/17 13:55 01/21/17 10:59 Tylenol - PO 650 mg Q6H PRN Administration FEVER OR PAIN Allopurinol 100 mg 01/19/17 10:00 01/23/17 11:55 Zyloprim - PO Not Given DAILY [facility] Carvedilol 25 mg 01/22/17 22:00 01/23/17 11:52 Coreg - PO Not Given BID [facility] Cholecalciferol 2,000 unit 01/19/17 10:00 01/23/17 11:54 Vitamin D3 - PO Not Given DAILY [facility] Furosemide 40 mg 01/20/17 10:00 01/23/17 11:52 Lasix - PO Not Given DAILY [facility] Heparin Sodium (Porcine) 5,000 unit 01/19/17 06:00 01/23/17 13:39 Heparin - SQ Not Given TID [facility] Hydromorphone HCl 0.5 mg 01/22/17 11:46 01/23/17 12:07 Dilaudid Injection - IVPUSH 0.5 mg Q6H PRN Administration PAIN Cefepime HCl 1 gm/ Dextrose 100 mls @ 200 mls/hr 01/19/17 14:00 01/23/17 11:53 IVPB Not Given DAILY [facility] Doxycycline Hyclate 100 mg/ 100 mls @ 100 mls/hr 01/21/17 10:00 01/23/17 11:54 Dextrose IVPB Not Given BID [facility] Lidocaine 1 patch 01/19/17 14:00 01/23/17 11:53 Lidoderm Patch - TP Not Given DAILY [facility] Miscellaneous 1 each 01/19/17 22:00 01/22/17 22:04 Lidoderm Patch Removal MC Not Given DAILY@2200 [facility] Sodium Bicarbonate 1,300 mg 01/19/17 10:00 01/23/17 11:54 Sodium Bicarbonate - PO Not Given BID [facility] Tacrolimus 2 mg 01/19/17 14:45 01/23/17 11:54 Prograf (Non-Formulary) PO Not Given BID [facility] Tacrolimus 5 mg 01/19/17 14:45 01/23/17 11:53 Prograf (Non Formulary) PO Not Given BID [facility] Tramadol HCl 50 mg 01/22/17 11:46 01/23/17 00:05 Ultram - PO 50 mg Q12H PRN Administration PAIN Home Medications Medication Instructions Recorded Mycophenolate Mofetil [Cellcept] 250 mg PO DAILY 03/24/14 Tacrolimus [Prograf] 7 mg PO BID 03/24/14 Allopurinol [Zyloprim -] 100 mg PO PRN 11/18/15 Sodium Bicarbonate 1,300 mg PO BID 11/18/15 Carvedilol [Coreg -] 12.5 mg PO BID #60 tablet 11/21/15 Ergocalciferol (Vitamin D2) 2,000 unit PO DAILY 01/04/17 [Vitamin D2] Furosemide 20 mg PO BID 01/04/17 Allopurinol [Zyloprim -] 100 mg PO DAILY tablet 01/08/17 Amox-Tr/K Cl [Augmentin - 500Mg 1 tab PO BID #14 tab 01/08/17 Tablet] Cholecalciferol (Vitamin D3) 2,000 unit PO DAILY tab 01/08/17 [Vitamin D3 -] ASSESSMENT AND PLAN: 61 y/o Lady with h/o end stage renal failure s/p renal transplant with chronic rejection , h/o HTN and severe cardiomyopathy , recent admisison for PNA and pleural effusion , who presented with SOB and L sided CP . He was found to have HCAP # Acute RUQ pain t/o gallstones R/O FATTY LIVER OR LIVER CONGESTION. SURGICAL consult dr.Har Lavell Newell. # Recurrent Pleural effusion on the left >right, continue cefepime and doxycycline. Patient is more prone not to having thoracocentesis.s/p thoracentesis last admission, patient is on Lasix as well. continue [pain meds. # HCAP : on Cefepime and doxycyline continue as per ID. #s/p Acute chest pain due to pleural effusion; pleuretic in nature, EKG with no change from prior . #s/p L shoulder pain : no restriction of movements, no erythema or edema, no further shoulder pain. # ESRD s/p renal transplant with chronic rejection and nephrosclerosis with hx of HTN and heart failure. cr at his base line hold lasix until evaluated by renal , hold cellcept as per nephro, cont tacrulimus, as per nephro, pt will need to bring his own medication # H/o Severe Cardiomyopathy, and systolic heart failure. echo last admission with severely reduced EF and multiple valvular problems cont Coreg 12.5 mg, Lasix as per cardio. DVT px :heparin Visit type - Emergency Visit Emergency Visit: Yes ED Registration Date: 01/19/17 Care time: The patient presented to the Emergency Department on the above date and was hospitalized for further evaluation of their emergent condition. - New Patient This patient is new to me today: No - Critical Care Critical Care patient: Yes Total Critical Care Time (in minutes): 35 Critical Care Statement: The care of this patient involved high complexity decision making to prevent further life threatening deterioration of the patient 's condition and/or to evaluate & treat vital organ system(s) failure or risk of failure.
[2017-01-23 15:14] LABS: ALBUMIN 3.1 g/dl (3.4-5.0); BILIRUBIN,DIRECT 0.2 mg/dL (0.0-0.2); SGOT/AST 10 U/L (15-37); SGPT/ALT 28 U/L (12-78)
[2017-01-23] MEDS ORDERED: HYDROmorphone HCL CARPU-JECT 1 MG/1 ML DISP.SYRIN IVPB ONE (15:15)
[2017-01-23 15:16] LABS: ALK PHOS 109 U/L (45-117); BILIRUBIN,TOTAL 0.8 mg/dL (0.2-1.0); TOT PROT 6.7 g/dl (6.4-8.2)
[2017-01-23 17:31] LABS: ALBUMIN 2.9 g/dl (3.4-5.0); ANION GAP 12 (8-16); BILIRUBIN,TOTAL 0.6 mg/dL (0.2-1.0); CALCIUM 8.6 mg/dL (8.5-10.1); CO2 25 mmol/L (21-32); CREATININE 5.4 mg/dL (0.7-1.3); GLUCOSE,RANDOM 110 mg/dL (74-106); SGOT/AST 9 U/L (15-37); SGPT/ALT 24 U/L (12-78); TOT PROT 6.5 g/dl (6.4-8.2)
[2017-01-23 17:32] LABS: ALK PHOS 105 U/L (45-117)
[2017-01-23] MEDS ORDERED: PT OWN MED DRAWER 7, Y5N ONE ×2 (18:57→21:25)
[2017-01-23] MEDS: HYDROmorphone HCL CARPU-JECT 1 MG/1 ML DISP.SYRIN IVPB PRN (20:33)
[2017-01-23] MEDS: LIDOCAINE PATCH REMOVAL MC SCH (22:46)
[2017-01-24] MEDS: HEPARIN NA (PORCINE) 5,000 UNITS/ML 1ML VIAL SQ SCH ×3 (06:33→21:11)
[2017-01-24 07:15] LABS: BASOPHIL 0.8 % (0-2.0); MCH 28.5 pg (25.7-33.7); MCHC 33.1 g/dl (32.0-35.9); MEAN CELL VOLUME 85.9 fl (80-96); MEAN PLT VOLUME 9.2 fl (7.5-11.1); PLATELET COUNT 229 K/MM3 (134-434); RDW 15.7 % (11.9-15.9); WHITE BLOOD COUNT 8.2 K/mm3 (4.0-10.0)
[2017-01-24 07:43] LABS: ALBUMIN 2.6 g/dl (3.4-5.0); ANION GAP 12 (8-16); BILIRUBIN,TOTAL 0.7 mg/dL (0.2-1.0); CALCIUM 8.3 mg/dL (8.5-10.1); CO2 24 mmol/L (21-32); CREATININE 5.4 mg/dL (0.7-1.3); GLUCOSE,RANDOM 88 mg/dL (74-106); MAGNESIUM 1.9 mg/dL (1.8-2.4); PHOSPHOROUS 5.6 mg/dL (2.5-4.9); SGOT/AST 11 U/L (15-37); SGPT/ALT 22 U/L (12-78)
[2017-01-24 07:44] LABS: ALK PHOS 97 U/L (45-117)
[2017-01-24] MEDS: HYDROmorphone HCL CARPU-JECT 1 MG/1 ML DISP.SYRIN IVPB PRN ×2 (08:00→14:18)
--- NOTE | 2017-01-24 08:09 | PN ---
Progress Note (short form) - Note Progress Note: surgery pt seen and examined. full consult dictated. 61m with multiple medical problems admitted for atypical pneumonia. Pt had chest pain that has now moved to ruq. u/s shows normal contracted gb. ct chest shows right sided effusion. wbc and lfts normal. plan- normal gb. ruq pain likely from pulmonary source. No indication for surgical exploration.
--- NOTE | 2017-01-24 08:23 | PN ---
Progress Note (short form) - Note Progress Note: Renal follow up for Renal Transplant and CKD5 Pt seen and examined at the bedside awake and alert reports more pronounced pain on his right side sob is improved no fever or chills Vital Signs Temperature 98.4 F 01/24/17 02:00 Pulse Rate 71 01/24/17 02:00 Respiratory Rate 18 01/24/17 02:00 Blood Pressure 116/54 01/24/17 02:00 O2 Sat by Pulse Oximetry (%) 98 01/23/17 21:00 Intake & Output 01/21/17 01/22/17 01/23/17 01/24/17 23:59 23:59 23:59 23:59 Intake Total 1440 1010 1150 150 Balance 1440 1010 1150 150 Weight 187 lb 6.4 oz 194 lb 3.2 oz Gen: NAD, awake and alert CVS: RRR, No M/R Lungs: Dec Bs lung bases, faint wheezing, no rales Abd: soft NT/ND Ext: No edema, clubbing or cyanosis CBC, BMP 01/24/17 06:30 01/24/17 06:30 Current Medications Acetaminophen (Tylenol -) 650 mg PO Q6H PRN PRN Reason: FEVER OR PAIN Last Admin: 01/21/17 10:59 Dose: 650 mg Allopurinol (Zyloprim -) 100 mg PO DAILY [facility] Last Admin: 01/23/17 11:55 Dose: Not Given Carvedilol (Coreg -) 25 mg PO BID [facility] Last Admin: 01/23/17 22:34 Dose: 25 mg Cholecalciferol (Vitamin D3 -) 2,000 unit PO DAILY [facility] Last Admin: 01/23/17 11:54 Dose: Not Given Furosemide (Lasix -) 40 mg PO DAILY [facility] Last Admin: 01/23/17 11:52 Dose: Not Given Heparin Sodium (Porcine) (Heparin -) 5,000 unit SQ TID [facility] Last Admin: 01/24/17 06:33 Dose: Not Given Hydromorphone HCl (Dilaudid Injection -) 0.5 mg IVPB Q6H PRN PRN Reason: PAIN Last Admin: 01/24/17 08:00 Dose: 0.5 mg Cefepime HCl 1 gm/ Dextrose 100 mls @ 200 mls/hr IVPB DAILY [facility] Last Admin: 01/23/17 11:53 Dose: Not Given Doxycycline Hyclate 100 mg/ (Dextrose) 100 mls @ 100 mls/hr IVPB BID [facility] Last Admin: 01/23/17 22:32 Dose: 100 mls/hr Lidocaine (Lidoderm Patch -) 1 patch TP DAILY [facility] Last Admin: 01/23/17 11:53 Dose: Not Given Miscellaneous (Lidoderm Patch Removal) 1 each MC DAILY@2200 [facility] Last Admin: 01/23/17 22:46 Dose: Not Given Sodium Bicarbonate (Sodium Bicarbonate -) 1,300 mg PO BID [facility] Last Admin: 01/23/17 22:33 Dose: 1,300 mg Tacrolimus (Prograf (Non-Formulary)) 2 mg PO BID [facility] Last Admin: 01/23/17 22:36 Dose: 2 mg Tacrolimus (Prograf (Non Formulary)) 5 mg PO BID [facility] Last Admin: 01/23/17 22:36 Dose: 5 mg Tramadol HCl (Ultram -) 50 mg PO Q12H PRN PRN Reason: PAIN Last Admin: 01/23/17 17:13 Dose: 50 mg A/p 61 year old Gentleman with PMhx of 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 #Shoulder Pain/Effusion/r/o PNA vs. 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
--- NOTE | 2017-01-24 10:11 | PN ---
Progress Note (short form) - Note Progress Note: Overall breathing feels better. His previous pleuritic type pain has seemed to shift to his RLQ. Patient is indicating discomfort/pain, stabbing in nature, in the lower quadrant. Noted right rib series noted. Intake & Output 01/21/17 01/22/17 01/23/17 01/24/17 23:59 23:59 23:59 23:59 Intake Total 1440 1010 1150 150 Balance 1440 1010 1150 150 Weight 187 lb 6.4 oz 194 lb 3.2 oz Last Vital Signs Temp Pulse Resp BP Pulse Ox 98.4 F 71 18 116/54 98 01/24/17 02:00 01/24/17 02:00 01/24/17 02:00 01/24/17 02:00 01/23/17 21:00 Active Medications Acetaminophen (Tylenol -) 650 mg PO Q6H PRN PRN Reason: FEVER OR PAIN Last Admin: 01/21/17 10:59 Dose: 650 mg Allopurinol (Zyloprim -) 100 mg PO DAILY [facility] Last Admin: 01/23/17 11:55 Dose: Not Given Carvedilol (Coreg -) 25 mg PO BID [facility] Last Admin: 01/23/17 22:34 Dose: 25 mg Cholecalciferol (Vitamin D3 -) 2,000 unit PO DAILY [facility] Last Admin: 01/23/17 11:54 Dose: Not Given Furosemide (Lasix -) 40 mg PO DAILY [facility] Last Admin: 01/23/17 11:52 Dose: Not Given Heparin Sodium (Porcine) (Heparin -) 5,000 unit SQ TID [facility] Last Admin: 01/24/17 06:33 Dose: Not Given Hydromorphone HCl (Dilaudid Injection -) 0.5 mg IVPB Q6H PRN PRN Reason: PAIN Last Admin: 01/24/17 08:00 Dose: 0.5 mg Cefepime HCl 1 gm/ Dextrose 100 mls @ 200 mls/hr IVPB DAILY [facility] Last Admin: 01/23/17 11:53 Dose: Not Given Doxycycline Hyclate 100 mg/ (Dextrose) 100 mls @ 100 mls/hr IVPB BID [facility] Last Admin: 01/23/17 22:32 Dose: 100 mls/hr Lidocaine (Lidoderm Patch -) 1 patch TP DAILY [facility] Last Admin: 01/23/17 11:53 Dose: Not Given Miscellaneous (Lidoderm Patch Removal) 1 each MC DAILY@2200 [facility] Last Admin: 01/23/17 22:46 Dose: Not Given Sodium Bicarbonate (Sodium Bicarbonate -) 1,300 mg PO BID [facility] Last Admin: 01/23/17 22:33 Dose: 1,300 mg Tacrolimus (Prograf (Non-Formulary)) 2 mg PO BID [facility] Last Admin: 01/23/17 22:36 Dose: 2 mg Tacrolimus (Prograf (Non Formulary)) 5 mg PO BID [facility] Last Admin: 01/23/17 22:36 Dose: 5 mg Tramadol HCl (Ultram -) 50 mg PO Q12H PRN PRN Reason: PAIN Last Admin: 01/23/17 17:13 Dose: 50 mg Constitutional: Yes: Well Nourished Eyes: Yes: WNL HENT: Yes: WNL Neck: Yes: WNL Cardiovascular: Yes: Regular Rate and Rhythm, S1, S2 Respiratory: Yes: Scattered Basilar Rhonchi Gastrointestinal: Yes: Normal Bowel Sounds, Soft Extremities: Yes: WNL Edema: No Labs: Laboratory Results - last 24 hr 01/19/17 01/23/17 01/23/17 14:00 05:48 16:00 WBC RBC Hgb Hct MCV MCH MCHC RDW Plt Count MPV Neutrophils % Lymphocytes % Monocytes % Eosinophils % Basophils % Sodium 137 136 Potassium 4.8 4.7 Chloride 101 99 Carbon Dioxide 23 25 Anion Gap 13 12 BUN 71 H 76 H Creatinine 5.2 H 5.4 H Creat Clearance w eGFR 10.92 Random Glucose 101 110 H Calcium 8.9 8.6 Phosphorus 5.8 H Magnesium 2.0 Total Bilirubin 0.8 0.6 D Direct Bilirubin 0.2 AST 10 L D 9 L ALT 28 24 Alkaline Phosphatase 109 105 Total Protein 6.7 6.5 Albumin 3.1 L 2.9 L Lipase Urine Histoplasma Ag 0.00 01/23/17 01/24/17 01/24/17 17:01 06:30 06:30 WBC 8.2 RBC 3.75 L Hgb 10.7 L D Hct 32.2 L MCV 85.9 MCH 28.5 MCHC 33.1 RDW 15.7 Plt Count 229 MPV 9.2 Neutrophils % 74.0 Lymphocytes % 10.9 Monocytes % 9.3 Eosinophils % 5.0 H Basophils % 0.8 Sodium 137 Potassium 4.7 Chloride 101 Carbon Dioxide 24 Anion Gap 12 BUN 73 H Creatinine 5.4 H Creat Clearance w eGFR 10.92 Random Glucose 88 Calcium 8.3 L Phosphorus 5.6 H Magnesium 1.9 Total Bilirubin 0.7 Direct Bilirubin AST 11 L D ALT 22 Alkaline Phosphatase 97 Total Protein 6.0 L Albumin 2.6 L Lipase 148 Urine Histoplasma Ag Problem List - Problems (1) Leukocytosis Code(s): D72.829 - ELEVATED WHITE BLOOD CELL COUNT, UNSPECIFIED Qualifiers: Leukocytosis type: unspecified Qualified Code(s): D72.829 - Elevated white blood cell count, unspecified (2) Pleural effusion on left Code(s): J90 - PLEURAL EFFUSION, NOT ELSEWHERE CLASSIFIED (3) Shortness of breath at rest Code(s): R06.02 - SHORTNESS OF BREATH (4) CHF (congestive heart failure) Code(s): I50.9 - HEART FAILURE, UNSPECIFIED Qualifiers: Congestive heart failure type: systolic Congestive heart failure chronicity: acute on chronic Qualified Code(s): I50.23 - Acute on chronic systolic (congestive) heart failure (5) COPD (chronic obstructive pulmonary disease) Code(s): J44.9 - CHRONIC OBSTRUCTIVE PULMONARY DISEASE, UNSPECIFIED Qualifiers : COPD type: unspecified COPD Qualified Code(s): J44.9 - Chronic obstructive pulmonary disease, unspecified (6) Dilated cardiomyopathy Code(s): I42.0 - DILATED CARDIOMYOPATHY (7) ESRD (end stage renal disease) Code(s): N18.6 - END STAGE RENAL DISEASE (8) HTN (hypertension) Code(s): I10 - ESSENTIAL (PRIMARY) HYPERTENSION Qualifiers: Hypertension type: essential hypertension Qualified Code(s): I10 - Essential (primary) hypertension (9) Pulmonary HTN Code(s): I27.2 - OTHER SECONDARY PULMONARY HYPERTENSION (10) Renal transplant recipient Code(s): Z94.0 - KIDNEY TRANSPLANT STATUS (11) Chest pain Code(s): R07.9 - CHEST PAIN, UNSPECIFIED Qualifiers: Chest pain type: other chest pain Qualified Code(s): R07.89 - Other chest pain; R07.8 - Other chest pain Assessment/Plan IMP FEVER,CP,SHOULDER PAIN IMPROVING ESRD S/P RENAL TRANSPLANT CARDIOMYOPATHY CHF PULMONARY HTN HTN H/O PLEURAL EFFUSION ( EXUDATE ,- CYTOLOGY,LIKELY UNCOMPLICATED PARA- PNEUMONIC EFFUSION) PLAN O2 ANTIBIOTICS PER ID INHALED BRONCHODILATORS LASIX WILL NEED FOLLOW UP CXR OUTPATIENT IMAGING TO BE OBTAINED (POSITION WHERE PATIENT IS INDICATING IS NOT PULMONARY) DR SILVA
[2017-01-24] MEDS ORDERED: CEFEPIME HCL 1 GM VIAL (RESTRICTED TO ID) ONE (10:26)
[2017-01-24] MEDS ORDERED: PT OWN MED DRAWER 7, Y5N ONE ×3 (10:26→21:10)
[2017-01-24] MEDS ORDERED: DEXTROSE 5%-WATER 100 ML IVPB ONE (10:27)
[2017-01-24] MEDS: FUROSEMIDE 40 MG TABLET (FP) PO SCH (10:29)
[2017-01-24] MEDS: ALLOPURINOL 100 MG TABLET (FP) PO SCH (10:32)
[2017-01-24] MEDS: CHOLECALCIFEROL (VITAMIN D3) 1,000 UNIT TABLET (FP) PO SCH (10:32)
[2017-01-24] MEDS: SODIUM BICARBONATE 650 MG TABLET PO SCH ×2 (10:32→21:12)
[2017-01-24] MEDS: CARVEDILOL 25 MG TABLET (FP) PO SCH ×2 (10:33→21:12)
[2017-01-24] MEDS: CEFEPIME 1 GM in DEXTROSE 5%-WATER 100 ML IVPB SCH (10:33)
[2017-01-24] MEDS: LIDOCAINE 5% TOPICAL PATCH TP SCH (10:35)
--- NOTE | 2017-01-24 10:48 | PN ---
Progress Note, Physician History of Present Illness: Right pleurisy resolved, now with RUQ discomfort, U/S negative for cholelithiasis, denies dyspnea. - Current Medication List Current Medications: Active Medications Acetaminophen (Tylenol -) 650 mg PO Q6H PRN PRN Reason: FEVER OR PAIN Last Admin: 01/21/17 10:59 Dose: 650 mg Allopurinol (Zyloprim -) 100 mg PO DAILY [facility] Last Admin: 01/23/17 11:55 Dose: Not Given Carvedilol (Coreg -) 25 mg PO BID [facility] Last Admin: 01/23/17 22:34 Dose: 25 mg Cholecalciferol (Vitamin D3 -) 2,000 unit PO DAILY [facility] Last Admin: 01/23/17 11:54 Dose: Not Given Furosemide (Lasix -) 40 mg PO DAILY [facility] Last Admin: 01/23/17 11:52 Dose: Not Given Heparin Sodium (Porcine) (Heparin -) 5,000 unit SQ TID [facility] Last Admin: 01/24/17 06:33 Dose: Not Given Hydromorphone HCl (Dilaudid Injection -) 0.5 mg IVPB Q6H PRN PRN Reason: PAIN Last Admin: 01/24/17 08:00 Dose: 0.5 mg Cefepime HCl 1 gm/ Dextrose 100 mls @ 200 mls/hr IVPB DAILY [facility] Last Admin: 01/23/17 11:53 Dose: Not Given Doxycycline Hyclate 100 mg/ (Dextrose) 100 mls @ 100 mls/hr IVPB BID [facility] Last Admin: 01/23/17 22:32 Dose: 100 mls/hr Lidocaine (Lidoderm Patch -) 1 patch TP DAILY [facility] Last Admin: 01/23/17 11:53 Dose: Not Given Miscellaneous (Lidoderm Patch Removal) 1 each MC DAILY@2200 [facility] Last Admin: 01/23/17 22:46 Dose: Not Given Sodium Bicarbonate (Sodium Bicarbonate -) 1,300 mg PO BID [facility] Last Admin: 01/23/17 22:33 Dose: 1,300 mg Tacrolimus (Prograf (Non-Formulary)) 2 mg PO BID [facility] Last Admin: 01/23/17 22:36 Dose: 2 mg Tacrolimus (Prograf (Non Formulary)) 5 mg PO BID [facility] Last Admin: 01/23/17 22:36 Dose: 5 mg Tramadol HCl (Ultram -) 50 mg PO Q12H PRN PRN Reason: PAIN Last Admin: 01/23/17 17:13 Dose: 50 mg - Objective Vital Signs: Vital Signs Temperature 98.4 F 01/24/17 02:00 Pulse Rate 71 01/24/17 02:00 Respiratory Rate 18 01/24/17 02:00 Blood Pressure 116/54 01/24/17 02:00 O2 Sat by Pulse Oximetry (%) 98 01/23/17 21:00 Constitutional: Yes: No Distress, Calm Neck: Yes: Supple Cardiovascular: Yes: Regular Rate and Rhythm Respiratory: Yes: Regular, Diminished Gastrointestinal: Yes: Normal Bowel Sounds, Soft Edema: No Labs: CBC, BMP 01/24/17 06:30 01/24/17 06:30 INR, PTT INR 1.07 (0.82-1.09) 01/18/17 22:21 Assessment/Plan 01/06/2017 Echo: Mod NC, severely dilated LV, severe NIKOLAY, moderate decreased LV fxn, mod-severe MR, TR,, severe AR, mild RV dilated and decreased RV fxn 1. History of left pneumonia status post thoracentesis for drain of parapneumonic fluid 2. ESRD and history of renal transplant 3. History of hypertension 4. Moderate left ventricular systolic dysfunction - dilated cardiomyopathy 5. Valvular heart disease - moderate to severe aortic valve stenosis and severe aortic valve regurgitation 6. Moderate to severe mitral and tricuspid valve regurgitation 7. Moderate pulmonic valve regurgitation 8. Pulmonary hypertension with underlying COPD and cigarette smoking 9. Demand ischemia - resolved 10. Episode of narrow complex tachycardia - nonsustained likely represents SVT PLAN: 1. Empiric antibiotic coverage as per ID. Currently there appears to be no need for repeat thoracentesis in view of reduced WBC and clinical improvement 2. Continue Carvedilol 25 bid, Lasix 40 qd, BiDil as hemodynamics tolerate 3. ACEI or ARB not being used due to underlying history of renal transplant and elevated creatinine due to CKD 4. 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 5. Renal function is to be followed closely, immunosupression per nephrology. 6. DVT prophylaxis
--- NOTE | 2017-01-24 11:05 | PN ---
Progress Note (short form) - Note Progress Note: remains uncomfortable reports chest pain has gone continues RUQ pain Vital Signs Period Temp Pulse Resp BP Sys/Ly Pulse Ox Last 24 Hr 97.7 F-98.4 F 68-71 18-20 116-130/54-90 95-98 cor-rrr lungs decreased bs at left base abd soft,nRUQ discomfort to palpation ext no edema CBC, BMP 01/24/17 06:30 01/24/17 06:30 01/19/17 00:12 Blood - Peripheral Venous Blood Culture - Preliminary NO GROWTH OBTAINED AFTER 72 HOURS, INCUBATION TO CONTINUE FOR 2 DAYS. 01/20/17 12:00 Urine For Antigen Detection Legionella Antigen - Final 01/20/17 12:00 Urine For Antigen Detection Streptococcus pneumoniae Antigen (M - Final 01/20/17 05:35 Serum Cryptococcal Antigen - Preliminary 01/20/17 05:35 Serum Legionella Serology - Preliminary urine histoplasma antigen negative a/p recurrent fever/pneumonia/effusion in immunocompromised host-nonproductive cough cxray with cardiomegaly and left effusion fevers resolved continue cefepime/doxycycline histo antigen negative/chlamydia serology pending ?infectious, ?inflammatory, ?medication induced new RUQ pain- sonogram unrevealing, surgical note reviewed would get ct scan abd/pelvis given continued abdominal pain s/p renal transplant with ckd- on meds Problem List - Problems (1) Fever Code(s): R50.9 - FEVER, UNSPECIFIED Qualifiers: Fever type: unspecified Qualified Code(s): R50.9 - Fever, unspecified (2) Shoulder pain, left Code(s): M25.512 - PAIN IN LEFT SHOULDER Qualifiers: Chronicity: acute Qualified Code(s): M25.512 - Pain in left shoulder (3) Pneumonia Code(s): J18.9 - PNEUMONIA, UNSPECIFIED ORGANISM Qualifiers: Pneumonia type: due to unspecified organism Laterality: left Lung location: lower lobe of lung Qualified Code(s): J18.1 - Lobar pneumonia, unspecified organism (4) Pleural effusion on left Code(s): J90 - PLEURAL EFFUSION, NOT ELSEWHERE CLASSIFIED (5) CHF (congestive heart failure) Code(s): I50.9 - HEART FAILURE, UNSPECIFIED Qualifiers: Congestive heart failure type: systolic Congestive heart failure chronicity: acute on chronic Qualified Code(s): I50.23 - Acute on chronic systolic (congestive) heart failure (6) Renal transplant recipient Code(s): Z94.0 - KIDNEY TRANSPLANT STATUS
[2017-01-24] MEDS: DOXYCYCLINE INJECTION 100 MG in DEXTROSE 5%-WATER - 100 ML IVPB SCH ×2 (11:47→21:11)
[2017-01-24] MEDS: TACROLIMUS 5 MG PO SCH ×2 (11:51→21:13)
[2017-01-24] MEDS: TACROLIMUS ANHYDROUS 1 MG PO SCH ×2 (11:52→21:13)
--- NOTE | 2017-01-24 15:48 | CONS ---
DATE OF CONSULTATION: 01/24/2017 REASON FOR CONSULTATION: Right upper quadrant pain. This is an inpatient consultation at the request of Dr. Reyna Rojas. BRIEF HISTORY: This is a 61-year-old male with multiple medical problems, including end-stage renal disease, nephrectomy for infection, renal transplant, pneumonia, heart failure, pleural effusions, COPD, hyperlipidemia, gout, and hypertension, who was admitted to [facility] for chest pain, fever, and atypical pneumonia. He had a CAT scan of his chest, which showed an effusion on the right side. He had an ultrasound done, which showed a normal gallbladder that was contracted. Patient developed pain that moved to his right upper quadrant, and because of this, a surgical consultation was requested. He denies nausea or vomiting. He had been tolerating diet and he has normal liver function tests and a normal white blood cell count. His past surgical history is significant for renal transplant and a thoracentesis. His social history is positive for tobacco, negative for alcohol. FAMILY HISTORY: Noncontributory. He has no known drug allergies. His hospital medications include cefepime antibiotic, doxycycline, subcutaneous heparin, allopurinol, Coreg, tacrolimus, Lasix, tramadol, Dilaudid. REVIEW OF SYSTEMS: General: Admits to fatigue. Cardiac: Denies chest pain or palpitations. Respiratory: Admits to shortness of breath. Gastrointestinal: No nausea, no vomiting. Admits to right upper quadrant pain. No diarrhea. No blood in his stool. Genitourinary: Denies dysuria. Musculoskeletal: Denies joint pain, joint swelling. Psychiatric: Denies anxiety, depression, or hearing voices. PHYSICAL EXAMINATION: General: This is a well-developed, well-nourished, 61-year-old male in no distress. Vital Signs: He is afebrile. His last fever was on January 19. HEENT: His head is normocephalic. Sclerae anicteric. Neck: Supple. Chest: Clear. Abdomen: Soft. There are multiple surgical scars. He has mild right upper quadrant tenderness. He has no hernias. Extremities: His extremities have trace or edema. LABORATORY: As in HPI. IMAGING: As in HPI. ASSESSMENT: A 61-year-old male with a right-sided pleural effusion, with atypical pneumonia, now with right upper quadrant pain and a normal gallbladder on ultrasound. Clinically this is not acute cholecystitis. I suspect he has a pulmonary source of his right upper quadrant pain. There is no indication for surgical exploration. Would recommend continue his treatment for his pneumonia, continue his renal diet, which he is tolerating. I will be available as needed. DO TERESA REYNAGA/[id number]
--- NOTE | 2017-01-24 16:08 | PN ---
Progress Note (short form) - Note Progress Note: Patient feels better today but constipated. Vital Signs Temperature 97.6 F 01/24/17 15:42 Pulse Rate 65 01/24/17 15:42 Respiratory Rate 18 01/24/17 15:42 Blood Pressure 115/69 01/24/17 15:42 O2 Sat by Pulse Oximetry (%) 98 01/23/17 21:00 GENERAL: Awake, alert, and fully oriented, in no acute distress. EYES: Pupils equal, round and reactive to light, extraocular movements intact, sclera anicteric, conjunctiva clear. EARS, NOSE, THROAT: oropharynx clear without exudates. Moist mucous membranes. NECK: Normal range of motion, supple without lymphadenopathy, JVD, or masses. LUNGS: b/l basilar crackles, No wheezing , GAE on the right and the left decreased air entry. HEART: Regular rate and rhythm, normal S1 and S2 without murmur, rub or gallop. ABDOMEN: Soft, RUQ tenderness improvrd . not distended, normoactive bowel sounds , no guarding, no rebound, no masses. EXTREMITIES: 2+ pulses, warm, well-perfused. No cyanosis. No clubbing. left forearm with palpable thrill at AV fistula. CBCD WBC 8.2 K/mm3 (4.0-10.0) 01/24/17 06:30 RBC 3.75 M/mm3 (4.00-5.60) L 01/24/17 06:30 Hgb 10.7 GM/dL (11.7-16.9) L D 01/24/17 06:30 Hct 32.2 % (35.4-49) L 01/24/17 06:30 MCV 85.9 fl (80-96) 01/24/17 06:30 MCHC 33.1 g/dl (32.0-35.9) 01/24/17 06:30 RDW 15.7 % (11.9-15.9) 01/24/17 06:30 Plt Count 229 K/MM3 (134-434) 01/24/17 06:30 MPV 9.2 fl (7.5-11.1) 01/24/17 06:30 CMP Sodium 137 mmol/L (136-145) 01/24/17 06:30 Potassium 4.7 mmol/L (3.5-5.1) 01/24/17 06:30 Chloride 101 mmol/L (98-107) 01/24/17 06:30 Carbon Dioxide 24 mmol/L (21-32) 01/24/17 06:30 Anion Gap 12 (8-16) 01/24/17 06:30 BUN 73 mg/dL (7-18) H 01/24/17 06:30 Creatinine 5.4 mg/dL (0.7-1.3) H 01/24/17 06:30 Creat Clearance w eGFR 10.92 (>60) 01/24/17 06:30 Random Glucose 88 mg/dL (74-106) 01/24/17 06:30 Calcium 8.3 mg/dL (8.5-10.1) L 01/24/17 06:30 Total Bilirubin 0.7 mg/dL (0.2-1.0) 01/24/17 06:30 AST 11 U/L (15-37) L D 01/24/17 06:30 ALT 22 U/L (12-78) 01/24/17 06:30 Alkaline Phosphatase 97 U/L (45-117) 01/24/17 06:30 Total Protein 6.0 g/dl (6.4-8.2) L 01/24/17 06:30 Albumin 2.6 g/dl (3.4-5.0) L 01/24/17 06:30 CARDIAC ENZYMES Creatine Kinase 54 IU/L (39-308) 01/19/17 11:50 Troponin I 0.06 ng/ml (0.00-0.05) H 01/19/17 11:50 Current Medications Generic Name Dose Route Start Last Admin Trade Name Freq PRN Reason Stop Dose Admin Acetaminophen 650 mg 01/19/17 13:55 01/21/17 10:59 Tylenol - PO 650 mg Q6H PRN Administration FEVER OR PAIN Allopurinol 100 mg 01/19/17 10:00 01/24/17 10:32 Zyloprim - PO 100 mg DAILY [facility] Administration Carvedilol 25 mg 01/22/17 22:00 01/24/17 10:33 Coreg - PO 25 mg BID [facility] Administration Cholecalciferol 2,000 unit 01/19/17 10:00 01/24/17 10:32 Vitamin D3 - PO 2,000 unit DAILY [facility] Administration Furosemide 40 mg 01/20/17 10:00 01/24/17 10:29 Lasix - PO 40 mg DAILY [facility] Administration Heparin Sodium (Porcine) 5,000 unit 01/19/17 06:00 01/24/17 14:17 Heparin - SQ 5,000 unit TID [facility] Administration Hydromorphone HCl 0.5 mg 01/23/17 15:26 01/24/17 14:18 Dilaudid Injection - IVPB 0.5 mg Q6H PRN Administration PAIN Cefepime HCl 1 gm/ Dextrose 100 mls @ 200 mls/hr 01/19/17 14:00 01/24/17 10:33 IVPB 200 mls/hr DAILY [facility] Administration Doxycycline Hyclate 100 mg/ 100 mls @ 100 mls/hr 01/21/17 10:00 01/24/17 11:47 Dextrose IVPB 100 mls/hr BID [facility] Administration Lidocaine 1 patch 01/19/17 14:00 01/24/17 10:35 Lidoderm Patch - TP 1 patch DAILY [facility] Administration Miscellaneous 1 each 01/19/17 22:00 01/23/17 22:46 Lidoderm Patch Removal MC Not Given DAILY@2200 [facility] Sodium Bicarbonate 1,300 mg 01/19/17 10:00 01/24/17 10:32 Sodium Bicarbonate - PO 1,300 mg BID [facility] Administration Tacrolimus 2 mg 01/19/17 14:45 01/24/17 11:52 Prograf (Non-Formulary) PO 2 mg BID [facility] Administration Tacrolimus 5 mg 01/19/17 14:45 01/24/17 11:51 Prograf (Non Formulary) PO 5 mg BID [facility] Administration Tramadol HCl 50 mg 01/22/17 11:46 01/23/17 17:13 Ultram - PO 50 mg Q12H PRN Administration PAIN Home Medications Medication Instructions Recorded Mycophenolate Mofetil [Cellcept] 250 mg PO DAILY 03/24/14 Tacrolimus [Prograf] 7 mg PO BID 03/24/14 Allopurinol [Zyloprim -] 100 mg PO PRN 11/18/15 Sodium Bicarbonate 1,300 mg PO BID 11/18/15 Carvedilol [Coreg -] 12.5 mg PO BID #60 tablet 11/21/15 Ergocalciferol (Vitamin D2) 2,000 unit PO DAILY 01/04/17 [Vitamin D2] Furosemide 20 mg PO BID 01/04/17 Allopurinol [Zyloprim -] 100 mg PO DAILY tablet 01/08/17 Amox-Tr/K Cl [Augmentin - 500Mg 1 tab PO BID #14 tab 01/08/17 Tablet] Cholecalciferol (Vitamin D3) 2,000 unit PO DAILY tab 01/08/17 [Vitamin D3 -] US of liver reviewed: benign, see the report CT of abdomen and pelvis: positive for Fecal retention ASSESSMENT AND PLAN: 61 y/o Lady with h/o end stage renal failure s/p renal transplant with chronic rejection , h/o HTN and severe cardiomyopathy , recent admisison for PNA and pleural effusion , who presented with SOB and L sided CP . He was found to have HCAP # Acute constipation on Colace tid, glycerin suppo. and Mineral enema x 1 dose # Acute RUQ pain improved , US no gallstone . # Recurrent Pleural effusion on the left >right, continue cefepime and doxycycline. Patient is more prone not to having thoracocentesis.s/p thoracentesis last admission, patient is on Lasix as well. continue [pain meds. # HCAP : on Cefepime and doxycyline continue as per ID. #s/p Acute chest pain due to pleural effusion; pleuretic in nature, EKG with no change from prior . #s/p L shoulder pain : no restriction of movements, no erythema or edema, no further shoulder pain. # ESRD s/p renal transplant with chronic rejection and nephrosclerosis with hx of HTN and heart failure. cr at his base line hold lasix until evaluated by renal , hold cellcept as per nephro, cont tacrulimus, as per nephro, pt will need to bring his own medication will repeat labs in am # H/o Severe Cardiomyopathy, and systolic heart failure. echo last admission with severely reduced EF and multiple valvular problems cont Coreg 12.5 mg, Lasix as per cardio. DVT px :heparin Visit type - Emergency Visit Emergency Visit: Yes ED Registration Date: 01/19/17 Care time: The patient presented to the Emergency Department on the above date and was hospitalized for further evaluation of their emergent condition. - New Patient This patient is new to me today: No - Critical Care Critical Care patient: No
[2017-01-24] MEDS: traMADol HCL 50 MG TABLET PO PRN (17:36)
[2017-01-24] MEDS ORDERED: GLYCERIN 1 RECTAL SUPPOSITORY, ADULT PR PRN (17:47)
[2017-01-24] MEDS ORDERED: MINERAL OIL ENEMA 133 ML ENEMA PR ONE (17:47)
[2017-01-24] MEDS: DOCUSATE SODIUM 100 MG CAPSULE (FP) PO SCH (21:11)
[2017-01-24] MEDS: LIDOCAINE PATCH REMOVAL MC SCH (21:14)
[2017-01-25] MEDS: DOCUSATE SODIUM 100 MG CAPSULE (FP) PO SCH ×3 (07:51→21:42)
[2017-01-25] MEDS: HEPARIN NA (PORCINE) 5,000 UNITS/ML 1ML VIAL SQ SCH ×3 (07:52→21:41)
[2017-01-25] MEDS ORDERED: DEXTROSE 5%-WATER 100 ML IVPB ONE (09:30)
[2017-01-25] MEDS ORDERED: CEFEPIME HCL 1 GM VIAL (RESTRICTED TO ID) ONE (09:30)
[2017-01-25] MEDS ORDERED: PT OWN MED DRAWER 7, Y5N ONE ×4 (09:32→20:53)
[2017-01-25] MEDS: ALLOPURINOL 100 MG TABLET (FP) PO SCH (09:46)
[2017-01-25] MEDS: SODIUM BICARBONATE 650 MG TABLET PO SCH ×2 (09:46→21:43)
[2017-01-25] MEDS: CARVEDILOL 25 MG TABLET (FP) PO SCH ×2 (09:47→21:42)
[2017-01-25] MEDS: FUROSEMIDE 40 MG TABLET (FP) PO SCH (09:47)
[2017-01-25] MEDS: CHOLECALCIFEROL (VITAMIN D3) 1,000 UNIT TABLET (FP) PO SCH (09:47)
[2017-01-25] MEDS: CEFEPIME 1 GM in DEXTROSE 5%-WATER 100 ML IVPB SCH (09:48)
[2017-01-25] MEDS: LIDOCAINE 5% TOPICAL PATCH TP SCH ×2 (09:49→14:53)
[2017-01-25] MEDS: TACROLIMUS 5 MG PO SCH ×2 (09:51→21:44)
[2017-01-25] MEDS: TACROLIMUS ANHYDROUS 1 MG PO SCH ×2 (09:52→22:22)
--- NOTE | 2017-01-25 10:06 | PN ---
Progress Note (short form) - Note Progress Note: PULMONARY Reports improvement in abdominal pain. No shortness of breath. No fevers or chills. CT A/P showing some fecal retention, lung bases appear unchanged. Last Vital Signs Temp Pulse Resp BP Pulse Ox 98.2 F 73 20 123/72 96 01/25/17 06:00 01/25/17 06:00 01/25/17 06:00 01/25/17 06:00 01/24/17 21:00 Gen: NAD at rest Heart: RRR Lung: decreased breath sounds at the bases Abd: soft, nontender Ext: no edema CBC, BMP 01/24/17 06:30 01/24/17 06:30 Active Medications Acetaminophen (Tylenol -) 650 mg PO Q6H PRN PRN Reason: FEVER OR PAIN Last Admin: 01/21/17 10:59 Dose: 650 mg Allopurinol (Zyloprim -) 100 mg PO DAILY [facility] Last Admin: 01/25/17 09:46 Dose: 100 mg Carvedilol (Coreg -) 25 mg PO BID [facility] Last Admin: 01/25/17 09:47 Dose: 25 mg Cholecalciferol (Vitamin D3 -) 2,000 unit PO DAILY [facility] Last Admin: 01/25/17 09:47 Dose: 2,000 unit Docusate Sodium (Colace -) 100 mg PO TID [facility] Last Admin: 01/25/17 07:51 Dose: Not Given Furosemide (Lasix -) 40 mg PO DAILY [facility] Last Admin: 01/25/17 09:47 Dose: 40 mg Glycerin (Glycerin Suppository Adult -) 2 each [place] DAILY PRN PRN Reason: CONSTIPATION Heparin Sodium (Porcine) (Heparin -) 5,000 unit SQ TID [facility] Last Admin: 01/25/17 07:52 Dose: Not Given Hydromorphone HCl (Dilaudid Injection -) 0.5 mg IVPB Q6H PRN PRN Reason: PAIN Last Admin: 01/24/17 14:18 Dose: 0.5 mg Cefepime HCl 1 gm/ Dextrose 100 mls @ 200 mls/hr IVPB DAILY [facility] Last Admin: 01/25/17 09:48 Dose: 200 mls/hr Doxycycline Hyclate 100 mg/ (Dextrose) 100 mls @ 100 mls/hr IVPB BID [facility] Last Admin: 01/24/17 21:11 Dose: 100 mls/hr Lidocaine (Lidoderm Patch -) 1 patch TP DAILY [facility] Last Admin: 01/25/17 09:49 Dose: 1 patch Miscellaneous (Lidoderm Patch Removal) 1 each MC DAILY@2200 [facility] Last Admin: 01/24/17 21:14 Dose: Not Given Sodium Bicarbonate (Sodium Bicarbonate -) 1,300 mg PO BID [facility] Last Admin: 01/25/17 09:46 Dose: 1,300 mg Tacrolimus (Prograf (Non-Formulary)) 2 mg PO BID [facility] Last Admin: 01/25/17 09:52 Dose: 2 mg Tacrolimus (Prograf (Non Formulary)) 5 mg PO BID [facility] Last Admin: 01/25/17 09:51 Dose: 5 mg Tramadol HCl (Ultram -) 50 mg PO Q12H PRN PRN Reason: PAIN Last Admin: 01/24/17 17:36 Dose: 50 mg A/P Recent Pneumonia with parapneumonic effusion s/p thoracentesis ESRD s/p renal transplant LV Systolic Dysfunction Aortic Stenosis/Regurgitation Pulmonary HTN COPD Atelectasis - antibiotics per ID - will order incentive spirometry - encourage ambulation - monitor urine output, creatinine - DVT prophylaxis
--- NOTE | 2017-01-25 10:09 | PN ---
Progress Note (short form) - Note Progress Note: less abdominal discomfort ct scan with fecal retention- feels better after BM Vital Signs Period Temp Pulse Resp BP Sys/Ly Pulse Ox Last 24 Hr 97.6 F-98.4 F 65-73 18-20 115-123/65-72 96 cor-rrr lungs decreased bs at bases abd soft,nt ext no edema Laboratory Tests 01/21/17 11:00 Cold Agglutinins Negative urine histoplasma antigen negative Microbiology 01/20/17 05:35 Serum Cryptococcal Antigen - Final 01/19/17 00:12 Blood - Peripheral Venous Blood Culture - Final NO GROWTH AFTER 5 DAYS INCUBATION 01/20/17 12:00 Urine For Antigen Detection Legionella Antigen - Final 01/20/17 12:00 Urine For Antigen Detection Streptococcus pneumoniae Antigen (M - Final 01/20/17 05:35 Serum Legionella Serology - Preliminary Current Medications Acetaminophen (Tylenol -) 650 mg PO Q6H PRN PRN Reason: FEVER OR PAIN Last Admin: 01/21/17 10:59 Dose: 650 mg Allopurinol (Zyloprim -) 100 mg PO DAILY [facility] Last Admin: 01/25/17 09:46 Dose: 100 mg Carvedilol (Coreg -) 25 mg PO BID [facility] Last Admin: 01/25/17 09:47 Dose: 25 mg Cholecalciferol (Vitamin D3 -) 2,000 unit PO DAILY [facility] Last Admin: 01/25/17 09:47 Dose: 2,000 unit Docusate Sodium (Colace -) 100 mg PO TID [facility] Last Admin: 01/25/17 07:51 Dose: Not Given Furosemide (Lasix -) 40 mg PO DAILY [facility] Last Admin: 01/25/17 09:47 Dose: 40 mg Glycerin (Glycerin Suppository Adult -) 2 each [place] DAILY PRN PRN Reason: CONSTIPATION Heparin Sodium (Porcine) (Heparin -) 5,000 unit SQ TID [facility] Last Admin: 01/25/17 07:52 Dose: Not Given Hydromorphone HCl (Dilaudid Injection -) 0.5 mg IVPB Q6H PRN PRN Reason: PAIN Last Admin: 01/24/17 14:18 Dose: 0.5 mg Cefepime HCl 1 gm/ Dextrose 100 mls @ 200 mls/hr IVPB DAILY [facility] Last Admin: 09/18/17 09:48 Dose: 200 mls/hr Doxycycline Hyclate 100 mg/ (Dextrose) 100 mls @ 100 mls/hr IVPB BID [facility] Last Admin: 01/24/17 21:11 Dose: 100 mls/hr Lidocaine (Lidoderm Patch -) 1 patch TP DAILY [facility] Last Admin: 01/25/17 09:49 Dose: 1 patch Miscellaneous (Lidoderm Patch Removal) 1 each MC DAILY@2200 [facility] Last Admin: 01/24/17 21:14 Dose: Not Given Sodium Bicarbonate (Sodium Bicarbonate -) 1,300 mg PO BID [facility] Last Admin: 01/25/17 09:46 Dose: 1,300 mg Tacrolimus (Prograf (Non-Formulary)) 2 mg PO BID [facility] Last Admin: 01/25/17 09:52 Dose: 2 mg Tacrolimus (Prograf (Non Formulary)) 5 mg PO BID [facility] Last Admin: 01/25/17 09:51 Dose: 5 mg Tramadol HCl (Ultram -) 50 mg PO Q12H PRN PRN Reason: PAIN Last Admin: 01/24/17 17:36 Dose: 50 mg a/p recurrent fever/pneumonia/effusion in immunocompromised host-nonproductive cough cxray with cardiomegaly and left effusion fevers resolved continue cefepime/doxycycline day #7 today repeat esr/crp effusions look stable on ct scan add incentive spirometry ?home tomorrow d/w pulmonary histo antigen negative/chlamydia serology pending cold agglutinins negative crypt antigen negative REPORTS NO HIV RISK FACTORS, DECLINES TESTING AT THIS TIME ?infectious, ?inflammatory, ?medication induced s/p renal transplant with ckd- on meds Problem List - Problems (1) Fever Code(s): R50.9 - FEVER, UNSPECIFIED Qualifiers: Fever type: unspecified Qualified Code(s): R50.9 - Fever, unspecified (2) Shoulder pain, left Code(s): M25.512 - PAIN IN LEFT SHOULDER Qualifiers: Chronicity: acute Qualified Code(s): M25.512 - Pain in left shoulder (3) Pneumonia Code(s): J18.9 - PNEUMONIA, UNSPECIFIED ORGANISM Qualifiers: Pneumonia type: due to unspecified organism Laterality: left Lung location: lower lobe of lung Qualified Code(s): J18.1 - Lobar pneumonia, unspecified organism (4) Pleural effusion on left Code(s): J90 - PLEURAL EFFUSION, NOT ELSEWHERE CLASSIFIED (5) CHF (congestive heart failure) Code(s): I50.9 - HEART FAILURE, UNSPECIFIED Qualifiers: Congestive heart failure type: systolic Congestive heart failure chronicity: acute on chronic Qualified Code(s): I50.23 - Acute on chronic systolic (congestive) heart failure (6) Renal transplant recipient Code(s): Z94.0 - KIDNEY TRANSPLANT STATUS
--- NOTE | 2017-01-25 10:15 | PN ---
Progress Note, Physician Chief Complaint: Feels better and clinically improving History of Present Illness: Patien was seen and examined. Awake and alert. Chart was reviewed As outlined above. Denies chest pain and less SOB. No palpitations - Current Medication List Current Medications: Active Medications Acetaminophen (Tylenol -) 650 mg PO Q6H PRN PRN Reason: FEVER OR PAIN Last Admin: 01/21/17 10:59 Dose: 650 mg Allopurinol (Zyloprim -) 100 mg PO DAILY [facility] Last Admin: 01/25/17 09:46 Dose: 100 mg Carvedilol (Coreg -) 25 mg PO BID [facility] Last Admin: 01/25/17 09:47 Dose: 25 mg Cholecalciferol (Vitamin D3 -) 2,000 unit PO DAILY [facility] Last Admin: 01/25/17 09:47 Dose: 2,000 unit Docusate Sodium (Colace -) 100 mg PO TID [facility] Last Admin: 01/25/17 07:51 Dose: Not Given Furosemide (Lasix -) 40 mg PO DAILY [facility] Last Admin: 01/25/17 09:47 Dose: 40 mg Glycerin (Glycerin Suppository Adult -) 2 each [place] DAILY PRN PRN Reason: CONSTIPATION Heparin Sodium (Porcine) (Heparin -) 5,000 unit SQ TID [facility] Last Admin: 01/25/17 07:52 Dose: Not Given Hydromorphone HCl (Dilaudid Injection -) 0.5 mg IVPB Q6H PRN PRN Reason: PAIN Last Admin: 01/24/17 14:18 Dose: 0.5 mg Cefepime HCl 1 gm/ Dextrose 100 mls @ 200 mls/hr IVPB DAILY [facility] Last Admin: 01/25/17 09:48 Dose: 200 mls/hr Doxycycline Hyclate 100 mg/ (Dextrose) 100 mls @ 100 mls/hr IVPB BID [facility] Last Admin: 01/24/17 21:11 Dose: 100 mls/hr Lidocaine (Lidoderm Patch -) 1 patch TP DAILY [facility] Last Admin: 01/25/17 09:49 Dose: 1 patch Miscellaneous (Lidoderm Patch Removal) 1 each MC DAILY@2200 [facility] Last Admin: 01/24/17 21:14 Dose: Not Given Sodium Bicarbonate (Sodium Bicarbonate -) 1,300 mg PO BID [facility] Last Admin: 01/25/17 09:46 Dose: 1,300 mg Tacrolimus (Prograf (Non-Formulary)) 2 mg PO BID [facility] Last Admin: 01/25/17 09:52 Dose: 2 mg Tacrolimus (Prograf (Non Formulary)) 5 mg PO BID [facility] Last Admin: 01/25/17 09:51 Dose: 5 mg Tramadol HCl (Ultram -) 50 mg PO Q12H PRN PRN Reason: PAIN Last Admin: 01/24/17 17:36 Dose: 50 mg - Objective Vital Signs: Vital Signs Temperature 98.2 F 01/25/17 06:00 Pulse Rate 73 01/25/17 06:00 Respiratory Rate 20 01/25/17 06:00 Blood Pressure 123/72 01/25/17 06:00 O2 Sat by Pulse Oximetry (%) 96 01/24/17 21:00 Neck: Yes: Supple Cardiovascular: Yes: Regular Rate and Rhythm, Murmur (2-3/6 PUNEET right intercostal space and 2/6 holosystolic SM apex), S1, S2 Respiratory: Yes: CTA Bilaterally Gastrointestinal: Yes: Normal Bowel Sounds, Soft. No: Tenderness Edema: No Labs: CBC, BMP 01/24/17 06:30 01/24/17 06:30 Problem List - Problems (1) Fever Code(s): R50.9 - FEVER, UNSPECIFIED Qualifiers: Fever type: unspecified Qualified Code(s): R50.9 - Fever, unspecified (2) Leukocytosis Code(s): D72.829 - ELEVATED WHITE BLOOD CELL COUNT, UNSPECIFIED Qualifiers: Leukocytosis type: unspecified Qualified Code(s): D72.829 - Elevated white blood cell count, unspecified (3) Pleural effusion on left Code(s): J90 - PLEURAL EFFUSION, NOT ELSEWHERE CLASSIFIED (4) Pneumonia Code(s): J18.9 - PNEUMONIA, UNSPECIFIED ORGANISM Qualifiers: Pneumonia type: due to unspecified organism Laterality: left Lung location: lower lobe of lung Qualified Code(s): J18.1 - Lobar pneumonia, unspecified organism (5) Shortness of breath at rest Code(s): R06.02 - SHORTNESS OF BREATH (6) Shoulder pain, left Code(s): M25.512 - PAIN IN LEFT SHOULDER Qualifiers: Chronicity: acute Qualified Code(s): M25.512 - Pain in left shoulder (7) CHF (congestive heart failure) Code(s): I50.9 - HEART FAILURE, UNSPECIFIED Qualifiers: Congestive heart failure type: systolic Congestive heart failure chronicity: acute on chronic Qualified Code(s): I50.23 - Acute on chronic systolic (congestive) heart failure (8) COPD (chronic obstructive pulmonary disease) Code(s): J44.9 - CHRONIC OBSTRUCTIVE PULMONARY DISEASE, UNSPECIFIED Qualifiers : COPD type: unspecified COPD Qualified Code(s): J44.9 - Chronic obstructive pulmonary disease, unspecified (9) Dilated cardiomyopathy Code(s): I42.0 - DILATED CARDIOMYOPATHY (10) ESRD (end stage renal disease) Code(s): N18.6 - END STAGE RENAL DISEASE (11) HTN (hypertension) Code(s): I10 - ESSENTIAL (PRIMARY) HYPERTENSION Qualifiers: Hypertension type: essential hypertension Qualified Code(s): I10 - Essential (primary) hypertension (12) Pulmonary HTN Code(s): I27.2 - OTHER SECONDARY PULMONARY HYPERTENSION (13) Renal transplant recipient Code(s): Z94.0 - KIDNEY TRANSPLANT STATUS (14) Acute on chronic systolic heart failure Code(s): I50.23 - ACUTE ON CHRONIC SYSTOLIC (CONGESTIVE) HEART FAILURE (15) Aortic regurgitation Code(s): I35.1 - NONRHEUMATIC AORTIC (VALVE) INSUFFICIENCY Qualifiers: Cardiac valve disease etiology: nonrheumatic Qualified Code(s): I35.1 - Nonrheumatic aortic (valve) insufficiency (16) Aortic stenosis Code(s): I35.0 - NONRHEUMATIC AORTIC (VALVE) STENOSIS Qualifiers: Cardiac valve disease etiology: nonrheumatic Qualified Code(s): I35.0 - Nonrheumatic aortic (valve) stenosis (17) Mitral regurgitation Code(s): I34.0 - NONRHEUMATIC MITRAL (VALVE) INSUFFICIENCY Qualifiers: Cardiac valve disease etiology: nonrheumatic Qualified Code(s): I34.0 - Nonrheumatic mitral (valve) insufficiency (18) Tricuspid valve regurgitation Code(s): I07.1 - RHEUMATIC TRICUSPID INSUFFICIENCY Qualifiers: Cardiac valve disease etiology: nonrheumatic Qualified Code(s): I36.1 - Nonrheumatic tricuspid (valve) insufficiency (19) Pulmonic valve regurgitation Qualifiers: Cardiac valve disease etiology: nonrheumatic Qualified Code(s): I37.1 - Nonrheumatic pulmonary valve insufficiency Assessment/Plan 1. Left shoulder pain - likely musculoskeletal - resolved 2. History of left pneumonia status post thoracentesis for drain of parapneumonic fluid 3. ESRD and history of renal transplant 4. History of hypertension 5. Severe left ventricular systolic dysfunction - dilated cardiomyopathy 6. Valvular heart disease - moderate to severe aortic valve stenosis and severe aortic valve regurgitation 7. Moderate to severe mitral and tricuspid valve regurgitation 8. Moderate pulmonic valve regurgitation 9. Pulmonary hypertension with underlying COPD and cigarette smoking 10. Demand ischemia - resolved 11. Episode of narrow complex tachycardia - nonsustained likely represents SVT PLAN: 1. Empiric antibiotic coverage as per ID. 2. Continue Carvedilol as tolerated and uptitrate 3. ACEI or ARB not being used due to underlying history of renal transplant and elevated creatinine due to CKD 4. Ideally patient would need further cardiac work up including cardiac catheterization to rule out CAD and to evaluate for ICD implant for primary prophylaxis, in addition to evaluating valvular heart disease to seek indication for valve surgery. This can be followed as outpatient with his special procedures nurse and drug safety specialist at [facility] - at the moment continue medical therapy 5. Renal function is to be followed closely. Further plans are to follow. Camilo Smith MD
[2017-01-25] MEDS: DOXYCYCLINE INJECTION 100 MG in DEXTROSE 5%-WATER - 100 ML IVPB SCH ×2 (11:20→21:43)
--- NOTE | 2017-01-25 15:37 | PN ---
Physical Exam: SUBJECTIVE: Patient seen and examined. Says he feels much better today without any pain. He had 2 bowel movements since yesterday. OBJECTIVE: Vital Signs Period Temp Pulse Resp BP Sys/Ly Pulse Ox Last 24 Hr 97.6 F-99.1 F 65-77 18-20 115-138/65-72 96 Constitutional: NAD A/O x 3 HENT: Yes: WNL, Atraumatic, Normocephalic Cardiovascular: Yes: + JVD, Regular Rate and Rhythm, Murmur (holosystolic murmur was appreciated at the apex), S1, S2 Respiratory: Yes: Cough, B/L lower lung crackles, diminished breath sounds at the LLL. Decreased breath sounds in RLL. Gastrointestinal: Yes: WNL, Normal Bowel Sounds, Soft Extremities: Yes: WNL, AV fistula placed in left arm Peripheral Pulses WNL: Yes Edema: No Active Medications Generic Name Dose Route Start Last Admin Trade Name Freq PRN Reason Stop Dose Admin Acetaminophen 650 mg 01/19/17 13:55 01/21/17 10:59 Tylenol - PO 650 mg Q6H PRN Administration FEVER OR PAIN Allopurinol 100 mg 01/19/17 10:00 01/25/17 09:46 Zyloprim - PO 100 mg DAILY [facility] Administration Carvedilol 25 mg 01/22/17 22:00 01/25/17 09:47 Coreg - PO 25 mg BID [facility] Administration Cholecalciferol 2,000 unit 01/19/17 10:00 01/25/17 09:47 Vitamin D3 - PO 2,000 unit DAILY [facility] Administration Docusate Sodium 100 mg 01/24/17 22:00 01/25/17 14:55 Colace - PO 100 mg TID [facility] Administration Furosemide 40 mg 01/20/17 10:00 01/25/17 09:47 Lasix - PO 40 mg DAILY [facility] Administration Glycerin 2 each 01/24/17 17:47 Glycerin Suppository Adult - [place] DAILY PRN CONSTIPATION Heparin Sodium (Porcine) 5,000 unit 01/19/17 06:00 01/25/17 14:55 Heparin - SQ 5,000 unit TID [facility] Administration Hydromorphone HCl 0.5 mg 01/23/17 15:26 01/24/17 14:18 Dilaudid Injection - IVPB 0.5 mg Q6H PRN Administration PAIN Cefepime HCl 1 gm/ Dextrose 100 mls @ 200 mls/hr 01/19/17 14:00 01/25/17 09:48 IVPB 200 mls/hr DAILY [facility] Administration Doxycycline Hyclate 100 mg/ 100 mls @ 100 mls/hr 01/21/17 10:00 01/25/17 11:20 Dextrose IVPB 100 mls/hr BID [facility] Administration Lidocaine 1 patch 01/19/17 14:00 01/25/17 14:53 Lidoderm Patch - TP Not Given DAILY [facility] Miscellaneous 1 each 01/19/17 22:00 01/24/17 21:14 Lidoderm Patch Removal MC Not Given DAILY@2200 [facility] Sodium Bicarbonate 1,300 mg 01/19/17 10:00 01/25/17 09:46 Sodium Bicarbonate - PO 1,300 mg BID [facility] Administration Tacrolimus 2 mg 01/19/17 14:45 01/25/17 09:52 Prograf (Non-Formulary) PO 2 mg BID [facility] Administration Tacrolimus 5 mg 01/19/17 14:45 01/25/17 09:51 Prograf (Non Formulary) PO 5 mg BID [facility] Administration Tramadol HCl 50 mg 01/22/17 11:46 01/24/17 17:36 Ultram - PO 50 mg Q12H PRN Administration PAIN ASSESSMENT/PLAN: Patient is a 61 yo M with a significant past medical history of ESRD (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 #Healthcare Associated Pneumonia with Left pleural effusion -previous recent admission for pneumonia s/p thoracentesis -X ray revealed LLL pneumonia and left pleural effusion with small effusion on right side. -Cultures negative -Ct chest showed a moderate size pleural effusion with lymphadenopathy -Will not have thoracentesis as patient is improving clinically. -Continue IV antibiotics: Cefepime 1gm, Doxycycline 100mg (Day 7) -cold aggluts negative -mycoplasma serology and histoplasmosis serology pending -TRACE positive #Chest Pain -improved -likely from pleural effusion and pneumonia- pleuritic chest pain -Prior EKG similar #Pain Control -Dilaudid .5 Q6 PRN -lidocaine patch -tramadol 50 q12 #Metabolic acidosis -continue sodium bicarb BID -goal bicarb > 22 as per Nephro #End Stage Renal disease w/ Chronic rejection -Held cellcept -continue tacrolimus -continue lasix -Nephro on board -Creatinine at baseline (5.2-6.1) #Severe Cardiomyopathy and systolic heart failure -cardio consulted -continue BB -Previous echo showed severely reduced EF and valvular problems. #FEN -Not on IV fluids -Renal Diet #DVT PPX: -Heparin 5000 SQ -Dispo: Will likely discharge tomorrow. Visit type - Emergency Visit Emergency Visit: Yes ED Registration Date: 01/19/17 Care time: The patient presented to the Emergency Department on the above date and was hospitalized for further evaluation of their emergent condition. - New Patient This patient is new to me today: No - Critical Care Critical Care patient: No
--- NOTE | 2017-01-25 16:16 | PN ---
Teaching Attending Note Name of Resident: Roberta Koo ATTENDING PHYSICIAN STATEMENT I saw and evaluated the patient. I reviewed the resident's note and discussed the case with the resident. I agree with the resident's findings and plan as documented. SUBJECTIVE: Patient is feeling better with no acute distress. OBJECTIVE: Vital Signs Temperature 97.3 F L 01/25/17 15:39 Pulse Rate 75 01/25/17 15:39 Respiratory Rate 18 01/25/17 15:39 Blood Pressure 127/83 01/25/17 15:39 O2 Sat by Pulse Oximetry (%) 96 01/24/17 21:00 CBCD WBC 8.2 K/mm3 (4.0-10.0) 01/24/17 06:30 RBC 3.75 M/mm3 (4.00-5.60) L 01/24/17 06:30 Hgb 10.7 GM/dL (11.7-16.9) L D 01/24/17 06:30 Hct 32.2 % (35.4-49) L 01/24/17 06:30 MCV 85.9 fl (80-96) 01/24/17 06:30 MCHC 33.1 g/dl (32.0-35.9) 01/24/17 06:30 RDW 15.7 % (11.9-15.9) 01/24/17 06:30 Plt Count 229 K/MM3 (134-434) 01/24/17 06:30 MPV 9.2 fl (7.5-11.1) 01/24/17 06:30 CMP Sodium 137 mmol/L (136-145) 01/24/17 06:30 Potassium 4.7 mmol/L (3.5-5.1) 01/24/17 06:30 Chloride 101 mmol/L (98-107) 01/24/17 06:30 Carbon Dioxide 24 mmol/L (21-32) 01/24/17 06:30 Anion Gap 12 (8-16) 01/24/17 06:30 BUN 73 mg/dL (7-18) H 01/24/17 06:30 Creatinine 5.4 mg/dL (0.7-1.3) H 01/24/17 06:30 Creat Clearance w eGFR 10.92 (>60) 01/24/17 06:30 Random Glucose 88 mg/dL (74-106) 01/24/17 06:30 Calcium 8.3 mg/dL (8.5-10.1) L 01/24/17 06:30 Total Bilirubin 0.7 mg/dL (0.2-1.0) 01/24/17 06:30 AST 11 U/L (15-37) L D 01/24/17 06:30 ALT 22 U/L (12-78) 01/24/17 06:30 Alkaline Phosphatase 97 U/L (45-117) 01/24/17 06:30 Total Protein 6.0 g/dl (6.4-8.2) L 01/24/17 06:30 Albumin 2.6 g/dl (3.4-5.0) L 01/24/17 06:30 CARDIAC ENZYMES Creatine Kinase 54 IU/L (39-308) 01/19/17 11:50 Troponin I 0.06 ng/ml (0.00-0.05) H 01/19/17 11:50 Current Medications Generic Name Dose Route Start Last Admin Trade Name Antonioq PRN Reason Stop Dose Admin Acetaminophen 650 mg 01/19/17 13:55 01/21/17 10:59 Tylenol - PO 650 mg Q6H PRN Administration FEVER OR PAIN Allopurinol 100 mg 01/19/17 10:00 01/25/17 09:46 Zyloprim - PO 100 mg DAILY RISHABH Administration Carvedilol 25 mg 01/22/17 22:00 01/25/17 09:47 Coreg - PO 25 mg BID RISHABH Administration Cholecalciferol 2,000 unit 01/19/17 10:00 01/25/17 09:47 Vitamin D3 - PO 2,000 unit DAILY RISHABH Administration Docusate Sodium 100 mg 01/24/17 22:00 01/25/17 14:55 Colace - PO 100 mg TID RISHABH Administration Furosemide 40 mg 01/20/17 10:00 01/25/17 09:47 Lasix - PO 40 mg DAILY RISHABH Administration Glycerin 2 each 01/24/17 17:47 Glycerin Suppository Adult - [place] DAILY PRN CONSTIPATION Heparin Sodium (Porcine) 5,000 unit 01/19/17 06:00 01/25/17 14:55 Heparin - SQ 5,000 unit TID RISHABH Administration Hydromorphone HCl 0.5 mg 01/23/17 15:26 01/24/17 14:18 Dilaudid Injection - IVPB 0.5 mg Q6H PRN Administration PAIN Cefepime HCl 1 gm/ Dextrose 100 mls @ 200 mls/hr 01/19/17 14:00 01/25/17 09:48 IVPB 200 mls/hr DAILY RISHABH Administration Doxycycline Hyclate 100 mg/ 100 mls @ 100 mls/hr 01/21/17 10:00 01/25/17 11:20 Dextrose IVPB 100 mls/hr BID RISHABH Administration Lidocaine 1 patch 01/19/17 14:00 01/25/17 14:53 Lidoderm Patch - TP Not Given DAILY RISHABH Miscellaneous 1 each 01/19/17 22:00 01/24/17 21:14 Lidoderm Patch Removal MC Not Given DAILY@2200 RISHABH Sodium Bicarbonate 1,300 mg 01/19/17 10:00 01/25/17 09:46 Sodium Bicarbonate - PO 1,300 mg BID RISHABH Administration Tacrolimus 2 mg 01/19/17 14:45 01/25/17 09:52 Prograf (Non-Formulary) PO 2 mg BID RISHABH Administration Tacrolimus 5 mg 01/19/17 14:45 01/25/17 09:51 Prograf (Non Formulary) PO 5 mg BID RISHABH Administration Tramadol HCl 50 mg 01/22/17 11:46 01/24/17 17:36 Ultram - PO 50 mg Q12H PRN Administration PAIN US of liver reviewed: benign, see the report CT of abdomen and pelvis: positive for Fecal retention ASSESSMENT AND PLAN: 61 y/o Lady with h/o end stage renal failure s/p renal transplant with chronic rejection , h/o HTN and severe cardiomyopathy , recent admisison for PNA and pleural effusion , who presented with SOB and L sided CP . He was found to have HCAP # Acute constipation on Colace tid, glycerin suppo. and Mineral enema x 1 dose, No further increase on Pain meds. # Acute RUQ pain improved , US no gallstone . # Recurrent Pleural effusion on the left >right, continue cefepime and doxycycline. Patient is more prone to not having thoracocentesis.s/p thoracentesis last admission, patient is on Lasix as well. continue pain meds. # HCAP : on Cefepime and doxycyline continue as per ID. #s/p Acute chest pain due to pleural effusion; pleuretic in nature, EKG with no change from prior . #s/p L shoulder pain : no restriction of movements, no erythema or edema, no further shoulder pain. # ESRD s/p renal transplant with chronic rejection and nephrosclerosis with hx of HTN and heart failure. cr at his base line hold lasix until evaluated by renal , hold cellcept as per nephro, cont tacrulimus, as per nephro, pt will need to bring his own medication will repeat labs in am # H/o Severe Cardiomyopathy, and systolic heart failure. echo last admission with severely reduced EF and multiple valvular problems cont Coreg 12.5 mg, Lasix as per cardio. DVT px :heparin
--- NOTE | 2017-01-25 16:53 | PN ---
Progress Note (short form) - Note Progress Note: Renal follow up for Renal Transplant and CKD5 [facility] feeling better sob is improved pain is improved no change in urine output Vital Signs Temperature 97.3 F L 01/25/17 15:39 Pulse Rate 75 01/25/17 15:39 Respiratory Rate 18 01/25/17 15:39 Blood Pressure 127/83 01/25/17 15:39 O2 Sat by Pulse Oximetry (%) 96 01/24/17 21:00 Intake & Output 01/22/17 01/23/17 01/24/17 01/25/17 23:59 23:59 23:59 23:59 Intake Total 1010 1150 2260 1310 Balance 1010 1150 2260 1310 Weight 187 lb 6.4 oz 194 lb 3.2 oz 194 lb 12.8 oz Gen: NAD, awake and alert CVS: RRR, No M/R Lungs: Dec Bs lung bases, faint wheezing, no rales Abd: soft NT/ND Ext: No edema, clubbing or cyanosis CBC, BMP 01/24/17 06:30 01/24/17 06:30 Laboratory Tests 01/24/17 06:30 Phosphorus 5.6 H Magnesium 1.9 Total Bilirubin 0.7 Albumin 2.6 L Current Medications Acetaminophen (Tylenol -) 650 mg PO Q6H PRN PRN Reason: FEVER OR PAIN Last Admin: 01/21/17 10:59 Dose: 650 mg Allopurinol (Zyloprim -) 100 mg PO DAILY [facility] Last Admin: 01/25/17 09:46 Dose: 100 mg Carvedilol (Coreg -) 25 mg PO BID [facility] Last Admin: 01/25/17 09:47 Dose: 25 mg Cholecalciferol (Vitamin D3 -) 2,000 unit PO DAILY [facility] Last Admin: 01/25/17 09:47 Dose: 2,000 unit Docusate Sodium (Colace -) 100 mg PO TID [facility] Last Admin: 01/25/17 14:55 Dose: 100 mg Furosemide (Lasix -) 40 mg PO DAILY [facility] Last Admin: 01/25/17 09:47 Dose: 40 mg Glycerin (Glycerin Suppository Adult -) 2 each [place] DAILY PRN PRN Reason: CONSTIPATION Heparin Sodium (Porcine) (Heparin -) 5,000 unit SQ TID [facility] Last Admin: 01/25/17 14:55 Dose: 5,000 unit Hydromorphone HCl (Dilaudid Injection -) 0.5 mg IVPB Q6H PRN PRN Reason: PAIN Last Admin: 01/24/17 14:18 Dose: 0.5 mg Cefepime HCl 1 gm/ Dextrose 100 mls @ 200 mls/hr IVPB DAILY [facility] Last Admin: 01/25/17 09:48 Dose: 200 mls/hr Doxycycline Hyclate 100 mg/ (Dextrose) 100 mls @ 100 mls/hr IVPB BID [facility] Last Admin: 01/25/17 11:20 Dose: 100 mls/hr Lidocaine (Lidoderm Patch -) 1 patch TP DAILY [facility] Last Admin: 01/25/17 14:53 Dose: Not Given Miscellaneous (Lidoderm Patch Removal) 1 each MC DAILY@2200 [facility] Last Admin: 01/24/17 21:14 Dose: Not Given Sodium Bicarbonate (Sodium Bicarbonate -) 1,300 mg PO BID [facility] Last Admin: 01/25/17 09:46 Dose: 1,300 mg Tacrolimus (Prograf (Non-Formulary)) 2 mg PO BID [facility] Last Admin: 01/25/17 09:52 Dose: 2 mg Tacrolimus (Prograf (Non Formulary)) 5 mg PO BID [facility] Last Admin: 01/25/17 09:51 Dose: 5 mg Tramadol HCl (Ultram -) 50 mg PO Q12H PRN PRN Reason: PAIN Last Admin: 01/24/17 17:36 Dose: 50 mg A/p 61 year old Gentleman with PMhx of 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 #Shoulder Pain/Effusion/r/o PNA vs. 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
[2017-01-25] MEDS: LIDOCAINE PATCH REMOVAL MC SCH (21:43)
[2017-01-26] MEDS ORDERED: PT OWN MED DRAWER 7, Y5N ONE (07:11)
[2017-01-26 08:20] LABS: BASOPHIL 1.5 % (0-2.0); EOSINOPHIL 4.3 % (0-4.5); MCH 28.2 pg (25.7-33.7); MCHC 32.9 g/dl (32.0-35.9); MEAN CELL VOLUME 85.6 fl (80-96); MEAN PLT VOLUME 9.3 fl (7.5-11.1); NEUTROPHILS 71.2 % (42.8-82.8); PLATELET COUNT 254 K/MM3 (134-434); RDW 15.6 % (11.9-15.9); WHITE BLOOD COUNT 8.6 K/mm3 (4.0-10.0)
[2017-01-26 08:42] LABS: GLUCOSE,RANDOM 96 mg/dL (74-106)
[2017-01-26 08:48] LABS: ANION GAP 12 (8-16); C-REACTIVE PROTEIN 7.6 MG/DL (0.00-0.3); CALCIUM 8.7 mg/dL (8.5-10.1); CO2 23 mmol/L (21-32); CREATININE 5.3 mg/dL (0.7-1.3); MAGNESIUM 2.1 mg/dL (1.8-2.4)
--- NOTE | 2017-01-26 09:56 | PN ---
Progress Note (short form) - Note Progress Note: abdominal discomfort resolved notes some mild left shoulder pain last nght, now using lidoderm patch Vital Signs Period Temp Pulse Resp BP Sys/Ly Pulse Ox Last 24 Hr 97.3 F-99.1 F 70-77 18-20 127-138/72-83 97 cor-rrr lungs bibasilar crackles, better air movement abd soft,nt ext no edema CBC, BMP 01/26/17 Unknown 01/26/17 06:55 urine histoplasma antigen negative Microbiology 01/20/17 05:35 Serum Cryptococcal Antigen - Final 01/19/17 00:12 Blood - Peripheral Venous Blood Culture - Final NO GROWTH AFTER 5 DAYS INCUBATION 01/20/17 12:00 Urine For Antigen Detection Legionella Antigen - Final 01/20/17 12:00 Urine For Antigen Detection Streptococcus pneumoniae Antigen (M - Final 01/20/17 05:35 Serum Legionella Serology - Preliminary Active Medications Acetaminophen (Tylenol -) 650 mg PO Q6H PRN PRN Reason: FEVER OR PAIN Last Admin: 01/21/17 10:59 Dose: 650 mg Allopurinol (Zyloprim -) 100 mg PO DAILY [facility] Last Admin: 01/25/17 09:46 Dose: 100 mg Carvedilol (Coreg -) 25 mg PO BID [facility] Last Admin: 01/25/17 21:42 Dose: 25 mg Cholecalciferol (Vitamin D3 -) 2,000 unit PO DAILY [facility] Last Admin: 01/25/17 09:47 Dose: 2,000 unit Docusate Sodium (Colace -) 100 mg PO TID [facility] Last Admin: 01/25/17 21:42 Dose: 100 mg Furosemide (Lasix -) 40 mg PO DAILY [facility] Last Admin: 01/25/17 09:47 Dose: 40 mg Glycerin (Glycerin Suppository Adult -) 2 each [place] DAILY PRN PRN Reason: CONSTIPATION Heparin Sodium (Porcine) (Heparin -) 5,000 unit SQ TID [facility] Last Admin: 01/25/17 21:41 Dose: Not Given Hydromorphone HCl (Dilaudid Injection -) 0.5 mg IVPB Q6H PRN PRN Reason: PAIN Last Admin: 01/24/17 14:18 Dose: 0.5 mg Cefepime HCl 1 gm/ Dextrose 100 mls @ 200 mls/hr IVPB DAILY [facility] Last Admin: 01/25/17 09:48 Dose: 200 mls/hr Doxycycline Hyclate 100 mg/ (Dextrose) 100 mls @ 100 mls/hr IVPB BID [facility] Last Admin: 01/25/17 21:43 Dose: 100 mls/hr Lidocaine (Lidoderm Patch -) 1 patch TP DAILY [facility] Last Admin: 01/25/17 14:53 Dose: Not Given Miscellaneous (Lidoderm Patch Removal) 1 each MC DAILY@2200 [facility] Last Admin: 01/25/17 21:43 Dose: Not Given Sodium Bicarbonate (Sodium Bicarbonate -) 1,300 mg PO BID [facility] Last Admin: 01/25/17 21:43 Dose: 1,300 mg Tacrolimus (Prograf (Non-Formulary)) 2 mg PO BID [facility] Last Admin: 01/25/17 22:22 Dose: 2 mg Tacrolimus (Prograf (Non Formulary)) 5 mg PO BID [facility] Last Admin: 01/25/17 21:44 Dose: 5 mg Tramadol HCl (Ultram -) 50 mg PO Q12H PRN PRN Reason: PAIN Last Admin: 01/24/17 17:36 Dose: 50 mg a/p recurrent fever/pneumonia/effusion in immunocompromised host-nonproductive cough cxray with cardiomegaly and left effusion fevers resolved continue cefepime/doxycycline day #8 today repeat esr/crp effusions look stable on ct scan add incentive spirometry cxray pa and lateral in the department today histo antigen negative/chlamydia serology pending cold agglutinins negative crypt antigen negative REPORTS NO HIV RISK FACTORS, DECLINES TESTING AT THIS TIME ?infectious, ?inflammatory, ?medication induced s/p renal transplant with ckd- on meds, renal f/u ongoing Problem List - Problems (1) Fever Code(s): R50.9 - FEVER, UNSPECIFIED Qualifiers: Fever type: unspecified Qualified Code(s): R50.9 - Fever, unspecified (2) Shoulder pain, left Code(s): M25.512 - PAIN IN LEFT SHOULDER Qualifiers: Chronicity: acute Qualified Code(s): M25.512 - Pain in left shoulder (3) Pneumonia Code(s): J18.9 - PNEUMONIA, UNSPECIFIED ORGANISM Qualifiers: Pneumonia type: due to unspecified organism Laterality: left Lung location: lower lobe of lung Qualified Code(s): J18.1 - Lobar pneumonia, unspecified organism (4) Pleural effusion on left Code(s): J90 - PLEURAL EFFUSION, NOT ELSEWHERE CLASSIFIED (5) CHF (congestive heart failure) Code(s): I50.9 - HEART FAILURE, UNSPECIFIED Qualifiers: Congestive heart failure type: systolic Congestive heart failure chronicity: acute on chronic Qualified Code(s): I50.23 - Acute on chronic systolic (congestive) heart failure (6) Renal transplant recipient Code(s): Z94.0 - KIDNEY TRANSPLANT STATUS
[2017-01-26] MEDS ORDERED: DEXTROSE 5%-WATER 100 ML IVPB ONE (10:12)
[2017-01-26] MEDS ORDERED: CEFEPIME HCL 1 GM VIAL (RESTRICTED TO ID) ONE (10:12)
[2017-01-26] MEDS: HEPARIN NA (PORCINE) 5,000 UNITS/ML 1ML VIAL SQ SCH (10:15)
[2017-01-26] MEDS: DOCUSATE SODIUM 100 MG CAPSULE (FP) PO SCH ×2 (10:15→13:34)
[2017-01-26] MEDS: CHOLECALCIFEROL (VITAMIN D3) 1,000 UNIT TABLET (FP) PO SCH (10:16)
[2017-01-26] MEDS: FUROSEMIDE 40 MG TABLET (FP) PO SCH (10:16)
[2017-01-26] MEDS: CEFEPIME 1 GM in DEXTROSE 5%-WATER 100 ML IVPB SCH (10:16)
[2017-01-26] MEDS: DOXYCYCLINE INJECTION 100 MG in DEXTROSE 5%-WATER - 100 ML IVPB SCH (10:16)
[2017-01-26] MEDS: CARVEDILOL 25 MG TABLET (FP) PO SCH (10:16)
[2017-01-26] MEDS: ALLOPURINOL 100 MG TABLET (FP) PO SCH (10:16)
[2017-01-26] MEDS: SODIUM BICARBONATE 650 MG TABLET PO SCH (10:16)
[2017-01-26] MEDS: LIDOCAINE 5% TOPICAL PATCH TP SCH ×2 (10:17→15:02)
[2017-01-26] MEDS: TACROLIMUS ANHYDROUS 1 MG PO SCH (10:19)
[2017-01-26] MEDS: TACROLIMUS 5 MG PO SCH (10:19)
--- NOTE | 2017-01-26 10:23 | PN ---
Progress Note (short form) - Note Progress Note: PULMONARY No further abdominal pain. Left shoulder pain improving with lidoderm patch. Last Vital Signs Temp Pulse Resp BP Pulse Ox 98.2 F 72 20 130/77 97 01/25/17 22:00 01/25/17 22:00 01/25/17 22:00 01/25/17 22:00 01/25/17 21:00 Gen: NAD at rest Heart: RRR Lung: decreased breath sounds at the bases Abd: soft, nontender Ext: no edema CBC, BMP 01/26/17 Unknown 01/26/17 06:55 Active Medications Acetaminophen (Tylenol -) 650 mg PO Q6H PRN PRN Reason: FEVER OR PAIN Last Admin: 01/21/17 10:59 Dose: 650 mg Allopurinol (Zyloprim -) 100 mg PO DAILY [facility] Last Admin: 01/25/17 09:46 Dose: 100 mg Carvedilol (Coreg -) 25 mg PO BID [facility] Last Admin: 01/25/17 21:42 Dose: 25 mg Cholecalciferol (Vitamin D3 -) 2,000 unit PO DAILY [facility] Last Admin: 01/25/17 09:47 Dose: 2,000 unit Docusate Sodium (Colace -) 100 mg PO TID [facility] Last Admin: 01/26/17 10:15 Dose: Not Given Furosemide (Lasix -) 40 mg PO DAILY [facility] Last Admin: 01/25/17 09:47 Dose: 40 mg Glycerin (Glycerin Suppository Adult -) 2 each [place] DAILY PRN PRN Reason: CONSTIPATION Heparin Sodium (Porcine) (Heparin -) 5,000 unit SQ TID [facility] Last Admin: 01/26/17 10:15 Dose: Not Given Hydromorphone HCl (Dilaudid Injection -) 0.5 mg IVPB Q6H PRN PRN Reason: PAIN Last Admin: 01/24/17 14:18 Dose: 0.5 mg Cefepime HCl 1 gm/ Dextrose 100 mls @ 200 mls/hr IVPB DAILY [facility] Last Admin: 01/25/17 09:48 Dose: 200 mls/hr Doxycycline Hyclate 100 mg/ (Dextrose) 100 mls @ 100 mls/hr IVPB BID [facility] Last Admin: 01/25/17 21:43 Dose: 100 mls/hr Lidocaine (Lidoderm Patch -) 1 patch TP DAILY [facility] Last Admin: 01/25/17 14:53 Dose: Not Given Miscellaneous (Lidoderm Patch Removal) 1 each MC DAILY@2200 [facility] Last Admin: 01/25/17 21:43 Dose: Not Given Sodium Bicarbonate (Sodium Bicarbonate -) 1,300 mg PO BID [facility] Last Admin: 01/25/17 21:43 Dose: 1,300 mg Tacrolimus (Prograf (Non-Formulary)) 2 mg PO BID [facility] Last Admin: 01/25/17 22:22 Dose: 2 mg Tacrolimus (Prograf (Non Formulary)) 5 mg PO BID [facility] Last Admin: 01/25/17 21:44 Dose: 5 mg Tramadol HCl (Ultram -) 50 mg PO Q12H PRN PRN Reason: PAIN Last Admin: 01/24/17 17:36 Dose: 50 mg A/P Recent Pneumonia with parapneumonic effusion s/p thoracentesis ESRD s/p renal transplant LV Systolic Dysfunction Aortic Stenosis/Regurgitation Pulmonary HTN COPD Atelectasis - antibiotics per ID - incentive spirometry - ambulate - monitor urine output, creatinine - DVT prophylaxis - repeat CXR today, if unchanged can d/c home from pulmonary standpoint
--- NOTE | 2017-01-26 12:10 | PN ---
Teaching Attending Note Name of Resident: Roberta Koo ATTENDING PHYSICIAN STATEMENT I saw and evaluated the patient. I reviewed the resident's note and discussed the case with the resident. I agree with the resident's findings and plan as documented. SUBJECTIVE: Patient had a bowel movement today, no further constipation as per patient. No fever or chills, no shortness of breath. OBJECTIVE: Vital Signs Temperature 98.2 F 01/25/17 22:00 Pulse Rate 72 01/25/17 22:00 Respiratory Rate 20 01/25/17 22:00 Blood Pressure 130/77 01/25/17 22:00 O2 Sat by Pulse Oximetry (%) 97 01/25/17 21:00 CBCD WBC 8.6 K/mm3 (4.0-10.0) 01/26/17 Unknown RBC 3.92 M/mm3 (4.00-5.60) L 01/26/17 Unknown Hgb 11.0 GM/dL (11.7-16.9) L 01/26/17 Unknown Hct 33.5 % (35.4-49) L 01/26/17 Unknown MCV 85.6 fl (80-96) 01/26/17 Unknown MCHC 32.9 g/dl (32.0-35.9) 01/26/17 Unknown RDW 15.6 % (11.9-15.9) 01/26/17 Unknown Plt Count 254 K/MM3 (134-434) 01/26/17 Unknown MPV 9.3 fl (7.5-11.1) 01/26/17 Unknown CMP Sodium 138 mmol/L (136-145) 01/26/17 06:55 Potassium 4.9 mmol/L (3.5-5.1) 01/26/17 06:55 Chloride 103 mmol/L (98-107) 01/26/17 06:55 Carbon Dioxide 23 mmol/L (21-32) 01/26/17 06:55 Anion Gap 12 (8-16) 01/26/17 06:55 BUN 71 mg/dL (7-18) H 01/26/17 06:55 Creatinine 5.3 mg/dL (0.7-1.3) H 01/26/17 06:55 Creat Clearance w eGFR 10.92 (>60) 01/24/17 06:30 Random Glucose 96 mg/dL (74-106) 01/26/17 06:55 Calcium 8.7 mg/dL (8.5-10.1) 01/26/17 06:55 Total Bilirubin 0.7 mg/dL (0.2-1.0) 01/24/17 06:30 AST 11 U/L (15-37) L D 01/24/17 06:30 ALT 22 U/L (12-78) 01/24/17 06:30 Alkaline Phosphatase 97 U/L (45-117) 01/24/17 06:30 Total Protein 6.0 g/dl (6.4-8.2) L 01/24/17 06:30 Albumin 2.6 g/dl (3.4-5.0) L 01/24/17 06:30 CARDIAC ENZYMES Creatine Kinase 54 IU/L (39-308) 01/19/17 11:50 Troponin I 0.06 ng/ml (0.00-0.05) H 01/19/17 11:50 Current Medications Generic Name Dose Route Start Last Admin Trade Name Freq PRN Reason Stop Dose Admin Acetaminophen 650 mg 01/19/17 13:55 01/21/17 10:59 Tylenol - PO 650 mg Q6H PRN Administration FEVER OR PAIN Allopurinol 100 mg 01/19/17 10:00 01/26/17 10:16 Zyloprim - PO 100 mg DAILY RISHABH Administration Carvedilol 25 mg 01/22/17 22:00 01/26/17 10:16 Coreg - PO 25 mg BID RISHABH Administration Cholecalciferol 2,000 unit 01/19/17 10:00 01/26/17 10:16 Vitamin D3 - PO 2,000 unit DAILY RISHABH Administration Docusate Sodium 100 mg 01/24/17 22:00 01/26/17 10:15 Colace - PO Not Given TID RISHABH Furosemide 40 mg 01/20/17 10:00 01/26/17 10:16 Lasix - PO 40 mg DAILY RISHABH Administration Glycerin 2 each 01/24/17 17:47 Glycerin Suppository Adult - [place] DAILY PRN CONSTIPATION Cefepime HCl 1 gm/ Dextrose 100 mls @ 200 mls/hr 01/19/17 14:00 01/26/17 10:16 IVPB 200 mls/hr DAILY RISHABH Administration Doxycycline Hyclate 100 mg/ 100 mls @ 100 mls/hr 01/21/17 10:00 01/26/17 10:16 Dextrose IVPB 100 mls/hr BID RISHABH Administration Lidocaine 1 patch 01/19/17 14:00 01/26/17 10:17 Lidoderm Patch - TP Not Given DAILY RISHABH Miscellaneous 1 each 01/19/17 22:00 01/25/17 21:43 Lidoderm Patch Removal MC Not Given DAILY@2200 RISHABH Sodium Bicarbonate 1,300 mg 01/19/17 10:00 01/26/17 10:16 Sodium Bicarbonate - PO 1,300 mg BID RISHABH Administration Tacrolimus 2 mg 01/19/17 14:45 01/26/17 10:19 Prograf (Non-Formulary) PO 2 mg BID RISHABH Administration Tacrolimus 5 mg 01/19/17 14:45 01/26/17 10:19 Prograf (Non Formulary) PO 5 mg BID RISHABH Administration Home Medications Medication Instructions Recorded Mycophenolate Mofetil [Cellcept] 250 mg PO DAILY 03/24/14 Allopurinol [Zyloprim -] 100 mg PO PRN 11/18/15 Sodium Bicarbonate 1,300 mg PO BID 11/18/15 Carvedilol [Coreg -] 12.5 mg PO BID #60 tablet 11/21/15 Furosemide 20 mg PO BID 01/04/17 Cholecalciferol (Vitamin D3) 2,000 unit PO DAILY tab 01/08/17 [Vitamin D3 -] Cefuroxime Axetil [Ceftin -] 500 mg PO DAILY #6 tablet 01/26/17 Docusate Sodium [Colace -] 100 mg PO TID #100 cap 01/26/17 Doxycycline Hyclate [Vibramycin] 100 mg PO BID #12 capsule 01/26/17 Lidocaine 5% Patch [Lidoderm -] 1 patch TP DAILY #30 patch 01/26/17 Lidocaine Patch Removal [Lidoderm 1 each [place] DAILY@2200 each 01/26/17 Patch Removal] Tacrolimus Anhydrous [Prograf (Non 5 mg PO BID #30 cap 01/26/17 Formulary)] Tacrolimus Anhydrous [Prograf 2 mg PO BID #30 cap 01/26/17 (Non-Formulary)] PE: Chest: CTABl US of liver reviewed: benign, see the report CT of abdomen and pelvis: positive for Fecal retention ASSESSMENT AND PLAN: 61 y/o Lady with h/o end stage renal failure s/p renal transplant with chronic rejection , h/o HTN and severe cardiomyopathy , recent admisison for PNA and pleural effusion , who presented with SOB and L sided CP . He was found to have HCAP # s/p Acute constipation resolved. # Acute RUQ pain improved , US no gallstone . # Recurrent Pleural effusion on the left >right continue to improve s/p cefepime. Patient will continue with Ceftin and doxycycline. Continue LAsix # HCAP : on Ceftin and doxycyline to continue as an outpatient, discussed with ID. #s/p Acute chest pain due to pleural effusion; pleuretic in nature, EKG with no change from prior . #s/p L shoulder pain : no restriction of movements, no erythema or edema, no further shoulder pain. # ESRD s/p renal transplant with chronic rejection and nephrosclerosis with hx of HTN and heart failure. cr at his base line hold lasix until evaluated by renal , hold cellcept as per nephro, cont tacrulimus, as per nephro, pt will need to bring his own medication will repeat labs in am # H/o Severe Cardiomyopathy, and systolic heart failure. echo last admission with severely reduced EF and multiple valvular problems cont Coreg 12.5 mg, Lasix as per cardio. Patient is being discharged home with f/u with pulmonary and nephrology.
--- NOTE | 2017-01-26 12:33 | PN ---
Progress Note (short form) - Note Progress Note: Chief Complaint: Events noted, notes reviewed, dyspnea persists but improved, denies any chest pain History of Present Illness: Seen and examined. Events noted, notes reviewed, dyspnea persists but improved, denies any chest pain - Current Medication List Current Medications Acetaminophen (Tylenol -) 650 mg PO Q6H PRN PRN Reason: FEVER OR PAIN Last Admin: 01/21/17 10:59 Dose: 650 mg Allopurinol (Zyloprim -) 100 mg PO DAILY [facility] Last Admin: 01/26/17 10:16 Dose: 100 mg Carvedilol (Coreg -) 25 mg PO BID [facility] Last Admin: 01/26/17 10:16 Dose: 25 mg Cholecalciferol (Vitamin D3 -) 2,000 unit PO DAILY [facility] Last Admin: 01/26/17 10:16 Dose: 2,000 unit Docusate Sodium (Colace -) 100 mg PO TID [facility] Last Admin: 01/26/17 10:15 Dose: Not Given Furosemide (Lasix -) 40 mg PO DAILY [facility] Last Admin: 01/26/17 10:16 Dose: 40 mg Glycerin (Glycerin Suppository Adult -) 2 each [place] DAILY PRN PRN Reason: CONSTIPATION Cefepime HCl 1 gm/ Dextrose 100 mls @ 200 mls/hr IVPB DAILY [facility] Last Admin: 01/26/17 10:16 Dose: 200 mls/hr Doxycycline Hyclate 100 mg/ (Dextrose) 100 mls @ 100 mls/hr IVPB BID [facility] Last Admin: 01/26/17 10:16 Dose: 100 mls/hr Lidocaine (Lidoderm Patch -) 1 patch TP DAILY [facility] Last Admin: 01/26/17 10:17 Dose: Not Given Miscellaneous (Lidoderm Patch Removal) 1 each MC DAILY@2200 [facility] Last Admin: 01/25/17 21:43 Dose: Not Given Sodium Bicarbonate (Sodium Bicarbonate -) 1,300 mg PO BID [facility] Last Admin: 01/26/17 10:16 Dose: 1,300 mg Tacrolimus (Prograf (Non-Formulary)) 2 mg PO BID [facility] Last Admin: 01/26/17 10:19 Dose: 2 mg Tacrolimus (Prograf (Non Formulary)) 5 mg PO BID [facility] Last Admin: 01/26/17 10:19 Dose: 5 mg - Objective Vital Signs: Last Vital Signs Temp Pulse Resp BP Pulse Ox 98.2 F 72 20 130/77 97 01/25/17 22:00 01/25/17 22:00 01/25/17 22:00 01/25/17 22:00 01/25/17 21:00 Intake & Output 01/23/17 01/24/17 01/25/17 01/26/17 23:59 23:59 23:59 23:59 Intake Total 1150 2260 1610 Balance 1150 2260 1610 Weight 187 lb 6.4 oz 194 lb 3.2 oz 194 lb 12.8 oz 188 lb 8 oz Neck: Supple Negative JVD NO Bruit Cardiovascular: S1 S2 Regular Rate and Rhythm, PUNEET 2-3/6 and SM Apical 2/6 Respiratory: Clear to A&P Bilaterally Gastrointestinal: Soft Benign Normal Bowel Sounds Ext: No edema Labs: CBC, BMP 01/26/17 Unknown 01/26/17 06:55 Hepatic Panel Total Bilirubin 0.7 mg/dL (0.2-1.0) 01/24/17 06:30 Direct Bilirubin 0.2 mg/dL (0.0-0.2) 01/23/17 05:48 AST 11 U/L (15-37) L D 01/24/17 06:30 ALT 22 U/L (12-78) 01/24/17 06:30 Alkaline Phosphatase 97 U/L (45-117) 01/24/17 06:30 Albumin 2.6 g/dl (3.4-5.0) L 01/24/17 06:30 Assessment/Plan ASSESSMENT: 1. Left shoulder pain most likely musculo-skeletal discomfort resolved 2. History of left pneumonia status post thoracentesis, para-pneumonic fluid 3. ESRD post renal transplant 4. CAD angina pectoris with demand ischemic injury 5. Severe left ventricular systolic dysfunction, dilated cardiomyopathy with class I-II NYHA classification LV failure, compensated/euvolemic 6. Moderate to severe aortic valve stenosis and severe aortic valve regurgitation 7. Moderate to severe mitral and tricuspid valve regurgitation 8. Moderate pulmonic valve regurgitation 9. Hypertension 10. Pulmonary hypertension 11. COPD PLAN: 1. Antibiotic as per primary team 2. Continue Carvedilol 3. Ideally should be on ACEI or ARBS once renal function stabilized 4. Additional cardiovascular evaluation is to be performed with his ripshear operator at [facility]/Dr. Corinna Lopez, evaluation of extent of CAD, possible ICD implant and valvular heart disease evaluation and possible intervention Wilma Edward M.D.
--- NOTE | 2017-01-26 13:58 | PN ---
Progress Note (short form) - Note Progress Note: Renal follow up for Renal Transplant and CKD5 Pt seen and examined at the bedside is awake and alert feels much better no fever, shoulder pain and epigastic pain resolved Vital Signs Temperature 97.7 F 01/26/17 08:00 Pulse Rate 67 01/26/17 08:00 Respiratory Rate 20 01/26/17 08:00 Blood Pressure 119/75 01/26/17 08:00 O2 Sat by Pulse Oximetry (%) 95 01/26/17 09:00 Intake & Output 01/23/17 01/24/17 01/25/17 01/26/17 23:59 23:59 23:59 23:59 Intake Total 1150 2260 1610 Balance 1150 2260 1610 Weight 187 lb 6.4 oz 194 lb 3.2 oz 194 lb 12.8 oz 188 lb 8 oz Gen: NAD, awake and alert CVS: RRR, No M/R Lungs: Dec Bs lung bases, faint wheezing, no rales Abd: soft NT/ND Ext: No edema, clubbing or cyanosis CBC, BMP 01/26/17 Unknown 01/26/17 06:55 Current Medications Acetaminophen (Tylenol -) 650 mg PO Q6H PRN PRN Reason: FEVER OR PAIN Last Admin: 01/21/17 10:59 Dose: 650 mg Allopurinol (Zyloprim -) 100 mg PO DAILY [facility] Last Admin: 01/26/17 10:16 Dose: 100 mg Carvedilol (Coreg -) 25 mg PO BID [facility] Last Admin: 01/26/17 10:16 Dose: 25 mg Cholecalciferol (Vitamin D3 -) 2,000 unit PO DAILY [facility] Last Admin: 01/26/17 10:16 Dose: 2,000 unit Docusate Sodium (Colace -) 100 mg PO TID [facility] Last Admin: 01/26/17 13:34 Dose: Not Given Furosemide (Lasix -) 40 mg PO DAILY [facility] Last Admin: 01/26/17 10:16 Dose: 40 mg Glycerin (Glycerin Suppository Adult -) 2 each [place] DAILY PRN PRN Reason: CONSTIPATION Cefepime HCl 1 gm/ Dextrose 100 mls @ 200 mls/hr IVPB DAILY [facility] Last Admin: 01/26/17 10:16 Dose: 200 mls/hr Doxycycline Hyclate 100 mg/ (Dextrose) 100 mls @ 100 mls/hr IVPB BID [facility] Last Admin: 01/26/17 10:16 Dose: 100 mls/hr Lidocaine (Lidoderm Patch -) 1 patch TP DAILY [facility] Last Admin: 01/26/17 10:17 Dose: Not Given Miscellaneous (Lidoderm Patch Removal) 1 each MC DAILY@2200 [facility] Last Admin: 01/25/17 21:43 Dose: Not Given Sodium Bicarbonate (Sodium Bicarbonate -) 1,300 mg PO BID [facility] Last Admin: 01/26/17 10:16 Dose: 1,300 mg Tacrolimus (Prograf (Non-Formulary)) 2 mg PO BID [facility] Last Admin: 01/26/17 10:19 Dose: 2 mg Tacrolimus (Prograf (Non Formulary)) 5 mg PO BID [facility] Last Admin: 01/26/17 10:19 Dose: 5 mg A/p 61 year old Gentleman with PMhx of 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 #Recurrent pleural effusion continue oral abx as per ID Continue lasix will repeat outpatient CXR pain control #ESRD s/p DDRT now with chronic allograft rejection Renal function stable can resume full immunosuppression on discharge to follow up with Dr. Castrejon in 1 week #Metabolic acidosis continue sodium bicarb BID goal bicarb > 22 Filipe Stephenson DO
[2017-01-26 14:58] VITALS: BP 128/64; PULSE 69; TEMP 98.4
--- NOTE | 2017-01-26 17:06 | DS ---
Physical Exam: SUBJECTIVE: Patient seen and examined. Says he feels much better today without any pain. He had 2 bowel movements since yesterday. No acute events overnight. OBJECTIVE: Vital Signs Period Temp Pulse Resp BP Sys/Ly Pulse Ox Last 24 Hr 97.7 F-98.4 F 67-72 18-20 119-130/64-77 95-97 PHYSICAL EXAM Constitutional: NAD A/O x 3 HENT: Yes: WNL, Atraumatic, Normocephalic Cardiovascular: Yes: + JVD, Regular Rate and Rhythm, Murmur (holosystolic murmur was appreciated at the apex), S1, S2 Respiratory: Yes: B/L lower lung crackles (improved), decreased breath sounds at the LLL (improved). Decreased breath sounds in RLL. Gastrointestinal: Yes: WNL, Normal Bowel Sounds, Soft Extremities: Yes: WNL, AV fistula placed in left arm Peripheral Pulses WNL: Yes Edema: No LABS Laboratory Results - last 24 hr 01/21/17 01/26/17 01/26/17 15:00 06:55 07:25 WBC RBC Hgb Hct MCV MCH MCHC RDW Plt Count MPV Neutrophils % Lymphocytes % Monocytes % Eosinophils % Basophils % ESR 93 H Sodium 138 Potassium 4.9 Chloride 103 Carbon Dioxide 23 Anion Gap 12 BUN 71 H Creatinine 5.3 H Random Glucose 96 Calcium 8.7 Phosphorus 5.0 H Magnesium 2.1 C-Reactive Protein 7.6 H D Histoplasma Antigen 0.10 01/26/17 Unknown WBC 8.6 RBC 3.92 L Hgb 11.0 L Hct 33.5 L MCV 85.6 MCH 28.2 MCHC 32.9 RDW 15.6 Plt Count 254 MPV 9.3 Neutrophils % 71.2 Lymphocytes % 13.5 D Monocytes % 9.5 Eosinophils % 4.3 Basophils % 1.5 ESR Sodium Potassium Chloride Carbon Dioxide Anion Gap BUN Creatinine Random Glucose Calcium Phosphorus Magnesium C-Reactive Protein Histoplasma Antigen HOSPITAL COURSE: Date of Admission:01/19/17 Patient is a 61 yo M with a significant past medical history of ESRD ( s/p transplant 14 years ago), CHF, HTN, HLD presented to the ED with complaints of left sided pleuritic chest and shoulder pain and was admitted for b/l HCAP and left sided pleural effusion found on CT scan. Patient was also admitted 2 weeks prior found to have Left pleural effusions followed by thoracentesis done by IR (650ml exudative fluid drained). During this admission He was seen by ID and his pneumonia was treated with IV antibiotics: Cefepime and Doxycycline for Atypical coverage. His pain was treated with PRN Dilauded. He was also seen by Pulmonary and was given bronchodilators and breathing exercises. He was followed up by Cardiology for his HTN, left ventricular Systolic dysfunction, DCM, and valvular heart disease. Patient was also followed up by Nephrology for his history of ESRD and closely monitored his renal functions. Chest X ray showed improvement of pleural effusions and patients symptoms resolved. He was discharged on Ceftin and Doxycycline for 6 more days as per ID. He was also referred for close outpatient follow up with his founder and chief technical officer (Dr. Menendez) and building services coordinator ( Dr. Gastelum) 1 week after discharge. Date of Discharge: 01/26/17 Minutes to complete discharge: 35 Discharge Summary Reason For Visit: CHF COMMUNITY ACQUIRED PNEUMONIA SOB Current Active Problems Pleural effusion on left (Acute) COPD (chronic obstructive pulmonary disease) (Chronic) Dilated cardiomyopathy (Chronic) ESRD (end stage renal disease) (Chronic) HTN (hypertension) (Chronic) Pulmonary HTN (Chronic) Pulmonary edema (Chronic) Renal transplant recipient (Chronic) Condition: Improved - Instructions Diet, Activity, Other Instructions: You are being discharged after being treated for pneumonia and a left sided pleural effusion (fluid in the lungs). We will discharge you on Doxycycline and Ceftin which are antibiotics for your pneumonia. Please take as directed for 6 days. You may need a cardiac catheterization as an outpatient please follow up with your heart doctor 2 week after discharge. You also need to follow up with your founder and chief technical officer (Dr. Stephenson) in 1 week and with your building services coordinator (Dr. Gastelum) in 1 weeks. Please follow up with your primary care doctor within 1 week. Thank you! Referrals: Arnoldo Gastelum MD [Staff Physician] - Kamille Castrejon MD [Primary Care Provider] - 1 Week Filipe Stephenson MD [Staff Physician] - Disposition: HOME - Home Medications Comprehensive Discharge Medication List: Ambulatory Orders Mycophenolate Mofetil [Cellcept] 250 mg PO DAILY 03/24/14 Allopurinol [Zyloprim -] 100 mg PO PRN 11/18/15 Sodium Bicarbonate 1,300 mg PO BID 11/18/15 Carvedilol [Coreg -] 12.5 mg PO BID #60 tablet 11/21/15 Furosemide 20 mg PO BID 01/04/17 Cholecalciferol (Vitamin D3) [Vitamin D3 -] 2,000 unit PO DAILY tab 01/08/17 Cefuroxime Axetil [Ceftin -] 500 mg PO DAILY #6 tablet 01/26/17 Docusate Sodium [Colace -] 100 mg PO TID #100 cap 01/26/17 Doxycycline Hyclate [Vibramycin] 100 mg PO BID #12 capsule 01/26/17 Lidocaine 5% Patch [Lidoderm -] 1 patch TP DAILY #30 patch 01/26/17 Lidocaine Patch Removal [Lidoderm Patch Removal] 1 each MC DAILY@2200 each Tacrolimus Anhydrous [Prograf (Non Formulary)] 5 mg PO BID #30 cap 01/26/17 Tacrolimus Anhydrous [Prograf (Non-Formulary)] 2 mg PO BID #30 cap 01/26/17 This patient is new to me today: No Emergency Visit: Yes ED Registration Date: 01/19/17 Care time: The patient presented to the Emergency Department on the above date and was hospitalized for further evaluation of their emergent condition. Critical Care patient: No Total Critical Care Time (in minutes): 38 Critical Care Statement: The care of this patient involved high complexity decision making to prevent further life threatening deterioration of the patient 's condition and/or to evaluate & treat vital organ system(s) failure or risk of failure. - Discharge Referral Referred to [facility] No
[2017-02-03 09:20] LABS: MYCOPLASMA PNEUMONIAE,IG G AB 398
== END 2017-01-26 16:22 | disposition home or self-care (01) | DRG 194 ==
LOC: JER 19:56 → JERBED 01-19 01:02 → J4W 01-19 02:13 → J8W 01-23 17:03
PROVIDERS: ADMIT Internal Medicine; ATTEND Internal Medicine
DX: I11.0 Hypertensive heart disease with heart failure (principal); F17.210 Nicotine dependence, cigarettes, uncomplicated; J44.9 Chronic obstructive pulmonary disease, unspecified; E78.5 Hyperlipidemia, unspecified; J18.9 Pneumonia, unspecified organism; M25.512 Pain in left shoulder; I42.9 Cardiomyopathy, unspecified; I27.2 Other secondary pulmonary hypertension; E87.2 Acidosis; I50.22 Chronic systolic (congestive) heart failure; Y95 Nosocomial condition; I35.0 Nonrheumatic aortic (valve) stenosis; I35.1 Nonrheumatic aortic (valve) insufficiency; I37.1 Nonrheumatic pulmonary valve insufficiency; I34.0 Nonrheumatic mitral (valve) insufficiency; I36.1 Nonrheumatic tricuspid (valve) insufficiency; I50.23 Acute on chronic systolic (congestive) heart failure; D64.9 Anemia, unspecified; T86.11 Kidney transplant rejection; Y83.8 Other surgical procedures as the cause of abnormal reaction of the patient, or of later complication, without mention of misadventure at the time of the procedure; I24.8 Other forms of acute ischemic heart disease; I47.1 Supraventricular tachycardia; K59.00 Constipation, unspecified
CPT/HCPCS: 36415; 71010-TC; 71020-TC; 71101-TC-RT; 71250-TC; 74176-TC; 76705-TC; 80048; 80053; 80076; 80197; 83605; 83690; 83735; 84100; 84484; 85025; 85379; 85610; 85651; 86038; 86140; 86157; 86631; 86632; 86713; 86738; 87040; 87385; 87899; 93005; 93010; 93970-TC; 94010; 99282-25; G0480; J1644

== ENCOUNTER 2018-03-09 04:12 | Emergency (ER) | payer OTHER ==
[2018-03-09 05:07] VITALS: BP 151/94; PULSE 79; TEMP 97.6; BMI 24.9
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
[2018-03-09] MEDS ORDERED: ACETAMINOPHEN 325 MG TABLET (FP) PO ONE (06:44)
[2018-03-09] MEDS ORDERED: ACETAMINOPHEN 325 MG TABLET (FP) ONE (07:12)
--- NOTE | 2018-03-09 07:56 | PDOC ---
*Physical Exam - Vital Signs Last Vital Signs Temp Pulse Resp BP Pulse Ox 97.6 F 79 19 151/94 100 03/09/18 04:15 03/09/18 04:15 03/09/18 04:15 03/09/18 04:15 03/09/18 04:15 - Physical Exam Comments: 03/09/18 07:55 The patient was examined by [VERONIKA Wilkinson] under my direct supervision. I personally evaluated the patient. I concur with the above findings and the plan of care. ED Treatment Course - Medications Given in the ED: ED Medications Discontinued Medications Generic Name Dose Route Start Last Admin Trade Name Freq PRN Reason Stop Dose Admin Acetaminophen 975 mg 03/09/18 06:44 03/09/18 07:15 Tylenol - PO 03/09/18 06:45 Not Given ONCE ONE *DC/Admit/Observation/Transfer Diagnosis at time of Disposition: Hematoma and contusion Left ulnar fracture Qualifiers: Encounter type: initial encounter Ulna location: shaft Fracture type: closed Fracture morphology: transverse Fracture alignment: displaced Qualified Code(s) : S52.222A - Displaced transverse fracture of shaft of left ulna, initial encounter for closed fracture - Referrals Referrals: Timoteo Foote MD [Primary Care Provider] - - Patient Instructions - Post Discharge Activity
--- NOTE | 2018-03-09 08:48 | PDOC ---
*Physical Exam - Vital Signs Last Vital Signs Temp Pulse Resp BP Pulse Ox 97.6 F 79 19 151/94 100 03/09/18 04:15 03/09/18 04:15 03/09/18 04:15 03/09/18 04:15 03/09/18 04:15 - Physical Exam General Appearance: Yes: Appropriately Dressed. No: Apparent Distress HEENT: positive: Normal Voice Neck: positive: Supple Respiratory/Chest: negative: Respiratory Distress Extremity: positive: Tender, Swelling, Other (pulses and sensation intact) Integumentary: positive: Dry, Warm Neurologic: positive: Fully Oriented, Alert, Normal Mood/Affect ED Treatment Course - Medications Given in the ED: ED Medications Discontinued Medications Generic Name Dose Route Start Last Admin Trade Name Freq PRN Reason Stop Dose Admin Acetaminophen 975 mg 03/09/18 06:44 03/09/18 07:15 Tylenol - PO 03/09/18 06:45 Not Given ONCE ONE Medical Decision Making - Medical Decision Making 03/09/18 08:43 Pt signed out to me pending splint for distal ulnar fracture. On exam, patient has some swelling, ecchymosis and ttp along ulnar aspect of R forearm/wrist. Right upper extremity pulses and sensation intact. No e/o compartment syndrome at this time as d/w Dr Denis. Ulnar gutter splint placed and Dr. Garcia, happened to be in ED at this time and case was discussed with Alexus who reviewed x-ray and states patient call him today to be seen in am. 03/09/18 08:52 *DC/Admit/Observation/Transfer Diagnosis at time of Disposition: Hematoma and contusion Left ulnar fracture Qualifiers: Encounter type: initial encounter Ulna location: shaft Fracture type: closed Fracture morphology: transverse Fracture alignment: displaced Qualified Code(s) : S52.222A - Displaced transverse fracture of shaft of left ulna, initial encounter for closed fracture - Discharge Dispostion Disposition: HOME Condition at time of disposition: Improved - Referrals Referrals: Timoteo Foote MD [Primary Care Provider] - Hector Garcia MD [Staff Physician] - - Patient Instructions Printed Discharge Instructions: Forearm Fracture Additional Instructions: Keep splint in place and use sling to immobilize extremity above the heart to reduce swelling. Take Tylenol or extra strength Tylenol as needed for pain. Please call Dr. Garcia today as MD wants to see you in the am - Post Discharge Activity
== END 2018-03-09 08:50 | disposition home or self-care (01) ==
LOC: JER 04:12
PROC: 2W3CX1Z Immobilization of Right Lower Arm using Splint (ICD-10-PCS; principal; 2018-03-09)
DX: S52.221A Displaced transverse fracture of shaft of right ulna, initial encounter for closed fracture (principal); S50.11XA Contusion of right forearm, initial encounter; W22.8XXA Striking against or struck by other objects, initial encounter; Y93.89 Activity, other specified; Y92.89 Other specified places as the place of occurrence of the external cause; I50.9 Heart failure, unspecified; F17.210 Nicotine dependence, cigarettes, uncomplicated; J44.9 Chronic obstructive pulmonary disease, unspecified; E78.00 Pure hypercholesterolemia, unspecified; Z99.2 Dependence on renal dialysis; I10 Essential (primary) hypertension
CPT/HCPCS: 29125; 71101-TC-FY; 73090-TC-RT-FY; 99281-25

== ENCOUNTER 2018-10-20 08:53 | Inpatient (IN) | payer OTHER ==
--- NOTE | 2018-10-20 09:49 | PDOC ---
History of Present Illness - General Chief Complaint: Nausea/Vomiting Stated Complaint: RENAL FAILURE Time Seen by Provider: 10/20/18 09:49 - History of Present Illness Initial Comments: 10/20/18 12:13 The patient is a 62 year old male with a history of HTN, HLD, CHF, COPD, Renal Failure s/p Kidney Transplant 14 years ago who presents for evaluation of nausea and vomiting. The patient reports a 7 day history of worsening nausea and multiple episodes of non-bilious, non-bloody vomiting with associated diarrhea and abdominal cramping. The patient states that he spoke with his cotton wringer Dr. Stephenson who referred the patient to the ED for admission to begin dialysis. The patient notes that he has been having worsening renal function over the past year that has been monitored outpatient basis. The patient otherwise denies fevers, chills, SOB, chest pain, or changes with urination. Past History - Past Medical History Allergies/Adverse Reactions: Allergies Allergy/AdvReac Type Severity Reaction Status Date / Time No Known Allergies Allergy Verified 10/20/18 08:56 Home Medications: Ambulatory Orders Mycophenolate Mofetil [Cellcept] 250 mg PO DAILY 03/24/14 Allopurinol [Zyloprim -] 100 mg PO PRN 11/18/15 Sodium Bicarbonate 1,300 mg PO BID 11/18/15 Carvedilol [Coreg -] 12.5 mg PO BID #60 tablet 11/21/15 Furosemide 20 mg PO BID 01/04/17 Cholecalciferol (Vitamin D3) [Vitamin D3 -] 2,000 unit PO DAILY tab 01/08/17 Cefuroxime Axetil [Ceftin -] 500 mg PO DAILY #6 tablet 01/26/17 Docusate Sodium [Colace -] 100 mg PO TID #100 cap 01/26/17 Doxycycline Hyclate [Vibramycin] 100 mg PO BID #12 capsule 01/26/17 Lidocaine 5% Patch [Lidoderm -] 1 patch TP DAILY #30 patch 01/26/17 Lidocaine Patch Removal [Lidoderm Patch Removal] 1 each MC DAILY@2200 each Tacrolimus Anhydrous [Prograf] 2 mg PO BID #30 cap 01/26/17 Tacrolimus Anhydrous [Prograf] 5 mg PO BID #30 cap 01/26/17 Anemia: No Asthma: No Cancer: No Cardiac Disorders: Yes CVA: No COPD: Yes CHF: Yes Dementia: No Diabetes: No Dialysis: Yes (HX FISTULA) GI Disorders: No Disorders: No HTN: Yes Hypercholesterolemia: No Liver Disease: No Seizures: No Thyroid Disease: No - Surgical History Abdominal Surgery: No Appendectomy: No Cardiac Surgery: No Cholecystectomy: No Lung Surgery: No Neurologic Surgery: No Orthopedic Surgery: No - Suicide/Smoking/Psychosocial Hx Smoking History: Never smoked Have you smoked in the past 12 months: No Number of Cigarettes Smoked Daily: 10 If you are a former smoker, when did you quit?: 2.5 months ago Information on smoking cessation initiated: No 'Breaking Loose' booklet given: 11/18/15 Hx Alcohol Use: No Drug/Substance Use Hx: No Substance Use Type: None Hx Substance Use Treatment: No Review of Systems - Review of Systems Comments:: 10/20/18 12:18 Constitutional: No fevers, chills, fatigue, malaise HEENT: No Rhinorrhea, nasal congestion, visual changes Cardiovascular: No chest pain, syncope, palpitations, lightheadedness Respiratory: No Cough, SOB, Hemoptysis, Gastrointestinal: Abdominal pain, Nausea, Vomiting, Diarrhea. No Constipation, Melena Genitourinary: No Dysuria, Frequency, Urgency, Hesitancy, Hematuria, Flank pain Musculoskeletal: No Myalgia, arthralgia Skin: No rashes, itching, bruising, pallor Neurologic: No Headache, Dizziness, Numbness, Weakness, or Tingling Psychiatric: No Hallucinations. No SI or HI *Physical Exam - Vital Signs Last Vital Signs Temp Pulse Resp BP Pulse Ox 97.5 F L 81 17 122/85 96 10/20/18 08:57 10/20/18 08:57 10/20/18 08:57 10/20/18 08:57 10/20/18 08:57 - Physical Exam Comments: 10/20/18 12:19 General Appearance: Nourished. No Apparent Distress HEENT: No Pharyngeal Erythema, Tonsillar Exudate, Tonsillar Erythema Neck: No Cervical Lymphadenopathy Respiratory/Chest: Lungs Clear, Normal Breath Sounds. No Crackles, Rales, Rhonchi, Wheezing Cardiovascular: Regular Rhythm, Regular Rate. No Murmur, Gallops, Rubs Gastrointestinal/Abdominal: Normal Bowel Sounds, Soft. No Guarding, Rebound, Tenderness Musculoskeletal: No CVA Tenderness Extremity: Normal Capillary Refill Integumentary: Normal Color, Dry, Warm Neurologic: Fully Oriented, Alert, Normal Mood/Affect, Normal Response, ED Treatment Course - LABORATORY CBC & Chemistry Diagram: 10/20/18 10:35 10/20/18 10:35 Medical Decision Making - Medical Decision Making 10/20/18 12:20 The patient is a 62 year old male with a history of HTN, HLD, CHF, COPD, Renal Failure s/p Kidney Transplant 14 years ago who presents for evaluation of nausea and vomiting. Differential includes but is not limited to: Uremia, Renal Failure, Infectious, Metabolic Derangement. Given the patient's history and physical exam, we will obtain a cbc, cmp, coags, mag, phos, ua, urine culture, ekg, chest plain film to evaluate further. We will treat with zofran and continue to monitor and reassess while here in the ED. 10/20/18 15:14 CBC is unremarkable. CMP demonstrates a BUN of 73 and creatinine of 7.6 and a potassium of 5.0. UA demonstrates positive leuk esterase with elevated wbc. Chest plain film is unremarkable. We discussed the case with Dr. Stephenson with nephrology who is aware of the patient and will arrange for dialysis today. We discussed the case with the admitting team who accepted the patient for admission. *DC/Admit/Observation/Transfer Diagnosis at time of Disposition: Renal failure Qualifiers: Renal failure chronicity: unspecified chronicity Qualified Code(s): N19 - Unspecified kidney failure - Discharge Dispostion Condition at time of disposition: Stable Decision to Admit order: Yes - Referrals - Patient Instructions - Post Discharge Activity
[2018-10-20 11:05] LABS: BASO % 0.6 % (0-2.0); EOS % 1.5 % (0-4.5); EPI CELLS 2.7 /HPF (0-5/HPF); HEMATOCRIT 33.5 % (35.4-49); HYALINE CASTS 3 /lpf (0-8); LYMPH % 9.6 % (8-40); MCH 26.7 pg (25.7-33.7); MCHC 32.7 g/dl (32.0-35.9); MEAN CELL VOLUME 81.6 fl (80-96); NEUT % 81.3 % (42.8-82.8); PLATELET COUNT 225 K/MM3 (134-434); RBC 4.11 M/mm3 (4.00-5.60); RDW 18.8 % (11.9-15.9); URINE APPEARANCE CLOUDY; URINE BACTERIA 1612.1 /hpf (NEGATIVE); URINE BILIRUBIN NEGATIVE (NEGATIVE); URINE COLOR YELLOW; URINE GLUCOSE (UA) NEGATIVE (NEGATIVE); URINE KETONE NEGATIVE (NEGATIVE); URINE LEUK ESTERASE 2+ (NEGATIVE); URINE NITRITE NEGATIVE (NEGATIVE); URINE PROTEIN 2+ (NEGATIVE); URINE RBC 2 /hpf (0-4); URINE UROBILINOGEN 0.2 mg/dL (0.2-1.0); URINE WBC 120 /hpf (0-5); WHITE BLOOD COUNT 10.3 K/mm3 (4.0-10.0)
[2018-10-20] MEDS ORDERED: ONDANSETRON 4 MG/2 ML VIAL IVPUSH ONE (11:09)
[2018-10-20] MEDS ORDERED: ONDANSETRON 4 MG/2 ML VIAL ONE (11:10)
[2018-10-20 11:24] LABS: INR 1.09 (0.83-1.09); PROTHROMBIN TIME (PATIENT) 12.9 SEC (9.7-13.0)
[2018-10-20 11:27] LABS: ACTIVATED PTT 27.7 SECONDS (25.2-36.5)
[2018-10-20 11:38] LABS: ALBUMIN 3.4 g/dl (3.4-5.0); BILIRUBIN,TOTAL 0.6 mg/dL (0.2-1); BLOOD UREA NITROGEN 73.5 mg/dL (7-18); CALCIUM 8.3 mg/dL (8.5-10.1); MAGNESIUM 2.3 mg/dL (1.8-2.4); PHOSPHOROUS 5.6 mg/dL (2.5-4.9); TOT PROT 6.7 g/dl (6.4-8.2)
[2018-10-20 11:55] LABS: CREATININE 7.6 mg/dL (0.55-1.3)
--- NOTE | 2018-10-20 11:55 | PDOC ---
Documentation entered by Rodríguez Resendez SCRIBE, acting as scribe for Stephanie Soriano MD. Stephanie Soriano MD: This documentation has been prepared by the Mal aguila Nirvannie, SCRIBE, under my direction and personally reviewed by me in its entirety. I confirm that the documentation accurately reflects all work, treatment, procedures, and medical decision making performed by me. Attending Attestation - Resident Resident Name: Zain Willingham - ED Attending Attestation I have performed the following: I have examined & evaluated the patient, The case was reviewed & discussed with the resident, I agree w/resident's findings & plan - HPI HPI: 10/20/18 11:17 The patient is a 62 year old male, with a significant past medical history of HTN, ESRD (s/p failed renal transplant), who presents to the emergency department with, 10 days of vomiting. As per patient, his symptoms are similar to prior episodes of renal failure. Patient notes his surgeries are done at [place] and renal doctors are in [place]. He denies any recent fevers, chills, headache or dizziness. He denies any recent chest pain or shortness of breath. He denies any recent dysuria, frequency, urgency or hematuria. Allergies: NKDA Primary Care Physician: Dr. Bernstein [facility] Renal: Dr. Filipe Stephenson - Physicial Exam PE: 10/20/18 11:19 GENERAL: Awake, alert, and fully oriented, in no acute distress HEAD: No signs of trauma NECK: Normal ROM, supple, no lymphadenopathy, JVD, or masses LUNGS: Breath sounds equal, clear to auscultation bilaterally. No wheezes, and no crackles HEART: Regular rate and rhythm, normal S1 and S2, no murmurs, rubs or gallops ABDOMEN: Soft, nontender, normoactive bowel sounds. No guarding, no rebound. No masses EXTREMITIES:+L AV fistula in place. Normal range of motion, no edema. No clubbing or cyanosis. No cords, erythema, or tenderness NEUROLOGICAL: Cranial nerves II through XII grossly intact. Normal speech. SKIN: Warm, Dry, normal turgor, no rashes or lesions noted. 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 Patient complains of nausea and vomiting, so concern was for worsening uremia. Labs show elevated BUN at 73, but consistent with values from 2017. Potassium 5.0. Will admit to medicine for renal failure. Will consult nephrology. 10/20/18 11:53
--- NOTE | 2018-10-20 14:01 | EKG ---
Test Reason : Blood Pressure : / mmHG Vent. Rate : 074 BPM Atrial Rate : 074 BPM P-R Int : 272 ms QRS Dur : 104 ms QT Int : 440 ms P-R-T Axes : 075 -47 149 degrees QTc Int : 488 ms SINUS RHYTHM WITH 1ST DEGREE A-V BLOCK LEFT ANTERIOR FASCICULAR BLOCK MINIMAL VOLTAGE CRITERIA FOR LVH, MAY BE NORMAL VARIANT T WAVE ABNORMALITY, CONSIDER LATERAL ISCHEMIA PROLONGED QT ABNORMAL ECG WHEN COMPARED WITH ECG OF 20-JAN-2017 11:18, [place] INTERVAL HAS INCREASED LEFT ANTERIOR FASCICULAR BLOCK IS NOW PRESENT NONSPECIFIC T WAVE ABNORMALITY NO LONGER EVIDENT IN INFERIOR LEADS T WAVE INVERSION MORE EVIDENT IN LATERAL LEADS Confirmed by ARTURO CASTRO MD ([id number]) on 10/20/2018 2:01:43 PM Referred By: Confirmed By:ARTURO CASTRO MD
--- NOTE | 2018-10-20 14:16 | CONSULT ---
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 Pt states that he has been having frequent liquid stools for weeks. He was admitted to [facility] and the work up there was not able to find an etiology of the diarrhea. Over the past 7 days he has also been having nausea and vomiting. He has not been able to keep his medications down. Denies any fever or chills. No pain over renal allograft site. + Leg swelling. No [place], confusion, lethargy or weakness. No CP or SOB. Pt is agreeable to starting dialysis. Dr. Kamille Castrejon is his primary medical supply technician. PMHx: as above Allergies: NKDA Family Hx: [place] Social Hx: No T/A/D ROS: as per HPI, all other ros negative Home Medications Medication Instructions Recorded Mycophenolate Mofetil [Cellcept] 250 mg PO DAILY 03/24/14 Allopurinol [Zyloprim -] 100 mg PO PRN 11/18/15 Sodium Bicarbonate 1,300 mg PO BID 11/18/15 Carvedilol [Coreg -] 12.5 mg PO BID #60 tablet 11/21/15 Furosemide 20 mg PO BID 01/04/17 Cholecalciferol (Vitamin D3) 2,000 unit PO DAILY tab 01/08/17 [Vitamin D3 -] Cefuroxime Axetil [Ceftin -] 500 mg PO DAILY #6 tablet 01/26/17 Docusate Sodium [Colace -] 100 mg PO TID #100 cap 01/26/17 Doxycycline Hyclate [Vibramycin] 100 mg PO BID #12 capsule 01/26/17 Lidocaine 5% Patch [Lidoderm -] 1 patch TP DAILY #30 patch 01/26/17 Lidocaine Patch Removal [Lidoderm 1 each MC DAILY@2200 each 01/26/17 Patch Removal] Tacrolimus Anhydrous [Prograf] 2 mg PO BID #30 cap 01/26/17 Tacrolimus Anhydrous [Prograf] 5 mg PO BID #30 cap 01/26/17 Vital Signs Temperature 97.5 F L 10/20/18 08:57 Pulse Rate 81 10/20/18 08:57 Respiratory Rate 17 10/20/18 08:57 Blood Pressure 122/85 10/20/18 08:57 O2 Sat by Pulse Oximetry (%) 96 10/20/18 08:57 Intake & Output 10/17/18 10/18/18 10/19/18 10/20/18 23:59 23:59 23:59 23:59 Weight 86.183 kg NAD awake and alert neck supple, no JVD RRR, no M/R CTA, no rales or wheeze soft NT/ND no allograft tenderness ++ edema in LE no clubbing or cyanosis no focal neurologic deficits no bladder distension CBC, BMP 10/20/18 10:35 10/20/18 10:35 62 year old gentleman with history of 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 #Progressive allograft nephropathy now ESRD requiring dialysis #Nausea and Vomiting #Suspected UTI #Anemia Pt will require renal replacement therapy this admission will mange arrangements for dialysis today and tomorrow Continue prograf and prednisone for now will use AVF in left arm for dialysis Etiology of N/V could be uremic gastritis, etiology of diarrhea unclear Renal diet as tolerated Zofran PRN for nauea f/u urine culture, empiric abx as per primary Trend renal function and electrolytes will need outpatient dialysis placement Thank you Filipe Stephenson DO
[2018-10-20] MEDS ORDERED: SODIUM CHLORIDE 250 ML IV PRN (14:42)
[2018-10-20] MEDS ORDERED: ACETAMINOPHEN 325 MG TABLET (FP) PO PRN (15:39)
--- NOTE | 2018-10-20 15:47 | HP ---
Admitting History and Physical - Primary Care Physician PCP: Amandeep KELLY - Admission Chief Complaint: I need dialysis History of Present Illness: Mr Delgado is a very pleasant 62 year old male who comes in saying he needs HD. He has a history of renal failure and is s/p renal transplant 12 years ago that failed. He has been followed as an outpatient and opted to not be placed on HD. However this week he developed nausea with vomiting and diarrhea. He says that he does not have an appetite, and every time he tries to eat he throws up. Sometimes it is dry heaving and other times it is emesis. He says it looks like undigested food and denies blood or bilious emesis. He says the diarrhea is normal color and denies melena. He denies travel or sick contacts. He throws up with both liquids and solids. It is suspected that it is secondary to renal failure and was brought in for HD. He denies fevers, chills, lightheadedness, dizziness, passing out, chest pain or pressure, shortness of breath, coughing, or swelling in his legs. History Source: Patient Limitations to Obtaining History: No Limitations - Past Medical History Cardiovascular: Yes: Aortic Insufficiency, Aortic Stenosis, CHF, HTN, Hyperlipdemia, Mitral Insufficiency, Murmur, Pulmonary Hypertension Gastrointestinal: Yes: Cancer Renal/: Yes: Renal Failure, Other (Post renal transplant) - Past Surgical History Past Surgical History: Yes: Kidney Transplant, Valve Replacement - Smoking History Smoking history: Never smoked Have you smoked in the past 12 months: No Aproximately how many cigarettes per day: 10 If you are a former smoker, when did you quit?: 2.5 months ago - Alcohol/Substance Use Hx Alcohol Use: No History of Substance Use: reports: Marijuana - Social History ADL: Independent History of Recent Travel: No Home Medications - Allergies Allergies/Adverse Reactions: Allergies Allergy/AdvReac Type Severity Reaction Status Date / Time No Known Allergies Allergy Verified 10/20/18 08:56 - Home Medications Home Medications: Ambulatory Orders Mycophenolate Mofetil [Cellcept] 250 mg PO DAILY 03/24/14 Allopurinol [Zyloprim -] 100 mg PO PRN 11/18/15 Sodium Bicarbonate 1,300 mg PO BID 11/18/15 Carvedilol [Coreg -] 12.5 mg PO BID #60 tablet 11/21/15 Furosemide 20 mg PO BID 01/04/17 Cholecalciferol (Vitamin D3) [Vitamin D3 -] 2,000 unit PO DAILY tab 01/08/17 Cefuroxime Axetil [Ceftin -] 500 mg PO DAILY #6 tablet 01/26/17 Docusate Sodium [Colace -] 100 mg PO TID #100 cap 01/26/17 Doxycycline Hyclate [Vibramycin] 100 mg PO BID #12 capsule 01/26/17 Lidocaine 5% Patch [Lidoderm -] 1 patch TP DAILY #30 patch 01/26/17 Lidocaine Patch Removal [Lidoderm Patch Removal] 1 each MC DAILY@2200 each Tacrolimus Anhydrous [Prograf] 2 mg PO BID #30 cap 01/26/17 Tacrolimus Anhydrous [Prograf] 5 mg PO BID #30 cap 01/26/17 Family Disease History - Family Disease History Family Disease History: Other: Father (kidney failure) Review of Systems Findings/Remarks: Full review of systems obtained, as per HPI and otherwise negative. Physical Examination Vital Signs: Vital Signs Temperature 36.5 C 10/20/18 14:39 Pulse Rate 84 10/20/18 14:39 Respiratory Rate 20 10/20/18 14:39 Blood Pressure 132/84 10/20/18 14:39 O2 Sat by Pulse Oximetry (%) 97 10/20/18 14:39 Constitutional: Yes: Well Nourished, No Distress, Calm Eyes: Yes: Conjunctiva Clear, EOM Intact, PERRL HENT: Yes: Atraumatic, Normocephalic Cardiovascular: Yes: Regular Rate and Rhythm. No: Gallop, Murmur, Rub Respiratory: Yes: Regular, CTA Bilaterally. No: Rales, Rhonchi, Wheezes Gastrointestinal: Yes: Normal Bowel Sounds, Soft. No: Distention, Tenderness Extremities: Yes: WNL Edema: No Labs: CBC, BMP 10/20/18 10:35 10/20/18 10:35 Imaging - Results Chest X-ray: Report Reviewed, Image Reviewed Problem List - Problems (1) ESRD (end stage renal disease) Assessment/Plan: -case d/w Dr Stephenson -fistula in place -planning for HD today -monitor, may need another round tomorrow -set up outpatient HD Code(s): N18.6 - END STAGE RENAL DISEASE (2) CHF (congestive heart failure) Assessment/Plan: -not in exacerbation -on lasix now -now receiving HD as well Code(s): I50.9 - HEART FAILURE, UNSPECIFIED Qualifiers: Qualified Code(s): I50.23 - Acute on chronic systolic (congestive) heart failure (3) HTN (hypertension) Assessment/Plan: -continue coreg Code(s): I10 - ESSENTIAL (PRIMARY) HYPERTENSION Qualifiers: Hypertension type: essential hypertension Qualified Code(s): I10 - Essential (primary) hypertension (4) Renal transplant recipient Assessment/Plan: -continue prograf and prednisone Code(s): Z94.0 - KIDNEY TRANSPLANT STATUS
[2018-10-20] MEDS: CARVEDILOL 12.5 MG TABLET (FP) PO SCH (21:48)
[2018-10-20] MEDS: TACROLIMUS ANHYDROUS 5 MG CAPSULE PO SCH (21:48)
[2018-10-20] MEDS: HEPARIN NA (PORCINE) 5,000 UNITS/ML 1ML VIAL SQ SCH (21:49)
[2018-10-20] MEDS: SODIUM BICARBONATE 650 MG TABLET PO SCH (21:49)
[2018-10-21] MEDS: FUROSEMIDE 20 MG TABLET (FP) PO SCH ×2 (05:55→16:51)
[2018-10-21] MEDS: HEPARIN NA (PORCINE) 5,000 UNITS/ML 1ML VIAL SQ SCH ×3 (06:21→21:43)
[2018-10-21 07:52] LABS: BLOOD UREA NITROGEN 58.3 mg/dL (7-18); CREATININE 6.2 mg/dL (0.55-1.3); MAGNESIUM 2.1 mg/dL (1.8-2.4); PHOSPHOROUS 5.1 mg/dL (2.5-4.9); POTASSIUM 4.8 mmol/L (3.5-5.1)
[2018-10-21] MEDS ORDERED: SODIUM CHLORIDE 250 ML IV PRN (08:13)
[2018-10-21] MEDS ORDERED: PT OWN MED DRAWER 7, Y5N ONE ×3 (08:52→18:03)
[2018-10-21] MEDS: TACROLIMUS ANHYDROUS 5 MG CAPSULE PO SCH ×2 (09:10→21:43)
[2018-10-21] MEDS: predniSONE 5 MG TABLET (UD) PO SCH (09:10)
[2018-10-21] MEDS: SODIUM BICARBONATE 650 MG TABLET PO SCH ×2 (09:10→21:43)
[2018-10-21] MEDS: CARVEDILOL 12.5 MG TABLET (FP) PO SCH ×2 (09:10→21:40)
--- NOTE | 2018-10-21 09:15 | PN ---
Progress Note, Physician Chief Complaint: Patient seen and examined in his room. Still w/ watery loose bm, but no nausea. he says he is having gout in his hands. Denies any chest pains. No shortness of breath. He had his first dialysis yesterday, low flow and short. 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 Pt states that he has been having frequent liquid stools for weeks. He was admitted to [facility] and the work up there was not able to find an etiology of the diarrhea. He has not been able to keep his medications down. Denies any fever or chills. No pain over renal allograft site. + Leg swelling. - Current Medication List Current Medications: Active Medications Acetaminophen (Tylenol -) 650 mg PO Q4H PRN PRN Reason: FEVER Last Admin: 10/21/18 05:53 Dose: 650 mg Carvedilol (Coreg -) 12.5 mg PO BID [facility] Last Admin: 10/21/18 09:10 Dose: 12.5 mg Furosemide (Lasix -) 20 mg PO BIDLASIX [facility] Last Admin: 10/21/18 05:55 Dose: 20 mg Heparin Sodium (Porcine) (Heparin -) 5,000 unit SQ TID [facility] Last Admin: 10/21/18 06:21 Dose: Not Given Sodium Chloride (Normal Saline -) 250 mls @ 3,000 mls/hr IV PRN PRN PRN Reason: Hypotension during Dialysis Stop: 10/22/18 08:13 Ondansetron HCl (Zofran Injection) 4 mg IVPUSH Q6H PRN PRN Reason: NAUSEA Prednisone (Deltasone -) 5 mg PO DAILY [facility] Last Admin: 10/21/18 09:10 Dose: 5 mg Sodium Bicarbonate (Sodium Bicarbonate -) 1,300 mg PO BID [facility] Last Admin: 10/21/18 09:10 Dose: 1,300 mg Tacrolimus (Prograf) 5 mg PO BID [facility] Last Admin: 10/21/18 09:10 Dose: 5 mg - Objective Vital Signs: Vital Signs Temperature 97.5 F L 10/21/18 06:00 Pulse Rate 80 10/21/18 06:00 Respiratory Rate 20 10/21/18 06:00 Blood Pressure 132/88 10/21/18 06:00 O2 Sat by Pulse Oximetry (%) 96 10/20/18 21:00 Constitutional: Yes: Anxious Eyes: Yes: Conjunctiva Clear HENT: Yes: Atraumatic Neck: Yes: Trachea Midline Respiratory: Yes: CTA Bilaterally, Diminished Gastrointestinal: Yes: Normal Bowel Sounds, Soft, Tenderness (mild). No: Palpable Mass, Pulsatile Mass, Tenderness, Epigastrium, Tenderness, Rebound, Vomiting Genitourinary: No: Bladder Distention, CVA Tenderness - Left, CVA Tenderness - Right Edema: Yes Edema: LLE: Trace, RLE: Trace Neurological: Yes: Alert, Oriented Labs: CBC, BMP 10/21/18 06:45 INR, PTT INR 1.09 (0.83-1.09) 10/20/18 10:35 Problem List - Problems (1) Uremia Code(s): N19 - UNSPECIFIED KIDNEY FAILURE (2) ESRD (end stage renal disease) Code(s): N18.6 - END STAGE RENAL DISEASE (3) HTN (hypertension) Code(s): I10 - ESSENTIAL (PRIMARY) HYPERTENSION Qualifiers: Hypertension type: essential hypertension Qualified Code(s): I10 - Essential (primary) hypertension (4) Renal transplant recipient Code(s): Z94.0 - KIDNEY TRANSPLANT STATUS Assessment/Plan This is a 62 year old gentleman with history of: 1. 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 the patient is uremic, and w/ possible uremic colitis. had uneventful HD yesteday. 2. Hypertension 3. Renal cell carcinoma s/p right nephrectomy 4. AVF left arm. 5. Anemia of CKD 5. Gout PLAN: Another Hd scheduled for today. Will dialysie back t o back fro 3 days in a row. Outpatient HD arrangements in progress. referral given to Liana Lantigua. Will continue the anti-rejection medications for now, including Prednisone. Will help gout. Reviewed treatment plans w/ the patient. Kamille Castrejon MD
[2018-10-21 09:22] LABS: BASO % 0.7 % (0-2.0); EOS % 11.8 % (0-4.5); HEMATOCRIT 32.5 % (35.4-49); HEMOGLOBIN 10.5 GM/dL (11.7-16.9); LYMPH % 4.3 % (8-40); MCH 26.6 pg (25.7-33.7); MCHC 32.4 g/dl (32.0-35.9); MEAN PLT VOLUME 9.6 fl (7.5-11.1); MONO % 4.5 % (3.8-10.2); NEUT % 78.7 % (42.8-82.8); PLATELET COUNT 183 K/MM3 (134-434); RBC 3.96 M/mm3 (4.00-5.60); RDW 19.2 % (11.9-15.9); WHITE BLOOD COUNT 10.7 K/mm3 (4.0-10.0)
--- NOTE | 2018-10-21 12:12 | PN ---
Progress Note, Physician Chief Complaint: Mr Delgado is without complaint today. N/V/D resolved and tolerating diet. No cp or sob. - Current Medication List Current Medications: Active Medications Acetaminophen (Tylenol -) 650 mg PO Q4H PRN PRN Reason: FEVER Last Admin: 10/21/18 05:53 Dose: 650 mg Carvedilol (Coreg -) 12.5 mg PO BID [facility] Last Admin: 10/21/18 09:10 Dose: 12.5 mg Furosemide (Lasix -) 20 mg PO BIDLASIX [facility] Last Admin: 10/21/18 05:55 Dose: 20 mg Heparin Sodium (Porcine) (Heparin -) 5,000 unit SQ TID [facility] Last Admin: 10/21/18 06:21 Dose: Not Given Sodium Chloride (Normal Saline -) 250 mls @ 3,000 mls/hr IV PRN PRN PRN Reason: Hypotension during Dialysis Stop: 10/22/18 08:13 Ceftriaxone Sodium 1 gm/ (Dextrose) 50 mls @ 100 mls/hr IVPB DAILY [facility]; Protocol Ondansetron HCl (Zofran Injection) 4 mg IVPUSH Q6H PRN PRN Reason: NAUSEA Prednisone (Deltasone -) 5 mg PO DAILY [facility] Last Admin: 10/21/18 09:10 Dose: 5 mg Sodium Bicarbonate (Sodium Bicarbonate -) 1,300 mg PO BID [facility] Last Admin: 10/21/18 09:10 Dose: 1,300 mg Tacrolimus (Prograf) 5 mg PO BID [facility] Last Admin: 10/21/18 09:10 Dose: 5 mg - Objective Vital Signs: Vital Signs Temperature 36.4 C L 10/21/18 06:00 Pulse Rate 80 10/21/18 06:00 Respiratory Rate 20 10/21/18 06:00 Blood Pressure 132/88 10/21/18 06:00 O2 Sat by Pulse Oximetry (%) 96 10/20/18 21:00 Constitutional: Yes: Well Nourished, No Distress, Calm Cardiovascular: Yes: Regular Rate and Rhythm. No: Gallop, Murmur, Rub Respiratory: Yes: Regular, CTA Bilaterally. No: Rales, Rhonchi, Wheezes Gastrointestinal: Yes: Normal Bowel Sounds, Soft. No: Distention, Tenderness Extremities: Yes: WNL Edema: No Labs: CBC, BMP 06/14/19 06:45 10/21/18 06:45 INR, PTT INR 1.09 (0.83-1.09) 10/20/18 10:35 Problem List - Problems (1) ESRD (end stage renal disease) Code(s): N18.6 - END STAGE RENAL DISEASE (2) CHF (congestive heart failure) Code(s): I50.9 - HEART FAILURE, UNSPECIFIED Qualifiers: Qualified Code(s): I50.23 - Acute on chronic systolic (congestive) heart failure (3) HTN (hypertension) Code(s): I10 - ESSENTIAL (PRIMARY) HYPERTENSION Qualifiers: Hypertension type: essential hypertension Qualified Code(s): I10 - Essential (primary) hypertension (4) Renal transplant recipient Code(s): Z94.0 - KIDNEY TRANSPLANT STATUS (5) UTI (urinary tract infection) Code(s): N39.0 - URINARY TRACT INFECTION, SITE NOT SPECIFIED Qualifiers: Urinary tract infection type: acute cystitis Hematuria presence: without hematuria Qualified Code(s): N30.00 - Acute cystitis without hematuria Assessment/Plan (1) ESRD (end stage renal disease) Assessment/Plan: -case d/w Dr Stephenson -round 2/3 HD today -can discharge tomorrow after HD Code(s): N18.6 - END STAGE RENAL DISEASE (2) CHF (congestive heart failure) Assessment/Plan: -not in exacerbation -on lasix now -now receiving HD as well Code(s): I50.9 - HEART FAILURE, UNSPECIFIED Qualifiers: Qualified Code(s): I50.23 - Acute on chronic systolic (congestive) heart failure (3) HTN (hypertension) Assessment/Plan: -continue coreg Code(s): I10 - ESSENTIAL (PRIMARY) HYPERTENSION Qualifiers: Hypertension type: essential hypertension Qualified Code(s): I10 - Essential (primary) hypertension (4) Renal transplant recipient Assessment/Plan: -continue prograf and prednisone Code(s): Z94.0 - KIDNEY TRANSPLANT STATUS (5) UTI -urine cultures positive -begin rocephin -transition to oral antibiotic on discharge
[2018-10-21] MEDS ORDERED: cefTRIAXone SODIUM 1 GM VIAL ONE (12:33)
[2018-10-21] MEDS ORDERED: DEXTROSE 5%-WATER - 50 ML IVPB ONE (12:34)
[2018-10-21] MEDS: ONDANSETRON 4 MG/2 ML VIAL IVPUSH PRN (12:34)
[2018-10-21] MEDS: CEFTRIAXONE 1 GM in DEXTROSE 5%-WATER - 50 ML IVPB SCH (13:16)
[2018-10-21] MEDS ORDERED: ONDANSETRON 4 MG/2 ML VIAL IVPUSH ONE (13:51)
[2018-10-22 03:10] LABS: HEP.C VIRUS AB <0.1 s/co ratio (0.0-0.9)
[2018-10-22] MEDS: FUROSEMIDE 20 MG TABLET (FP) PO SCH ×2 (05:34→18:16)
[2018-10-22] MEDS: HEPARIN NA (PORCINE) 5,000 UNITS/ML 1ML VIAL SQ SCH ×2 (05:34→18:16)
[2018-10-22 06:20] VITALS: TEMP 98.2
[2018-10-22] MEDS ORDERED: PT OWN MED DRAWER 7, Y5N ONE (09:25)
[2018-10-22] MEDS ORDERED: DEXTROSE 5%-WATER - 50 ML IVPB ONE (09:29)
[2018-10-22] MEDS ORDERED: cefTRIAXone SODIUM 1 GM VIAL ONE (09:29)
[2018-10-22] MEDS: ONDANSETRON 4 MG/2 ML VIAL IVPUSH PRN (09:44)
[2018-10-22] MEDS: predniSONE 5 MG TABLET (UD) PO SCH (09:44)
[2018-10-22] MEDS: CARVEDILOL 12.5 MG TABLET (FP) PO SCH (09:44)
[2018-10-22] MEDS: CEFTRIAXONE 1 GM in DEXTROSE 5%-WATER - 50 ML IVPB SCH (09:45)
[2018-10-22] MEDS: TACROLIMUS ANHYDROUS 5 MG CAPSULE PO SCH (09:45)
[2018-10-22] MEDS: SODIUM BICARBONATE 650 MG TABLET PO SCH (09:45)
--- NOTE | 2018-10-22 10:28 | DS ---
Physical Examination Vital Signs: Vital Signs Temperature 36.8 C 10/22/18 06:00 Pulse Rate 83 10/22/18 06:00 Respiratory Rate 18 10/22/18 06:00 Blood Pressure 118/73 10/22/18 06:00 O2 Sat by Pulse Oximetry (%) 99 10/21/18 21:00 Constitutional: Yes: Well Nourished, No Distress, Calm Cardiovascular: Yes: Regular Rate and Rhythm. No: Gallop, Murmur, Rub Respiratory: Yes: Regular, CTA Bilaterally. No: Rales, Rhonchi, Wheezes Gastrointestinal: Yes: Normal Bowel Sounds, Soft. No: Distention, Tenderness Extremities: Yes: WNL Edema: No Labs: CBC, BMP 10/21/18 06:45 10/21/18 06:45 Discharge Summary Reason For Visit: RENAL FAILURE,UREMIA Current Active Problems Renal failure (Acute) UTI (urinary tract infection) (Acute) Uremia (Acute) Hospital Course: (1) ESRD (end stage renal disease) Code(s): N18.6 - END STAGE RENAL DISEASE (2) CHF (congestive heart failure) Code(s): I50.9 - HEART FAILURE, UNSPECIFIED Qualifiers: Qualified Code(s): I50.23 - Acute on chronic systolic (congestive) heart failure (3) HTN (hypertension) Code(s): I10 - ESSENTIAL (PRIMARY) HYPERTENSION Qualifiers: Hypertension type: essential hypertension Qualified Code(s): I10 - Essential (primary) hypertension (4) Renal transplant recipient Code(s): Z94.0 - KIDNEY TRANSPLANT STATUS (5) UTI (urinary tract infection) Code(s): N39.0 - URINARY TRACT INFECTION, SITE NOT SPECIFIED Qualifiers: Urinary tract infection type: acute cystitis Hematuria presence: without hematuria Qualified Code(s): N30.00 - Acute cystitis without hematuria Mr Delgado is a 62 year old male who came in with uremic gastroenteritis and ESRD who was also found to have a UTI. He was admitted to the hospital and seen by nephrology. He was started on HD and received 3 rounds here. Nephrology stated that he is safe for discharge today after HD and they will observe him and establish HD if needed as an outpatient. He was also found to have a UTI. He was started on rocephin and he is safe to be discharged on renally dosed augmentin. He is stable for discharge today 32 minutes spent in preparation of this discharge Condition: Stable - Instructions Diet, Activity, Other Instructions: resume previous diet and activity. Referrals: Kamille Castrejon MD [Staff Physician] - Disposition: HOME - Home Medications Comprehensive Discharge Medication List: Ambulatory Orders Sodium Bicarbonate 1,300 mg PO BID 11/18/15 Carvedilol [Coreg -] 12.5 mg PO BID #60 tablet 11/21/15 Furosemide 20 mg PO BID 01/04/17 Cholecalciferol (Vitamin D3) [Vitamin D3 -] 2,000 unit PO DAILY tab 01/08/17 Tacrolimus Anhydrous [Prograf] 5 mg PO BID #30 cap 01/26/17 Amox-Tr/K Cl [Augmentin - 500Mg Tablet] 1 tab PO DAILY #10 tablet 10/22/18 predniSONE [Deltasone -] 5 mg PO DAILY #30 tablet 10/22/18
[2018-10-22 12:22] VITALS: BMI 25.4
--- NOTE | 2018-10-22 17:21 | PN ---
Progress Note (short form) - Note Progress Note: esrd s/p initiation of HD outpatient HD to be arranged Current Medications Acetaminophen (Tylenol -) 650 mg PO Q4H PRN PRN Reason: FEVER Last Admin: 10/21/18 05:53 Dose: 650 mg Carvedilol (Coreg -) 12.5 mg PO BID [facility] Last Admin: 10/22/18 09:44 Dose: 12.5 mg Furosemide (Lasix -) 20 mg PO BIDLASIX [facility] Last Admin: 10/22/18 05:34 Dose: 20 mg Heparin Sodium (Porcine) (Heparin -) 5,000 unit SQ TID [facility] Last Admin: 10/22/18 05:34 Dose: Not Given Sodium Chloride (Normal Saline -) 250 mls @ 3,000 mls/hr IV PRN PRN PRN Reason: Hypotension during Dialysis Stop: 10/22/18 08:13 Ceftriaxone Sodium 1 gm/ (Dextrose) 50 mls @ 100 mls/hr IVPB DAILY [facility]; Protocol Last Admin: 10/22/18 09:45 Dose: 100 mls/hr Ondansetron HCl (Zofran Injection) 4 mg IVPUSH Q6H PRN PRN Reason: NAUSEA Last Admin: 10/22/18 09:44 Dose: 4 mg Prednisone (Deltasone -) 5 mg PO DAILY [facility] Last Admin: 10/22/18 09:44 Dose: 5 mg Sodium Bicarbonate (Sodium Bicarbonate -) 1,300 mg PO BID [facility] Last Admin: 10/22/18 09:45 Dose: 1,300 mg Tacrolimus (Prograf) 5 mg PO BID [facility] Last Admin: 10/22/18 09:45 Dose: 5 mg Last Vital Signs Temp Pulse Resp BP Pulse Ox 98.2 F 88 18 127/79 99 10/22/18 14:00 10/22/18 16:25 10/22/18 16:25 10/22/18 16:25 10/22/18 09:00 IMP- ESRD Plan- outpatient f/u with dr bhandari/emmy
[2018-10-22 18:02] VITALS: PULSE 89
[2018-10-22 19:09] VITALS: BP 125/75
== END 2018-10-22 19:56 | disposition home or self-care (01) | DRG 249 ==
LOC: JER 08:53 → JERBED 13:05 → J7W 18:38
PROVIDERS: ADMIT Internal Medicine; ATTEND Internal Medicine
DX: K52.9 Noninfective gastroenteritis and colitis, unspecified (principal); J44.9 Chronic obstructive pulmonary disease, unspecified; E78.5 Hyperlipidemia, unspecified; Z94.0 Kidney transplant status; I12.0 Hypertensive chronic kidney disease with stage 5 chronic kidney disease or end stage renal disease; N18.6 End stage renal disease; D64.9 Anemia, unspecified; I27.20 Pulmonary hypertension, unspecified; I05.2 Rheumatic mitral stenosis with insufficiency; M10.9 Gout, unspecified; N39.0 Urinary tract infection, site not specified; B96.89 Other specified bacterial agents as the cause of diseases classified elsewhere; I13.2 Hypertensive heart and chronic kidney disease with heart failure and with stage 5 chronic kidney disease, or end stage renal disease; I50.20 Unspecified systolic (congestive) heart failure; Z85.528 Personal history of other malignant neoplasm of kidney; Z99.2 Dependence on renal dialysis
CPT/HCPCS: 36415; 71045-TC-FY; 80048; 80053; 80074; 81003; 83690; 83735; 84100; 85025; 85610; 85730; 87077; 87086; 87350; 93005; 93010; 99283-25

== ENCOUNTER 2018-11-14 01:25 | Emergency (ER) | payer OTHER ==
[2018-11-14 02:02] VITALS: PULSE 76; BMI 25.7
--- NOTE | 2018-11-14 02:19 | PDOC ---
History of Present Illness - General Chief Complaint: Pain, Acute Stated Complaint: LEG PAIN Time Seen by Provider: 11/14/18 02:17 - History of Present Illness Initial Comments: 11/14/18 02:49 The patient is a 62 year old male with a history of HTN, HLD, CHF, COPD, Renal Failure s/p Kidney Transplant 14 years ago on Dialysis who presents for evaluation of right leg pain and a back lesion. The patient reports onset of severe shooting right leg pain 4 days that has been getting progressively worse. He noted development of lesions to his right sided back associated with the pain as well beginning 2 days ago. He states that he has been using lidocaine patches, tylenol, and benadryl without any relief in his symptoms. He otherwise denies fevers, chills, SOB, chest pain, nausea, vomiting, abdominal pain, numbness, weakness, or changes with urination or bowel movements. Past History - Past Medical History Allergies/Adverse Reactions: Allergies Allergy/AdvReac Type Severity Reaction Status Date / Time No Known Allergies Allergy Verified 11/14/18 02:04 Home Medications: Ambulatory Orders Sodium Bicarbonate 1,300 mg PO BID 11/18/15 Carvedilol [Coreg -] 12.5 mg PO BID #60 tablet 11/21/15 Furosemide 20 mg PO BID 01/04/17 Cholecalciferol (Vitamin D3) [Vitamin D3 -] 2,000 unit PO DAILY tab 01/08/17 Tacrolimus Anhydrous [Prograf] 5 mg PO BID #30 cap 01/26/17 Amox-Tr/K Cl [Augmentin - 500Mg Tablet] 1 tab PO DAILY #10 tablet 10/22/18 predniSONE [Deltasone -] 5 mg PO DAILY #30 tablet 10/22/18 Oxycodone HCl/Acetaminophen [Percocet 5-325 mg Tablet] 1 tab PO Q6H #20 tablet MDD 4 tabs 11/14/18 Valacyclovir HCl [Valtrex -] 1,000 mg PO DAILY #14 tablet 11/14/18 Anemia: No Asthma: No Cancer: No Cardiac Disorders: Yes CVA: No COPD: Yes CHF: Yes Dementia: No Diabetes: No Dialysis: Yes (HX FISTULA) GI Disorders: No Disorders: No HTN: Yes Hypercholesterolemia: No Liver Disease: No Seizures: No Thyroid Disease: No - Surgical History Abdominal Surgery: No Appendectomy: No Cardiac Surgery: Yes (valve replacement) Cholecystectomy: No Lung Surgery: No Neurologic Surgery: No Orthopedic Surgery: No - Suicide/Smoking/Psychosocial Hx Smoking History: Current some day smoker Have you smoked in the past 12 months: No Number of Cigarettes Smoked Daily: 10 If you are a former smoker, when did you quit?: 2.5 months ago Information on smoking cessation initiated: No 'Breaking Loose' booklet given: 11/18/15 Hx Alcohol Use: No Drug/Substance Use Hx: No Substance Use Type: None Hx Substance Use Treatment: No Review of Systems - Review of Systems Comments:: 11/14/18 02:55 Constitutional: No fevers, chills, fatigue, malaise HEENT: No Rhinorrhea, nasal congestion, visual changes Cardiovascular: No chest pain, syncope, palpitations, lightheadedness Respiratory: No Cough, SOB, Hemoptysis, Gastrointestinal: No Abdominal pain, Nausea, Vomiting, Constipation, Diarrhea, Melena Genitourinary: No Dysuria, Frequency, Urgency, Hesitancy, Hematuria, Flank pain Musculoskeletal: Right leg pain. No Myalgia, arthralgia Skin: Lesions to the right back. No itching, bruising, pallor Neurologic: No Headache, Dizziness, Numbness, Weakness, or Tingling Psychiatric: No Hallucinations. No SI or HI *Physical Exam - Vital Signs Last Vital Signs Temp Pulse Resp BP Pulse Ox 97.9 F 76 17 127/85 96 11/14/18 01:25 11/14/18 01:25 11/14/18 01:25 11/14/18 01:25 11/14/18 01:25 - Physical Exam Comments: 11/14/18 02:55 General Appearance: Nourished. No Apparent Distress HEENT: No Pharyngeal Erythema, Tonsillar Exudate, Tonsillar Erythema Neck: No Cervical Lymphadenopathy Respiratory/Chest: Lungs Clear, Normal Breath Sounds. No Crackles, Rales, Rhonchi, Wheezing Cardiovascular: Regular Rhythm, Regular Rate. No Murmur, Gallops, Rubs Gastrointestinal/Abdominal: Normal Bowel Sounds, Soft. No Guarding, Rebound, Tenderness Musculoskeletal: No CVA Tenderness Extremity: Normal Capillary Refill Integumentary: Vesicular lesions to the right sided lumbar region of the back note crossing the midline extending in a dermatomal pattern down the right leg. No overlying erythema, purulent drainage, or warmth. Normal Color, Dry, Warm Neurologic: Fully Oriented, Alert, Normal Mood/Affect, Normal Response, Medical Decision Making - Medical Decision Making 11/14/18 02:57 The patient is a 62 year old male with a history of HTN, HLD, CHF, COPD, Renal Failure s/p Kidney Transplant 14 years ago on Dialysis who presents for evaluation of right leg pain and a back lesion. Given the patient's history and physical exam, it is likely the patient's symptoms are due to shingles. We will treat with percocet and valcyclovir here in the ED. We are comfortable discharging the patient home in stable condition on Valcyclovir. Patient made aware of impression and plan, return precautions discussed including but not limited to worsening pain or symptoms, fevers, or signs of infection, chest pain , respiratory distress, inability to tolerate oral intake, dehydration, syncope , or neurologic changes. The patient is to follow up with PMD as recommended within 1 week, follow up information provided and the patient will call for an appointment. The patient is to take medications as instructed for duration of time and continue with supportive care, avoid triggers and precipitants. Patient is safe for outpatient follow-up. *DC/Admit/Observation/Transfer Diagnosis at time of Disposition: Shingles Qualifiers: Herpes zoster complications: without complications Qualified Code(s): B02.9 - Zoster without complications - Discharge Dispostion Disposition: HOME Condition at time of disposition: Stable Decision to Admit order: No - Prescriptions Prescriptions: Oxycodone HCl/Acetaminophen [Percocet 5-325 mg Tablet] 1 tab PO Q6H #20 tablet MDD 4 tabs Valacyclovir HCl [Valtrex -] 1,000 mg PO DAILY #14 tablet - Referrals - Patient Instructions Printed Discharge Instructions: DI for Shingles Additional Instructions: 1) Please follow-up with your primary care doctor in the next 2-3 days. Please call tomorrow to schedule a follow up appointment. If you cannot follow up with your doctor within 1 week please return to the Emergency Department for any urgent issues. 2) You were diagnosed with Shingles here in the ER. We have sent a prescription for Valacyclovir and Percocet to your pharmacy. You are to take your Valacyclovir Daily for 14 days and on days that you have dialysis, you are to take the medication after your dialysis session. 3) If you have any worsening of symptoms or any other concerns please return to the ER immediately. Return if worsening symptoms including fevers, headache, vomiting, visual or hearing disturbances, abdominal pain, chest pain, shortness of breath, syncope, dehydration, inability to take things by mouth/vomiting, altered mental status, or worsening concerning symptoms. 4) Please continue taking your home medications as directed. Your medications on discharge include Valacyclovir and Percocet . Side effects may include upset stomach, abdominal pain, vomiting, or diarrhea. Do not drink alcohol with your medications. - Post Discharge Activity
[2018-11-14] MEDS ORDERED: valACYclovir HCL 1000 MG TABLET PO ONE (02:40)
[2018-11-14] MEDS ORDERED: GABAPENTIN 100 MG CAPSULE (FP) PO ONE (02:40)
[2018-11-14] MEDS ORDERED: GABAPENTIN 100 MG CAPSULE (FP) ONE (02:56)
[2018-11-14] MEDS ORDERED: valACYclovir HCL 500 MG TABLET (FP) ONE (02:56)
--- NOTE | 2018-11-14 02:56 | PDOC ---
Attending Attestation - Resident Resident Name: Zain Willingham - ED Attending Attestation I have performed the following: I have examined & evaluated the patient, The case was reviewed & discussed with the resident, I agree w/resident's findings & plan, Exceptions are as noted - HPI HPI: 11/14/18 02:53 62 M with h/o HTN, HLD, CHF, COPD, ESRD on HD, presenting to ED with pain and rash to RLE. Pt states he first noticed pain about 3 days ago. Today he started to feel a rash that he describes as itchy and painful. Pt states it is localized to his R buttock and thigh. Denies any lesions anywhere else. Denies F /C. - Physicial Exam PE: 11/14/18 02:54 "GENERAL: Awake, alert, and fully oriented, in no acute distress. HEAD: No signs of trauma EYES: PERRLA, EOMI, sclera anicteric, conjunctiva clear ENT: Auricles normal inspection, hearing grossly normal, nares patent, oropharynx clear without exudates. Moist mucosa NECK: Nontender, no stepoffs, Normal ROM, supple, no lymphadenopathy, JVD, or masses LUNGS: Breath sounds equal, clear to auscultation bilaterally. No wheezes, and no crackles HEART: Regular rate and rhythm, normal S1 and S2, no murmurs, rubs or gallops ABDOMEN: Soft, nontender, normoactive bowel sounds. No guarding, no rebound. No masses EXTREMITIES: Normal range of motion, no edema. No clubbing or cyanosis. No cords, erythema, or tenderness NEUROLOGICAL: Cranial nerves II through XII intact. 5/5 strength and sensation in all extremities, Normal speech, normal gait, normal cerebellar function SKIN: + vesicular rash to R buttock and R thigh, no erythema, no induration or fluctuance, no drainage - Medical Decision Making 11/14/18 02:55 62 M with shingles rash to RLE. No crossing of midline. No evidence of disseminated shingles or systemic illness. - Valacyclovir 1gm/day (renal dosing) - Pain control Pt is well appearing, with normal vitals. Clinically stable for DC at this time. I discussed the physical exam findings, ancillary test results and final diagnoses with the patient. I answered all of the patient's questions. The patient was satisfied with the care received and felt comfortable with the discharge plan and treatment plan. The patient agrees to follow up with the primary care physician within 24-72 hours.
[2018-11-14] MEDS ORDERED: oxyCODONE HCL 5 MG TABLET PO ONE ×2 (03:40→03:47)
[2018-11-14] MEDS ORDERED: oxyCODONE HCL 5 MG TABLET ONE (03:54)
[2018-11-14 04:08] VITALS: BP 142/98; TEMP 97.4
== END 2018-11-14 04:10 | disposition home or self-care (01) ==
LOC: JER 01:25
DX: B02.9 Zoster without complications (principal); I10 Essential (primary) hypertension; E78.5 Hyperlipidemia, unspecified; I50.9 Heart failure, unspecified; J44.9 Chronic obstructive pulmonary disease, unspecified
CPT/HCPCS: 99282-25

== ENCOUNTER 2019-07-03 22:06 | Emergency (ER) | payer OTHER ==
[2019-07-03 22:14] VITALS: BP 146/82; PULSE 86; TEMP 97.8; BMI 25.0
--- NOTE | 2019-07-03 23:04 | PDOC ---
History of Present Illness - General Chief Complaint: Injury Stated Complaint: INJURY Time Seen by Provider: 07/03/19 22:59 History Source: Patient - History of Present Illness Initial Comments: 07/03/19 23:59 63-year-old male complaining of left hand pain. Patient reports that he fell backwards with a hand outstretched. Denies head trauma. Patient has a history of end-stage renal disease currently on hemodialysis. Patient reports fall at 5 PM. Pain is worse with movement. patient is also noted to have abrasions to hand. last tetanus unknown AV shunt on left arm Past History - Past Medical History Allergies/Adverse Reactions: Allergies Allergy/AdvReac Type Severity Reaction Status Date / Time No Known Allergies Allergy Verified 07/03/19 22:14 Home Medications: Ambulatory Orders Sodium Bicarbonate 1,300 mg PO BID 11/18/15 Carvedilol [Coreg -] 12.5 mg PO BID #60 tablet 11/21/15 Cholecalciferol (Vitamin D3) [Vitamin D3 -] 2,000 unit PO DAILY tab 01/08/17 Tacrolimus Anhydrous [Prograf] 5 mg PO BID #30 cap 01/26/17 predniSONE [Deltasone -] 5 mg PO DAILY #30 tablet 10/22/18 Oxycodone HCl/Acetaminophen [Percocet 5-325 mg Tablet] 1 tab PO Q6H #20 tablet MDD 4 tabs 11/14/18 Torsemide 20 mg PO DAILY 11/14/18 Valacyclovir HCl [Valtrex -] 1,000 mg PO DAILY #14 tablet 11/14/18 Anemia: No Asthma: No Cancer: No Cardiac Disorders: Yes CVA: No COPD: Yes CHF: Yes Dementia: No Diabetes: No Dialysis: Yes (HX FISTULA) GI Disorders: No Disorders: No HTN: Yes Hypercholesterolemia: No Liver Disease: No Seizures: No Thyroid Disease: No - Surgical History Abdominal Surgery: No Appendectomy: No Cardiac Surgery: Yes (valve replacement) Cholecystectomy: No Lung Surgery: No Neurologic Surgery: No Orthopedic Surgery: No - Psycho Social/Smoking Cessation Hx Smoking History: Never smoked Have you smoked in the past 12 months: No Number of Cigarettes Smoked Daily: 10 If you are a former smoker, when did you quit?: 2.5 months ago 'Breaking Loose' booklet given: 11/18/15 Hx Alcohol Use: No Drug/Substance Use Hx: No Substance Use Type: None Hx Substance Use Treatment: No *Physical Exam - Vital Signs Last Vital Signs Temp Pulse Resp BP Pulse Ox 97.8 F 86 18 146/82 97 07/03/19 22:11 07/03/19 22:11 07/03/19 22:11 07/03/19 22:11 07/03/19 22:11 - Physical Exam General Appearance: Yes: Appropriately Dressed Extremity: positive: Other (left 4th and 5th proximal phalanges edema with slight deformity) Neurologic: positive: Fully Oriented, Alert ED Progress Note - Progress Note Progress Note: 07/04/19 00:03 A: finger fracture proximal 4th and 5th phalanges P: splint ortho follow up Discharge - Discharge Information Problems reviewed: Yes Clinical Impression/Diagnosis: Fracture of finger, middle or proximal phalanx, closed Abrasion hand Qualifiers: Encounter type: initial encounter Laterality: left Qualified Code(s): S60.512A - Abrasion of left hand, initial encounter Disposition: HOME - Follow up/Referral Referrals: Hector Garcia MD [Staff Physician] - - Patient Discharge Instructions Patient Printed Discharge Instructions: Finger Fracture Additional Instructions: apply ice to the hand for the first 24 hours. Elevate as much as possible. Keep hand in splint. It is very important that you follow-up with the hand surgeon/orthopedic doctor as soon as possible Return to the emergency room for any worsening symptoms - Post Discharge Activity Work/Back to School Note: Back to Work
[2019-07-03] MEDS ORDERED: DIPHTH,PERTUSS(ACELL),TET 0.5 ML DISP.SYRIN IM ONE (23:52)
[2019-07-04] MEDS ORDERED: DIPHTH,PERTUSS(ACELL),TET 0.5 ML DISP.SYRIN IM ONE (00:12)
== END 2019-07-04 00:19 | disposition home or self-care (01) ==
LOC: JERFT 22:06
PROC: 3E0234Z Introduction of Serum, Toxoid and Vaccine into Muscle, Percutaneous Approach (ICD-10-PCS; principal; 2019-07-03)
DX: S62.615A Displaced fracture of proximal phalanx of left ring finger, initial encounter for closed fracture (principal); S62.617A Displaced fracture of proximal phalanx of left little finger, initial encounter for closed fracture; W19.XXXA Unspecified fall, initial encounter; Y93.89 Activity, other specified; Y92.89 Other specified places as the place of occurrence of the external cause; I25.10 Atherosclerotic heart disease of native coronary artery without angina pectoris; Y99.8 Other external cause status; I12.0 Hypertensive chronic kidney disease with stage 5 chronic kidney disease or end stage renal disease; I50.89 Other heart failure; N18.6 End stage renal disease; N17.8 Other acute kidney failure; Z99.2 Dependence on renal dialysis; Z87.891 Personal history of nicotine dependence; J44.9 Chronic obstructive pulmonary disease, unspecified; Z95.4 Presence of other heart-valve replacement
CPT/HCPCS: 73130-TC-LT-FY; 90471; 99283-25